=== PATIENT | male | born 1950 | race Caucasian/White ===

== ENCOUNTER → 2017-07-23 | Outpatient (CLI) | payer MEDICARE, OTHER ==
--- NOTE | 2017-07-23 15:00 | CT ---
EXAMINATION TYPE: CT brain wo con DATE OF EXAM: 07/23/2017 COMPARISON: NONE HISTORY: Speech disturbances. CT DLP: [address] of the brain was performed. The ventricles, basal cisterns and sulci overlying the cerebral convexities demonstrate mild enlargem ent. There is no evidence for intracranial hemorrhage or sulcal effacement. There is decreased attenuation about the periventricular white matter and deep white matter of both c erebral hemispheres, compatible with chronic small vessel ischemia. Differential diagnosis does inclu de demyelination. No mass effects are seen.No midline shift. Osseous calvarium is intact. If symptoms persist consider MRI. IMPRESSION: 1. Age related atrophic and chronic small vessel ischemic change without acute intracranial process s een at this time.
--- NOTE | 2017-07-23 16:23 | US ---
EXAMINATION TYPE: US carotid duplex BILAT DATE OF EXAM: 07/23/2017 COMPARISON: NONE CLINICAL HISTORY: R47.02 Dysphasia, R47.9 speech disturbances. Vision disturbance, slurred speech EXAM MEASUREMENTS: RIGHT: Peak Systolic Velocity (PSV) cm/sec ----- Right CCA: 98.0 ----- Right ICA: 216.4 ----- Right ECA: 111.3 ICA/CCA ratio: 2.2 RIGHT: End Diastole cm/sec ----- Right CCA: 19.7 ----- Right ICA: 73.8 ----- Right ECA: 22.4 LEFT: Peak Systolic Velocity (PSV) cm/sec ----- Left CCA: 144.7 ----- Left ICA: 167.7 ----- Left ECA: 136.3 ICA/CCA ratio: 1.2 LEFT: End Diastole cm/sec ----- Left CCA: 33.7 ----- Left ICA: 62.7 ----- Left ECA: 23.1 VERTEBRALS (direction of flow): Right Vertebral: Antegrade Left Vertebral: Antegrade Rhythm: Normal Bilateral intimal thickening, large amount of plaque bilateral CCA, bulb and proximal ICA, elevated v elocities: right prox mid and distal ICA, left distal CCA, left prox mid and distal ICA and left mid ECA, right ICA/CCA ratio 2.2 : 50 to 69% stenosis. IMPRESSION: 1. Bilateral atherosclerotic changes. Findings are suggestive of a 50-69% stenosis within the proxima l right ICA. Criteria for Assigning % of Stenosis / Diameter reduction (Estimation based on the indirect measurements of the internal carotid artery velocities (ICA PSV). 1. Normal (no stenosis)=ICA PSV < 125 cm/s: ratio < 2.0: ICA EDV<40 cm/s. 2. Less than 50% stenosis=ICA PSV < 125 cm/s: ratio < 2.0: ICA EDV<40 cm/s. 3. 50 to 69% stenosis=ICA PSV of 125 to 230 cm/s: ration 2.0 ? 4.0: ICA EDV 40-100 cm/s. 4. Greater than 70% stenosis to near occlusion= ICA PSV > 230 cm/s: ratio > 4.0: ICA EDV > 100 cm/s. 5. Near occlusion= ICA PSV velocities may be low or undetectable: variable ratio and ICA EDV. 6. Total occlusion=unable to detect flow.
--- NOTE | 2017-07-24 15:41 | ECHOF ---
Referral Reason:R47.02 Dysphasia, R47.9 speech disturbances MEASUREMENTS -------- HEIGHT: 170.2 cm WEIGHT: 72.6 kg BP: 164/78 RVIDd: 3.0 cm (< 3.3) IVSd: 0.9 cm (0.6 - 1.1) LVIDd: 4.6 cm (3.9 - 5.3) LVPWd: 1.0 cm (0.6 - 1.1) IVSs: 1.3 cm LVIDs: 3.0 cm LVPWs: 1.4 cm LA Diam: 3.1 cm (2.7 - 3.8) LAESV Index (A-L): 23.79 ml/m Ao Diam: 3.2 cm (2.0 - 3.7) AV Cusp: 1.8 cm (1.5 - 2.6) MV EXCURSION: 14.967 mm (> 18.000) MV EF SLOPE: 89 mm/s (70 - 150) EPSS: 1.4 cm MV E Lele: 0.98 m/s MV DecT: 256 ms MV A Lele: 1.19 m/s MV E/A Ratio: 0.82 AV maxP.14 mmHg AV meanP.22 mmHg FINDINGS -------- Sinus rhythm. This was a technically adequate study. The left ventricular size is normal. Left ventricular wall thickness is normal. Overall left vent ricular systolic function is normal with, an EF between 60 - 65 %. The right ventricle is normal in size. Normal LA size by volume 22+/-6 ml/m2. The right atrium is normal in size. There is mild aortic valve sclerosis. Peak/mean gradient across the Aortic Valve is 16.14mmHg / 7.2 2mmHg. Mild mitral annular calcification present. Mild tricuspid regurgitation present. Right ventricular systolic pressure is normal at < 35 mmHg. Trace/mild (physiologic) pulmonic regurgitation. The aortic root size is normal. Normal inferior vena cava with normal inspiratory collapse consistent with estimated right atrial pre ssure of 5 mmHg. There is no pericardial effusion. CONCLUSIONS -------- 1. Sinus rhythm. 2. This was a technically adequate study. 3. The left ventricular size is normal. 4. Left ventricular wall thickness is normal. 5. Overall left ventricular systolic function is normal with, an EF between 60 - 65 %. 6. The right ventricle is normal in size. 7. Normal LA size by volume 22+/-6 ml/m2. 8. The right atrium is normal in size. 9. There is mild aortic valve sclerosis. 10. Peak/mean gradient across the Aortic Valve is 16.14mmHg / 7.22mmHg. 11. Mild mitral annular calcification present. 12. Mild tricuspid regurgitation present. 13. Right ventricular systolic pressure is normal at < 35 mmHg. 14. Trace/mild (physiologic) pulmonic regurgitation. 15. The aortic root size is normal. 16. Normal inferior vena cava with normal inspiratory collapse consistent with estimated right atrial pressure of 5 mmHg. 17. There is no pericardial effusion. PROGRAM DIRECTOR/AIR PERSONALITY: Yara Rico RDCS
== END | disposition home or self-care (01) ==
LOC: RADCTMAIN 14:26
PROVIDERS: ATTEND Family Medicine
DX: G31.1 Senile degeneration of brain, not elsewhere classified (principal); I67.82 Cerebral ischemia; I65.23 Occlusion and stenosis of bilateral carotid arteries
CPT/HCPCS: 70450; 93306; 93880

== ENCOUNTER → 2018-03-27 | Outpatient (CLI) | payer MEDICARE, OTHER ==
--- NOTE | 2018-03-27 14:05 | CTL ---
EXAMINATION TYPE: CT Low Dose Lung DATE OF EXAM ORDERED: 03/27/2018 HISTORY: Long-term tobacco use. Lung cancer screening CT DLP: [address] CTDI: 2.30 mGy Automated exposure control for dose reduction was used. SCREENING VISIT: Initial study COMPARISON: None TECHNIQUE: Low dose computed tomography scan was performed through the chest at 1 mm thick sections a nd reconstructed images in the coronal plane at [address] DIAGNOSTIC QUALITY: Satisfactory FINDINGS: LUNG NODULES: None. Incidental 8 mm calcified nodule or granuloma medially left lower lobe axial image 177. LUNGS: COPD: Severity: Moderate Fibrosis: Severity: Moderate biapical parenchymal fibrosis with apical peripheral bleb formation Lymph nodes: Some small calcified left hilar and subcarinal lymph nodes are seen. No definitive great er than 1 cm noncalcified lymph nodes are present. Prominent but subcentimeter noncalcified AP window and pericarinal lymph nodes are present. Other findings: None BILATERAL PLEURAL SPACE: Effusion: None Calcification: None Thickening: Mild biapical Pneumothorax: None HEART: Heart Size: Normal Coronary calcification: Severe three-vessel and/or stent formation. Correlate clinically. Pericardial effusion: None OTHER FINDINGS: Upper abdomen: Small hiatal hernia is present. Bony thorax: None Supraclavicular region: None Other: Mild to moderate calcification at level of aortic valve and aortic root. Mild to moderate calc ified plaque throughout the remainder aorta. IMPRESSION: Evidence of old granulomatous disease. No suspicious nodules. FOLLOW UP CT CHEST RECOMMENDATION: Annual low-dose lung screening CT. CT LUNG RAD: Lung-Rad 2S Benign Appearance or Behavior Recommendation: Severe three-vessel coronary artery calcification and/or stents. Correlate clinically . If no stents present correlate for additional cardiac risk factors is advised.
== END ==
LOC: RADCTMAIN 12:58
PROVIDERS: ATTEND Family Medicine
DX: Z12.2 Encounter for screening for malignant neoplasm of respiratory organs (principal); Z87.891 Personal history of nicotine dependence

== ENCOUNTER 2019-02-13 16:00 | Observation (INO) | payer MEDICARE, OTHER ==
[2019-02-13] MEDS ORDERED: ASPIRIN 81 MG PO STA (16:22)
--- NOTE | 2019-02-13 16:30 | ED ---
Chest Pain HPI - General Chief Complaint: Chest Pain Stated Complaint: Chest pain Time Seen by Provider: 02/13/19 16:07 Source: patient Mode of arrival: wheelchair Limitations: no limitations - History of Present Illness Initial Comments: Patient is 68-year-old male with history of carotid artery occlusions presenting to emergency Department with chief complaint of chest pain and shortness of breath. Patient states his been having on and off chest pain for the past 3 months that occur for about one hour episodes. Patient states his pain is located in the left side of the chest with occasional radiation to the left arm. Patient states the pain is not reproducible with palpation or on exertion. Patient also reports diaphoresis during episodes of chest pain. Patient reports the pain is more dull in nature. Patient denies nausea or vomiting or diarrhea. Patient also reports a headache which passed resolved. Patient also reports shortness of breath although he states this is his baseline due to his smoking status. Patient denies any dyspnea on exertion. Patient reports hypertension, smoking, hyperlipidemia and family history of cardiovascular disease. Patient reports he was evaluated by Dr. Reid for carotid artery occlusion. Patient denies one-sided weakness or paresthesias. Patient gait instability or aphasia. Patient is also reporting some abdominal pain and states that is because he had a lot of food and took a laxative earlier today. - Related Data Home Medications Medication Instructions Recorded Confirmed Aspirin EC [Ecotrin Low Dose] 81 mg PO DAILY 02/13/19 02/13/19 Buprenorphine HCl/Naloxone HCl 1 tab SL DAILY 02/13/19 02/13/19 [Zubsolv 2.9-0.71 mg Tablet Sl] Carvedilol [Coreg] 3.125 mg PO BID 02/13/19 02/13/19 Cetirizine HCl 10 mg PO DAILY 02/13/19 02/13/19 Clopidogrel [Plavix] 75 mg PO DAILY 02/13/19 02/13/19 Lisinopril 20 mg PO DAILY 02/13/19 02/13/19 cloNIDine HCL [Catapres] 0.6 mg PO HS 02/13/19 02/13/19 Allergies Allergy/AdvReac Type Severity Reaction Status Date / Time codeine AdvReac Nausea Verified 02/13/19 17:19 Review of Systems ROS Statement: Those systems with pertinent positive or pertinent negative responses have been documented in the HPI. ROS Other: All systems not noted in ROS Statement are negative. EKG Findings - EKG Comments: EKG Findings:: Normal sinus rhythm, no ST changes. Ventricular rate 76, MA interval 154, QRS duration 72, QT/QTC 34/432. Past Medical History Past Medical History: Coronary Artery Disease (CAD), GERD/Reflux, Hyperlipidemia, Hypertension History of Any Multi-Drug Resistant Organisms: None Reported Additional Past Surgical History / Comment(s): shoulder Smoking Status: Current every day smoker Past Alcohol Use History: Daily Past Drug Use History: None Reported General Exam Limitations: no limitations General appearance: alert, in no apparent distress Head exam: Present: atraumatic, normocephalic, normal inspection Eye exam: Present: normal appearance Pupils: Present: normal accommodation ENT exam: Present: normal exam, normal oropharynx, mucous membranes moist, TM's normal bilaterally, normal external ear exam Neck exam: Present: normal inspection, full ROM Respiratory exam: Present: wheezes (Bilateral wheezing) Cardiovascular Exam: Present: regular rate, normal rhythm, normal heart sounds GI/Abdominal exam: Present: soft, tenderness (Epigastric). Absent: distended Extremities exam: Present: normal inspection, full ROM Back exam: Present: normal inspection, full ROM Neurological exam: Present: alert, oriented X3, CN II-XII intact, normal gait, other (Neuro exam unremarkable.). Absent: altered, abnormal gait, motor sensory deficit Psychiatric exam: Present: normal affect, normal mood Skin exam: Present: warm, dry, intact, normal color Course Vital Signs 02/13/19 02/13/19 16:02 16:35 Temperature 97.6 F Pulse Rate 81 Pulse Rate [ 81 Clinical Informatics Strategist ] Respiratory 18 20 Rate Blood Pressure 187/91 O2 Sat by Pulse 98 Oximetry Chest Pain MDM - Differential Diagnosis ACS, Pleurisy-Other - MDM Patient is 68-year-old male with history of carotid artery occlusions presenting to emergency department with a chief complaint of chest pain. Patient is presenting with typical chest pain with episodes of diaphoresis. Some shortness of breath although that is his baseline due to his smoking habits. Exam is unremarkable aside from bilateral wheezing which she states again that is due to his smoking. EKG shows normal sinus rhythm with no ST changes. Chest x-ray showing scarring of the lung but no acute changes. Patient given aspirin arrival. Patient has a heart score of 5. CBC and urine PRR unremarkable. Coags unremarkable. Initial troponin is negative. Patient will be admitted for observation and serial troponins. Case discussed with Dr. Pisano. Except physician is Dr. Issa. Cardiology consult. - Wells Criteria Clinical Symptoms of DVT: (0) No No Alternative Diagnosis: (0) No Immobilization of Surgery in Previous 4 Weeks: (0) No Previous DVT/PE: (0) No Hemoptysis: (0) No Malignancy: (0) No Disposition Clinical Impression: Chest pain Disposition: ADMITTED IP TO THIS HOSP Condition: Stable Instructions (If sedation given, give patient instructions): Chest Pain (ED) Additional Instructions: Patient will be admitted Is patient prescribed a controlled substance at d/c from ED?: No Referrals: Kit Issa MD [Primary Care Provider] - 1-2 days Time of Disposition: 18:42
[2019-02-13 17:01] LABS: Basophils % (A) 0 %; Eosinophils # (A) 0.4 k/uL (0-0.7); Eosinophils % (A) 5 %; HCT 36.9 % (39.0-53.0); Lymphocytes # (A) 1.8 k/uL (1.0-4.8); Lymphocytes % (A) 21 %; MCH 32.5 pg (25.0-35.0); MCHC 35.2 g/dL (31.0-37.0); MCV 92.3 fL (80.0-100.0); Mean Platelet Volume 5.8; Monocytes # (A) 0.4 k/uL (0-1.0); Monocytes % (A) 5 %; Neutrophils # (A) 5.7 k/uL (1.3-7.7); Neutrophils % (A) 66 %; Platelet Count 503 k/uL (150-450); RDW 12.1 % (11.5-15.5); WBC 8.6 k/uL (3.8-10.6)
[2019-02-13 17:05] LABS: ALT 23 U/L (21-72); AST 41 U/L (17-59); African American GFR (CKD) >90 (>60 ml/min/1.73 sqM); Albumin 4.7 g/dL (3.5-5.0); Alkaline Phosphatase 109 U/L (38-126); Anion Gap 10 mmol/L; Blood Urea Nitrogen 13 mg/dL (9-20); Calcium 9.7 mg/dL (8.4-10.2); Carbon Dioxide 23 mmol/L (22-30); Chloride 101 mmol/L (98-107); Glucose 113 mg/dL (74-99); INR 0.9 (<1.2); Magnesium 2.3 mg/dL (1.6-2.3); Non-African American GFR(CKD) 89 (>60 ml/min/1.73 sqM); Partial Thromboplastin Time 25.5 sec (22.0-30.0); Potassium 5.8 mmol/L (3.5-5.1); Prothrombin Time 10.1 sec (9.0-12.0); Sodium 134 mmol/L (137-145); Total Bilirubin 0.7 mg/dL (0.2-1.3); Total Protein 8.7 g/dL (6.3-8.2)
--- NOTE | 2019-02-13 17:08 | XR ---
EXAMINATION TYPE: XR chest 2V DATE OF EXAM: 02/13/2019 COMPARISON: NONE HISTORY: Chest pain TECHNIQUE: Frontal and lateral views of the chest are obtained. FINDINGS: Heart is normal. There is some mild linear density in the lower lung penny. There is no p leural effusion. There are no hilar masses. There is 25% compression fracture of T10 vertebra. Fractu res probably old. IMPRESSION: Minimal scarring or subsegmental atelectasis in the lower lung penny. Mild pleural scar ring at the right lung apex. T10 compression fracture has progressed compared to old CT scan of 2018.
[2019-02-13] MEDS ORDERED: NITROGLYCERIN SL TABS 0.4 MG TAB SUBLINGUAL PRN (18:43)
[2019-02-13 19:15] VITALS: RESP 18
[2019-02-13] MEDS ORDERED: SODIUM POLYSTYRENE SULFONATE 15 GM/60 ML BOTTLE PO STA (20:30)
[2019-02-13] MEDS: CARVEDILOL 3.125 MG TAB PO SCH (20:55)
[2019-02-13] MEDS: NICOTINE 21MG/24HR PATCH TRANSDERM SCH (20:57)
[2019-02-13] MEDS ORDERED: cloNIDine HCL 0.2 MG TAB PO SCH (21:00)
[2019-02-14 06:17] LABS: Albumin 4.1 g/dL (3.5-5.0); Calcium 9.6 mg/dL (8.4-10.2); Potassium 5.1 mmol/L (3.5-5.1); Total Bilirubin 0.5 mg/dL (0.2-1.3); Total Protein 7.9 g/dL (6.3-8.2)
[2019-02-14] MEDS ORDERED: CLOPIDOGREL 75 MG TAB PO SCH (09:00)
[2019-02-14] MEDS ORDERED: ASPIRIN 81 MG PO SCH (09:00)
[2019-02-14] MEDS ORDERED: ASPIRIN 325 MG TAB PO SCH (09:00)
[2019-02-14] MEDS ORDERED: LORATADINE 10 MG TAB PO SCH (09:00)
[2019-02-14] MEDS ORDERED: LISINOPRIL 20 MG TAB PO SCH (09:00)
[2019-02-14] MEDS: NICOTINE 21MG/24HR PATCH TRANSDERM SCH (10:07)
[2019-02-14] MEDS: CARVEDILOL 3.125 MG TAB PO SCH (10:07)
--- NOTE | 2019-02-14 11:24 | P.CRDCN ---
History of Present Illness Consult date: 02/14/19 Chief complaint: Chest pain History of present illness: This is a pleasant 68-year-old gentleman with a past medical history significant for hypertension as well as carotid disease presented to the hospital complaining of chest discomfort. The patient has been experiencing discomfort for the last 3 months. He described it as a sharp kind of discomfort, in the mid of the chest, without any radiation and without any associated symptoms. Clearly the patient stated that the discomfort is not exertional related. He stated that is intermittent and sometimes he has it even if he is sitting doing nothing. He has been walking around earlier today here in the hallway and he has been asymptomatic. He is as a matter of fact has been chest pain-free since he was admitted to the hospital. Recently a stress test was recommended by Dr. Issa but for some reason the patient in did not having the test. The patient does follow-up with Dr. Min in the office on regular basis. The EKG showed sinus rhythm without any ischemic ST or T-wave abnormalities. The cardiac enzymes were checked and came in to be unremarkable. The chest x-ray did not show any acute abnormalities. The patient is not aware of any prior history of coronary artery disease or congestive heart failure or cardiac arrhythmia. Past Medical History Past Medical History: Coronary Artery Disease (CAD), Hyperlipidemia, Hyperte nsion Additional Past Medical History / Comment(s): hep c History of Any Multi-Drug Resistant Organisms: None Reported Past Surgical History: Orthopedic Surgery, Tonsillectomy Additional Past Surgical History / Comment(s): right shoulder Past Anesthesia/Blood Transfusion Reactions: No Reported Reaction Past Psychological History: No Psychological Hx Reported Smoking Status: Current every day smoker Past Alcohol Use History: Daily Additional Past Alcohol Use History / Comment(s): drinks 8-15 cans of beer per day Past Drug Use History: None Reported - Past Family History Mother Family Medical History: Myocardial Infarction ([place]) Father Additional Family Medical History / Comment(s): polio, enlarged heart Brother(s) Family Medical History: CVA/TIA Daughter(s) History Unknown: Yes Son(s) Family Medical History: Hyperlipidemia Medications and Allergies Home Medications Medication Instructions Recorded Confirmed Type Aspirin EC [Ecotrin Low Dose] 81 mg PO DAILY 02/13/19 02/13/19 History Buprenorphine HCl/Naloxone HCl 1 tab SL DAILY 02/13/19 02/13/19 History [Zubsolv 2.9-0.71 mg Tablet Sl] Carvedilol [Coreg] 3.125 mg PO BID 02/13/19 02/13/19 History Cetirizine HCl 10 mg PO DAILY 02/13/19 02/13/19 History Clopidogrel [Plavix] 75 mg PO DAILY 02/13/19 02/13/19 History Lisinopril 20 mg PO DAILY 02/13/19 02/13/19 History cloNIDine HCL [Catapres] 0.6 mg PO HS 02/13/19 02/13/19 History Allergies Allergy/AdvReac Type Severity Reaction Status Date / Time codeine AdvReac Nausea Verified 02/13/19 19:42 Physical Exam Vitals: Vital Signs Temp Pulse Pulse Pulse Resp BP BP 02/14/19 07:57 98.1 F 73 18 108/68 02/14/19 04:00 97.6 F 75 18 107/68 02/13/19 23:25 98.2 F 81 18 132/76 02/13/19 19:25 98.7 F 69 18 162/92 02/13/19 19:17 98.0 F 02/13/19 19:13 97.8 F 67 18 120/63 02/13/19 17:00 68 18 147/89 02/13/19 16:35 81 20 02/13/19 16:02 97.6 F 81 18 187/91 Pulse Ox 02/14/19 07:57 97 02/14/19 04:00 95 02/13/19 23:25 99 02/13/19 19:25 95 02/13/19 19:17 02/13/19 19:13 98 02/13/19 17:00 98 02/13/19 16:35 02/13/19 16:02 98 Intake and Output 02/13/19 02/14/19 02/14/19 22:59 06:59 14:59 Other: Voiding Method Toilet Toilet Toilet # Voids 2 1 Weight 81.647 kg - Constitutional General appearance: no acute distress - Respiratory Respiratory: bilateral: CTA - Cardiovascular Rhythm: regular Heart sounds: normal: S1, S2 Abnormal Heart Sounds: systolic murmur Results 02/13/19 16:42 02/14/19 05:41 Cardiac Enzymes 02/13/19 02/13/19 02/13/19 Range/Units 16:42 16:42 22:24 AST 41 (17-59) U/L Troponin I <0.012 <0.012 (0.000-0.034) ng/mL 02/14/19 02/14/19 Range/Units 05:41 05:41 AST 31 (17-59) U/L Troponin I <0.012 (0.000-0.034) ng/mL Coagulation 02/13/19 Range/Units 16:42 PT 10.1 (9.0-12.0) sec APTT 25.5 (22.0-30.0) sec Lipids 02/14/19 Range/Units 05:41 Triglycerides 196 H (<150) mg/dL Cholesterol 249 H (<200) mg/dL HDL Cholesterol 35 L (40-60) mg/dL CBC 02/13/19 Range/Units 16:42 WBC 8.6 (3.8-10.6) k/uL RBC 4.00 L (4.30-5.90) m/uL Hgb 13.0 (13.0-17.5) gm/dL Hct 36.9 L (39.0-53.0) % Plt Count 503 H (150-450) k/uL Comprehensive Metabolic Panel 02/13/19 02/14/19 Range/Units 16:42 05:41 Sodium 134 L 138 (137-145) mmol/L Potassium 5.8 H 5.1 (3.5-5.1) mmol/L Chloride 101 103 (98-107) mmol/L Carbon Dioxide 23 27 (22-30) mmol/L BUN 13 16 (9-20) mg/dL Creatinine 0.90 1.02 (0.66-1.25) mg/dL Glucose 113 H 112 H (74-99) mg/dL Calcium 9.7 9.6 (8.4-10.2) mg/dL AST 41 31 (17-59) U/L ALT 23 28 (21-72) U/L Alkaline Phosphatase 109 99 (38-126) U/L Total Protein 8.7 H 7.9 (6.3-8.2) g/dL Albumin 4.7 4.1 (3.5-5.0) g/dL Current Medications Generic Name Dose Route Start Last Admin Trade Name Freq PRN Reason Stop Dose Admin Aspirin 81 mg 02/14/19 09:00 02/14/19 10:07 Aspirin PO 81 mg DAILY CYNTHIA Administration Carvedilol 3.125 mg 02/13/19 21:00 02/14/19 10:07 Coreg PO 3.125 mg BID-W/MEALS CYNTHIA Administration Clonidine 0.6 mg 02/13/19 21:00 02/13/19 20:55 Catapres PO 0.6 mg HS CYNTHIA Administration Clopidogrel Bisulfate 75 mg 02/14/19 09:00 02/14/19 10:07 Plavix PO 75 mg DAILY CYNTHIA Administration Lisinopril 20 mg 02/14/19 09:00 02/14/19 10:07 Zestril PO 20 mg DAILY CYNTHIA Administration Loratadine 10 mg 02/14/19 09:00 02/14/19 10:07 Claritin PO 10 mg DAILY CYNTHIA Administration Nicotine 1 patch 02/13/19 21:00 02/14/19 10:07 Habitrol 21mg/24hr Patch TRANSDERM 1 patch DAILY CYNTHIA Administration Nitroglycerin 0.4 mg 02/13/19 18:43 Nitrostat SUBLINGUAL Q5M PRN Chest Pain Intake and Output 02/13/19 02/14/19 02/14/19 22:59 06:59 14:59 Other: Voiding Method Toilet Toilet Toilet # Voids 2 1 Weight 81.647 kg 02/13/19 16:42 02/14/19 05:41 Assessment and Plan Assessment: Assessment #1 atypical chest discomfort #2 carotid disease #3 hypertension as well as dyslipidemia Plan #1 acute coronary event was ruled out #2 severe CAD to be ruled out. #3 the patient need to have a stress test. He would like to be discharged home and have it done as an outpatient. Having said that I am going to auscultation to get up and around and if he is asymptomatic he possibly can be discharged home and follow-up with Dr. Min and Dr. Issa as an outpatient
[2019-02-14 11:41] VITALS: BP 129/75; PULSE 78; TEMP 97.5
--- NOTE | 2019-02-14 12:17 | P.HPIM ---
History of Present Illness H&P Date: 02/14/19 Chief Complaint: chest pain Thisis a 68 y/o wm well known to me from the practice. He has a history of opioid dependence and is on Suboxone. He has hypertension and hyperlipidemia, but it did not wish to take medications for it. He reports chest pain and shortness of breath intermittently for the past 3 months. He had downplayed these in the office. It became more significant occasional radiation of the left arm yesterday. They brought him to the emergency room for further evaluation. He also has a history of carotid artery stenosis. At this time he denies any chest pains, pressures, shortness breath, nausea or vomiting. He is having some constipation. Troponin 3 been negative. Other laboratories were significantly normal with the exception of cholesterol 249 and LDL of 175. L HDLs 35. Review of Systems All systems: negative Past Medical History Past Medical History: Hyperlipidemia, Hypertension, Liver Disease (Hepatitis C), Vascular Disorder (Carotid artery stenosis) History of Any Multi-Drug Resistant Organisms: None Reported Past Surgical History: Orthopedic Surgery, Tonsillectomy Additional Past Surgical History / Comment(s): right shoulder Past Anesthesia/Blood Transfusion Reactions: No Reported Reaction Past Psychological History: No Psychological Hx Reported Smoking Status: Current every day smoker Past Alcohol Use History: Daily Additional Past Alcohol Use History / Comment(s): drinks 8-15 cans of beer per day Past Drug Use History: None Reported Additional History: History of opioid dependence currently on Suboxone for long- term treatment and relapse prevention.. - Past Family History Mother Family Medical History: Myocardial Infarction ([place]) Father Additional Family Medical History / Comment(s): polio, enlarged heart Brother(s) Family Medical History: CVA/TIA Daughter(s) History Unknown: Yes Son(s) Family Medical History: Hyperlipidemia Medications and Allergies Home Medications Medication Instructions Recorded Confirmed Type Aspirin EC [Ecotrin Low Dose] 81 mg PO DAILY 02/13/19 02/13/19 History Buprenorphine HCl/Naloxone HCl 1 tab SL DAILY 02/13/19 02/13/19 History [Zubsolv 2.9-0.71 mg Tablet Sl] Carvedilol [Coreg] 3.125 mg PO BID 02/13/19 02/13/19 History Cetirizine HCl 10 mg PO DAILY 02/13/19 02/13/19 History Clopidogrel [Plavix] 75 mg PO DAILY 02/13/19 02/13/19 History Lisinopril 20 mg PO DAILY 02/13/19 02/13/19 History cloNIDine HCL [Catapres] 0.6 mg PO HS 02/13/19 02/13/19 History Allergies Allergy/AdvReac Type Severity Reaction Status Date / Time codeine AdvReac Nausea Verified 02/13/19 19:42 Physical Exam Vitals: Vital Signs Temp Pulse Pulse Pulse Resp BP BP 02/14/19 11:40 97.5 F L 78 129/75 02/14/19 07:57 98.1 F 73 18 108/68 02/14/19 04:00 97.6 F 75 18 107/68 02/13/19 23:25 98.2 F 81 18 132/76 02/13/19 19:25 98.7 F 69 18 162/92 02/13/19 19:17 98.0 F 02/13/19 19:13 97.8 F 67 18 120/63 02/13/19 17:00 68 18 147/89 02/13/19 16:35 81 20 02/13/19 16:02 97.6 F 81 18 187/91 Pulse Ox 02/14/19 11:40 97 02/14/19 07:57 97 02/14/19 04:00 95 02/13/19 23:25 99 02/13/19 19:25 95 02/13/19 19:17 02/13/19 19:13 98 02/13/19 17:00 98 02/13/19 16:35 02/13/19 16:02 98 Intake and Output 02/13/19 02/14/19 02/14/19 22:59 06:59 14:59 Other: Voiding Method Toilet Toilet Toilet # Voids 2 1 Weight 81.647 kg GENERAL: Well-appearing, well-nourished and in no acute distress at the time of exam.. HEAD: Atraumatic, normocephalic. EYES: Pupils equal round and reactive to light, extraocular movements intact, sclera anicteric, conjunctiva are normal. ENT:nares patent, oropharynx clear without exudates. Moist mucous membranes. NECK: Normal range of motion, supple without lymphadenopathy or JVD, no thyromegaly LUNGS: Breath sounds coarse to auscultation bilaterally and equal. No wheezes rales or rhonchi. HEART: Regular rate and rhythm without murmurs, rubs or gallops.S1S2 Normal ABDOMEN: Soft, nontender, normoactive bowel sounds. No guarding, no rebound. No masses appreciated. EXTREMITIES: Normal range of motion, no pitting or edema. No clubbing or cyanosis. NEUROLOGICAL: Cranial nerves II through XII grossly intact. Normal speech, normal gait. PSYCH: Normal mood, normal affect. SKIN: Warm, Dry, normal turgor, no rashes or lesions noted. Results CBC & Chem 7: 02/13/19 16:42 02/14/19 05:41 Labs: Abnormal Lab Results - Last 24 Hours (Table) 02/13/19 02/13/19 02/14/19 Range/Units 16:42 16:42 05:41 RBC 4.00 L (4.30-5.90) m/uL Hct 36.9 L (39.0-53.0) % Plt Count 503 H (150-450) k/uL Sodium 134 L (137-145) mmol/L Potassium 5.8 H (3.5-5.1) mmol/L Glucose 113 H 112 H (74-99) mg/dL Total Protein 8.7 H (6.3-8.2) g/dL Triglycerides 196 H (<150) mg/dL Cholesterol 249 H (<200) mg/dL LDL Cholesterol, Calc 175 H (0-99) mg/dL HDL Cholesterol 35 L (40-60) mg/dL Chest x-ray: report reviewed Thrombosis Risk Factor Assmnt - DVT/VTE Prophylaxis DVT/VTE Prophylaxis: Pharmacologic Prophylaxis ordered - Choose All That Apply Any of the Below Risk Factors Present?: Yes Each Factor Represents 1 point: Obesity (BMI >25) Other Risk Factors: Yes Each Risk Factor Represents 2 Points: Age 61-74 years Other congenital or acquired thrombophilia - If yes, enter type in comment: No Thrombosis Risk Factor Assessment Total Risk Factor Score: 3 Thrombosis Risk Factor Assessment Level: Moderate Risk Assessment and Plan (1) Essential (primary) hypertension Current Visit: Yes Status: Acute Code(s): I10 - ESSENTIAL (PRIMARY) HYPERTENSION SNOMED Code(s): 38895969 (2) Mixed hyperlipidemia Current Visit: Yes Status: Acute Code(s): E78.2 - MIXED HYPERLIPIDEMIA SNOMED Code(s): 926502555 (3) Carotid artery disease Current Visit: Yes Status: Acute Code(s): I73.9 - PERIPHERAL VASCULAR DISEASE, UNSPECIFIED SNOMED Code(s): 301236119 (4) History of opioid abuse Current Visit: Yes Status: Acute Code(s): F11.11 - OPIOID ABUSE, IN REMISSION SNOMED Code(s): 863019282 (5) Alcohol abuse Current Visit: Yes Status: Acute Code(s): F10.10 - ALCOHOL ABUSE, UNCOMPLICATED SNOMED Code(s): 16723524 (6) Tobacco abuse Current Visit: Yes Status: Acute Code(s): Z72.0 - TOBACCO USE SNOMED C ode(s): 378880322 (7) Chest pain Current Visit: Yes Status: Acute Code(s): R07.9 - CHEST PAIN, UNSPECIFIED SNOMED Code(s): 51999207 Plan: I'll restart his home medications. Plan on the heparin subcutaneous for anticoagulation. Cardiology consultation. Home Suboxone medication for his opioid abuse history. We'll discuss alcohol use and smoking. Add atorvastatin he'll be reevaluated next 24 hours or followed up outpatient by me and cardiology's recommendations.
--- NOTE | 2019-02-14 12:21 | P.DS ---
Providers Date of admission: 02/13/19 18:36 Expected date of discharge: 02/14/19 Attending physician: Kit Issa Consults: 02/13/19 18:43 Consult Physician Urgent Consulting Provider: Linsey Antoine Consult Reason/Comments: Chest pain, shortness of breath Do you want consulting provider notified?: Yes Primary care physician: Kit Issa - Discharge Diagnosis(es) (1) Essential (primary) hypertension Current Visit: Yes Status: Acute (2) Mixed hyperlipidemia Current Visit: Yes Status: Acute (3) Carotid artery disease Current Visit: Yes Status: Acute (4) History of opioid abuse Current Visit: Yes Status: Acute (5) Alcohol abuse Current Visit: Yes Status: Acute (6) Tobacco abuse Current Visit: Yes Status: Acute (7) Chest pain Current Visit: Yes Status: Acute Hospital Course: This is a 68 y/o wm well known to me from the practice. He has a history of opioid dependence and is on Suboxone. He has hypertension and hyperlipidemia, but it did not wish to take medications for it. He reports chest pain and shortness of breath intermittently for the past 3 months. He had downplayed these in the office. It became more significant occasional radiation of the left arm yesterday. They brought him to the emergency room for further evaluation. He also has a history of carotid artery stenosis. At this time he denies any chest pains, pressures, shortness breath, nausea or vomiting. He is having some constipation. Troponin 3 been negative. Other laboratories were significantly normal with the exception of cholesterol 249 and LDL of 175. L HDLs 35. Patient was cleared by cardiology. I will send a prescription for atorvastatin at this time. He'll follow-up for reevaluation in the office and for alcohol and tobacco abuse counseling along with his ongoing opioid dependence treatment. He'll follow-up with cardiology for further workup regarding his chest pain. Patient Condition at Discharge: Stable Plan - Discharge Summary New Discharge Prescriptions: New Nicotine 21Mg/24Hr Patch [Habitrol] 1 patch TRANSDERM DAILY patch Atorvastatin [Lipitor] 40 mg PO DAILY #90 tablet Continue Lisinopril 20 mg PO DAILY Clopidogrel [Plavix] 75 mg PO DAILY Cetirizine HCl 10 mg PO DAILY Carvedilol [Coreg] 3.125 mg PO BID Buprenorphine HCl/Naloxone HCl [Zubsolv 2.9-0.71 mg Tablet Sl] 1 tab SL DAILY Aspirin EC [Ecotrin Low Dose] 81 mg PO DAILY Changed cloNIDine HCL [Catapres] 0.2 mg PO HS #0 Discharge Medication List Aspirin EC [Ecotrin Low Dose] 81 mg PO DAILY 02/13/19 [History] Buprenorphine HCl/Naloxone HCl [Zubsolv 2.9-0.71 mg Tablet Sl] 1 tab SL DAILY 02/13/19 [History] Carvedilol [Coreg] 3.125 mg PO BID 02/13/19 [History] Cetirizine HCl 10 mg PO DAILY 02/13/19 [History] Clopidogrel [Plavix] 75 mg PO DAILY 02/13/19 [History] Lisinopril 20 mg PO DAILY 02/13/19 [History] Atorvastatin [Lipitor] 40 mg PO DAILY #90 tablet 02/14/19 [Rx] Nicotine 21Mg/24Hr Patch [Habitrol] 1 patch TRANSDERM DAILY patch 02/14/19 [Rx] cloNIDine HCL [Catapres] 0.2 mg PO HS #0 02/14/19 [Rx] Follow up Appointment(s)/Referral(s): Aryan Min MD [STAFF PHYSICIAN] - 02/20/19 2:45 pm (patient is to follow up with Dr. ROSALEE Min.) Kit Issa MD [Primary Care Provider] - 1-2 days Patient Instructions/Handouts: Chest Pain (ED) Activity/Diet/Wound Care/Special Instructions: I will once again discuss tobaccoism and alcohol use with him on an outpatient basis. Discharge Disposition: HOME SELF-CARE
== END 2019-02-14 12:49 | disposition home or self-care (01) ==
LOC: EC 16:00 → 1SOBS 18:36
PROVIDERS: ADMIT Family Medicine; ATTEND Family Medicine
DX: R07.89 Other chest pain (principal); R06.02 Shortness of breath; R61 Generalized hyperhidrosis; R51 Headache; R10.9 Unspecified abdominal pain; F17.200 Nicotine dependence, unspecified, uncomplicated; I10 Essential (primary) hypertension; I65.29 Occlusion and stenosis of unspecified carotid artery; I25.10 Atherosclerotic heart disease of native coronary artery without angina pectoris; K21.9 Gastro-esophageal reflux disease without esophagitis; F11.20 Opioid dependence, uncomplicated; K59.00 Constipation, unspecified; E78.2 Mixed hyperlipidemia; F10.10 Alcohol abuse, uncomplicated; E66.9 Obesity, unspecified; Z68.27 Body mass index [BMI] 27.0-27.9, adult; T46.5X6A Underdosing of other antihypertensive drugs, initial encounter; T46.6X6A Underdosing of antihyperlipidemic and antiarteriosclerotic drugs, initial encounter; Z79.82 Long term (current) use of aspirin; Z79.899 Other long term (current) drug therapy; Z79.02 Long term (current) use of antithrombotics/antiplatelets; Z86.19 Personal history of other infectious and parasitic diseases; Z88.5 Allergy status to narcotic agent; Z82.49 Family history of ischemic heart disease and other diseases of the circulatory system; Z82.3 Family history of stroke; Z83.1 Family history of other infectious and parasitic diseases
CPT/HCPCS: 93005 ×2; 99285; 36415; 80061; 80053 ×2; 83735; 84484 ×2; 85025; 85610; 85730; 71046; G0378 ×2; S4990 ×2

== ENCOUNTER → 2019-03-23 | Outpatient (CLI) | payer MEDICARE, OTHER ==
[~2019-03-23] MED LIST: REGADENOSON 0.4 MG/5 ML SYRINGE IV ONE
--- NOTE | 2019-03-23 13:17 | NM ---
EXAMINATION TYPE: NM stress lexiscan cardiolite DATE OF EXAM: 03/23/2019 COMPARISON: NONE HISTORY: Hypertension TECHNIQUE: After the intravenous administration of 9.71 mCi Tc 99m Sestamibi - Cardiolite resting SP ECT images acquired 45 minutes post injection. The patient received 0.4mg Lexiscan, 26.6 mCi Tc 99m Sestamibi - Stress images obtained [address] injection FINDINGS: Review of stress and rest SPECT images demonstrates reduced uptake involving the inferior apical port ions of the myocardium on both stress and rest images. Small area of stress-induced reversibility not excluded.. Gated analysis shows normal wall motion with an estimated left ventricular ejection frac tion of 54 %. IMPRESSION: 1. There is a fixed area of uptake involving the inferior apical portion of the myocardium. However, small area of stress-induced adjacent area of reversibility is not excluded should be correlated clin ically.
--- NOTE | 2019-03-23 14:45 | EST ---
EXERCISE STRESS AGE: 69 SEX: M HT: 68" WT: 185 PROTOCOL: Lexiscan Cardiolite Stress Test HEART RATE REST: 60 BLOOD PRESSURE REST: 136/72 MAXIMUM HEART RATE ACHIEVED: 82 MAXIMUM BLOOD PRESSURE: 130/74 85% MPHR: 130 100% MPHR: 153 INDICATIONS: Hypertension. CLINICAL INFORMATION: A Lexiscan nuclear study was performed. Peak heart rate of 82 was achieved. Maximum blood pressure of 130/74 mmHg was noted. Resting EKG shows normal sinus rhythm with normal SD interval and QRS duration and normal ST-T waves. No ST-segment depression suggestive of ischemia was noted. The results of the nuclear study will follow. MMODL / IJN: [id number] /
== END | disposition home or self-care (01) ==
LOC: RADNMMAIN 08:25
PROVIDERS: ATTEND Family Medicine
DX: I10 Essential (primary) hypertension (principal); R07.89 Other chest pain
CPT/HCPCS: 93017; 78452; A9500; J2785

== ENCOUNTER → 2019-07-28 | Outpatient (CLI) | payer MEDICARE, OTHER | END | disposition home or self-care (01) | LOC: LABWHC1 10:59 | PROVIDERS: ATTEND Internal Medicine Interventional Cardiology | DX: U07.1 COVID-19 (principal) | CPT/HCPCS: 87635 ==

== ENCOUNTER 2019-07-30 08:49 | Day surgery (SDC) | payer MEDICARE, OTHER ==
[2019-07-28 16:11] VITALS: BMI 28.1
[~2019-07-30 08:49] MED LIST changes: +ALPRAZolam 0.25 MG TAB PO PRN; +ALPRAZolam 0.5 MG TAB PO PRN; +ASPIRIN 325 MG TAB PO STA; +ATORVASTATIN 80 MG TAB PO STA; +NITROGLYCERIN SL TABS 0.4 MG TAB SUBLINGUAL PRN; -REGADENOSON 0.4 MG/5 ML SYRINGE IV ONE; +SODIUM CHLORIDE 0.9% 1,000 ML in EMPTY BAG 1 BAG IV ONE
[2019-07-30 09:33] LABS: Basophils % (A) 0 %; Eosinophils # (A) 0.7 k/uL (0-0.7); Eosinophils % (A) 8 %; HCT 38.9 % (39.0-53.0); HGB 12.8 gm/dL (13.0-17.5); Lymphocytes % (A) 24 %; MCH 32.1 pg (25.0-35.0); MCHC 32.8 g/dL (31.0-37.0); MCV 97.8 fL (80.0-100.0); Mean Platelet Volume 7.4; Monocytes # (A) 0.5 k/uL (0-1.0); Monocytes % (A) 5 %; Neutrophils # (A) 4.9 k/uL (1.3-7.7); Neutrophils % (A) 58 %; Platelet Count 379 k/uL (150-450); RBC 3.98 m/uL (4.30-5.90); RDW 12.6 % (11.5-15.5); WBC 8.3 k/uL (3.8-10.6)
[2019-07-30 09:43] LABS: African American GFR (CKD) >90 (>60 ml/min/1.73 sqM); Anion Gap 10 mmol/L; Blood Urea Nitrogen 11 mg/dL (9-20); Calcium 9.8 mg/dL (8.4-10.2); Carbon Dioxide 25 mmol/L (22-30); Chloride 101 mmol/L (98-107); Glucose 118 mg/dL (74-99); Non-African American GFR(CKD) 90 (>60 ml/min/1.73 sqM); Potassium 5.1 mmol/L (3.5-5.1); Sodium 136 mmol/L (137-145)
[2019-07-30] MEDS ORDERED: SODIUM CHLORIDE 0.9% 1,000 ML IV ONE ×2 (10:08→11:05)
[2019-07-30] MEDS ORDERED: HEPARIN SODIUM 1,000 UN/ML (10ML VL) ONE (10:19)
[2019-07-30] MEDS ORDERED: VERAPAMIL 2.5 MG/ML 2 ML AMP ONE (10:19)
[2019-07-30] MEDS ORDERED: LIDOCAINE 1% INJ 10MG/ML (20 ML MDV) ONE (10:19)
[2019-07-30] MEDS ORDERED: MIDAZOLAM 2 MG/2 ML VIAL IV ONE (10:29)
[2019-07-30] MEDS ORDERED: LIDOCAINE 1% INJ 10MG/ML (20 ML MDV) SQ ONE (10:32)
[2019-07-30] MEDS ORDERED: VERAPAMIL SYRINGE (5 MG/10 ML) INTRAARTER ONE (10:34)
[2019-07-30] MEDS ORDERED: HEPARIN SODIUM 1,000 UN/ML (10ML VL) IV ONE (10:35)
[2019-07-30] MEDS: NITROGLYCERIN 1000MCG/10ML SYRINGE INTRACORON ONE ×2 (10:39→11:11)
[2019-07-30] MEDS ORDERED: BIVALIRUDIN BOLUS 250 MG/50 ML IV ONE (10:50)
[2019-07-30] MEDS ORDERED: BIVALIRUDIN 250 MG in SODIUM CHLORIDE 0.9% 50 ML IV ONE (10:52)
[2019-07-30] MEDS ORDERED: CLOPIDOGREL 75 MG TAB ONE (10:54)
[2019-07-30] MEDS ORDERED: IOPAMIDOL-370 100ML BTL INJ ONE ×2 (11:00→11:11)
[2019-07-30] MEDS ORDERED: CLOPIDOGREL 75 MG TAB PO ONE (11:04)
[2019-07-30] MEDS ORDERED: RX INFO: IV CONTRAST WAS GIVEN 1 EACH MISC MISCELLANE PRN (11:19)
[2019-07-30] MEDS ORDERED: MAG HYDROX/AL HYDROX/SIMETH 30 ML CUP PO PRN (11:19)
[2019-07-30] MEDS ORDERED: ZOLPIDEM 5 MG TAB PO PRN (11:19)
[2019-07-30] MEDS ORDERED: NITROGLYCERIN SL TABS 0.4 MG TAB SUBLINGUAL PRN (11:19)
[2019-07-30] MEDS ORDERED: ATROPINE SULFATE 0.1 MG/ML 10ML SYRINGE IV PRN (11:19)
--- NOTE | 2019-07-30 14:28 | CC ---
CARDIAC CATHETERIZATION REPORT DATE OF PROCEDURE: 07/30/2019 PROCEDURE PERFORMED: Left heart catheterization and coronary angiography and PTCA and stenting of proximal/ostial RCA with a drug-eluting stent. PERFORMED BY: Dr. Alejandro Min SEDATION: Moderate conscious sedation time was 47 minutes. Patient was administered Versed. Oxygen saturation, hemodynamics and EKG were monitored closely. CLINICAL INFORMATION: Mr. Dion Love is a 69-year-old gentleman with a history of hypertension, hypercholesterolemia, smoking and alcoholism. Because of a positive stress test with inferoapical ischemia, he was advised coronary angiography. I discussed with the patient rationale, risks, benefits, options and he understood all details and wished to proceed. He was brought in for the procedure electively. PROCEDURE NOTE: Under local anesthesia and strict aseptic precautions, a 6-Portuguese introducer was placed in the right radial artery. Using a JR4 and JL3.5 catheters, I performed coronary angiography and the same right catheter was used to check LV pressures. LV gram was not performed. Following this, I performed stenting of the ostium and proximal RCA with 2 drug-eluting stent with excellent results. The sheath was then taken out. A TR band applied as per protocol and saturation the fingers of the right hand was more than 93%. The patient the tolerated procedure well without complications. CARDIAC CATHETERIZATION FINDINGS: The left ventricular end-diastolic pressure was about 15 mmHg without any gradient across aortic valve. CORONARY ANGIOGRAPHY FINDINGS: RIGHT CORONARY ARTERY: Dominant vessel, moderate to heavy calcification in the proximal portion. The ostium has about a 50% lesion. Beyond the ostium is 80% long tortuous lesion, calcified, and after this the caliber improves and distally the vessel bifurcates into a larger PLV smaller PDA which has no significant disease. PLV appears to be diffusely diseased. This is a dominant RCA with an ostial more than 50% and proximal 80-90 percent eccentric lesion. Moderately calcified. LEFT MAIN CORONARY ARTERY: This is a short patent disease-free vessel that bifurcates into LAD and circumflex. LEFT ANTERIOR DESCENDING CORONARY ARTERY: Good caliber vessel, extends along the anterior wall. It gives off septal and diagonal branches, has minor irregularities. No significant disease and distally it curves over the apex to supply the inferoapical portion of the left ventricle. There is about a 30% to 35% narrowing in the mid LAD, but no other significant lesions are noted. LEFT POSTERIOR CIRCUMFLEX CORONARY ARTERY: Technically a nondominant vessel of good caliber and distribution, gives off small obtuse marginal branch proximally and distally gives off 2 obtuse marginal branches and a posterolateral branch, all of which have minor irregularities. No significant disease. LEFT VENTRICULOGRAM: Left ventriculogram was not performed. FINAL IMPRESSION: This patient has acceptable filling pressures. No gradient across aortic valve. Right- dominant system with an ostial and proximal RCA stenosis of 90%, moderately calcified. The circumflex is free of significant disease. Left main is free of significant disease. LAD has a 30% mid lesion. Mild calcification. No gradient across aortic valve. RECOMMENDATIONS: I recommended PCI of RCA and proceeded to perform this in the same setting. PCI PROCEDURE DETAILS: I used a standard right Emigdio guide catheter to cannulate the right coronary artery and a run-through wire to cross the lesion. Predilatation was performed with a 2.5 caliber 15 mm NC Trek balloon. Subsequently, I deployed 18 mm long 3.0 caliber Xience stent in the ostium and proximal portion. Excellent result was noted. Beyond the stented area, there was still some amount of holes and a haziness and the lesion seemed to be longer than initially thought. I therefore deployed a 12 mm 3.0 caliber Xience stent and telescoped this into the proximal stent. Excellent angiographic result without complication was achieved. Patient did not have chest pain or EKG changes. He received 300 mg of Plavix additionally. He was already on aspirin and Plavix. Excellent angiographic result was achieved. The sheath was taken out and TR band applied as per protocol and he was sent to the room in stable condition. Results were discussed with the patient and his daughter was notified by telephone that the results were good and I expect the patient to be discharged tomorrow if he remains stable. He will be on aspirin, Plavix, statin, beta blockers and lisinopril. I expect the patient to be discharged in a.m. MMODL / IJN: [id number] /
[2019-07-30] MEDS: CARVEDILOL 6.25 MG TAB PO SCH (17:37)
[2019-07-30] MEDS: SODIUM CHLORIDE 0.9% 1,000 ML IV SCH (17:38)
[2019-07-30] MEDS ORDERED: LISINOPRIL 20 MG TAB PO SCH (21:00)
[2019-07-30] MEDS ORDERED: LISINOPRIL 10 MG TAB PO SCH (21:00)
[2019-07-30] MEDS ORDERED: ATORVASTATIN 80 MG TAB PO SCH (21:00)
[2019-07-31 06:58] LABS: Basophils % (A) 0 %; Eosinophils # (A) 0.4 k/uL (0-0.7); Eosinophils % (A) 6 %; Lymphocytes # (A) 1.2 k/uL (1.0-4.8); Lymphocytes % (A) 20 %; MCH 33.4 pg (25.0-35.0); MCHC 34.3 g/dL (31.0-37.0); MCV 97.3 fL (80.0-100.0); Mean Platelet Volume 7.3; Monocytes # (A) 0.4 k/uL (0-1.0); Monocytes % (A) 6 %; Neutrophils # (A) 3.8 k/uL (1.3-7.7); Neutrophils % (A) 65 %; Platelet Count 322 k/uL (150-450); RBC 3.59 m/uL (4.30-5.90); RDW 12.6 % (11.5-15.5); WBC 5.9 k/uL (3.8-10.6)
[2019-07-31] MEDS: CARVEDILOL 6.25 MG TAB PO SCH (07:02)
[2019-07-31] MEDS: SODIUM CHLORIDE 0.9% 1,000 ML IV SCH (07:02)
[2019-07-31 07:13] LABS: African American GFR (CKD) >90 (>60 ml/min/1.73 sqM); Anion Gap 4 mmol/L; Blood Urea Nitrogen 7 mg/dL (9-20); Calcium 8.6 mg/dL (8.4-10.2); Carbon Dioxide 24 mmol/L (22-30); Chloride 109 mmol/L (98-107); Glucose 113 mg/dL (74-99); Non-African American GFR(CKD) >90 (>60 ml/min/1.73 sqM); Potassium 4.1 mmol/L (3.5-5.1); Sodium 137 mmol/L (137-145)
--- NOTE | 2019-07-31 08:23 | DS ---
DISCHARGE SUMMARY DATE OF ADMISSION: 07/30/2019. DATE OF DISCHARGE: 07/31/2019. DIAGNOSES: 1. Unstable angina. 2. Hypertension. 3. Hyperlipidemia. 4. Smoking. 5. Alcoholism. Mr. Dion Love was admitted to the hospital electively for an abnormal stress test for cardiac catheterization and PCI. Cardiac cath performed from right radial approach revealed significant ostial and proximal RCA lesion. This was addressed with 2 drug- eluting stents yesterday. Excellent angiographic result was achieved. Postprocedure course was uneventful. He had some bleeding from the right radial site, but that was very transient. This morning, he is asymptomatic ambulating. No symptoms. Blood pressure 150/80, pulse rate is about 78. No JVD. S1-S2 heard normally. Lungs are clear. Abdomen and lower extremity exam is unchanged. EKG and labs are unremarkable. Right radial site is clean and dry with an excellent pulse. Plan is to discharge him. He will be going home on Coreg at a higher dose of 6.25 mg b.i.d., lisinopril will be increased to 20 mg b.i.d., atorvastatin will be increased from 40-80 mg daily. He will continue aspirin and Plavix that he was taking before. He will be seen by me in one week. Discharge instructions regarding activity, diet and medications were given. The patient will be discharged later on today. MMVICKYL / GEORGEN: [id number] / MTDD
[2019-07-31 08:32] VITALS: BP 125/64; PULSE 89; RESP 16; TEMP 98
[2019-07-31] MEDS ORDERED: LORATADINE 10 MG TAB PO SCH (09:00)
[2019-07-31] MEDS ORDERED: ATORVASTATIN 40 MG TAB PO SCH (09:00)
[2019-07-31] MEDS ORDERED: LISINOPRIL 20 MG TAB PO SCH (09:00)
[2019-07-31] MEDS ORDERED: CLOPIDOGREL 75 MG TAB PO SCH ×2 (09:00)
[2019-07-31] MEDS ORDERED: NON FORMULARY DRUG (Aspirin Ec 81 MG) PO SCH (09:00)
[2019-07-31] MEDS ORDERED: ASPIRIN 81 MG PO SCH (09:00)
== END 2019-07-31 10:25 | disposition home or self-care (01) ==
LOC: CATHCVL 08:49 → 3SCARD 11:17 → CATHCVL 07-31 10:25
PROVIDERS: ATTEND Internal Medicine Interventional Cardiology
DX: I25.110 Atherosclerotic heart disease of native coronary artery with unstable angina pectoris (principal); I65.23 Occlusion and stenosis of bilateral carotid arteries; I10 Essential (primary) hypertension; E78.00 Pure hypercholesterolemia, unspecified; E78.5 Hyperlipidemia, unspecified; E11.9 Type 2 diabetes mellitus without complications; F10.20 Alcohol dependence, uncomplicated; F17.210 Nicotine dependence, cigarettes, uncomplicated; Z79.02 Long term (current) use of antithrombotics/antiplatelets; Z79.82 Long term (current) use of aspirin; Z79.899 Other long term (current) drug therapy; Z88.5 Allergy status to narcotic agent
CPT/HCPCS: 93458; 80048 ×2; 85025 ×2; C9600; C1887; C1725; C1769 ×2; C1874; C1894; J2250; J2001; J1644; J0583; Q9967

== ENCOUNTER 2019-09-04 15:33 | Inpatient (IN) | payer MEDICARE, OTHER ==
[2019-09-04] MEDS ORDERED: ALBUTEROL NEBULIZED 2.5 MG/3 ML INHALATION STA (16:10)
[2019-09-04] MEDS ORDERED: DEXAMETHASONE SOD PHOSPHATE 10 MG/ML 1 ML VIAL IV STA (16:10)
[2019-09-04] MEDS ORDERED: IPRATROPIUM-ALBUTEROL 3 ML NEB INHALATION STA (16:10)
--- NOTE | 2019-09-04 16:14 | ED ---
General Adult HPI - General Chief complaint: Chest Pain Stated complaint: chest pain, SOB Time Seen by Provider: 09/04/19 15:47 Source: patient, RN notes reviewed, old records reviewed Mode of arrival: wheelchair Limitations: no limitations - History of Present Illness Initial comments: 69-year-old male presents for evaluation of chest tightness. Patient is one month status post coronary angiogram with stenting of the RCA. He is on aspirin and Plavix and has been compliant with this medication. He reports of bilateral chest tightness. He has a cough which she attributes to a smoker's cough. He denies fever. He has mild dyspnea. Denies lower extremity pain or swelling. Denies abdominal pain. No vomiting or diaphoresis. Current smoker although he states he is cutting back. - Related Data Home Medications Medication Instructions Recorded Confirmed Aspirin EC [Ecotrin Low Dose] 81 mg PO DAILY 02/13/19 07/30/19 Buprenorphine HCl/Naloxone HCl 1 tab SL DAILY 02/13/19 07/30/19 [Zubsolv 2.9-0.71 mg Tablet Sl] Cetirizine HCl 10 mg PO DAILY 02/13/19 07/30/19 Clopidogrel [Plavix] 75 mg PO DAILY 02/13/19 07/30/19 cloNIDine HCL [Catapres] 0.3 mg PO HS 07/28/19 07/30/19 Previous Rx's Medication Instructions Recorded Atorvastatin [Lipitor] 80 mg PO HS #90 tab 07/31/19 Carvedilol [Coreg] 6.25 mg PO AC-BID #180 tab 07/31/19 Clopidogrel [Plavix] 75 mg PO DAILY tab 07/31/19 Lisinopril [Zestril] 20 mg PO BID #180 tab 07/31/19 Allergies Allergy/AdvReac Type Severity Reaction Status Date / Time codeine AdvReac Nausea Verified 09/04/19 15:46 Review of Systems ROS Statement: Those systems with pertinent positive or pertinent negative responses have been documented in the HPI. ROS Other: All systems not noted in ROS Statement are negative. Past Medical History Past Medical History: Chest Pain / Angina, COPD, Hyperlipidemia, Hypertension, Liver Disease, Myocardial Infarction ([place]), Vascular Disorder Additional Past Medical History / Comment(s): hep c, ?TIA couple years ago History of Any Multi-Drug Resistant Organisms: None Reported Past Surgical History: Heart Catheterization With Stent, Orthopedic Surgery, Tonsillectomy Additional Past Surgical History / Comment(s): surg x4 right shoulder Past Anesthesia/Blood Transfusion Reactions: No Reported Reaction Past Psychological History: No Psychological Hx Reported Smoking Status: Smoker, current status unknown Past Alcohol Use History: Abuse, Daily Past Drug Use History: None Reported - Past Family History Mother Family Medical History: Myocardial Infarction ([place]) Father Additional Family Medical History / Comment(s): polio, enlarged heart Brother(s) Family Medical History: CVA/TIA Daughter(s) History Unknown: Yes Son(s) Family Medical History: Hyperlipidemia General Exam Limitations: no limitations General appearance: alert, in no apparent distress Head exam: Present: atraumatic, normocephalic Eye exam: Present: normal appearance, PERRL ENT exam: Present: normal exam Neck exam: Present: normal inspection. Absent: tenderness, meningismus Respiratory exam: Present: respiratory distress, wheezes, rhonchi, decreased breath sounds Cardiovascular Exam: Present: regular rate, normal rhythm GI/Abdominal exam: Present: soft. Absent: distended, tenderness Extremities exam: Present: normal inspection, normal capillary refill. Absent: calf tenderness Neurological exam: Present: alert, oriented X3, CN II-XII intact. Absent: motor sensory deficit Psychiatric exam: Present: normal affect, normal mood Skin exam: Present: warm, dry, intact. Absent: cyanosis, diaphoretic Course Vital Signs 09/04/19 09/04/19 09/04/19 15:44 15:53 16:00 Temperature 98.6 F Pulse Rate 84 91 98 Pulse Rate [ Apical] Respiratory 22 9 L 16 Rate Blood Pressure 167/94 170/95 O2 Sat by Pulse 94 L 97 99 Oximetry 09/04/19 09/04/19 09/04/19 16:09 16:28 16:40 Temperature Pulse Rate 111 H 95 Pulse Rate [ 87 Apical] Respiratory 20 14 Rate Blood Pressure 133/91 O2 Sat by Pulse 100 Oximetry 09/04/19 09/04/19 09/04/19 16:45 16:50 17:00 Temperature Pulse Rate 87 92 96 Pulse Rate [ Apical] Respiratory 11 L 9 L Rate Blood Pressure 133/91 133/91 O2 Sat by Pulse 99 99 Oximetry - Reevaluation(s) Reevaluation #1: 09/04/19 17:06 Patient does report constipation, denies rectal bleeding. EKG Findings - EKG Comments: EKG Findings:: EKG: Normal sinus rhythm, rate of 89, AK interval 142, QRS duration 68, QTC 425, no ST segment elevation. Medical Decision Making - Medical Decision Making 69-year-old male presenting for evaluation of lower chest pain. Recent stent. EKG is sinus rhythm with no ST segment elevation. Patient has been compliant with his medication which includes aspirin and Plavix. Workup reveals mild cytosis, 11.0, hemoglobin 13 which is stable for this patient. He has fernandez saminitis and hyperbilirubinemia and he does admit to daily drinking. Ultrasound is performed which shows hepatic steatosis, no cholelithiasis or acute cholecystitis. Patient has a troponin elevation is 0.05 at this level will be trended. He is started on heparin awaiting trended enzymes. Cardiology placed on consult. Case discussed with Dr. Pinzon who will admit. - Lab Data Result diagrams: 09/04/19 16:06 09/04/19 16:06 Lab Results 09/04/19 09/04/19 09/04/19 Range/Units 16:06 16:06 16:06 WBC 11.0 H (3.8-10.6) k/uL RBC 4.05 L (4.30-5.90) m/uL Hgb 13.0 (13.0-17.5) gm/dL Hct 38.7 L (39.0-53.0) % MCV 95.6 (80.0-100.0) fL MCH 32.0 (25.0-35.0) pg MCHC 33.5 (31.0-37.0) g/dL RDW 12.6 (11.5-15.5) % Plt Count 385 (150-450) k/uL Neutrophils % 81 % Lymphocytes % 10 % Monocytes % 5 % Eosinophils % 1 % Basophils % 0 % Neutrophils # 8.9 H (1.3-7.7) k/uL Lymphocytes # 1.2 (1.0-4.8) k/uL Monocytes # 0.6 (0-1.0) k/uL Eosinophils # 0.1 (0-0.7) k/uL Basophils # 0.0 (0-0.2) k/uL PT 10.5 (9.0-12.0) sec INR 1.0 (<1.2) APTT 25.0 (22.0-30.0) sec Sodium 132 L (137-145) mmol/L Potassium 5.2 H (3.5-5.1) mmol/L Chloride 102 (98-107) mmol/L Carbon Dioxide 20 L (22-30) mmol/L Anion Gap 10 mmol/L BUN 8 L (9-20) mg/dL Creatinine 0.66 (0.66-1.25) mg/dL Est GFR (CKD-EPI)AfAm >90 (>60 ml/min/1.73 sqM) Est GFR (CKD-EPI)NonAf >90 (>60 ml/min/1.73 sqM) Glucose 150 H (74-99) mg/dL Calcium 9.6 (8.4-10.2) mg/dL Magnesium 2.2 (1.6-2.3) mg/dL Total Bilirubin 1.6 H (0.2-1.3) mg/dL AST 305 H (17-59) U/L ALT 55 H (4-49) U/L Alkaline Phosphatase 202 H (38-126) U/L Troponin I (0.000-0.034) ng/mL NT-Pro-B Natriuret Pep pg/mL Total Protein 8.8 H (6.3-8.2) g/dL Albumin 4.8 (3.5-5.0) g/dL 09/04/19 09/04/19 Range/Units 16:06 16:06 WBC (3.8-10.6) k/uL RBC (4.30-5.90) m/uL Hgb (13.0-17.5) gm/dL Hct (39.0-53.0) % MCV (80.0-100.0) fL MCH (25.0-35.0) pg MCHC (31.0-37.0) g/dL RDW (11.5-15.5) % Plt Count (150-450) k/uL Neutrophils % % Lymphocytes % % Monocytes % % Eosinophils % % Basophils % % Neutrophils # (1.3-7.7) k/uL Lymphocytes # (1.0-4.8) k/uL Monocytes # (0-1.0) k/uL Eosinophils # (0-0.7) k/uL Basophils # (0-0.2) k/uL PT (9.0-12.0) sec INR (<1.2) APTT (22.0-30.0) sec Sodium (137-145) mmol/L Potassium (3.5-5.1) mmol/L Chloride (98-107) mmol/L Carbon Dioxide (22-30) mmol/L Anion Gap mmol/L BUN (9-20) mg/dL Creatinine (0.66-1.25) mg/dL Est GFR (CKD-EPI)AfAm (>60 ml/min/1.73 sqM) Est GFR (CKD-EPI)NonAf (>60 ml/min/1.73 sqM) Glucose (74-99) mg/dL Calcium (8.4-10.2) mg/dL Magnesium (1.6-2.3) mg/dL Total Bilirubin (0.2-1.3) mg/dL AST (17-59) U/L ALT (4-49) U/L Alkaline Phosphatase (38-126) U/L Troponin I 0.056 H* (0.000-0.034) ng/mL NT-Pro-B Natriuret Pep 1210 pg/mL Total Protein (6.3-8.2) g/dL Albumin (3.5-5.0) g/dL Critical Care Time Critical Care Time: Yes Total Critical Care Time: 35 Disposition Clinical Impression: Alcohol abuse, Carotid artery disease, Acute non-ST elevation myocardial infarction (NSTEMI) Disposition: ADMITTED IP TO THIS [facility] Condition: Stable Is patient prescribed a controlled substance at d/c from ED?: No Referrals: Kit Issa MD [Primary Care Provider] - 1-2 days Decision to Admit Reason: Admit from EC Decision Date: 09/04/19 Decision Time: 18:21
[2019-09-04 16:19] LABS: Basophils % (A) 0 %; Eosinophils # (A) 0.1 k/uL (0-0.7); Eosinophils % (A) 1 %; HCT 38.7 % (39.0-53.0); Lymphocytes # (A) 1.2 k/uL (1.0-4.8); Lymphocytes % (A) 10 %; MCHC 33.5 g/dL (31.0-37.0); MCV 95.6 fL (80.0-100.0); Monocytes # (A) 0.6 k/uL (0-1.0); Monocytes % (A) 5 %; Neutrophils # (A) 8.9 k/uL (1.3-7.7); Neutrophils % (A) 81 %; Platelet Count 385 k/uL (150-450); RBC 4.05 m/uL (4.30-5.90); RDW 12.6 % (11.5-15.5)
[2019-09-04 16:29] LABS: ALT 55 U/L (4-49); AST 305 U/L (17-59); African American GFR (CKD) >90 (>60 ml/min/1.73 sqM); Albumin 4.8 g/dL (3.5-5.0); Alkaline Phosphatase 202 U/L (38-126); Anion Gap 10 mmol/L; Blood Urea Nitrogen 8 mg/dL (9-20); Calcium 9.6 mg/dL (8.4-10.2); Carbon Dioxide 20 mmol/L (22-30); Chloride 102 mmol/L (98-107); Glucose 150 mg/dL (74-99); Magnesium 2.2 mg/dL (1.6-2.3); Non-African American GFR(CKD) >90 (>60 ml/min/1.73 sqM); Sodium 132 mmol/L (137-145); Total Bilirubin 1.6 mg/dL (0.2-1.3); Total Protein 8.8 g/dL (6.3-8.2)
[2019-09-04 16:31] LABS: Potassium 5.2 mmol/L (3.5-5.1)
--- NOTE | 2019-09-04 16:32 | XR ---
EXAMINATION TYPE: XR chest 2V DATE OF EXAM: 09/04/2019 COMPARISON: 02/13/2019 HISTORY: Shortness of breath TECHNIQUE: Frontal and lateral views of the chest are obtained. FINDINGS: Scattered senescent parenchymal changes noted. Hyperinflation compatible with COPD. No evidence for infiltrate. No evidence for atelectasis. Heart size is stable. Mediastinal structures are stable and grossly unremarkable. No evidence for hilar prominence. Degenerative changes dorsal spine. IMPRESSION: 1. No evidence for acute pulmonary disease.
[2019-09-04 16:37] LABS: Prothrombin Time 10.5 sec (9.0-12.0)
[2019-09-04] MEDS ORDERED: LORazepam 2 MG/ML INJ IV PRN ×2 (17:02)
[2019-09-04] MEDS ORDERED: THIAMINE 100 MG/ML 2 ML VIAL IM STA (17:02)
[2019-09-04] MEDS ORDERED: HEPARIN SODIUM,PORCINE 5,000 UNIT/ML 1 ML VIAL IV PRN (17:06)
[2019-09-04] MEDS ORDERED: HEPARIN SODIUM,PORCINE 5,000 UNIT/ML 1 ML VIAL IV ONE (17:06)
[2019-09-04] MEDS: HEPARIN SOD,PORK IN 0.45% NACL 25,000 UNIT in 0.45% NACL 1 250ML.BAG IV SCH (17:42)
--- NOTE | 2019-09-04 18:11 | US ---
EXAMINATION TYPE: US gallbladder DATE OF EXAM: 09/04/2019 COMPARISON: None CLINICAL HISTORY: 69-year-old male Epigastric pain, transaminitis. Abdomen pain x couple days TECHNIQUE: Multiple sonographic images of the right upper quadrant are obtained. FINDINGS: EXAM MEASUREMENTS: Liver Length: 18.0 cm Gallbladder Wall: 0.2 cm CBD: 0.5 cm Right Kidney: 10.8 x 5.2 x 5.6 cm Pancreas: Portions of the visualized pancreatic body and neck show no gross abnormal. Pancreatic hea d and tail are suboptimally visualized due to shadowing from bowel gas. Liver: measures in upper limits of normal, heterogeneous Gallbladder: wnl Evidence for sonographic Mcclure's sign: no CBD: visualized portions wnl, limited by overlying bowel gas Right Kidney: wnl IMPRESSION: Mild hepatomegaly (18.0 cm) with heterogeneous appearance to the liver parenchyma. Correlate for hepa tic steatosis or other nonspecific hepatocellular disease. No cholelithiasis or biliary ductal dilatation.
[2019-09-04] MEDS ORDERED: ACETAMINOPHEN TAB 325 MG TAB PO PRN (18:16)
[2019-09-04] MEDS ORDERED: NALOXONE 0.4 MG/ML 1 ML VIAL IV PRN (18:16)
[2019-09-04] MEDS: THIAMINE 100 MG TAB PO SCH (20:15)
[2019-09-04] MEDS ORDERED: cloNIDine HCL 0.2 MG TAB PO SCH (21:00)
[2019-09-04] MEDS: lisinopriL 20 MG TAB PO SCH (21:09)
[2019-09-04] MEDS: LORazepam 2 MG/ML INJ IV PRN (21:09)
[2019-09-04] MEDS: ATORVASTATIN 80 MG TAB PO SCH (21:09)
[2019-09-05 04:07] LABS: Basophils % (A) 0 %; Eosinophils % (A) 0 %; HCT 35.6 % (39.0-53.0); HGB 11.9 gm/dL (13.0-17.5); Lymphocytes # (A) 0.7 k/uL (1.0-4.8); Lymphocytes % (A) 14 %; MCH 32.5 pg (25.0-35.0); MCHC 33.3 g/dL (31.0-37.0); MCV 97.4 fL (80.0-100.0); Mean Platelet Volume 7.5; Monocytes # (A) 0.2 k/uL (0-1.0); Monocytes % (A) 4 %; Neutrophils # (A) 3.8 k/uL (1.3-7.7); Neutrophils % (A) 81 %; Platelet Count 343 k/uL (150-450); RBC 3.65 m/uL (4.30-5.90); RDW 12.6 % (11.5-15.5); WBC 4.6 k/uL (3.8-10.6)
[2019-09-05 04:29] LABS: ALT 136 U/L (4-49); AST 422 U/L (17-59); African American GFR (CKD) >90 (>60 ml/min/1.73 sqM); Albumin 3.9 g/dL (3.5-5.0); Alkaline Phosphatase 217 U/L (38-126); Anion Gap 7 mmol/L; Blood Urea Nitrogen 11 mg/dL (9-20); Calcium 9.2 mg/dL (8.4-10.2); Carbon Dioxide 22 mmol/L (22-30); Chloride 102 mmol/L (98-107); Glucose 184 mg/dL (74-99); Magnesium 2.3 mg/dL (1.6-2.3); Non-African American GFR(CKD) >90 (>60 ml/min/1.73 sqM); Potassium 4.8 mmol/L (3.5-5.1); Sodium 131 mmol/L (137-145); Total Bilirubin 0.9 mg/dL (0.2-1.3); Total Protein 7.5 g/dL (6.3-8.2)
[2019-09-05] MEDS: THIAMINE 100 MG TAB PO SCH ×2 (06:23→16:28)
[2019-09-05] MEDS: carvediloL 6.25 MG TAB PO SCH ×2 (06:23→16:28)
[2019-09-05] MEDS ORDERED: BUPRENORPHINE HCL SUBLINGUAL SCH (09:00)
[2019-09-05] MEDS ORDERED: NALOXONE HCL SUBLINGUAL SCH (09:00)
[2019-09-05] MEDS ORDERED: polyethylene glycoL 3350 17 GM POWD.PACK PO PRN (09:34)
[2019-09-05] MEDS ORDERED: PANTOPRAZOLE 40 MG TABLET PO PRN (09:34)
[2019-09-05] MEDS: ASPIRIN 81 MG PO SCH (09:51)
[2019-09-05] MEDS: BUPRENORPHINE HCL SUBLINGUAL SCH (09:51)
[2019-09-05] MEDS: NALOXONE HCL SUBLINGUAL SCH (09:51)
[2019-09-05] MEDS: LORATADINE 10 MG TAB PO SCH (09:51)
[2019-09-05] MEDS: lisinopriL 20 MG TAB PO SCH ×2 (09:51→20:25)
[2019-09-05] MEDS: CLOPIDOGREL 75 MG TAB PO SCH (09:51)
--- NOTE | 2019-09-05 11:57 | P.HPIM ---
History of Present Illness H&P Date: 09/05/19 Chief Complaint: Chest pain, shortness of breath 69-year-old male patient presented emergency room on 09/04/2019 at approximately 1600. Complains of chest pain in the epigastric area and shortness of breath. He has also had a cough but relates it to his smoking. He does state he is cutting back and has only had 3 packs over the past month. He denies fever, chills, lower extremity pain or swelling. Denies nausea, vomiting, diarrhea, dark stools or bloody stools. Does have complaints of constipation in which he is on MiraLAX which has been somewhat successful. Approximately one month ago he had coronary angiogram with stenting of the RCA. Currently is on aspirin and Plavix makes note that he has been compliant with the medication regimen. He does admit to drinking a 12 pack plus or minus a few beers daily for quite some time. He does mention that he can take his dog for a walk and he does not notice chest pain or pain in the lower extremities with this activity. On admission initial troponin was 0.056, 0.059, and final 0.031. Most recent lab work as a 4:00 this morning CBC shows WBC count of 4.6, hemoglobin 11.9, hematocrit 35.6, platelet count 343 coagulation studies initially PT of 10.5, INR 1.0, APTT 25. He was placed on a heparin drip on admission per anticoagulation. This morning's chemistry panel revealed sodium 131, potassium of 4.8, chloride 102, P1 of 11 and a creatinine of 0.84. Regards the transaminitis is AST initially was 305 and ELT are 55 with alk phos 202 subsequent draw this morning at 4 AM was AST of 422, ALK 136, alk phos 217. BNP of 1210. Vital signs of been stable and temperature 97.6 oral heart rate of 93 normal sinus rhythm respiratory rate of 18 oxygen saturation is 95% on 2 L nasal cannula and has a blood pressure 108/71. Chest x-ray no evidence of acute pulmonary disease for impression, but hyperinflation compatible with COPD as noted. An ultrasound of the gallbladder was completed the emergency room impression for that was mild hepatomegaly with heterogeneous appearance to the liver parenchyma. Correlate for hepatic steatosis or other nonspecific hepatocellular disease. No cholelithiasis or biliary ductal dilatation. Review of Systems Constitutional: Reports as per HPI Ears, nose, mouth and throat: Reports as per HPI Cardiovascular: Reports chest pain, Reports shortness of breath Respiratory: Reports cough Gastrointestinal: Reports belching, Reports constipation, Reports heartburn Genitourinary: Reports as per HPI Musculoskeletal: Reports as per HPI Integumentary: Reports as per HPI Neurological: Reports as per HPI Psychiatric: Reports as per HPI Endocrine: Reports as per HPI Hematologic/Lymphatic: Reports as per HPI Allergic/Immunologic: Reports as per HPI Past Medical History Past Medical History: Chest Pain / Angina, COPD, Hyperlipidemia, Hypertension, Liver Disease, Myocardial Infarction ([place]), Vascular Disorder Additional Past Medical History / Comment(s): hep c, ?TIA couple years ago Last Myocardial Infarction Date:: unknown History of Any Multi-Drug Resistant Organisms: None Reported Past Surgical History: Heart Catheterization With Stent, Orthopedic Surgery, Tonsillectomy Additional Past Surgical History / Comment(s): surg x4 right shoulder Past Anesthesia/Blood Transfusion Reactions: No Reported Reaction Date of Last Stent Placement:: 07/30/19 Past Psychological History: Unable to Obtain Smoking Status: Current every day smoker Past Alcohol Use History: Abuse, Daily Additional Past Alcohol Use History / Comment(s): drinks 8-15 cans of beer per day, down to 3-5 cigs/day Past Drug Use History: Opiates - Past Family History Mother Family Medical History: Myocardial Infarction ([place]) Father Additional Family Medical History / Comment(s): polio, enlarged heart Brother(s) Family Medical History: CVA/TIA Daughter(s) History Unknown: Yes Son(s) Family Medical History: Hyperlipidemia Medications and Allergies Home Medications Medication Instructions Recorded Confirmed Type Aspirin EC [Ecotrin Low Dose] 81 mg PO DAILY 02/13/19 09/04/19 History Buprenorphine HCl/Naloxone HCl 1 tab SL DAILY 02/13/19 09/04/19 History [Zubsolv 2.9-0.71 mg Tablet Sl] Cetirizine HCl 10 mg PO DAILY 02/13/19 09/04/19 History cloNIDine HCL [Catapres] 0.6 mg PO HS 07/28/19 09/04/19 History Atorvastatin [Lipitor] 80 mg PO HS #90 tab 07/31/19 09/04/19 Rx Carvedilol [Coreg] 6.25 mg PO AC-BID #180 tab 07/31/19 09/04/19 Rx Clopidogrel [Plavix] 75 mg PO DAILY tab 07/31/19 09/04/19 Rx Lisinopril [Zestril] 20 mg PO BID #180 tab 07/31/19 09/04/19 Rx Pantoprazole [Protonix] 40 mg PO DAILY PRN 09/04/19 09/04/19 History Polyethylene Glycol 3350 [Miralax] 17 gm PO DAILY PRN 09/04/19 09/04/19 History Allergies Allergy/AdvReac Type Severity Reaction Status Date / Time codeine AdvReac Nausea Verified 09/04/19 21:02 Physical Exam Vitals: Vital Signs Temp Pulse Pulse Resp BP BP Pulse Ox 09/05/19 08:00 97.6 F 93 18 108/71 95 09/05/19 03:00 98.6 F 80 16 107/67 98 09/04/19 23:00 98.1 F 90 18 103/56 94 L 09/04/19 20:00 18 09/04/19 19:55 98.8 F 87 18 181/90 95 09/04/19 17:00 96 9 L 133/91 99 09/04/19 16:50 92 11 L 133/91 99 09/04/19 16:45 87 09/04/19 16:40 95 14 133/91 100 09/04/19 16:28 111 H 20 09/04/19 16:09 87 09/04/19 16:00 98 16 170/95 99 09/04/19 15:53 91 9 L 97 09/04/19 15:44 98.6 F 84 22 167/94 94 L Intake and Output 09/04/19 09/05/19 09/05/19 22:59 06:59 14:59 Other: # Voids 1 Weight 80.739 kg 76.2 kg GENERAL: Well-appearing, well-nourished and in no acute distress. HEAD: Atraumatic, normocephalic. EYES: Pupils equal round and reactive to light, extraocular movements intact, sclera anicteric, conjunctiva are normal. ENT:nares patent, oropharynx clear without exudates. Moist mucous membranes. NECK: Normal range of motion, supple without lymphadenopathy or JVD, no thyromegaly LUNGS: Breath sounds clear to auscultation bilaterally and equal. No wheezes rales or rhonchi. HEART: Regular rate and rhythm without murmurs, rubs or gallops.S1S2 Normal ABDOMEN: Soft, nontender, normoactive bowel sounds. No guarding, no rebound. No masses appreciated. EXTREMITIES: Normal range of motion, no pitting or edema. No clubbing or cyanosis. NEUROLOGICAL: Cranial nerves II through XII grossly intact. Normal speech, normal gait. PSYCH: Normal mood, normal affect. SKIN: Warm, Dry, normal turgor, no rashes or lesions noted, tattoo noted on left upper chest. Results CBC & Chem 7: 09/05/19 03:41 09/05/19 03:41 Labs: Abnormal Lab Results - Last 24 Hours (Table) 09/04/19 09/04/19 09/04/19 Range/Units 16:06 16:06 16:06 WBC 11.0 H (3.8-10.6) k/uL RBC 4.05 L (4.30-5.90) m/uL Hgb (13.0-17.5) gm/dL Hct 38.7 L (39.0-53.0) % Neutrophils # 8.9 H (1.3-7.7) k/uL Lymphocytes # (1.0-4.8) k/uL APTT (22.0-30.0) sec Sodium 132 L (137-145) mmol/L Potassium 5.2 H (3.5-5.1) mmol/L Carbon Dioxide 20 L (22-30) mmol/L BUN 8 L (9-20) mg/dL Glucose 150 H (74-99) mg/dL Total Bilirubin 1.6 H (0.2-1.3) mg/dL AST 305 H (17-59) U/L ALT 55 H (4-49) U/L Alkaline Phosphatase 202 H (38-126) U/L Troponin I 0.056 H* (0.000-0.034) ng/mL Total Protein 8.8 H (6.3-8.2) g/dL 09/04/19 09/04/19 09/05/19 Range/Units 23:13 23:13 03:41 WBC (3.8-10.6) k/uL RBC 3.65 L (4.30-5.90) m/uL Hgb 11.9 L (13.0-17.5) gm/dL Hct 35.6 L (39.0-53.0) % Neutrophils # (1.3-7.7) k/uL Lymphocytes # 0.7 L (1.0-4.8) k/uL APTT 53.3 H (22.0-30.0) sec Sodium (137-145) mmol/L Potassium (3.5-5.1) mmol/L Carbon Dioxide (22-30) mmol/L BUN (9-20) mg/dL Glucose (74-99) mg/dL Total Bilirubin (0.2-1.3) mg/dL AST (17-59) U/L ALT (4-49) U/L Alkaline Phosphatase (38-126) U/L Troponin I 0.059 H* (0.000-0.034) ng/mL Total Protein (6.3-8.2) g/dL 09/05/19 09/05/19 Range/Units 03:41 03:41 WBC (3.8-10.6) k/uL RBC (4.30-5.90) m/uL Hgb (13.0-17.5) gm/dL Hct (39.0-53.0) % Neutrophils # (1.3-7.7) k/uL Lymphocytes # (1.0-4.8) k/uL APTT 51.4 H (22.0-30.0) sec Sodium 131 L (137-145) mmol/L Potassium (3.5-5.1) mmol/L Carbon Dioxide (22-30) mmol/L BUN (9-20) mg/dL Glucose 184 H (74-99) mg/dL Total Bilirubin (0.2-1.3) mg/dL AST 422 H (17-59) U/L ALT 136 H (4-49) U/L Alkaline Phosphatase 217 H (38-126) U/L Troponin I (0.000-0.034) ng/mL Total Protein (6.3-8.2) g/dL Thrombosis Risk Factor Assmnt - DVT/VTE Prophylaxis DVT/VTE Prophylaxis: Pharmacologic Prophylaxis ordered - Choose All That Apply Each Factor Represents 1 point: Abnormal pulmonary function (COPD), Medical pt on bed rest, Obesity (BMI >25), Serious lung disease incl. pneumonia (< 1month), Swollen legs (current) Each Risk Factor Represents 2 Points: Age 61-74 years Other congenital or acquired thrombophilia - If yes, enter type in comment: No Thrombosis Risk Factor Assessment Total Risk Factor Score: 7 Thrombosis Risk Factor Assessment Level: High Risk Assessment and Plan (1) Constipation Current Visit: Yes Status: Acute Code(s): K59.00 - CONSTIPATION, UNSPECIFIED SNOMED Code(s): 50663933 (2) Acute non-ST elevation myocardial infarction (NSTEMI) Current Visit: Yes Status: Acute Code(s): I21.4 - NON-ST ELEVATION (NSTEMI) MYOCARDIAL INFARCTION SNOMED Code(s): 547498127 (3) Alcohol abuse Current Visit: Yes Status: Acute Code(s): F10.10 - ALCOHOL ABUSE, UNCOMPLICATED SNOMED Code(s): 41214301 (4) Chest pain Current Visit: No Status: Acute Code(s): R07.9 - CHEST PAIN, UNSPECIFIED SNOMED Code(s): 29602912 (5) Essential (primary) hypertension Current Visit: No Status: Acute Code(s): I10 - ESSENTIAL (PRIMARY) HYPERTENSION SNOMED Code(s): 49086622 (6) History of opioid abuse Current Visit: No Status: Acute Code(s): F11.11 - OPIOID ABUSE, IN REMISSION SNOMED Code(s): 522867505 (7) Mixed hyperlipidemia Current Visit: No Status: Acute Code(s): E78.2 - MIXED HYPERLIPIDEMIA SNOMED Code(s): 035327546 (8) Tobacco abuse Current Visit: No Status: Acute Code(s): Z72.0 - TOBACCO USE SNOMED Cod e(s): 455239710 (9) Transaminitis Current Visit: Yes Status: Acute Code(s): R74.0 - NONSPEC ELEV OF LEVELS OF TRANSAMNS & LACTIC ACID DEHYDRGNSE SNOMED Code(s): 400775578 Plan: 1. Continue current medication regimen. 2. Continue to monitor labs. 3. Monitor vital signs. 4. We'll order labs for tomorrow. 5. Continue follow with cardiology recommendations. 6. Continuous Ismay protocol for acute alcohol withdrawal. 7. We'll continue with polyethylene glycol for constipation. 8. Per cardiology, will do stress test on Saturday. 9. We'll continue to follow closely and will reassess tomorrow. Time with Patient: Greater than 30
--- NOTE | 2019-09-05 13:58 | P.CRDCN ---
History of Present Illness Consult date: 09/05/19 Consult reason: chest pain (CAD, recent stent, troponin elevation) Chief complaint: chest pain History of present illness: History of present illness: This is a 69-year-old male follows with Dr. Yogesh Min in the office. He has past medical history of hypertension, carotid artery disease. Patient recently underwent heart catheterization and stenting of the proximal and ostial RCA with 2 drug-eluting stents on July 29. Patient presents to hospital complaining of chest pain to the lower ribs on the left side. He states he has had this since before and Dr. Jono Min has been aware of it. He states he is taking all of his medications as instructed. He describes it as a constant pressure type pain. He does not notice it when he is walking his dog. He also feels like he had significant sweats yesterday that lasted all day and not related to the temperature outside. He complains of nausea and couldn't eat very much. Patient came into [facility] emergency center for evaluation. His initial blood pressure 170/95. EKG is sinus rhythm without ST changes. Troponins 0.056, 0.059, 0.031. Hemoglobin 11.9 Liver function tests were elevated and these were normal in January. Ultrasound of the liver reveals steatosis of the liver. Patient admits to drinking 8-15 beers per day and takes his medications with beer. The patient was started on a heparin drip and admitted to the floor. He continues to have chest discomfort in the left lo wer ribs. Review Of Systems: Constitutional: No fever, no chills. No weakness, fatigue or lethargy. Reports sweats. EENT: No headache. No blurred vision or double vision, no loss of vision. No epistaxis. Lungs: No shortness of breath, cough, no sputum production. No wheezing. Cardiovascular: Reports chest pain, no lower extremity edema. No palpitations. No paroxysmal nocturnal dyspnea. No orthopnea. No lightheadedness or dizziness. No syncopal episodes. Abdominal: No abdominal pain. Reports nausea, denies vomiting. No diarrhea. No constipation. No bloody or tarry stools. No loss of appetite. Genitourinary: No dysuria, increased frequency, urgency. No urinary retention. Musculoskeletal: No myalgias. No muscle weakness, no gait dysfunction, no frequ ent falls. No back pain. No neck pain. Integumentary: No wounds, no lesions. No rash or pruritus. No unusual bruising. Neurologic: No aphasia. No facial droop. No change in mentation. No head injury. No headache. No paralysis. No paresthesia. Psychiatric: No depression. No anxiety. No mood swings. Endocrine: No abnormal blood sugars. No weight change. No excessive sweating or thirst. No weight change. Physical examination: Gen: This is a 69-year-old male. His resting bed appears to be comfortable and in no acute distress. VS: Afebrile, heart rate 93, blood pressure 108/71, pulse ox 92% on room air HEENT: Head is atraumatic, normocephalic. Pupils equal, round. Sclerae is anicteric. NECK: Supple. No JVD. No lymphadenopathy. No thyromegaly. LUNGS: Clear to auscultation. No wheezes or rhonchi. No intercostal retractions. HEART: Regular rate and rhythm. No murmur. ABDOMEN: Soft. Bowel sounds are present. No masses. No tenderness. EXTREMITIES: No pedal edema. No calf tenderness. NEUROLOGICAL: Patient is awake, alert and oriented x3. Cranial nerves 2 through 12 are grossly intact. Assessment: Elevated troponins with chest pain Coronary artery disease status post recent PTCA ostial and proximal RCA with 2 drug alluding stents Hypertension Hyperlipidemia Elevated liver function tests Tobacco use and dependence Alcohol abuse Plan: Continue heparin drip Continue aspirin, Plavix, atorvastatin Continue lisinopril 20 mg twice daily, Catapres, Coreg 6.25 mg twice daily Patient will be scheduled for Lexiscan stress test on Saturday Further recommendations to follow based upon clinical course Thank you kindly for this consultation Nurse practitioner note has been reviewed, I agree with documented findings and plan of care. Patient was seen and examined. Past Medical History Past Medical History: Chest Pain / Angina, COPD, Hyperlipidemia, Hypertension, Liver Disease, Myocardial Infarction ([place]), Vascular Disorder Additional Past Medical History / Comment(s): hep c, ?TIA couple years ago Last Myocardial Infarction Date:: unknown History of Any Multi-Drug Resistant Organisms: None Reported Past Surgical History: Heart Catheterization With Stent, Orthopedic Surgery, Tonsillectomy Additional Past Surgical History / Comment(s): surg x4 right shoulder Past Anesthesia/Blood Transfusion Reactions: No Reported Reaction Date of Last Stent Placement:: 07/30/19 Past Psychological History: Unable to Obtain Smoking Status: Smoker, current status unknown Past Alcohol Use History: Abuse, Daily Additional Past Alcohol Use History / Comment(s): drinks 8-15 cans of beer per day, down to 3-5 cigs/day Past Drug Use History: Opiates - Past Family History Mother Family Medical History: Myocardial Infarction ([place]) Father Additional Family Medical History / Comment(s): polio, enlarged heart Brother(s) Family Medical History: CVA/TIA Daughter(s) History Unknown: Yes Son(s) Family Medical History: Hyperlipidemia Medications and Allergies Home Medications Medication Instructions Recorded Confirmed Type Aspirin EC [Ecotrin Low Dose] 81 mg PO DAILY 02/13/19 09/04/19 History Buprenorphine HCl/Naloxone HCl 1 tab SL DAILY 02/13/19 09/04/19 History [Zubsolv 2.9-0.71 mg Tablet Sl] Cetirizine HCl 10 mg PO DAILY 02/13/19 09/04/19 History cloNIDine HCL [Catapres] 0.6 mg PO HS 07/28/19 09/04/19 History Atorvastatin [Lipitor] 80 mg PO HS #90 tab 07/31/19 09/04/19 Rx Carvedilol [Coreg] 6.25 mg PO AC-BID #180 tab 07/31/19 09/04/19 Rx Clopidogrel [Plavix] 75 mg PO DAILY tab 07/31/19 09/04/19 Rx Lisinopril [Zestril] 20 mg PO BID #180 tab 07/31/19 09/04/19 Rx Pantoprazole [Protonix] 40 mg PO DAILY PRN 09/04/19 09/04/19 History Polyethylene Glycol 3350 [Miralax] 17 gm PO DAILY PRN 09/04/19 09/04/19 History Allergies Allergy/AdvReac Type Severity Reaction Status Date / Time codeine AdvReac Nausea Verified 09/04/19 21:02 Physical Exam Vitals: Vital Signs Temp Pulse Pulse Resp BP BP Pulse Ox 09/05/19 08:00 97.6 F 93 18 108/71 95 09/05/19 03:00 98.6 F 80 16 107/67 98 09/04/19 23:00 98.1 F 90 18 103/56 94 L 09/04/19 20:00 18 09/04/19 19:55 98.8 F 87 18 181/90 95 09/04/19 17:00 96 9 L 133/91 99 09/04/19 16:50 92 11 L 133/91 99 09/04/19 16:45 87 09/04/19 16:40 95 14 133/91 100 09/04/19 16:28 111 H 20 09/04/19 16:09 87 09/04/19 16:00 98 16 170/95 99 09/04/19 15:53 91 9 L 97 09/04/19 15:44 98.6 F 84 22 167/94 94 L Intake and Output 09/04/19 09/05/19 09/05/19 22:59 06:59 14:59 Other: # Voids 1 Weight 80.739 kg 76.2 kg Results 09/05/19 03:41 09/05/19 03:41 Cardiac Enzymes 09/04/19 09/04/19 09/04/19 Range/Units 16:06 16:06 23:13 AST 305 H (17-59) U/L Troponin I 0.056 H* 0.059 H* (0.000-0.034) ng/mL 09/05/19 09/05/19 Range/Units 03:41 03:41 AST 422 H (17-59) U/L Troponin I 0.031 (0.000-0.034) ng/mL Coagulation 09/04/19 09/04/19 09/05/19 Range/Units 16:06 23:13 03:41 PT 10.5 (9.0-12.0) sec APTT 25.0 53.3 H 51.4 H (22.0-30.0) sec CBC 09/04/19 09/05/19 Range/Units 16:06 03:41 WBC 11.0 H 4.6 (3.8-10.6) k/uL RBC 4.05 L 3.65 L (4.30-5.90) m/uL Hgb 13.0 11.9 L (13.0-17.5) gm/dL Hct 38.7 L 35.6 L (39.0-53.0) % Plt Count 385 343 (150-450) k/uL Comprehensive Metabolic Panel 09/04/19 09/05/19 Range/Units 16:06 03:41 Sodium 132 L 131 L (137-145) mmol/L Potassium 5.2 H 4.8 (3.5-5.1) mmol/L Chloride 102 102 (98-107) mmol/L Carbon Dioxide 20 L 22 (22-30) mmol/L BUN 8 L 11 (9-20) mg/dL Creatinine 0.66 0.84 (0.66-1.25) mg/dL Glucose 150 H 184 H (74-99) mg/dL Calcium 9.6 9.2 (8.4-10.2) mg/dL AST 305 H 422 H (17-59) U/L ALT 55 H 136 H (4-49) U/L Alkaline Phosphatase 202 H 217 H (38-126) U/L Total Protein 8.8 H 7.5 (6.3-8.2) g/dL Albumin 4.8 3.9 (3.5-5.0) g/dL Current Medications Generic Name Dose Route Start Last Admin Trade Name Freq PRN Reason Stop Dose Admin Acetaminophen 650 mg 09/04/19 18:16 09/04/19 21:09 Tylenol Tab PO 650 mg Q6HR PRN Administration Mild Pain or Fever > 100.5 Aspirin 81 mg 09/05/19 09:00 09/05/19 09:51 Aspirin PO 81 mg DAILY CYNTHIA Administration Atorvastatin Calcium 80 mg 09/04/19 21:00 09/04/19 21:09 Lipitor PO 80 mg HS CYNTHIA Administration Carvedilol 6.25 mg 09/05/19 07:30 09/05/19 06:23 Coreg PO 6.25 mg AC-BID CYNTHIA Administration Clonidine 0.3 mg 09/04/19 21:00 09/04/19 21:09 Catapres PO 0.3 mg HS CYNTHIA Administration Clopidogrel Bisulfate 75 mg 09/05/19 09:00 09/05/19 09:51 Plavix PO 75 mg DAILY CYNTHIA Administration Heparin Sodium (Porcine) 0 unit 09/04/19 17:06 Heparin IV PER PROTOCOL PRN Low PTT Protocol Heparin Sodium/Sodium Chloride 250 mls @ 9.689 mls/hr 09/04/19 17:15 09/04/19 17:42 25,000 unit/ Sodium Chloride IV 12 units/kg/hr .Q24H CYNTHIA 9.689 mls/hr Administration Protocol 12 UNITS/KG/HR Lisinopril 20 mg 09/04/19 21:00 09/05/19 09:51 Zestril PO 20 mg BID CYNTHIA Administration Loratadine 10 mg 09/05/19 09:00 09/05/19 09:51 Claritin PO 10 mg DAILY CYNTHIA Administration Lorazepam 1 mg 09/04/19 17:02 09/04/19 21:09 Ativan IV 1 mg Q2HR PRN Administration CIWA 8 or 9 Lorazepam 1 mg 09/04/19 17:02 Ativan IV Q1HR PRN CIWA 10 to 15 Lorazepam 2 mg 09/04/19 17:02 Ativan IV 09/06/19 17:02 Q10M PRN CIWA 16 or higher Naloxone HCl 0.2 mg 09/04/19 18:16 Narcan IV Q2M PRN Opioid Reversal Patient's Own- 1 tab 09/05/19 09:45 09/05/19 09:51 Buprenorphine Hcl/ SUBLINGUAL 1 tab Naloxone Hcl [ DAILY CYNTHIA Administration Zubsolv 2.9-0.71 Mg Tablet Sl] Pantoprazole Sodium 40 mg 09/05/19 09:34 Protonix PO DAILY PRN GI Upset Polyethylene Glycol 17 gm 09/05/19 09:34 Miralax PO DAILY PRN Constipation Thiamine HCl 100 mg 09/04/19 17:30 09/05/19 06:23 Vitamin B-1 PO 100 mg BID-W/MEALS CYNTHIA Administration Intake and Output 09/04/19 09/05/19 09/05/19 22:59 06:59 14:59 Other: # Voids 1 Weight 80.739 kg 76.2 kg 09/05/19 03:41 09/05/19 03:41
[2019-09-05] MEDS ORDERED: REGADENOSON 0.4 MG/5 ML SYRINGE IV ONE (14:13)
[2019-09-05] MEDS: NICOTINE 21MG/24HR PATCH TRANSDERM SCH (16:28)
[2019-09-05] MEDS: HEPARIN SOD,PORK IN 0.45% NACL 25,000 UNIT in 0.45% NACL 1 250ML.BAG IV SCH (16:35)
[2019-09-05] MEDS: ATORVASTATIN 80 MG TAB PO SCH (20:25)
[2019-09-05] MEDS: cloNIDine HCL 0.2 MG TAB PO SCH (20:25)
[2019-09-05] MEDS: LORazepam 2 MG/ML INJ IV PRN (20:25)
[2019-09-06] MEDS: THIAMINE 100 MG TAB PO SCH ×2 (06:14→17:29)
[2019-09-06] MEDS: carvediloL 6.25 MG TAB PO SCH ×2 (06:14→17:29)
[2019-09-06 07:39] LABS: ALT 75 U/L (4-49); AST 87 U/L (17-59); African American GFR (CKD) >90 (>60 ml/min/1.73 sqM); Albumin 3.6 g/dL (3.5-5.0); Alkaline Phosphatase 142 U/L (38-126); Anion Gap 7 mmol/L; Blood Urea Nitrogen 16 mg/dL (9-20); Calcium 8.9 mg/dL (8.4-10.2); Carbon Dioxide 24 mmol/L (22-30); Chloride 104 mmol/L (98-107); Glucose 125 mg/dL (74-99); Non-African American GFR(CKD) >90 (>60 ml/min/1.73 sqM); Potassium 4.6 mmol/L (3.5-5.1); Sodium 135 mmol/L (137-145); Total Bilirubin 0.4 mg/dL (0.2-1.3)
[2019-09-06 07:43] LABS: Basophils % (A) 0 %; Eosinophils % (A) 0 %; HCT 32.9 % (39.0-53.0); HGB 11.2 gm/dL (13.0-17.5); Lymphocytes # (A) 1.4 k/uL (1.0-4.8); Lymphocytes % (A) 14 %; MCH 33.8 pg (25.0-35.0); MCV 99.3 fL (80.0-100.0); Mean Platelet Volume 7.7; Monocytes # (A) 0.6 k/uL (0-1.0); Monocytes % (A) 6 %; Neutrophils # (A) 8.1 k/uL (1.3-7.7); Neutrophils % (A) 79 %; Platelet Count 315 k/uL (150-450); RBC 3.31 m/uL (4.30-5.90); WBC 10.4 k/uL (3.8-10.6)
--- NOTE | 2019-09-06 09:33 | P.PN ---
Subjective Progress Note Date: 09/06/19 Principal diagnosis: Chest pain, shortness of breath 69-year-old male patient presented emergency room on 09/04/2019 at approximately 1600. Complains of chest pain in the epigastric area and shortness of breath. He has also had a cough but relates it to his smoking. He does state he is cutting back and has only had 3 packs over the past month. He denies fever, chills, lower extremity pain or swelling. Denies nausea, vomiting, diarrhea, dark stools or bloody stools. Does have complaints of constipation in which he is on MiraLAX which has been somewhat successful. Approximately one month ago he had coronary angiogram with stenting of the RCA. Currently is on aspirin and Plavix makes note that he has been compliant with the medication regimen. He does admit to drinking a 12 pack plus or minus a few beers daily for quite some time. He does mention that he can take his dog for a walk and he does not notice chest pain or pain in the lower extremities with this activity. On admission initial troponin was 0.056, 0.059, and final 0.031. Most recent lab work as a 4:00 this morning CBC shows WBC count of 4.6, hemoglobin 11.9, hematocrit 35.6, platelet count 343 coagulation studies initially PT of 10.5, INR 1.0, APTT 25. He was placed on a heparin drip on admission per anticoagulation. This morning's chemistry panel revealed sodium 131, potassium of 4.8, chloride 102, P1 of 11 and a creatinine of 0.84. Regards the transaminitis is AST initially was 305 and ELT are 55 with alk phos 202 subsequent draw this morning at 4 AM was AST of 422, ALK 136, alk phos 217. BNP of 1210. Vital signs of been stable and temperature 97.6 oral heart rate of 93 normal sinus rhythm respiratory rate of 18 oxygen saturation is 95% on 2 L nasal cannula and has a blood pressure 108/71. Chest x-ray no evidence of acute pulmonary disease for impression, but hyperinflation compatible with COPD as noted. An ultrasound of the gallbladder was completed the emergency room impression for that was mild hepatomegaly with heterogeneous appearance to the liver parenchyma. Correlate for hepatic steatosis or other nonspecific hepatocellular disease. No cholelithiasis or biliary ductal dilatation. 69-year-old male patient alert and oriented 3, currently sitting up in bed and appears in no acute distress. He does complain of the continued chest pressure that he has had for several months, denies shortness of breath, nausea or vomiting, diaphoresis. Currently his vital signs are stable he's afebrile 98.1, heart rate of 103, dysuria 20, blood pressure 109/69, oxygen saturation 90% on 2 L nasal cannula. Current lab work for today CBC shows a white count of 10.4, hemoglobin of 11.2, hematocrit 32.9, platelet count of 3:15. Continues on a heparin drip this morning's APTT was 45.6. Today's chemistry reveals sodium 135, potassium 4.6, chloride 104, BUS 16, creatinine of 0.74, AST is down to 87, ELT count 275, and PHOSPHATASE is down to 142. Objective - Vital Signs Vital signs: Vital Signs Temp 98.1 F 09/06/19 03:00 Pulse 103 H 09/06/19 03:00 Resp 20 09/06/19 03:00 BP 109/69 09/06/19 03:00 Pulse Ox 99 09/06/19 03:00 Intake & Output 09/05/19 09/06/19 09/06/19 18:59 06:59 18:59 Intake Total 521.717 240 Balance 521.717 240 Weight 79.5 kg Intake: Intake, IV Titration 221.717 Amount Heparin Sod,Pork in 0.45% 221.717 NaCl 25,000 unit In 0.45 % NaCl 1 250ml.bag @ 12 UNITS/KG/HR 9.689 mls/hr IV .Q24H [facility] Rx#: [id number] Oral 300 240 Other: # Voids 2 2 2 - Exam GENERAL: Well-appearing, well-nourished and in no acute distress. HEAD: Atraumatic, normocephalic. EYES: Pupils equal round and reactive to light, extraocular movements intact, sclera anicteric, conjunctiva are normal. ENT:nares patent, oropharynx clear without exudates. Moist mucous membranes. NECK: Normal range of motion, supple without lymphadenopathy or JVD, no thyro megaly LUNGS: Breath sounds clear to auscultation bilaterally and equal. No wheezes rales or rhonchi. HEART: Regular rate and rhythm without murmurs, rubs or gallops.S1S2 Normal ABDOMEN: Soft, nontender, normoactive bowel sounds. No guarding, no rebound. No masses appreciated. EXTREMITIES: Normal range of motion, no pitting or edema. No clubbing or cyanosis. NEUROLOGICAL: Cranial nerves II through XII grossly intact. Normal speech, normal gait. PSYCH: Normal mood, normal affect. SKIN: Warm, Dry, normal turgor, no rashes or lesions noted, tattoo to left upper chest. - Labs CBC & Chem 7: 09/06/19 06:48 09/06/19 06:48 Labs: Abnormal Lab Results - Last 24 Hours (Table) 09/06/19 09/06/19 09/06/19 Range/Units 06:48 06:48 06:48 RBC 3.31 L (4.30-5.90) m/uL Hgb 11.2 L (13.0-17.5) gm/dL Hct 32.9 L (39.0-53.0) % Neutrophils # 8.1 H (1.3-7.7) k/uL APTT 45.6 H (22.0-30.0) sec Sodium 135 L (137-145) mmol/L Glucose 125 H (74-99) mg/dL AST 87 H (17-59) U/L ALT 75 H (4-49) U/L Alkaline Phosphatase 142 H (38-126) U/L Assessment and Plan (1) Constipation Current Visit: Yes Status: Acute Code(s): K59.00 - CONSTIPATION, UNSPECIFIED SNOMED Code(s): 46665085 (2) Acute non-ST elevation myocardial infarction (NSTEMI) Current Visit: Yes Status: Acute Code(s): I21.4 - NON-ST ELEVATION (NSTEMI) MYOCARDIAL INFARCTION SNOMED Code(s): 895851042 (3) Alcohol abuse Current Visit: Yes Status: Acute Code(s): F10.10 - ALCOHOL ABUSE, UNCOMPLICATED SNOMED Code(s): 84914463 (4) Chest pain Current Visit: No Status: Acute Code(s): R07.9 - CHEST PAIN, UNSPECIFIED SNOMED Code(s): 57320041 (5) Essential (primary) hypertension Current Visit: No Status: Acute Code(s): I10 - ESSENTIAL (PRIMARY) HYPERTENSION SNOMED Code(s): 07052563 (6) History of opioid abuse Current Visit: No Status: Acute Code(s): F11.11 - OPIOID ABUSE, IN REMISSION SNOMED Code(s): 436397361 (7) Mixed hyperlipidemia Current Visit: No Status: Acute Code(s): E78.2 - MIXED HYPERLIPIDEMIA SNOMED Code(s): 203820918 (8) Tobacco abuse Current Visit: No Status: Acute Code(s): Z72.0 - TOBACCO USE SNOMED Code(s): 173584304 (9) Transaminitis Current Visit: Yes Status: Acute Code(s): R74.0 - NONSPEC ELEV OF LEVELS OF TRANSAMNS & LACTIC ACID DEHYDRGNSE SNOMED Code(s): 850277355 Plan: 1. Continue current medication regimen. 2. Continue to monitor labs. 3. Monitor vital signs. 4. We'll order labs for tomorrow. 5. Continue follow with cardiology recommendations. 6. Continuous CIWA protocol for acute alcohol withdrawal. 7. We'll continue with polyethylene glycol for constipation. 8. Per cardiology, will do stress test on Saturday. 9. We'll continue to follow closely and will reassess tomorrow. Time with Patient: Greater than 30
[2019-09-06] MEDS: lisinopriL 20 MG TAB PO SCH ×2 (10:04→20:37)
[2019-09-06] MEDS: NICOTINE 21MG/24HR PATCH TRANSDERM SCH (10:04)
[2019-09-06] MEDS: BUPRENORPHINE HCL SUBLINGUAL SCH (10:04)
[2019-09-06] MEDS: NALOXONE HCL SUBLINGUAL SCH (10:04)
[2019-09-06] MEDS: LORATADINE 10 MG TAB PO SCH (10:05)
[2019-09-06] MEDS: ASPIRIN 81 MG PO SCH (10:05)
[2019-09-06] MEDS: CLOPIDOGREL 75 MG TAB PO SCH (10:05)
--- NOTE | 2019-09-06 11:40 | P.PN ---
Subjective Progress Note Date: 09/06/19 History of present illness: This is a 69-year-old male follows with Dr. Yogesh Min in the office. He has past medical history of hypertension, carotid artery disease. Patient recently underwent heart catheterization and stenting of the proximal and ostial RCA with 2 drug-eluting stents on July 29. Patient presents to hospital complaining of chest pain to the lower ribs on the left side. He states he has had this since before and Dr. Jono Min has been aware of it. He states he is taking all of his medications as instructed. He describes it as a constant pressure type pain. He does not notice it when he is walking his dog. He also feels like he had significant sweats yesterday that lasted all day and not related to the temperature outside. He complains of nausea and couldn't eat very much. Patient came into [facility] emergency center for evaluation. His initial blood pressure 170/95. EKG is sinus rhythm without ST changes. Troponins 0.056, 0.059, 0.031. Hemoglobin 11.9 Liver function tests were elevated and these were normal in January. Ultrasound of the liver reveals steatosis of the liver. Patient admits to drinking 8-15 beers per day and takes his medications with beer. The patient was started on a heparin drip and admitted to the floor. He continues to have chest discomfort in the left lower ribs. 09/05: Patient continues to complain of chest pressure that has been going on on the left lower rib area. No shortness of breath, nausea or vomiting. Repeat blood work reveals hemoglobin 11.2, potassium 4.6, BUN 16 and creatinine 0.74. Liver function tests are improving. He is scheduled for Lexiscan stress test on Saturday. Physical examination: Gen: This is a 69-year-old male. His resting bed appears to be comfortable and in no acute distress. VS: Afebrile, heart rate 80, blood pressure 105/65, pulse ox 99% on 2 L nasal cannula. HEENT: Head is atraumatic, normocephalic. Pupils equal, round. Sclerae is anicteric. NECK: Supple. No JVD. No lymphadenopathy. No thyromegaly. LUNGS: Clear to auscultation. No wheezes or rhonchi. No intercostal retraction s. HEART: Regular rate and rhythm. No murmur. ABDOMEN: Soft. Bowel sounds are present. No masses. No tenderness. EXTREMITIES: No pedal edema. No calf tenderness. NEUROLOGICAL: Patient is awake, alert and oriented x3. Cranial nerves 2 through 12 are grossly intact. Assessment: Elevated troponins with chest pain, possible non-ST elevated myocardial infarction Coronary artery disease status post recent PTCA ostial and proximal RCA with 2 drug alluding stents Hypertension Hyperlipidemia Elevated liver function tests Tobacco use and dependence Alcohol abuse Plan: Continue heparin drip Continue aspirin, Plavix, atorvastatin Continue lisinopril 20 mg twice daily, Catapres, Coreg 6.25 mg twice daily Patient will be scheduled for Lexiscan stress test on Saturday Further recommendations to follow based upon clinical course Thank you kindly for this consultation Nurse practitioner note has been reviewed, I agree with documented findings and plan of care. Patient was seen and examined. Objective - Vital Signs Vital signs: Vital Signs Temp 98.1 F 09/06/19 03:00 Pulse 103 H 09/06/19 03:00 Resp 20 09/06/19 03:00 BP 109/69 09/06/19 03:00 Pulse Ox 99 09/06/19 03:00 Intake & Output 09/05/19 09/06/19 09/06/19 18:59 06:59 18:59 Intake Total 521.717 240 Balance 521.717 240 Weight 79.5 kg Intake: Intake, IV Titration 221.717 Amount Heparin Sod,Pork in 0.45% 221.717 NaCl 25,000 unit In 0.45 % NaCl 1 250ml.bag @ 12 UNITS/KG/HR 9.689 mls/hr IV .Q24H [facility] Rx#: [id number] Oral 300 240 Other: # Voids 2 2 2 - Labs CBC & Chem 7: 09/06/19 06:48 09/06/19 06:48 Labs: Abnormal Lab Results - Last 24 Hours (Table) 09/06/19 09/06/19 09/06/19 Range/Units 06:48 06:48 06:48 RBC 3.31 L (4.30-5.90) m/uL Hgb 11.2 L (13.0-17.5) gm/dL Hct 32.9 L (39.0-53.0) % Neutrophils # 8.1 H (1.3-7.7) k/uL APTT 45.6 H (22.0-30.0) sec Sodium 135 L (137-145) mmol/L Glucose 125 H (74-99) mg/dL AST 87 H (17-59) U/L ALT 75 H (4-49) U/L Alkaline Phosphatase 142 H (38-126) U/L
[2019-09-06] MEDS: HEPARIN SOD,PORK IN 0.45% NACL 25,000 UNIT in 0.45% NACL 1 250ML.BAG IV SCH (17:30)
[2019-09-06] MEDS: LORazepam 2 MG/ML INJ IV PRN ×2 (17:36→20:37)
[2019-09-06] MEDS: ATORVASTATIN 80 MG TAB PO SCH (20:36)
[2019-09-06] MEDS: cloNIDine HCL 0.2 MG TAB PO SCH (20:37)
[2019-09-07] MEDS ORDERED: CAFFEINE CITRATE 60 MG/3 ML VIAL IV PRN (06:00)
[2019-09-07] MEDS ORDERED: AMINOPHYLLINE 500 MG/20 ML VIAL IV PRN (06:00)
[2019-09-07] MEDS: carvediloL 6.25 MG TAB PO SCH ×2 (06:40→17:28)
[2019-09-07] MEDS: THIAMINE 100 MG TAB PO SCH ×2 (06:40→17:28)
[2019-09-07 07:03] LABS: Basophils % (A) 0 %; Eosinophils # (A) 0.2 k/uL (0-0.7); Eosinophils % (A) 2 %; HGB 10.9 gm/dL (13.0-17.5); Lymphocytes # (A) 1.9 k/uL (1.0-4.8); Lymphocytes % (A) 27 %; MCH 31.9 pg (25.0-35.0); MCHC 31.9 g/dL (31.0-37.0); MCV 99.9 fL (80.0-100.0); Mean Platelet Volume 7.4; Monocytes # (A) 0.5 k/uL (0-1.0); Monocytes % (A) 6 %; Neutrophils # (A) 4.2 k/uL (1.3-7.7); Neutrophils % (A) 60 %; Platelet Count 303 k/uL (150-450); RBC 3.41 m/uL (4.30-5.90); WBC 6.9 k/uL (3.8-10.6)
[2019-09-07 07:13] LABS: ALT 55 U/L (4-49); AST 60 U/L (17-59); African American GFR (CKD) >90 (>60 ml/min/1.73 sqM); Albumin 3.1 g/dL (3.5-5.0); Alkaline Phosphatase 108 U/L (38-126); Anion Gap 4 mmol/L; Blood Urea Nitrogen 19 mg/dL (9-20); Calcium 8.4 mg/dL (8.4-10.2); Carbon Dioxide 24 mmol/L (22-30); Chloride 106 mmol/L (98-107); Glucose 102 mg/dL (74-99); Non-African American GFR(CKD) >90 (>60 ml/min/1.73 sqM); Potassium 4.4 mmol/L (3.5-5.1); Sodium 134 mmol/L (137-145); Total Bilirubin 0.3 mg/dL (0.2-1.3); Total Protein 6.3 g/dL (6.3-8.2)
[2019-09-07] MEDS ORDERED: REGADENOSON 0.4 MG/5 ML SYRINGE IV ONE (10:51)
--- NOTE | 2019-09-07 12:11 | NM ---
EXAMINATION TYPE: NM stress lexiscan cardiolite DATE OF EXAM: 09/07/2019 COMPARISON: 03/23/2019 HISTORY: Chest pain TECHNIQUE: After the intravenous administration of 10.6 mCi Tc 99m Sestamibi - Cardiolite resting SP ECT images acquired 70 minutes post injection. The patient received 0.4mg Lexiscan, 25.7 mCi Tc 99m Sestamibi - Stress images obtained [address] injection FINDINGS: Review of stress and rest SPECT images demonstrates a stable fixed defect involving the inferior and inferoapical myocardium. Could not exclude a small area of stress-induced reversibility involving the apex.. Gated analysis shows an estimated left ventricular ejection fraction of 66 %. IMPRESSION: 1. Persistent fixed defect involving the inferior and anterior inferior apical myocardium. Ejection f raction is 66%. Could not exclude a tiny area of stress-induced reversible ischemia involving the car diac apex. Correlate clinically.
[2019-09-07] MEDS: NICOTINE 21MG/24HR PATCH TRANSDERM SCH (12:12)
[2019-09-07] MEDS: CLOPIDOGREL 75 MG TAB PO SCH (12:12)
[2019-09-07] MEDS: lisinopriL 20 MG TAB PO SCH ×2 (12:13→21:08)
[2019-09-07] MEDS: ASPIRIN 81 MG PO SCH (12:13)
[2019-09-07] MEDS: LORATADINE 10 MG TAB PO SCH (12:13)
[2019-09-07] MEDS: BUPRENORPHINE HCL SUBLINGUAL SCH (12:37)
[2019-09-07] MEDS: NALOXONE HCL SUBLINGUAL SCH (12:37)
--- NOTE | 2019-09-07 12:43 | EST ---
EXERCISE STRESS DATE OF SERVICE: 09/07/2019. AGE: 69 SEX: M HT: 68" WT: 160 lbs PROTOCOL: Lexiscan Cardiolite HEART RATE REST: 75 BLOOD PRESSURE REST: 105/60 MAXIMUM HEART RATE ACHIEVED: 99 MAXIMUM BLOOD PRESSURE: 110/66 85% MPHR: 100% MPHR: METS: INDICATIONS: Chest pain. STRESS DATA: Heart rate 75. Pressure is 105/60 mmHg. Baseline EKG showed sinus mechanism. 0.4 mg of Lexiscan given over 15 seconds per protocol. Max heart rate was 99 beats per minute and maximum pressure was 110/66 mmHg. Clinically the patient did not have symptoms and the EKG did not show any significant ST or T-wave abnormalities concerning for ischemia. CONCLUSION: 1. Nondiagnostic electrocardiogram stress testing in response to Lexiscan. 2. Please follow up on the Cardiolite portion on separate report. MMODL / IJN: [id number] /
--- NOTE | 2019-09-07 13:52 | P.PN ---
Subjective Progress Note Date: 09/07/19 This is a 69-year-old male follows with Dr. Yogesh Min in the office. He has past medical history of hypertension, carotid artery disease. Patient recently underwent heart catheterization and stenting of the proximal and ostial RCA with 2 drug-eluting stents on July 29. Patient presented to hospital complaining of chest pain to the lower ribs on the left side. Patient was seen in consultation by Dr. Coats over the weekend and recommended to undergo a Lexiscan stress test which was performed today, results are yet pending. Hemodynamically the patient is stable. Objective - Vital Signs Vital signs: Vital Signs Temp 97.9 F 09/07/19 08:00 Pulse 83 09/07/19 12:00 Resp 16 09/07/19 12:00 BP 96/48 09/07/19 12:00 Pulse Ox 100 09/07/19 12:00 Intake & Output 09/06/19 09/07/19 09/07/19 18:59 06:59 18:59 Intake Total 721.418 Balance 721.418 Weight 72.8 kg 72.8 kg Intake: Intake, IV Titration 241.418 Amount Heparin Sod,Pork in 0.45% 241.418 NaCl 25,000 unit In 0.45 % NaCl 1 250ml.bag @ 12 UNITS/KG/HR 9.689 mls/hr IV .Q24H CYNTHIA Rx#: [id number] Oral 480 Other: # Voids 2 1 1 - Exam Physical examination: Gen: This is a 69-year-old male. His resting bed appears to be comfortable and in no acute distress. VS: Afebrile, heart rate 83, blood pressure 96/48, pulse ox 99% on room air HEENT: Head is atraumatic, normocephalic. Pupils equal, round. Sclerae is anicteric. NECK: Supple. No JVD. No lymphadenopathy. No thyromegaly. LUNGS: Clear to auscultation. No wheezes or rhonchi. No intercostal retractions. HEART: Regular rate and rhythm. No murmur. ABDOMEN: Soft. Bowel sounds are present. No masses. No tenderness. EXTREMITIES: No pedal edema. No calf tenderness. NEUROLOGICAL: Patient is awake, alert and oriented x3. Cranial nerves 2 through 12 are grossly intact. - Labs CBC & Chem 7: 09/07/19 06:39 09/07/19 06:39 Labs: Abnormal Lab Results - Last 24 Hours (Table) 09/07/19 09/07/19 09/07/19 Range/Units 06:39 06:39 06:39 RBC 3.41 L (4.30-5.90) m/uL Hgb 10.9 L (13.0-17.5) gm/dL Hct 34.0 L (39.0-53.0) % APTT 36.1 H (22.0-30.0) sec Sodium 134 L (137-145) mmol/L Glucose 102 H (74-99) mg/dL AST 60 H (17-59) U/L ALT 55 H (4-49) U/L Albumin 3.1 L (3.5-5.0) g/dL Assessment and Plan Plan: Assessment and plan: #1 atypical chest pain with mild abnormality in troponin, underwent Lexiscan stress test today. #2 Coronary artery disease status post recent PTCA ostial and proximal RCA with 2 drug alluding stents #3 Hypertension #4 Hyperlipidemia #5 Elevated liver function tests #6 Tobacco use and dependence #7Alcohol abuse Plan We will review the results of the Lexiscan stress test, if negative the patient should be able to be discharged home today. If the stress test is positive patient will need to undergo cardiac catheterization. DNP note has been reviewed, I agree with a documented findings and plan of care. Patient was seen and examined.
--- NOTE | 2019-09-07 14:56 | P.PN ---
Progress Note - Text Progress Note Date: 09/07/19 Patient underwent a Lexiscan stress test today which revealed a persistent fixed defect involving the inferior and anterior inferior apical myocardium. Ejection fraction 66%. Could not exclude a tiny area of stress-induced reversible ischemia involving the cardiac apex. I gave Dr. Madhavi Min a call regarding the findings of the Theodora scan as he follows the patient in the office. His recommendation was to discharge the patient home today and schedule him to see him in the office on Saturday at 2 PM. DNP note has been reviewed, I agree with a documented findings and plan of care. Patient was seen and examined.
--- NOTE | 2019-09-07 17:02 | P.PN ---
Subjective Progress Note Date: 09/07/19 69-year-old male patient presented emergency room on 09/04/2019 at approximately 1600. Complains of chest pain in the epigastric area and shortness of breath. He has also had a cough but relates it to his smoking. He does state he is cutting back and has only had 3 packs over the past month. He denies fever, chills, lower extremity pain or swelling. Denies nausea, vomiting, diarrhea, dark stools or bloody stools. Does have complaints of constipation in which he is on MiraLAX which has been somewhat successful. Approximately one month ago he had coronary angiogram with stenting of the RCA. Currently is on aspirin and Plavix makes note that he has been compliant with the medication regimen. He does admit to drinking a 12 pack plus or minus a few beers daily for quite some time. He does mention that he can take his dog for a walk and he does not notice chest pain or pain in the lower extremities with this activity. On admission initial troponin was 0.056, 0.059, and final 0.031. Most recent lab work as a 4:00 this morning CBC shows WBC count of 4.6, hemoglobin 11.9, hematocrit 35.6, platelet count 343 coagulation studies initially PT of 10.5, INR 1.0, APTT 25. He was placed on a heparin drip on admission per anticoagulation. This morning's chemistry panel revealed sodium 131, potassium of 4.8, chloride 102, P1 of 11 and a creatinine of 0.84. Regards the transaminitis is AST initially was 305 and ELT are 55 with alk phos 202 subsequent draw this morning at 4 AM was AST of 422, ALK 136, alk phos 217. BNP of 1210. Vital signs of been stable and temperature 97.6 oral heart rate of 93 normal sinus rhythm respiratory rate of 18 oxygen saturation is 95% on 2 L nasal cannula and has a blood pressure 108/71. Chest x-ray no evidence of acute pulmonary disease for impression, but hyperinflation compatible with COPD as noted. An ultrasound of the gallbladder was completed the emergency room impression for that was mild hepatomegaly with heterogeneous appearance to the liver parenchyma. Correlate for hepatic steatosis or other nonspecific hepatocellular disease. No cholelithiasis or biliary ductal dilatation. 69-year-old male patient alert and oriented 3, currently sitting up in bed and appears in no acute distress. He does complain of the continued chest pressure that he has had for several months, denies shortness of breath, nausea or vomiting, diaphoresis. Currently his vital signs are stable he's afebrile 98.1, heart rate of 103, dysuria 20, blood pressure 109/69, oxygen saturation 90% on 2 L nasal cannula. Current lab work for today CBC shows a white count of 10.4, hemoglobin of 11.2, hematocrit 32.9, platelet count of 3:15. Continues on a h eparin drip this morning's APTT was 45.6. Today's chemistry reveals sodium 135, potassium 4.6, chloride 104, BUS 16, creatinine of 0.74, AST is down to 87, ELT count 275, and PHOSPHATASE is down to 142. 09/07/2019 Borderline hypotensive, systolic blood pressures in the 90s. Hemoglobin trending down currently 10.9. T bili 0.3, LFTs minimally elevated, trending down. Reports chest pressure, NPO, scheduled for lexiscan stress test with cardiology today. Objective - Vital Signs Vital signs: Vital Signs Temp 97.9 F 09/07/19 08:00 Pulse 83 09/07/19 12:00 Resp 16 09/07/19 15:55 BP 96/48 09/07/19 12:00 Pulse Ox 100 09/07/19 12:00 Intake & Output 09/06/19 09/07/19 09/07/19 18:59 06:59 18:59 Intake Total 721.418 200 Balance 721.418 200 Weight 72.8 kg 72.8 kg Intake: Intake, IV Titration 241.418 Amount Heparin Sod,Pork in 0.45% 241.418 NaCl 25,000 unit In 0.45 % NaCl 1 250ml.bag @ 12 UNITS/KG/HR 9.689 mls/hr IV .Q24H [facility] Rx#: [id number] Oral 480 200 Other: # Voids 2 1 2 - Exam GENERAL: Well-appearing, well-nourished and in no acute distress. HEAD: Atraumatic, normocephalic. EYES: Pupils equal round and reactive to light, extraocular movements intact, sclera anicteric, conjunctiva are normal. ENT:nares patent, oropharynx clear without exudates. Moist mucous membranes. NECK: Normal range of motion, supple without lymphadenopathy or JVD, no thyromegaly LUNGS: Breath sounds clear to auscultation bilaterally and equal. No wheezes rales or rhonchi. HEART: Regular rate and rhythm without murmurs, rubs or gallops.S1S2 Normal ABDOMEN: Soft, nontender, normoactive bowel sounds. No guarding, no rebound. No masses appreciated. EXTREMITIES: Normal range of motion, no pitting or edema. No clubbing or cyanosis. NEUROLOGICAL: Cranial nerves II through XII grossly intact. Normal speech, normal gait. PSYCH: Normal mood, normal affect. SKIN: Warm, Dry, normal turgor, no rashes or lesions noted, tattoo to left upper chest. - Labs CBC & Chem 7: 09/07/19 06:39 09/07/19 06:39 Labs: Abnormal Lab Results - Last 24 Hours (Table) 09/07/19 09/07/19 09/07/19 Range/Units 06:39 06:39 06:39 RBC 3.41 L (4.30-5.90) m/uL Hgb 10.9 L (13.0-17.5) gm/dL Hct 34.0 L (39.0-53.0) % APTT 36.1 H (22.0-30.0) sec Sodium 134 L (137-145) mmol/L Glucose 102 H (74-99) mg/dL AST 60 H (17-59) U/L ALT 55 H (4-49) U/L Albumin 3.1 L (3.5-5.0) g/dL Assessment and Plan Assessment: Acute chest pain with elevated troponins, possible NSTEMI CAD with recent stenting Constipation Hypertension Hyperlipidemia Elevated LFTs Ongoing nicotine dependence Alcohol abuse History of opioid abuse Plan: Continue on current medication regime ,monitoring and symptomatic treatment. Lexiscan stress test pending. Follow closely with cardiology. WA protocol, Close monitoring of CBC. Discharge planning in progress pending stress test results. The impression and plan of care has been dictated as directed. : I performed a history and examination of this patient, discussed the same with the dictator. I agree with the dictator's note ,documented as a scribe. Any additional findings or plans will be noted.
[2019-09-07] MEDS: ATORVASTATIN 80 MG TAB PO SCH (21:08)
[2019-09-07] MEDS: cloNIDine HCL 0.2 MG TAB PO SCH (21:08)
[2019-09-07] MEDS: HEPARIN SOD,PORK IN 0.45% NACL 25,000 UNIT in 0.45% NACL 1 250ML.BAG IV SCH (21:47)
[2019-09-08 04:22] VITALS: RESP 16
[2019-09-08] MEDS: carvediloL 6.25 MG TAB PO SCH (06:07)
[2019-09-08] MEDS: THIAMINE 100 MG TAB PO SCH (06:07)
[2019-09-08 07:47] LABS: African American GFR (CKD) >90 (>60 ml/min/1.73 sqM); Anion Gap 4 mmol/L; Blood Urea Nitrogen 17 mg/dL (9-20); Calcium 8.6 mg/dL (8.4-10.2); Carbon Dioxide 27 mmol/L (22-30); Chloride 103 mmol/L (98-107); Glucose 105 mg/dL (74-99); Non-African American GFR(CKD) >90 (>60 ml/min/1.73 sqM); Potassium 4.6 mmol/L (3.5-5.1); Sodium 134 mmol/L (137-145)
[2019-09-08 08:08] LABS: Basophils % (A) 0 %; Eosinophils # (A) 0.3 k/uL (0-0.7); Eosinophils % (A) 4 %; HGB 11.1 gm/dL (13.0-17.5); Lymphocytes # (A) 1.4 k/uL (1.0-4.8); Lymphocytes % (A) 19 %; MCH 33.5 pg (25.0-35.0); MCHC 33.7 g/dL (31.0-37.0); MCV 99.6 fL (80.0-100.0); Mean Platelet Volume 7.5; Monocytes # (A) 0.6 k/uL (0-1.0); Monocytes % (A) 8 %; Neutrophils # (A) 4.8 k/uL (1.3-7.7); Neutrophils % (A) 66 %; Platelet Count 305 k/uL (150-450); RBC 3.31 m/uL (4.30-5.90); WBC 7.2 k/uL (3.8-10.6)
[2019-09-08] MEDS: NALOXONE HCL SUBLINGUAL SCH (09:23)
[2019-09-08] MEDS: CLOPIDOGREL 75 MG TAB PO SCH (09:23)
[2019-09-08] MEDS: lisinopriL 20 MG TAB PO SCH (09:23)
[2019-09-08] MEDS: LORATADINE 10 MG TAB PO SCH (09:23)
[2019-09-08] MEDS: NICOTINE 21MG/24HR PATCH TRANSDERM SCH (09:23)
[2019-09-08] MEDS: BUPRENORPHINE HCL SUBLINGUAL SCH (09:23)
[2019-09-08] MEDS: ASPIRIN 81 MG PO SCH (09:23)
[2019-09-08 09:54] VITALS: BP 101/69; PULSE 91; TEMP 97.7
--- NOTE | 2019-09-08 11:40 | P.PN ---
Subjective Progress Note Date: 09/08/19 This is a 69-year-old male follows with Dr. Yogesh Min in the office. He has past medical history of hypertension, carotid artery disease. Patient recently underwent heart catheterization and stenting of the proximal and ostial RCA with 2 drug-eluting stents on July 29. Patient presented to hospital complaining of chest pain to the lower ribs on the left side. Patient was seen in consultation by Dr. Coats over the weekend and recommended to undergo a Lexiscan stress test which was performed today, results are yet pending. Hemodynamically the patient is stable. 09/08/2019 Patient seen and examined this morning, he was notified that stress test raise the suspicion that it may be slightly positive. However Dr. Madhavi Min's recommendation was to discharge the patient home and follow-up with him in the office on Saturday. Blood pressure 102/68 with a heart rate of 90, 97% on room air. White blood cell count 7.2, hemoglobin 11.1, platelet count 305. Sodium 134, potassium 4.6, BUN 17, creatinine 0.6. Objective - Vital Signs Vital signs: Vital Signs Temp 97.7 F 09/08/19 08:00 Pulse 91 09/08/19 08:00 Resp 16 09/08/19 08:00 BP 101/69 09/08/19 08:00 Pulse Ox 97 09/08/19 08:00 Intake & Output 09/07/19 09/08/19 09/08/19 18:59 06:59 18:59 Intake Total 680 240 Balance 680 240 Weight 72.8 kg 79.4 kg Intake: Oral 680 240 Other: # Voids 2 1 1 # Bowel Movements 1 - Exam Physical examination: Gen: This is a 69-year-old male. His resting bed appears to be comfortable and in no acute distress. VS: Afebrile, heart rate 83, blood pressure 96/48, pulse ox 99% on room air HEENT: Head is atraumatic, normocephalic. Pupils equal, round. Sclerae is anicteric. NECK: Supple. No JVD. No lymphadenopathy. No thyromegaly. LUNGS: Clear to auscultation. No wheezes or rhonchi. No intercostal retractions. HEART: Regular rate and rhythm. No murmur. ABDOMEN: Soft. Bowel sounds are present. No masses. No tenderness. EXTREMITIES: No pedal edema. No calf tenderness. NEUROLOGICAL: Patient is awake, alert and oriented x3. Cranial nerves 2 through 12 are grossly intact. - Labs CBC & Chem 7: 09/08/19 07:15 09/08/19 07:15 Labs: Abnormal Lab Results - Last 24 Hours (Table) 09/08/19 09/08/19 Range/Units 07:15 07:15 RBC 3.31 L (4.30-5.90) m/uL Hgb 11.1 L (13.0-17.5) gm/dL Hct 33.0 L (39.0-53.0) % Sodium 134 L (137-145) mmol/L Glucose 105 H (74-99) mg/dL Assessment and Plan Plan: Assessment and plan: #1 atypical chest pain with mild abnormality in troponin, underwent Lexiscan stress test which revealed a persistent fixed defect involving the inferior and anterior inferior apical myocardium. Ejection fraction 66%. Could not exclude a tiny area of stress-induced reversible ischemia involving the cardiac apex. Dr. Madhavi Min notified, orders given for the patient to be discharged home and follow-up with him in the office on Saturday #2 Coronary artery disease status post recent PTCA ostial and proximal RCA with 2 drug alluding stents #3 Hypertension #4 Hyperlipidemia #5 Elevated liver function tests #6 Tobacco use and dependence #7Alcohol abuse Plan From cardiology's perspective, the patient may be able to be discharged home, follow-up appointment has been made with Dr. Madhavi Min in the office. DNP note has been reviewed, I agree with a documented findings and plan of care. Patient was seen and examined.
--- NOTE | 2019-09-08 14:23 | P.DS ---
Providers Date of admission: 09/04/19 18:16 Expected date of discharge: 09/08/19 Attending physician: Ric Pinzon Consults: 09/04/19 18:17 Consult Physician Routine Consulting Provider: Linsey Antoine Consult Reason/Comments: CAD, recent stent, troponin elevation Do you want consulting provider notified?: Yes Primary care physician: Kit Issa [facility] Course: Final Diagnoses: Acute chest pain with elevated troponins, possible NSTEMI. Status post positive stress test, further follow-up outpatient this Saturday with Dr. ROSALEE Min. CAD with recent stenting Constipation Hypertension Hyperlipidemia Elevated LFTs Ongoing nicotine dependence Alcohol abuse History of opioid abuse Hospital course:69-year-old male patient presented emergency room on 09/04/2019 at approximately 1600. Complains of chest pain in the epigastric area and shortness of breath. He has also had a cough but relates it to his smoking. He does state he is cutting back and has only had 3 packs over the past month. He denies fever, chills, lower extremity pain or swelling. Denies nausea, vomiting, diarrhea, dark stools or bloody stools. Does have complaints of constipation in which he is on MiraLAX which has been somewhat successful. Approximately one month ago he had coronary angiogram with stenting of the RCA. Currently is on aspirin and Plavix makes note that he has been compliant with the medication regimen. He does admit to drinking a 12 pack plus or minus a few beers daily for quite some time. He does mention that he can take his dog for a walk and he does not notice chest pain or pain in the lower extremities with this activity. On admission initial troponin was 0.056, 0.059, and final 0.031. Most recent lab work as a 4:00 this morning CBC shows WBC count of 4.6, hemoglobin 11.9, hematocrit 35.6, platelet count 343 coagulation studies initially PT of 10.5, INR 1.0, APTT 25. He was placed on a heparin drip on admission per anticoagulation. This morning's chemistry panel revealed sodium 131, potassium of 4.8, chloride 102, P1 of 11 and a creatinine of 0.84. Regards the transaminitis is AST initially was 305 and ELT are 55 with alk phos 202 subsequent draw this morning at 4 AM was AST of 422, ALK 136, alk phos 217. BNP of 1210. Vital signs of been stable and temperature 97.6 oral heart rate of 93 normal sinus rhythm respiratory rate of 18 oxygen saturation is 95% on 2 L nasal cannula and has a blood pressure 108/71. Chest x-ray no evidence of acute pulmonary disease for impression, but hyperinflation compatible with COPD as noted. An ultrasound of the gallbladder was completed the emergency room impression for that was mild hepatomegaly with heterogeneous appearance to the liver parenchyma. Correlate for hepatic steatosis or other nonspecific hepatocellular disease. No cholelithiasis or biliary ductal dilatation. 69-year-old male patient alert and oriented 3, currently sitting up in bed and appears in no acute distress. He does complain of the continued chest pressure that he has had for several months, denies shortness of breath, nausea or vomiting, diaphoresis. Currently his vital signs are stable he's afebrile 98.1, heart rate of 103, dysuria 20, blood pressure 109/69, oxygen saturation 90% on 2 L nasal cannula. Current lab work for today CBC shows a white count of 10.4, hemoglobin of 11.2, hematocrit 32.9, platelet count of 3:15. Continues on a heparin drip this morning's APTT was 45.6. Today's chemistry reveals sodium 135, potassium 4.6, chloride 104, BUS 16, creatinine of 0.74, AST is down to 87, ELT count 275, and PHOSPHATASE is down to 142. 09/07/2019 Borderline hypotensive, systolic blood pressures in the 90s. Hemoglobin trending down currently 10.9. T bili 0.3, LFTs minimally elevated, trending down. Reports chest pressure, NPO, scheduled for lexiscan stress test with cardiology today. Underwent Lexiscan test reporting suspicious for positive results of stress- induced reversible ischemia. Cardiology has cleared patient for discharge recommending patient follow-up in their office this Saturday. Denies chest pain, palpitations or increased shortness of breath. Vital signs stable. Constipation resolved, positive bowel movement yesterday.CIWA score 0. Significant clinical improvement. Patient is being discharged home today in stable condition with guarded prognosis. The impression and plan of care has been dictated as directed. : I performed a history and examination of this patient, discussed the same with the dictator. I agree with the dictator's note ,documented as a scribe. Any additional findings or plans will be noted. Patient Condition at Discharge: Stable Plan - Discharge Summary Discharge Rx Participant: No New Discharge Prescriptions: New Folic Acid 1 mg PO DAILY #30 tablet Nicotine 21Mg/24Hr Patch [Habitrol] 1 patch TRANSDERM DAILY #30 patch Thiamine [Vitamin B-1] 100 mg PO DAILY #30 tab Continue Cetirizine HCl 10 mg PO DAILY Buprenorphine HCl/Naloxone HCl [Zubsolv 2.9-0.71 mg Tablet Sl] 1 tab SL DAILY Aspirin EC [Ecotrin Low Dose] 81 mg PO DAILY cloNIDine HCL [Catapres] 0.6 mg PO HS Carvedilol [Coreg] 6.25 mg PO AC-BID #180 tab Atorvastatin [Lipitor] 80 mg PO HS #90 tab Clopidogrel [Plavix] 75 mg PO DAILY tab Lisinopril [Zestril] 20 mg PO BID #180 tab Polyethylene Glycol 3350 [Miralax] 17 gm PO DAILY PRN PRN Reason: Constipation Pantoprazole [Protonix] 40 mg PO DAILY PRN PRN Reason: Gi Upset Discharge Medication List Aspirin EC [Ecotrin Low Dose] 81 mg PO DAILY 02/13/19 [History] Buprenorphine HCl/Naloxone HCl [Zubsolv 2.9-0.71 mg Tablet Sl] 1 tab SL DAILY 02/13/19 [History] Cetirizine HCl 10 mg PO DAILY 02/13/19 [History] cloNIDine HCL [Catapres] 0.6 mg PO HS 07/28/19 [History] Atorvastatin [Lipitor] 80 mg PO HS #90 tab 07/31/19 [Rx] Carvedilol [Coreg] 6.25 mg PO AC-BID #180 tab 07/31/19 [Rx] Clopidogrel [Plavix] 75 mg PO DAILY tab 07/31/19 [Rx] Lisinopril [Zestril] 20 mg PO BID #180 tab 07/31/19 [Rx] Pantoprazole [Protonix] 40 mg PO DAILY PRN 09/04/19 [History] Polyethylene Glycol 3350 [Miralax] 17 gm PO DAILY PRN 09/04/19 [History] Folic Acid 1 mg PO DAILY #30 tablet 09/08/19 [Rx] Nicotine 21Mg/24Hr Patch [Habitrol] 1 patch TRANSDERM DAILY #30 patch 09/08/19 [Rx] Thiamine [Vitamin B-1] 100 mg PO DAILY #30 tab 09/08/19 [Rx] Follow up Appointment(s)/Referral(s): Aryan Min MD [STAFF PHYSICIAN] - 09/11/19 2:00 pm Kit Issa MD [Primary Care Provider] - 09/15/19 4:30 pm Patient Instructions/Handouts: COPD (Chronic Obstructive Pulmonary Disease) (DC) Activity/Diet/Wound Care/Special Instructions: cleared by cardiology Discharge Disposition: HOME SELF-CARE
== END 2019-09-08 12:51 | disposition home or self-care (01) | DRG 282 ==
LOC: EC 15:33 → 3SCARD 18:16
PROVIDERS: ADMIT Family Medicine; ATTEND Family Medicine
DX: I21.4 Non-ST elevation (NSTEMI) myocardial infarction (principal); I25.10 Atherosclerotic heart disease of native coronary artery without angina pectoris; Z11.59 Encounter for screening for other viral diseases; K76.0 Fatty (change of) liver, not elsewhere classified; F17.210 Nicotine dependence, cigarettes, uncomplicated; J44.9 Chronic obstructive pulmonary disease, unspecified; F11.11 Opioid abuse, in remission; I10 Essential (primary) hypertension; E78.2 Mixed hyperlipidemia; B19.20 Unspecified viral hepatitis C without hepatic coma; K59.00 Constipation, unspecified; F10.10 Alcohol abuse, uncomplicated; I65.29 Occlusion and stenosis of unspecified carotid artery; E66.9 Obesity, unspecified; I95.9 Hypotension, unspecified; I25.2 Old myocardial infarction; Z68.26 Body mass index [BMI] 26.0-26.9, adult; Z79.82 Long term (current) use of aspirin; Z79.02 Long term (current) use of antithrombotics/antiplatelets; Z79.899 Other long term (current) drug therapy; Z95.5 Presence of coronary angioplasty implant and graft; Z86.73 Personal history of transient ischemic attack (TIA), and cerebral infarction without residual deficits; Z98.890 Other specified postprocedural states; Z88.5 Allergy status to narcotic agent; Z82.49 Family history of ischemic heart disease and other diseases of the circulatory system; Z83.438 Family history of other disorder of lipoprotein metabolism and other lipidemia; Z83.1 Family history of other infectious and parasitic diseases; Z82.3 Family history of stroke
CPT/HCPCS: 36415; 71046; 76705; 78452; 80048; 80053; 83735; 83880; 84484; 85025; 85610; 85730; 93005; 93017; 94640; 96365; 96366; 96372; 96375; 96376; 99291

== ENCOUNTER → 2020-02-03 | Outpatient (CLI) | payer MEDICARE, OTHER | END | disposition home or self-care (01) | LOC: LABWHC1 14:36 | PROVIDERS: ATTEND Family Medicine | DX: Z20.828 Contact with and (suspected) exposure to other viral communicable diseases (principal) | CPT/HCPCS: U0003; C9803 ==

== ENCOUNTER → 2020-03-04 | Outpatient (CLI) | payer MEDICARE, OTHER ==
--- NOTE | 2020-03-04 14:56 | XR ---
EXAMINATION TYPE: XR chest 2V DATE OF EXAM: 03/04/2020 COMPARISON: 09/04/2019 TECHNIQUE: PA and lateral views submitted. HISTORY: Cough FINDINGS: The lungs are clear and there is no pneumothorax, pleural effusion, or focal pneumonia. Biapical pl eural thickening stable. Hyperinflation compatible COPD. Atherosclerotic change aorta. Degenerative c hange spine. Chronic appearing endplate compression deformity. IMPRESSION: 1. No acute process.
== END | disposition home or self-care (01) ==
LOC: RADXRMAIN 14:35
PROVIDERS: ATTEND Family Medicine
DX: J44.1 Chronic obstructive pulmonary disease with (acute) exacerbation (principal)
CPT/HCPCS: 71046

== ENCOUNTER → 2020-03-04 | Outpatient (CLI) | payer MEDICARE, OTHER ==
[2020-03-04 15:01] LABS: Basophils % (A) 1 %; Eosinophils # (A) 0.4 k/uL (0-0.7); Eosinophils % (A) 8 %; HCT 35.3 % (39.0-53.0); HGB 12.1 gm/dL (13.0-17.5); Lymphocytes # (A) 1.6 k/uL (1.0-4.8); Lymphocytes % (A) 29 %; MCH 33.2 pg (25.0-35.0); MCHC 34.2 g/dL (31.0-37.0); Mean Platelet Volume 7.2; Monocytes # (A) 0.4 k/uL (0-1.0); Monocytes % (A) 7 %; Neutrophils # (A) 2.9 k/uL (1.3-7.7); Neutrophils % (A) 53 %; Platelet Count 408 k/uL (150-450); RBC 3.64 m/uL (4.30-5.90); WBC 5.5 k/uL (3.8-10.6)
[2020-03-04 19:14] LABS: INR 1.03 (0.90-1.11); Prothrombin Time 11.1 sec (9.9-11.9)
[2020-03-04 19:26] LABS: Albumin 4.4 g/dL (3.80-4.90); Albumin/Globulin Ratio 1.57 (1.60-3.17); Bilirubin, Conjugated 0.2 mg/dL (0.20-0.40); Bilirubin,Unconjugated 0.2 mg/dL; Globulin 2.8 g/dL (1.6-3.3); Total Bilirubin 0.4 mg/dL (0.2-1.2); Total Protein 7.2 g/dL (6.2-8.2)
[2020-03-04 19:28] LABS: Alpha Fetoprotein, Tumor Mkr 3.1 ng/mL (0.0-7.9)
[2020-03-04 20:49] LABS: Hepatitis A Antibody IgM Non-Reactive (Non-Reactive); Hepatitis B Core IgM Non-Reactive (Non-Reactive); Hepatitis B Surface Antigen Non-Reactive (Non-Reactive); Hepatitis C IgG Antibody Reactive (Non-Reactive)
== END | disposition home or self-care (01) ==
LOC: LABWHC1 14:10
PROVIDERS: ATTEND Physician Assistant
DX: B18.2 Chronic viral hepatitis C (principal)
CPT/HCPCS: 36415; 80074; 80076; 82105; 85025; 85610; 87522

== ENCOUNTER 2020-03-23 09:51 | Day surgery (SDC) | payer MEDICARE, OTHER ==
[2020-03-17 11:44] VITALS: BMI 25.8
[~2020-03-23 09:51] MED LIST changes: -ALPRAZolam 0.25 MG TAB PO PRN; -ALPRAZolam 0.5 MG TAB PO PRN; -ASPIRIN 325 MG TAB PO STA; -ATORVASTATIN 80 MG TAB PO STA; +LACTATED RINGERS 1,000 ML IV SCH; +LIDOCAINE 1% (10MG/ML) FOR IV START INTRADERMA PRN; -NITROGLYCERIN SL TABS 0.4 MG TAB SUBLINGUAL PRN; -SODIUM CHLORIDE 0.9% 1,000 ML in EMPTY BAG 1 BAG IV ONE
[2020-03-23 10:46] VITALS: TEMP 4
[2020-03-23] MEDS ORDERED: LIDOCAINE 1% INJ 10MG/ML (20 ML MDV) ONE (11:47)
[2020-03-23] MEDS ORDERED: PROPOFOL 10 MG/ML 20 ML VIAL IV ONE (11:47)
--- NOTE | 2020-03-23 12:07 | P.PCN ---
Date of Procedure: 03/23/20 Procedure(s) Performed: Brief history: Patient is a pleasant 70-year-old white male scheduled for an elective upper endoscopy as well as colonoscopy as a part of evaluation of GERD and change in bowel habits. Procedure performed: Esophagogastroduodenoscopy with biopsy Colonoscopy and snare polypectomy Preoperative diagnosis: GERD Change in bowel habits Anesthesia: MAC Procedure: After informed consent was obtained from the patient was brought into the endoscopy unit and IV sedation was administered by anesthesia under continuous monitoring. Initially upper endoscopy was done. The Olympus GF 160 video endoscope was inserted inserted into the mouth and esophagus intubated without any difficulty and was gradually advanced into the stomach and duodenum and carefully examined. The bulb and second part of the duodenum appeared normal. The scope was then withdrawn into the stomach adequately insufflated with air and upon careful examination the antrum and body, cardia and fundus appeared normal. The scope was then withdrawn into the esophagus. The GE junction was located at 40 cm to the incisors. There were linear erosions and ulcerations in the distal esophagus consistent with LA grade C reflux esophagitis. Rest of the esophagus appeared normal. Patient tolerated the procedure well. At this time the patient continued to remain sedation. Initial digital rectal examination was normal. Olympus CF 160 video colonoscope was then inserted into the rectum and gradually advanced to the cecum without any difficulty. Careful examination was performed as the scope was gradually being withdrawn. The prep was excellent. The cecum, ascending colon, transverse colon, descending colon, appeared normal. In the sigmoid colon there was a 1.5 cm pedunculated polyp removed by snare polypectomy. . Rest of the sigmoid colon and rectum appeared normal. Retroflexion was performed in the rectum and no lesions were noted. Patient tolerated the procedure well. Impression: 1. Upper endoscopy revealed antral erosive gastritis and LA grade C reflux esophagitis 2. Colonoscopy revealed a 1.5 cm pedunculated sigmoid; polyp status post polypectomy. Recommendations: Findings of this examination were discussed with the patient as well as his family. He was advised to follow with the biopsy results. If the biopsy reveals adenoma he can have a repeat colonoscopy in 3 years. He will be started on Protonix 40 Mg Daily with Severe Reflux Esophagitis.
[2020-03-23 12:13] VITALS: RESP 16
[2020-03-23 12:32] VITALS: BP 102/60; PULSE 77
== END 2020-03-23 13:08 | disposition home or self-care (01) ==
LOC: ORWHC2ENDO 09:51
PROVIDERS: ATTEND Internal Medicine Gastroenterology
DX: D12.5 Benign neoplasm of sigmoid colon (principal); K29.50 Unspecified chronic gastritis without bleeding; K21.00 Gastro-esophageal reflux disease with esophagitis, without bleeding; I10 Essential (primary) hypertension; E78.5 Hyperlipidemia, unspecified; J44.9 Chronic obstructive pulmonary disease, unspecified; F17.200 Nicotine dependence, unspecified, uncomplicated; Z86.73 Personal history of transient ischemic attack (TIA), and cerebral infarction without residual deficits; Z79.02 Long term (current) use of antithrombotics/antiplatelets; Z79.82 Long term (current) use of aspirin; Z79.899 Other long term (current) drug therapy; Z88.5 Allergy status to narcotic agent
CPT/HCPCS: 88305; 45385; 43239; J2001; J2704

== ENCOUNTER → 2020-05-20 | Outpatient (CLI) | payer MEDICARE, OTHER ==
[2020-05-20 12:19] LABS: HCT 33.8 % (39.0-53.0); HGB 11.7 gm/dL (13.0-17.5); MCH 33.7 pg (25.0-35.0); MCHC 34.6 g/dL (31.0-37.0); MCV 97.4 fL (80.0-100.0); Mean Platelet Volume 7.3; Platelet Count 321 k/uL (150-450); RBC 3.47 m/uL (4.30-5.90); RDW 12.3 % (11.5-15.5); WBC 7.5 k/uL (3.8-10.6)
== END | disposition home or self-care (01) ==
LOC: LABPAT 11:11
PROVIDERS: ATTEND Surgery
DX: Z01.812 Encounter for preprocedural laboratory examination (principal)
CPT/HCPCS: 36415; 85027

== ENCOUNTER → 2020-07-04 | Outpatient (CLI) | payer MEDICARE, OTHER ==
[2020-07-04 23:21] LABS: Basophils # (A) 0.03 X 10*3/uL (0.00-0.10); Basophils % (A) 0.5 %; Eosinophils % (A) 6.3 %; HCT 35.5 % (39.6-50.0); HGB 11.5 g/dL (13.0-17.0); Lymphocytes # (A) 1.98 X 10*3/uL (0.90-5.00); Lymphocytes % (A) 31.4 %; MCH 32.7 pg (27.0-32.0); MCHC 32.4 g/dL (32.0-37.0); MCV 100.9 fL (80.0-97.0); Mean Platelet Volume 10.1 fL (9.5-12.2); Monocytes % (A) 9.5 %; Neutrophils # (A) 3.27 X 10*3/uL (1.80-7.70); Neutrophils % (A) 51.8 %; Platelet Count 417 X 10*3/uL (140-440); RBC 3.52 X 10*6/uL (4.40-5.60); RDW 12.7 % (11.5-14.5); WBC 6.31 X 10*3/uL (4.50-10.00)
[2020-07-05 18:26] LABS: Albumin 4.6 g/dL (3.80-4.90); Albumin/Globulin Ratio 1.59 (1.60-3.17); Bilirubin, Conjugated 0.2 mg/dL (0.20-0.40); Bilirubin,Unconjugated 0.1 mg/dL; Globulin 2.9 g/dL (1.6-3.3); Total Bilirubin 0.3 mg/dL (0.3-1.2); Total Protein 7.5 g/dL (6.2-8.2)
== END | disposition home or self-care (01) ==
LOC: LABWHC1 16:05
PROVIDERS: ATTEND Physician Assistant
DX: B18.2 Chronic viral hepatitis C (principal)
CPT/HCPCS: 36415; 80076; 85025; 87522

== ENCOUNTER → 2020-09-06 | Outpatient (CLI) | payer MEDICARE, OTHER ==
[2020-09-06 19:16] LABS: Basophils # (A) 0.02 X 10*3/uL (0.00-0.10); Basophils % (A) 0.3 %; Eosinophils # (A) 0.28 X 10*3/uL (0.04-0.35); Eosinophils % (A) 4.5 %; HCT 34.4 % (39.6-50.0); HGB 11.5 g/dL (13.0-17.0); Lymphocytes # (A) 1.44 X 10*3/uL (0.90-5.00); Lymphocytes % (A) 23.3 %; MCH 32.4 pg (27.0-32.0); MCHC 33.4 g/dL (32.0-37.0); MCV 96.9 fL (80.0-97.0); Mean Platelet Volume 10.3 fL (9.5-12.2); Monocytes # (A) 0.54 X 10*3/uL (0.20-1.00); Monocytes % (A) 8.8 %; Neutrophils # (A) 3.86 X 10*3/uL (1.80-7.70); Neutrophils % (A) 62.6 %; Platelet Count 361 X 10*3/uL (140-440); RBC 3.55 X 10*6/uL (4.40-5.60); RDW 11.9 % (11.5-14.5); WBC 6.17 X 10*3/uL (4.50-10.00)
[2020-09-07 00:41] LABS: ALT 14 U/L (10-49); AST 29 U/L (14-35); Alkaline Phosphatase 84 U/L (41-126); Bilirubin, Conjugated <0.20 mg/dL (0.20-0.40); Total Bilirubin 0.3 mg/dL (0.2-1.2); Total Protein 7.5 g/dL (6.2-8.2)
[2020-09-08 14:31] LABS: Hepatits C Virus RNA Not detected (Not detected); Hepatits C Virus RNA, Quant <12 IU/mL (<12); LOG HCV IU/mL <1.08 (<1.08)
== END | disposition home or self-care (01) ==
LOC: LABWHC1 14:11
PROVIDERS: ATTEND Physician Assistant
DX: B18.2 Chronic viral hepatitis C (principal)
CPT/HCPCS: 36415; 80076; 85025; 87522

== ENCOUNTER → 2020-09-26 | Outpatient (CLI) | payer MEDICARE, OTHER ==
[2020-09-26 14:42] LABS: HCT 33.9 % (39.0-53.0); HGB 11.5 gm/dL (13.0-17.5); MCH 32.3 pg (25.0-35.0); MCHC 33.9 g/dL (31.0-37.0); MCV 95.4 fL (80.0-100.0); Mean Platelet Volume 6.8; Platelet Count 340 k/uL (150-450); RBC 3.55 m/uL (4.30-5.90); WBC 7.7 k/uL (3.8-10.6)
[2020-09-26 14:47] LABS: Albumin 4.5 g/dL (3.5-5.0); Calcium 9.5 mg/dL (8.4-10.2); Total Bilirubin 0.3 mg/dL (0.2-1.3); Total Protein 7.6 g/dL (6.3-8.2)
[2020-09-26 15:39] LABS: Potassium 6.1 mmol/L (3.5-5.1)
== END | disposition home or self-care (01) ==
LOC: LABPAT 13:48
PROVIDERS: ATTEND Podiatrist Foot & Ankle Surgery
DX: Z01.812 Encounter for preprocedural laboratory examination (principal)
CPT/HCPCS: 36415; 80053; 85027

== ENCOUNTER 2020-09-27 20:42 | Emergency (ER) | payer MEDICARE, OTHER ==
[2020-09-27 20:48] VITALS: RESP 18; TEMP 98.4
--- NOTE | 2020-09-27 21:17 | ED ---
Recheck HPI - General Chief Complaint: Recheck/Abnormal Lab/Rx Stated Complaint: POTASSIUM HIGH Time Seen by Provider: 09/27/20 21:02 Source: patient Mode of arrival: ambulatory Limitations: no limitations - History of Present Illness Initial Comments: This patient is a 70-year-old man who presents with concern about hyperkalemia. The patient had been undergoing pre-surgical workup to have a podiatric procedure. Yesterday he had blood drawn and received a call it is potassium was 6.1. He went to see his primary physician today and they rechecked his potassium and told him it was higher. He received a call and was instructed to come emergency department. Patient denies symptoms of hyperkalemia. Denies fatigue, weakness, chest pain, dyspnea, palpitations. He has not noted a change in urine output. MD Complaint: abnormal lab -: days(s) Returns Today for: Called Because of Abnormal Lab/Test Symptoms Since Prior Visit: no new symptoms Context: called for abnormal lab result Associated Symptoms: none - Related Data Home Medications Medication Instructions Recorded Confirmed Aspirin EC [Ecotrin Low Dose] 81 mg PO DIRECTED 02/13/19 09/27/20 Buprenorphine HCl/Naloxone HCl 1 tab SL DAILY 02/13/19 09/27/20 [Zubsolv 2.9-0.71 mg Tablet Sl] Cetirizine HCl 10 mg PO DAILY 02/13/19 09/27/20 cloNIDine HCL [Catapres] 0.6 mg PO HS 07/28/19 09/27/20 Acetaminophen Tab [Tylenol Tab] 500 mg PO HS 03/17/20 09/27/20 Isosorbide Mononitrate [Isosorbide 30 mg PO HS 05/19/20 09/27/20 Mononitrate ER] Nitroglycerin Sl Tabs [Nitrostat] 0.4 mg SUBLINGUAL Q5M PRN 05/19/20 09/27/20 Ipratropium/Albuter 20-100Mcg 1 puff INHALATION RT-Q6H PRN 06/06/20 09/27/20 [Combivent Respimat 20-100Mcg Inhaler] Clopidogrel [Plavix] 75 mg PO DIRECTED 09/27/20 09/27/20 Pantoprazole Sodium [Protonix] 40 mg PO DAILY 09/27/20 09/27/20 Previous Rx's Medication Instructions Recorded Atorvastatin [Lipitor] 80 mg PO HS #90 tab 07/31/19 carvediloL [Coreg] 6.25 mg PO AC-BID #180 tab 07/31/19 lisinopriL [Zestril] 20 mg PO BID #180 tab 07/31/19 Allergies Allergy/AdvReac Type Severity Reaction Status Date / Time codeine AdvReac Nausea Verified 09/27/20 21:42 Review of Systems ROS Statement: Those systems with pertinent positive or pertinent negative responses have been documented in the HPI. ROS Other: All systems not noted in ROS Statement are negative. Constitutional: Denies: fever, chills, weakness Eyes: Denies: vision change Respiratory: Denies: cough, dyspnea Cardiovascular: Denies: chest pain, palpitations, edema, syncope Gastrointestinal: Denies: abdominal pain, vomiting, diarrhea, constipation Genitourinary: Denies: dysuria, frequency, hematuria Musculoskeletal: Denies: back pain Skin: Denies: rash Neurological: Denies: weakness, numbness Past Medical History Past Medical History: Chest Pain / Angina, COPD, CVA/TIA, Hyperlipidemia, Hypertension, Liver Disease, Vascular Disorder Additional Past Medical History / Comment(s): hep c, ?TIA couple years ago Last Myocardial Infarction Date:: unknown History of Any Multi-Drug Resistant Organisms: None Reported Past Surgical History: Heart Catheterization With Stent, Orthopedic Surgery, Tonsillectomy Additional Past Surgical History / Comment(s): COLONOSCOPY/EGD, surg x4 right shoulder Past Anesthesia/Blood Transfusion Reactions: No Reported Reaction Date of Last Stent Placement:: 07/30/19 Past Psychological History: No Psychological Hx Reported Smoking Status: Current every day smoker Past Alcohol Use History: Abuse, Daily Past Drug Use History: None Reported, Opiates - Past Family History Mother Family Medical History: Myocardial Infarction ([place]) Father Additional Family Medical History / Comment(s): polio, enlarged heart Brother(s) Family Medical History: CVA/TIA Daughter(s) History Unknown: Yes Son(s) Family Medical History: Hyperlipidemia General Exam Limitations: no limitations General appearance: alert, in no apparent distress Head exam: Present: atraumatic, normocephalic Eye exam: Present: normal appearance. Absent: scleral icterus, conjunctival injection Respiratory exam: Present: normal lung sounds bilaterally. Absent: respiratory distress, wheezes, rales, rhonchi, stridor Cardiovascular Exam: Present: regular rate, normal rhythm, normal heart sounds. Absent: systolic murmur, diastolic murmur, rubs, gallop GI/Abdominal exam: Present: soft. Absent: distended, tenderness, guarding, rebound, rigid, mass Extremities exam: Present: normal inspection, normal capillary refill. Absent: pedal edema, calf tenderness Back exam: Present: normal inspection. Absent: CVA tenderness (R), CVA tenderness (L) Neurological exam: Present: alert Skin exam: Present: warm, dry, intact, normal color. Absent: rash Course Vital Signs 09/27/20 20:44 Temperature 98.4 F Pulse Rate 60 Respiratory 18 Rate Blood Pressure 186/100 O2 Sat by Pulse 97 Oximetry Medical Decision Making - Lab Data Result diagrams: 09/27/20 21:12 09/27/20 21:12 Lab Results 09/27/20 09/27/20 09/27/20 Range/Units 21:12 21:12 21:17 WBC 8.5 (3.8-10.6) k/uL RBC 3.70 L (4.30-5.90) m/uL Hgb 12.2 L (13.0-17.5) gm/dL Hct 34.4 L (39.0-53.0) % MCV 93.1 (80.0-100.0) fL MCH 32.9 (25.0-35.0) pg MCHC 35.3 (31.0-37.0) g/dL RDW 12.3 (11.5-15.5) % Plt Count 335 (150-450) k/uL MPV 6.9 Neutrophils % 63 % Lymphocytes % 23 % Monocytes % 7 % Eosinophils % 5 % Basophils % 0 % Neutrophils # 5.4 (1.3-7.7) k/uL Lymphocytes # 1.9 (1.0-4.8) k/uL Monocytes # 0.6 (0-1.0) k/uL Eosinophils # 0.4 (0-0.7) k/uL Basophils # 0.0 (0-0.2) k/uL Sodium 133 L (137-145) mmol/L Potassium 5.0 (3.5-5.1) mmol/L Chloride 99 (98-107) mmol/L Carbon Dioxide 23 (22-30) mmol/L Anion Gap 11 mmol/L BUN 17 (9-20) mg/dL Creatinine 1.22 (0.66-1.25) mg/dL Est GFR (CKD-EPI)AfAm 70 (>60 ml/min/1.73 sqM) Est GFR (CKD-EPI)NonAf 61 (>60 ml/min/1.73 sqM) Glucose 100 H (74-99) mg/dL Calcium 9.4 (8.4-10.2) mg/dL Urine Color Light Yellow Urine Appearance Clear (Clear) Urine pH 5.5 (5.0-8.0) Ur Specific [place] 1.005 (1.001-1.035) Urine Protein Negative (Negative) Urine Glucose (UA) Negative (Negative) Urine Ketones Negative (Negative) Urine Blood Trace H (Negative) Urine Nitrite Negative (Negative) Urine Bilirubin Negative (Negative) Urine Urobilinogen <2.0 (<2.0) mg/dL Ur Leukocyte Esterase Negative (Negative) Urine RBC 1 (0-5) /hpf Urine WBC <1 (0-5) /hpf - EKG Data -: EKG Interpreted by Id EKG shows normal: sinus rhythm, axis (Normal), intervals (Normal), QRS complexes (Possible old septal infarct), ST-T waves (Normal) Rate: normal (Rate 79 bpm) Disposition Clinical Impression: Feared condition not demonstrated Disposition: HOME SELF-CARE Condition: Good Instructions (If sedation given, give patient instructions): Hyperkalemia (ED) Is patient prescribed a controlled substance at d/c from ED?: No Referrals: Kit Issa MD [Primary Care Provider] - 1-2 days
[2020-09-27 21:43] LABS: Basophils % (A) 0 %; Eosinophils # (A) 0.4 k/uL (0-0.7); Eosinophils % (A) 5 %; HCT 34.4 % (39.0-53.0); HGB 12.2 gm/dL (13.0-17.5); Lymphocytes # (A) 1.9 k/uL (1.0-4.8); Lymphocytes % (A) 23 %; MCH 32.9 pg (25.0-35.0); MCHC 35.3 g/dL (31.0-37.0); MCV 93.1 fL (80.0-100.0); Mean Platelet Volume 6.9; Monocytes # (A) 0.6 k/uL (0-1.0); Monocytes % (A) 7 %; Neutrophils # (A) 5.4 k/uL (1.3-7.7); Neutrophils % (A) 63 %; Platelet Count 335 k/uL (150-450); RDW 12.3 % (11.5-15.5); WBC 8.5 k/uL (3.8-10.6)
[2020-09-27 21:47] LABS: Appearance,Urine Clear (Clear); Bilirubin,Urine Negative (Negative); Blood,Urine Trace (Negative); Color,Urine Light Yellow; Glucose,Urine (UA) Negative (Negative); Ketones,Urine Negative (Negative); Leukocyte Esterase,Urine Negative (Negative); Nitrite,Urine Negative (Negative); PH, Urine 5.5 (5.0-8.0); Protein,Urine Negative (Negative); RBC,Urine 1 /hpf (0-5); Specific Gravity,Urine 1.005 (1.001-1.035); Urobilinogen,Urine <2.0 mg/dL (<2.0); WBC,Urine <1 /hpf (0-5)
[2020-09-27 21:50] LABS: Calcium 9.4 mg/dL (8.4-10.2)
[2020-09-27 22:48] VITALS: BP 145/84; PULSE 70
== END 2020-09-27 22:48 | disposition home or self-care (01) ==
LOC: EC 20:42 → SUPCPDRO 20:42 → EC 22:48
DX: Z71.1 Person with feared health complaint in whom no diagnosis is made (principal); E78.5 Hyperlipidemia, unspecified; I10 Essential (primary) hypertension; I25.2 Old myocardial infarction; J44.9 Chronic obstructive pulmonary disease, unspecified; F17.200 Nicotine dependence, unspecified, uncomplicated; Z86.73 Personal history of transient ischemic attack (TIA), and cerebral infarction without residual deficits; Z79.02 Long term (current) use of antithrombotics/antiplatelets; Z79.82 Long term (current) use of aspirin; Z79.51 Long term (current) use of inhaled steroids; Z88.5 Allergy status to narcotic agent
CPT/HCPCS: 36415; 80048; 81001; 85025; 93005; 99285

== ENCOUNTER → 2020-10-06 | Outpatient (CLI) | payer MEDICARE, OTHER ==
[2020-10-07 11:03] LABS: Anion Gap 12.4 mmol/L (4.00-12.00); Carbon Dioxide 20.6 mmol/L (21.6-31.8); Potassium 6.5 mmol/L (3.5-5.5)
== END | disposition home or self-care (01) ==
LOC: LABWHC1 15:07
PROVIDERS: ATTEND Podiatrist Foot & Ankle Surgery
DX: E87.5 Hyperkalemia (principal)
CPT/HCPCS: 36415; 80051

== ENCOUNTER 2020-10-07 16:01 | Emergency (ER) | payer MEDICARE, OTHER ==
--- NOTE | 2020-10-07 17:12 | ED ---
General Adult HPI - General Chief complaint: Recheck/Abnormal Lab/Rx Stated complaint: abn labs Source: patient, RN notes reviewed, old records reviewed Mode of arrival: ambulatory - History of Present Illness Initial comments: 70-year-old white male, alert and oriented 4, presents to the emergency room with complaints of elevated potassium levels since September 26. Patient states that he was seen by his primary care doctor and had labs drawn with potassium is 6.1. Patient was sent to the emergency room for evaluation and his labs were drawn with potassium of 5.0 on 27 of September. Patient states that he called his primary care doctor they liya his labs again and was told that his potassium was 6.5 on October 06 come back to the emergency room as soon as possible. Patient denies any chest pain or shortness of breath. He denies any fatigue. Patient states that he's been trying to have surgery in his right great toe, hammertoe, but he keeps getting postponed due to his potassium level. Patient states that he stopped eating bananas does not have a reason for why his potassium level was high. He was told that his kidneys are okay. The last time is in the emergency room he was discharged home. He is frustrated that he has to keep returning to the emergency room for the elevated potassium levels. -: days(s) (11) Severity scale (1-10): 5 (right great toe) Consistency: constant - Related Data Home Medications Medication Instructions Recorded Confirmed Aspirin EC [Ecotrin Low Dose] 81 mg PO DIRECTED 02/13/19 09/27/20 Buprenorphine HCl/Naloxone HCl 1 tab SL DAILY 02/13/19 09/27/20 [Zubsolv 2.9-0.71 mg Tablet Sl] Cetirizine HCl 10 mg PO DAILY 02/13/19 09/27/20 cloNIDine HCL [Catapres] 0.6 mg PO HS 07/28/19 09/27/20 Acetaminophen Tab [Tylenol Tab] 500 mg PO HS 03/17/20 09/27/20 Isosorbide Mononitrate [Isosorbide 30 mg PO HS 05/19/20 09/27/20 Mononitrate ER] Nitroglycerin Sl Tabs [Nitrostat] 0.4 mg SUBLINGUAL Q5M PRN 05/19/20 09/27/20 Ipratropium/Albuter 20-100Mcg 1 puff INHALATION RT-Q6H PRN 06/06/20 09/27/20 [Combivent Respimat 20-100Mcg Inhaler] Clopidogrel [Plavix] 75 mg PO DIRECTED 09/27/20 09/27/20 Pantoprazole Sodium [Protonix] 40 mg PO DAILY 09/27/20 09/27/20 Previous Rx's Medication Instructions Recorded Atorvastatin [Lipitor] 80 mg PO HS #90 tab 07/31/19 carvediloL [Coreg] 6.25 mg PO AC-BID #180 tab 07/31/19 lisinopriL [Zestril] 20 mg PO BID #180 tab 07/31/19 Allergies Allergy/AdvReac Type Severity Reaction Status Date / Time codeine AdvReac Nausea Verified 10/07/20 16:19 Review of Systems ROS Statement: Those systems with pertinent positive or pertinent negative responses have been documented in the HPI. ROS Other: All systems not noted in ROS Statement are negative. Past Medical History Past Medical History: Chest Pain / Angina, COPD, CVA/TIA, Hyperlipidemia, Hypertension, Liver Disease, Vascular Disorder Additional Past Medical History / Comment(s): hep c, ?TIA couple years ago Last Myocardial Infarction Date:: unknown History of Any Multi-Drug Resistant Organisms: None Reported Past Surgical History: Heart Catheterization With Stent, Orthopedic Surgery, Tonsillectomy Additional Past Surgical History / Comment(s): COLONOSCOPY/EGD, surg x4 right shoulder Past Anesthesia/Blood Transfusion Reactions: No Reported Reaction Date of Last Stent Placement:: 07/30/19 Past Psychological History: No Psychological Hx Reported Smoking Status: Current every day smoker Past Alcohol Use History: Abuse, Daily Past Drug Use History: None Reported, Opiates - Past Family History Mother Family Medical History: Myocardial Infarction ([place]) Father Additional Family Medical History / Comment(s): polio, enlarged heart Brother(s) Family Medical History: CVA/TIA Daughter(s) History Unknown: Yes Son(s) Family Medical History: Hyperlipidemia General Exam General appearance: alert, in no apparent distress Head exam: Present: atraumatic, normocephalic, normal inspection Eye exam: Present: normal appearance, PERRL, EOMI. Absent: scleral icterus, conjunctival injection, periorbital swelling ENT exam: Present: normal exam, normal oropharynx, mucous membranes moist Neck exam: Present: normal inspection, full ROM. Absent: tenderness, meningismus, lymphadenopathy, thyromegaly Respiratory exam: Present: rhonchi. Absent: respiratory distress, wheezes, chest wall tenderness, accessory muscle use, decreased breath sounds, prolonged expiratory Cardiovascular Exam: Present: regular rate, normal rhythm, normal heart sounds. Absent: systolic murmur, diastolic murmur, rubs, gallop, clicks GI/Abdominal exam: Present: distended. Absent: tenderness, guarding, rebound, rigid, mass Extremities exam: Present: normal inspection, full ROM, normal capillary refill. Absent: tenderness, pedal edema, joint swelling, calf tenderness Back exam: Present: normal inspection, full ROM. Absent: tenderness, CVA tenderness (R), CVA tenderness (L), muscle spasm, paraspinal tenderness, vertebral tenderness, rash noted Neurological exam: Present: alert, oriented X3, CN II-XII intact Psychiatric exam: Present: normal affect, normal mood Skin exam: Present: warm, dry, intact, normal color. Absent: rash, cyanosis, diaphoretic, erythema, petechiae, pallor, mottled Course Vital Signs 10/07/20 10/07/20 16:11 18:40 Temperature 100.5 F H 98.9 F Pulse Rate 92 90 Respiratory 18 16 Rate Blood Pressure 158/82 150/84 O2 Sat by Pulse 97 97 Oximetry EKG Findings - EKG Results: EKG: sinus rhythm (Ventricular rate 81, DC interval 0.166, QRS of 0.72, QTC of 0.418), no acute changes, not changed from: (09/27/2020) Medical Decision Making - Medical Decision Making Patient was complaining of some abdominal bloating after using MiraLAX and laxatives. KUB x-ray shows a nonacute abdomen with no sign of obstruction or pneumoperitoneum. Potassium is 5.3, sodium is 129 which appears to be persistent. BUN is 13 creatinine is 1.0, blood glucose is 113, troponin is 0.[address] elevation, normal sinus rhythm with no ectopy, ventricular rate of 81. Case discussed with Dr. Shi who spoke with patient's PCP Dr. Reed who was agreeable to discharging patient home to follow with him in the office next week. - Lab Data Result diagrams: 10/07/20 17:34 10/07/20 17:34 Lab Results 10/07/20 10/07/20 10/07/20 Range/Units 17:34 17:34 17:34 WBC 12.1 H (3.8-10.6) k/uL RBC 3.70 L (4.30-5.90) m/uL Hgb 12.0 L (13.0-17.5) gm/dL Hct 35.1 L (39.0-53.0) % MCV 95.1 (80.0-100.0) fL MCH 32.5 (25.0-35.0) pg MCHC 34.2 (31.0-37.0) g/dL RDW 12.4 (11.5-15.5) % Plt Count 376 (150-450) k/uL MPV 7.4 Neutrophils % 82 % Lymphocytes % 8 % Monocytes % 5 % Eosinophils % 3 % Basophils % 0 % Neutrophils # 9.9 H (1.3-7.7) k/uL Lymphocytes # 0.9 L (1.0-4.8) k/uL Monocytes # 0.7 (0-1.0) k/uL Eosinophils # 0.4 (0-0.7) k/uL Basophils # 0.0 (0-0.2) k/uL Sodium 129 L (137-145) mmol/L Potassium 5.3 H (3.5-5.1) mmol/L Chloride 97 L (98-107) mmol/L Carbon Dioxide 25 (22-30) mmol/L Anion Gap 7 mmol/L BUN 13 (9-20) mg/dL Creatinine 1.00 (0.66-1.25) mg/dL Est GFR (CKD-EPI)AfAm 89 (>60 ml/min/1.73 sqM) Est GFR (CKD-EPI)NonAf 77 (>60 ml/min/1.73 sqM) Glucose 113 H (74-99) mg/dL Plasma Lactic Acid Deion (0.7-2.0) mmol/L Calcium 9.6 (8.4-10.2) mg/dL Total Bilirubin 0.3 (0.2-1.3) mg/dL AST 38 (17-59) U/L ALT 29 (4-49) U/L Alkaline Phosphatase 109 (38-126) U/L Troponin I (0.000-0.034) ng/mL Total Protein 7.9 (6.3-8.2) g/dL Albumin 4.7 (3.5-5.0) g/dL Amylase 54 (30-110) U/L Lipase 142 (23-300) U/L Urine Color Light Yellow Urine Appearance Clear (Clear) Urine pH 5.0 (5.0-8.0) Ur Specific [place] 1.008 (1.001-1.035) Urine Protein Negative (Negative) Urine Glucose (UA) Negative (Negative) Urine Ketones Negative (Negative) Urine Blood Trace H (Negative) Urine Nitrite Negative (Negative) Urine Bilirubin Negative (Negative) Urine Urobilinogen <2.0 (<2.0) mg/dL Ur Leukocyte Esterase Negative (Negative) Urine RBC 1 (0-5) /hpf Urine WBC 1 (0-5) /hpf Ur Squamous Epith Cells <1 (0-4) /hpf Hyaline Casts 3 H (0-2) /lpf Urine Mucus Rare H (None) /hpf 10/07/20 10/07/20 Range/Units 17:34 17:34 WBC (3.8-10.6) k/uL RBC (4.30-5.90) m/uL Hgb (13.0-17.5) gm/dL Hct (39.0-53.0) % MCV (80.0-100.0) fL MCH (25.0-35.0) pg MCHC (31.0-37.0) g/dL RDW (11.5-15.5) % Plt Count (150-450) k/uL MPV Neutrophils % % Lymphocytes % % Monocytes % % Eosinophils % % Basophils % % Neutrophils # (1.3-7.7) k/uL Lymphocytes # (1.0-4.8) k/uL Monocytes # (0-1.0) k/uL Eosinophils # (0-0.7) k/uL Basophils # (0-0.2) k/uL Sodium (137-145) mmol/L Potassium (3.5-5.1) mmol/L Chloride (98-107) mmol/L Carbon Dioxide (22-30) mmol/L Anion Gap mmol/L BUN (9-20) mg/dL Creatinine (0.66-1.25) mg/dL Est GFR (CKD-EPI)AfAm (>60 ml/min/1.73 sqM) Est GFR (CKD-EPI)NonAf (>60 ml/min/1.73 sqM) Glucose (74-99) mg/dL Plasma Lactic Acid Deion 0.7 (0.7-2.0) mmol/L Calcium (8.4-10.2) mg/dL Total Bilirubin (0.2-1.3) mg/dL AST (17-59) U/L ALT (4-49) U/L Alkaline Phosphatase (38-126) U/L Troponin I <0.012 (0.000-0.034) ng/mL Total Protein (6.3-8.2) g/dL Albumin (3.5-5.0) g/dL Amylase (30-110) U/L Lipase (23-300) U/L Urine Color Urine Appearance (Clear) Urine pH (5.0-8.0) Ur Specific [place] (1.001-1.035) Urine Protein (Negative) Urine Glucose (UA) (Negative) Urine Ketones (Negative) Urine Blood (Negative) Urine Nitrite (Negative) Urine Bilirubin (Negative) Urine Urobilinogen (<2.0) mg/dL Ur Leukocyte Esterase (Negative) Urine RBC (0-5) /hpf Urine WBC (0-5) /hpf Ur Squamous Epith Cells (0-4) /hpf Hyaline Casts (0-2) /lpf Urine Mucus (None) /hpf Disposition Clinical Impression: Hyperkalemia, Hyponatremia Disposition: HOME SELF-CARE Condition: Good Instructions (If sedation given, give patient instructions): Hyperkalemia (ED), Hyponatremia (ED) Additional Instructions: Follow-up with Dr. Pinzon next week. Return to the emergency room with any shortness of breath, chest pain or weakness. Is patient prescribed a controlled substance at d/c from ED?: No Referrals: Kit Issa MD [Primary Care Provider] - 1-2 days Ric Pinzon Jr, DO [Doctor of Osteopathic Medicine] - 1-2 days Time of Disposition: 19:17
[2020-10-07 17:51] LABS: Basophils % (A) 0 %; Eosinophils # (A) 0.4 k/uL (0-0.7); Eosinophils % (A) 3 %; HCT 35.1 % (39.0-53.0); Lymphocytes # (A) 0.9 k/uL (1.0-4.8); Lymphocytes % (A) 8 %; MCH 32.5 pg (25.0-35.0); MCHC 34.2 g/dL (31.0-37.0); MCV 95.1 fL (80.0-100.0); Mean Platelet Volume 7.4; Monocytes # (A) 0.7 k/uL (0-1.0); Monocytes % (A) 5 %; Neutrophils # (A) 9.9 k/uL (1.3-7.7); Neutrophils % (A) 82 %; Platelet Count 376 k/uL (150-450); RDW 12.4 % (11.5-15.5); WBC 12.1 k/uL (3.8-10.6)
[2020-10-07 18:01] LABS: Albumin 4.7 g/dL (3.5-5.0); Calcium 9.6 mg/dL (8.4-10.2); Potassium 5.3 mmol/L (3.5-5.1); Total Bilirubin 0.3 mg/dL (0.2-1.3); Total Protein 7.9 g/dL (6.3-8.2)
[2020-10-07 18:05] LABS: Appearance,Urine Clear (Clear); Bilirubin,Urine Negative (Negative); Blood,Urine Trace (Negative); Color,Urine Light Yellow; Glucose,Urine (UA) Negative (Negative); Hyaline Casts,Urine 3 /lpf (0-2); Ketones,Urine Negative (Negative); Leukocyte Esterase,Urine Negative (Negative); Mucus,Urine Rare /hpf; Nitrite,Urine Negative (Negative); Protein,Urine Negative (Negative); RBC,Urine 1 /hpf (0-5); Specific Gravity,Urine 1.008 (1.001-1.035); Squamous Epithelial Cell,Urine <1 /hpf (0-4); Urobilinogen,Urine <2.0 mg/dL (<2.0); WBC,Urine 1 /hpf (0-5)
--- NOTE | 2020-10-07 18:34 | XR ---
EXAMINATION TYPE: XR KUB DATE OF EXAM: 10/07/2020 COMPARISON: NONE HISTORY: Constipation TECHNIQUE: 2 views upright FINDINGS: There is no sign of intestinal obstruction or pneumoperitoneum. Fecal pattern is normal. Danielle ng bases are clear. There is possible 5 mm calcification over the upper pole left kidney. IMPRESSION: Nonacute abdomen. Possible left renal calculus. Atherosclerotic vascular disease.
[2020-10-07 18:41] VITALS: RESP 16
[2020-10-07 19:28] VITALS: BP 129/81; PULSE 94; TEMP 99.7
== END 2020-10-07 19:31 | disposition home or self-care (01) ==
LOC: EC 16:01
DX: E87.5 Hyperkalemia (principal); E87.1 Hypo-osmolality and hyponatremia; E78.5 Hyperlipidemia, unspecified; I10 Essential (primary) hypertension; J44.9 Chronic obstructive pulmonary disease, unspecified; I25.2 Old myocardial infarction; F17.200 Nicotine dependence, unspecified, uncomplicated; Z86.73 Personal history of transient ischemic attack (TIA), and cerebral infarction without residual deficits; Z79.02 Long term (current) use of antithrombotics/antiplatelets; Z79.82 Long term (current) use of aspirin; Z79.51 Long term (current) use of inhaled steroids; Z88.5 Allergy status to narcotic agent
CPT/HCPCS: 36415; 74018; 80053; 81001; 82150; 83605; 83690; 84484; 85025; 93005; 99285

== ENCOUNTER 2020-10-12 11:54 | Day surgery (SDC) | payer MEDICARE, OTHER ==
[2020-10-10 11:09] VITALS: BMI 26.6
[~2020-10-12 11:54] MED LIST changes: +DEXAMETHASONE SOD PHOSPHATE 4 MG/ML 1 ML VIAL IV ONE; +METOCLOPRAMIDE 5 MG/ML 2 ML VIAL IVP PRN; +ONDANSETRON 4 MG/2 ML VIAL IVP ONE
[2020-10-12] MEDS ORDERED: PROPOFOL 10 MG/ML 20 ML VIAL IV ONE (13:10)
[2020-10-12] MEDS ORDERED: fentaNYL (PF) 50 MCG/ML 2 ML AMP ONE (13:10)
[2020-10-12] MEDS ORDERED: GLYCOPYRROLATE 0.2 MG/ML 2 ML VIAL ONE (13:10)
[2020-10-12] MEDS ORDERED: PHENYLEPHRINE-0.9% NACL SYG 1,000 MCG/10 ML SYRINGE ONE (13:10)
[2020-10-12] MEDS ORDERED: LIDOCAINE 1% INJ 10MG/ML (20 ML MDV) ONE (13:10)
[2020-10-12] MEDS ORDERED: KETAMINE 10 MG/ML 20 ML VIAL ONE (13:10)
[2020-10-12] MEDS ORDERED: MIDAZOLAM 2 MG/2 ML VIAL ONE (13:10)
[2020-10-12] MEDS ORDERED: BUPIVACAINE (PF) 0.25% 30 ML VIAL SQ ONE (13:13)
[2020-10-12] MEDS ORDERED: LACTATED RINGERS 1,000 ML IV ONE (13:50)
[2020-10-12 14:15] VITALS: TEMP 96.8
--- NOTE | 2020-10-12 14:15 | P.OP ---
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 Postoperative Diagnosis: Same Procedure(s) Performed: Arthrodesis procedure proximal interphalangeal joint second and third digits right foot Anesthesia: CHRISA Surgeon: Brodie Lucia Estimated Blood Loss (ml): 1 Description of Procedure: On the date of surgery the patient was taken to the operating room in good condition placed on the operating table supine position where general anesthetic agents were administered anesthesia was further supplemented with 9 mL of 0.25% plain Marcaine given in digital blocks to the second and third digits of the patient's right foot the patient's right foot and ankle were then prepped and draped in usual aseptic manner and over heavy web roll padding an ankle tourniquet was placed above the malleoli of the patient's right ankle. The patient's right foot and ankle were then elevated and exsanguinated of blood and the ankle tourniquet to the right ankle was inflated 250 mmHg At this time attention was directed to the dorsal aspect of the proximal interphalangeal joint of the second toe of the right foot where an approximately 2-1/2-3 cm linear incision was made the incision was deepened via sharp dissection down through the level of subcutaneous tissue layers all neurovascular structures encountered were identified isolated and were retracted and any bleeding vessels were clamped electrocauterized dissection was carried deep down to level extensor digitorum longus tendon to the second toe was incised sharply at the level of the proximal interphalangeal joint and underscored and retracted from the underlying bone collateral ligaments on either side of the joint were then incised sharply and the head of the proximal phalanx was developed through the incision site utilizing an oscillating bone saw the head of the proximal phalanx was resected it a 90 angle to the shaft and removed in total from the surgical site. The base of the middle phalanx was then removed utilizing the oscillating bone saw and throughout the surgical procedure copious amounts sterile saline solution was used to irrigate the surgical site. A 0.045 K wire was driven distally through the middle and distal phalanx and then retrograded back into the proximal phalanx holding the digit in a rectus position upon completion of this the extensor digitorum longus tendon was coaptated and maintained utilizing 3-0 Vicryl simple interrupted suture and the skin was closed utilizing 4-0 nylon simple interrupted suture completion of the surgery digit was seen to maintain a rectus position Attention was then directed to the third digit of the right foot where the exact same procedure described above for the second toe was prepared carried out on the third toe Surgical site was then covered with Adaptic Kerlix fluffs four-inch conformer and 4 inch Coban ankle tourniquet to the right ankle was deflated and adequate hemostatic return was seen in all digits of the right foot specifically the second and third digit patient tolerated the surgery and anesthesia well was taken recovery room in good postoperative condition.
[2020-10-12] MEDS: HYDROmorphone 0.5 MG/0.5 ML SYRINGE IVP PRN ×3 (14:31→14:46)
[2020-10-12] MEDS ORDERED: LABETALOL SYRINGE 5 MG/ML IVP ONE (14:53)
[2020-10-12 15:04] VITALS: RESP 16
[2020-10-12 15:26] VITALS: BP 151/75; PULSE 86
== END 2020-10-12 15:41 | disposition home or self-care (01) ==
LOC: OR 11:54
PROVIDERS: ATTEND Podiatrist Foot & Ankle Surgery
DX: M20.41 Other hammer toe(s) (acquired), right foot (principal); Z86.19 Personal history of other infectious and parasitic diseases; I10 Essential (primary) hypertension; F17.210 Nicotine dependence, cigarettes, uncomplicated; I25.10 Atherosclerotic heart disease of native coronary artery without angina pectoris; Z98.890 Other specified postprocedural states; Z79.02 Long term (current) use of antithrombotics/antiplatelets; Z79.899 Other long term (current) drug therapy; Z88.5 Allergy status to narcotic agent; F11.11 Opioid abuse, in remission; E87.5 Hyperkalemia; I25.2 Old myocardial infarction; J44.9 Chronic obstructive pulmonary disease, unspecified; E78.5 Hyperlipidemia, unspecified; Z86.73 Personal history of transient ischemic attack (TIA), and cerebral infarction without residual deficits; Z97.2 Presence of dental prosthetic device (complete) (partial)
CPT/HCPCS: 84132; 28285 ×2; J2250; J1100; J0690; J2405; J2001; J3010; J2370; J2704; J1170; 88304; 88311

== ENCOUNTER → 2020-12-19 | Outpatient (CLI) | payer MEDICARE, OTHER ==
[2020-12-19 23:14] LABS: Basophils # (A) 0.04 X 10*3/uL (0.00-0.10); Basophils % (A) 0.5 %; Eosinophils # (A) 0.66 X 10*3/uL (0.04-0.35); Eosinophils % (A) 8.8 %; HCT 29.9 % (39.6-50.0); HGB 10.5 g/dL (13.0-17.0); Lymphocytes # (A) 1.72 X 10*3/uL (0.90-5.00); Lymphocytes % (A) 22.9 %; MCH 33.9 pg (27.0-32.0); MCHC 35.1 g/dL (32.0-37.0); MCV 96.5 fL (80.0-97.0); Monocytes # (A) 0.59 X 10*3/uL (0.20-1.00); Monocytes % (A) 7.8 %; Neutrophils # (A) 4.46 X 10*3/uL (1.80-7.70); Neutrophils % (A) 59.3 %; Platelet Count 430 X 10*3/uL (140-440); RDW 12.6 % (11.5-14.5); WBC 7.52 X 10*3/uL (4.50-10.00)
[2020-12-20 16:46] LABS: ALT 17 U/L (10-49); AST 27 U/L (14-35); Albumin 4.8 g/dL (3.8-4.9); Albumin/Globulin Ratio 1.65 (1.60-3.17); Alkaline Phosphatase 101 U/L (41-126); Bilirubin, Conjugated <0.20 mg/dL (0.20-0.40); Globulin 2.9 g/dL (1.6-3.3); Total Protein 7.7 g/dL (6.2-8.2)
== END | disposition home or self-care (01) ==
LOC: LABWHC1 14:25
PROVIDERS: ATTEND Internal Medicine Gastroenterology
DX: B18.2 Chronic viral hepatitis C (principal)
CPT/HCPCS: 36415; 80076; 85025; 87522

== ENCOUNTER → 2021-06-29 | Outpatient (CLI) | payer MEDICARE, OTHER ==
[2021-06-29 17:38] LABS: Basophils # (A) 0.03 X 10*3/uL (0.00-0.10); Basophils % (A) 0.3 %; Eosinophils # (A) 0.52 X 10*3/uL (0.04-0.35); Eosinophils % (A) 5.7 %; HCT 31.2 % (39.6-50.0); HGB 10.3 g/dL (13.0-17.0); Immature Grans, Automated 0.8 %; Lymphocytes # (A) 1.82 X 10*3/uL (0.90-5.00); Lymphocytes % (A) 19.9 %; MCH 32.3 pg (27.0-32.0); MCV 97.8 fL (80.0-97.0); Mean Platelet Volume 9.6 fL (9.5-12.2); Monocytes # (A) 0.66 X 10*3/uL (0.20-1.00); Monocytes % (A) 7.2 %; NRBC Per 100 WBC 0 /100 WBCS (0.0-0.0); Neutrophils # (A) 6.04 X 10*3/uL (1.80-7.70); Neutrophils % (A) 66.1 %; Platelet Count 448 X 10*3/uL (140-440); RBC 3.19 X 10*6/uL (4.40-5.60); WBC 9.14 X 10*3/uL (4.50-10.00)
[2021-06-29 17:46] LABS: ALT 10 U/L (10-49); AST 28 U/L (14-35); Albumin 4.4 g/dL (3.8-4.9); Albumin/Globulin Ratio 1.32 (1.60-3.17); Alkaline Phosphatase 86 U/L (41-126); Bilirubin, Conjugated <0.20 mg/dL (0.20-0.40); Globulin 3.3 g/dL (1.6-3.3); Total Protein 7.7 g/dL (6.2-8.2)
== END | disposition home or self-care (01) ==
LOC: LABWHC1 14:26
PROVIDERS: ATTEND Internal Medicine Gastroenterology
DX: B18.2 Chronic viral hepatitis C (principal)
CPT/HCPCS: 36415; 80076; 85025; 87522

== ENCOUNTER → 2021-11-21 | Outpatient (CLI) | payer MEDICARE, OTHER ==
--- NOTE | 2021-11-21 11:37 | US ---
EXAMINATION TYPE: US liver DATE OF EXAM: 11/21/2021 COMPARISON: US gallbladder September 04, 2019 CLINICAL HISTORY: B18.2 CHRONIC VITAL HEP B. TECHNIQUE: Multiple sonographic images of the right upper quadrant are obtained. FINDINGS: EXAM MEASUREMENTS: Liver Length: 13.3 cm Gallbladder Wall: 0.2 cm CBD: 0.2 cm Right Kidney: 10.2 x 4.1 x 4.1 cm STORE RECEIVING SPECIALIST NOTES: Pancreas: Portions visualized wnl, partially obscured by bowel gas Liver: wnl Gallbladder: wnl Evidence for sonographic Mcclure's sign: no CBD: wnl Right Kidney: wnl Visualized pancreas unremarkable. IVC seen in the hepatic dome. Visualized liver fairly homogeneous w ithout focal mass or ductal dilatation. No surrounding ascites. Gallbladder seen without shadowing mo bile gallstones. No right-sided hydronephrosis. No biliary dilatation. IMPRESSION: No suspicious focal intrahepatic mass or intrahepatic ductal dilatation. No significant c hange from prior ultrasound.
== END | disposition home or self-care (01) ==
LOC: RADUSWWP 10:54
PROVIDERS: ATTEND Internal Medicine Gastroenterology
DX: B18.2 Chronic viral hepatitis C (principal)
CPT/HCPCS: 76705

== ENCOUNTER 2021-12-01 16:17 | Inpatient (IN) | payer MEDICARE, OTHER ==
--- NOTE | 2021-12-01 16:54 | ED ---
General Adult HPI - General Chief complaint: Shortness of Breath Stated complaint: MIGUEL Time Seen by Provider: 12/01/21 16:35 Source: patient Mode of arrival: wheelchair Limitations: no limitations - History of Present Illness Initial comments: Dictation was produced using [employer] dictation software. please excuse any grammatical, word or spelling errors. Chief Complaint: 71-year-old male presents emergency department for shortness of breath History of Present Illness: Is 71-year-old male past medical history of COPD, hypertension. He presents emergency department for shortness of breath. Patient is a poor historian at this time due to dyspnea. Patient states that he is struggling with constipation over the last several days. Unable to obtain secondary to respiratory status PHYSICAL EXAM: General Impression: Alert and oriented x3, dyspneic, pallor HEENT: Normocephalic atraumatic, extra-ocular movements intact, pupils equal and reactive to light bilaterally, dry mucous membranes Cardiovascular: Tachycardic Chest: Bilateral breath sounds without any obvious wheezing Abdomen: abdomen soft, non-tender, non-distended, no organomegaly Musculoskeletal: Pulses present and equal in all extremities, no peripheral edema Motor: no focal deficits noted Neurological: CN II-XII grossly intact, no focal motor or sensory deficits noted Skin: Intact with no visualized rashes ED course: 71-year-old male presents emergency department for dyspnea. She received in the trauma bay #2. Patient was hypoxic initially in triage with oxygen level 75% on room air. His respiratory was 42. Patient placed on 15 L nonrebreather and placed in trauma bay number to review seen and evaluated. Patient appeared to be dyspneic. Chest x-ray was obtained showing infiltrate in the right lung base. Patient's oxygen levels improved with 15 L nonrebreather. Patient Is a transition on high flow nasal cannula treated hypoxia. Laboratory evaluation obtained. No leukocytosis. Hemoglobin 10.0. Which is around his baseline. Coag panel is negative. Arterial blood gas shows pO2 of 64 on 60% FiO2. No acidosis. Metabolic panel shows sodium 129, chloride of 92, bicarb 17 with a gap of 20. BUN of 84 and creatinine 3.15. Prematurity peptide of 1970. Patient observed in emergency department for approximately 2 hours. Reevaluate at bedside at 6:15 PM found to be in stable medical condition. He is satting well and appears to be less dyspneic on high flow nasal cannula. Patient will be admitted with consultation pulmonology. EKG interpretation: Ventricular rate 99, sinus rhythm,. 149, care 74, QTC 371. No NC prolongation, no QTC prolongation, no ST or T-wave changes noted. EKG compared to 10/07/2020 showing no changes. Overall, this EKG is unremarkable - Related Data Home Medications Medication Instructions Recorded Confirmed Aspirin EC [Ecotrin Low Dose] 81 mg PO DAILY 02/13/19 10/10/20 Buprenorphine HCl/Naloxone HCl 1 tab SL DAILY 02/13/19 10/10/20 [Zubsolv 2.9-0.71 mg Tablet Sl] Cetirizine HCl 10 mg PO DAILY 02/13/19 10/12/20 cloNIDine HCL [Catapres] 0.6 mg PO HS 07/28/19 10/12/20 Acetaminophen Tab [Tylenol Tab] 500 mg PO HS 03/17/20 10/10/20 Isosorbide Mononitrate [Isosorbide 30 mg PO HS 05/19/20 10/12/20 Mononitrate ER] Nitroglycerin Sl Tabs [Nitrostat] 0.4 mg SUBLINGUAL Q5M PRN 05/19/20 10/10/20 Ipratropium/Albuter 20-100Mcg 1 puff INHALATION RT-Q6H PRN 06/06/20 10/10/20 [Combivent Respimat 20-100Mcg Inhaler] Clopidogrel [Plavix] 75 mg PO DIRECTED 09/27/20 10/10/20 Pantoprazole Sodium [Protonix] 40 mg PO DAILY 09/27/20 10/10/20 Atorvastatin [Lipitor] 80 mg PO HS 10/10/20 10/12/20 Calcium Carbonate [Tums] 200 mg PO DIRECTED PRN 10/10/20 10/12/20 Previous Rx's Medication Instructions Recorded carvediloL [Coreg] 6.25 mg PO AC-BID #180 tab 07/31/19 lisinopriL [Zestril] 20 mg PO BID #180 tab 07/31/19 Allergies Allergy/AdvReac Type Severity Reaction Status Date / Time codeine AdvReac Nausea Verified 10/12/20 12:19 Review of Systems ROS Statement: Those systems with pertinent positive or pertinent negative responses have been documented in the HPI. ROS Other: All systems not noted in ROS Statement are negative. Past Medical History Past Medical History: Chest Pain / Angina, COPD, CVA/TIA, Hyperlipidemia, Hyper tension, Liver Disease, Vascular Disorder Additional Past Medical History / Comment(s): hep c, ?TIA couple years ago Last Myocardial Infarction Date:: unknown History of Any Multi-Drug Resistant Organisms: None Reported Past Surgical History: Heart Catheterization With Stent, Orthopedic Surgery, Ton sillectomy Additional Past Surgical History / Comment(s): COLONOSCOPY/EGD, surg x4 right shoulder Past Anesthesia/Blood Transfusion Reactions: No Reported Reaction Date of Last Stent Placement:: 07/30/19 Past Psychological History: No Psychological Hx Reported Smoking Status: Current every day smoker - Past Family History Mother Family Medical History: Myocardial Infarction ([place]) Father Additional Family Medical History / Comment(s): polio, enlarged heart Brother(s) Family Medical History: CVA/TIA Daughter(s) History Unknown: Yes Son(s) Family Medical History: Hyperlipidemia General Exam Limitations: no limitations Course Vital Signs 12/01/21 12/01/21 12/01/21 16:27 16:38 16:44 Temperature 98 F Pulse Rate 92 100 Respiratory 42 H 24 24 Rate Blood Pressure 107/54 O2 Sat by Pulse 75 L 96 Oximetry 12/01/21 12/01/21 12/01/21 17:12 17:44 17:50 Temperature Pulse Rate 93 95 Respiratory 41 H 39 H Rate Blood Pressure 109/62 99/64 O2 Sat by Pulse 95 88 L 92 L Oximetry Medical Decision Making - Lab Data Result diagrams: 12/01/21 16:35 12/01/21 16:35 Lab Results 12/01/21 12/01/21 12/01/21 Range/Units 16:35 16:35 16:35 WBC 9.9 (3.8-10.6) k/uL RBC 3.20 L (4.30-5.90) m/uL Hgb 10.0 L (13.0-17.5) gm/dL Hct 30.1 L (39.0-53.0) % MCV 94.1 (80.0-100.0) fL MCH 31.2 (25.0-35.0) pg MCHC 33.2 (31.0-37.0) g/dL RDW 13.7 (11.5-15.5) % Plt Count 608 H (150-450) k/uL MPV 8.1 Neutrophils % (Manual) 82 % Band Neuts % (Manual) 2 % Lymphocytes % (Manual) 3 % Monocytes % (Manual) 13 % Neutrophils # (Manual) 8.30 H (1.3-7.7) k/uL Lymphocytes # (Manual) 0.30 L (1.0-4.8) k/uL Monocytes # (Manual) 1.29 H (0-1.0) k/uL Nucleated RBCs 0 (0-0) /100 WBC Manual Slide Review Performed Polychromasia Present PT (9.0-12.0) sec INR (<1.2) APTT (22.0-30.0) sec Sample Site ABG pH (7.35-7.45) ABG pCO2 (35-45) mmHg ABG pO2 (83-108) mmHg ABG HCO3 (21-25) mmol/L ABG Total CO2 (19-24) mmol/L ABG O2 Saturation (94-97) % ABG Base Excess mmol/L ABG Hematocrit (34.0-46.0) % Ilya Test Hemoglobin (13.0-17.5) gm/dL FiO2 % Sodium 129 L (137-145) mmol/L Potassium 5.5 H (3.5-5.1) mmol/L Chloride 92 L (98-107) mmol/L Carbon Dioxide 17 L (22-30) mmol/L Anion Gap 20 mmol/L BUN 84 H (9-20) mg/dL Creatinine 3.15 H (0.66-1.25) mg/dL Est GFR (CKD-EPI)AfAm 22 (>60 ml/min/1.73 sqM) Est GFR (CKD-EPI)NonAf 19 (>60 ml/min/1.73 sqM) Glucose 125 H (74-99) mg/dL Plasma Lactic Acid Deion 1.8 (0.7-2.0) mmol/L Calcium 8.9 (8.4-10.2) mg/dL Magnesium 1.6 (1.6-2.3) mg/dL Total Bilirubin 0.8 (0.2-1.3) mg/dL AST 55 (17-59) U/L ALT 24 (4-49) U/L Alkaline Phosphatase 129 H (38-126) U/L Troponin I (0.000-0.034) ng/mL NT-Pro-B Natriuret Pep pg/mL Total Protein 6.9 (6.3-8.2) g/dL Albumin 3.4 L (3.5-5.0) g/dL 12/01/21 12/01/21 12/01/21 Range/Units 16:35 16:35 16:35 WBC (3.8-10.6) k/uL RBC (4.30-5.90) m/uL Hgb (13.0-17.5) gm/dL Hct (39.0-53.0) % MCV (80.0-100.0) fL MCH (25.0-35.0) pg MCHC (31.0-37.0) g/dL RDW (11.5-15.5) % Plt Count (150-450) k/uL MPV Neutrophils % (Manual) % Band Neuts % (Manual) % Lymphocytes % (Manual) % Monocytes % (Manual) % Neutrophils # (Manual) (1.3-7.7) k/uL Lymphocytes # (Manual) (1.0-4.8) k/uL Monocytes # (Manual) (0-1.0) k/uL Nucleated RBCs (0-0) /100 WBC Manual Slide Review Polychromasia PT 10.5 (9.0-12.0) sec INR 1.0 (<1.2) APTT 30.2 H (22.0-30.0) sec Sample Site ABG pH (7.35-7.45) ABG pCO2 (35-45) mmHg ABG pO2 (83-108) mmHg ABG HCO3 (21-25) mmol/L ABG Total CO2 (19-24) mmol/L ABG O2 Saturation (94-97) % ABG Base Excess mmol/L ABG Hematocrit (34.0-46.0) % Ilya Test Hemoglobin (13.0-17.5) gm/dL FiO2 % Sodium (137-145) mmol/L Potassium (3.5-5.1) mmol/L Chloride (98-107) mmol/L Carbon Dioxide (22-30) mmol/L Anion Gap mmol/L BUN (9-20) mg/dL Creatinine (0.66-1.25) mg/dL Est GFR (CKD-EPI)AfAm (>60 ml/min/1.73 sqM) Est GFR (CKD-EPI)NonAf (>60 ml/min/1.73 sqM) Glucose (74-99) mg/dL Plasma Lactic Acid Deion (0.7-2.0) mmol/L Calcium (8.4-10.2) mg/dL Magnesium (1.6-2.3) mg/dL Total Bilirubin (0.2-1.3) mg/dL AST (17-59) U/L ALT (4-49) U/L Alkaline Phosphatase (38-126) U/L Troponin I 0.013 (0.000-0.034) ng/mL NT-Pro-B Natriuret Pep 1970 pg/mL Total Protein (6.3-8.2) g/dL Albumin (3.5-5.0) g/dL 12/01/21 Range/Units 17:10 WBC (3.8-10.6) k/uL RBC (4.30-5.90) m/uL Hgb (13.0-17.5) gm/dL Hct (39.0-53.0) % MCV (80.0-100.0) fL MCH (25.0-35.0) pg MCHC (31.0-37.0) g/dL RDW (11.5-15.5) % Plt Count (150-450) k/uL MPV Neutrophils % (Manual) % Band Neuts % (Manual) % Lymphocytes % (Manual) % Monocytes % (Manual) % Neutrophils # (Manual) (1.3-7.7) k/uL Lymphocytes # (Manual) (1.0-4.8) k/uL Monocytes # (Manual) (0-1.0) k/uL Nucleated RBCs (0-0) /100 WBC Manual Slide Review Polychromasia PT (9.0-12.0) sec INR (<1.2) APTT (22.0-30.0) sec Sample Site left radial ABG pH 7.38 (7.35-7.45) ABG pCO2 34 L (35-45) mmHg ABG pO2 64 L (83-108) mmHg ABG HCO3 20 L (21-25) mmol/L ABG Total CO2 21 (19-24) mmol/L ABG O2 Saturation 89.8 L (94-97) % ABG Base Excess -5.1 mmol/L ABG Hematocrit 29 L (34.0-46.0) % Ilya Test Yes Hemoglobin 9.4 L (13.0-17.5) gm/dL FiO2 60 % Sodium (137-145) mmol/L Potassium (3.5-5.1) mmol/L Chloride (98-107) mmol/L Carbon Dioxide (22-30) mmol/L Anion Gap mmol/L BUN (9-20) mg/dL Creatinine (0.66-1.25) mg/dL Est GFR (CKD-EPI)AfAm (>60 ml/min/1.73 sqM) Est GFR (CKD-EPI)NonAf (>60 ml/min/1.73 sqM) Glucose (74-99) mg/dL Plasma Lactic Acid Deion (0.7-2.0) mmol/L Calcium (8.4-10.2) mg/dL Magnesium (1.6-2.3) mg/dL Total Bilirubin (0.2-1.3) mg/dL AST (17-59) U/L ALT (4-49) U/L Alkaline Phosphatase (38-126) U/L Troponin I (0.000-0.034) ng/mL NT-Pro-B Natriuret Pep pg/mL Total Protein (6.3-8.2) g/dL Albumin (3.5-5.0) g/dL Critical Care Time Critical Care Time: Yes Total Critical Care Time: 33 Disposition Clinical Impression: Pneumonia, Hypoxia Disposition: ADMITTED IP TO THIS [facility] Condition: Serious Referrals: Kit Issa MD [Primary Care Provider] - 1-2 days Decision Time: 18:18
[2021-12-01 17:07] LABS: ABG Base Excess -5.1 mmol/L; ABG HCO3 20 mmol/L (21-25); ABG Hematocrit 29 % (34.0-46.0); ABG Oxygen Saturation 89.8 % (94-97); ABG PCO2 34 mmHg (35-45); ABG PH 7.38 (7.35-7.45); ABG PO2 64 mmHg (83-108); ABG TCO2 21 mmol/L (19-24); Allen Test Performed? Yes
--- NOTE | 2021-12-01 17:10 | XR ---
EXAMINATION TYPE: XR chest 1V portable DATE OF EXAM: 12/01/2021 COMPARISON: 03/04/2020 HISTORY: Short of breath TECHNIQUE: FINDINGS: There is some airspace patchy consolidation in the right lower lobe. There is coarsening of interstitial markings in the left lung. Heart size is normal. No heart failure. No pleural effusion. IMPRESSION: There is bilateral interstitial pneumonia with superimposed airspace consolidation right lower lobe which is a change compared to old exam. Normal heart. No heart failure seen.
[2021-12-01] MEDS ORDERED: PIPERACILLIN-TAZOBACTAM 3.375 GM in SODIUM CHLORIDE 0.9% 100 ML IVPB STA (17:15)
[2021-12-01] MEDS ORDERED: SODIUM CHLORIDE 0.9% 1,000 ML IV STA (17:16)
[2021-12-01 17:36] LABS: Albumin 3.4 g/dL (3.5-5.0); Calcium 8.9 mg/dL (8.4-10.2); Magnesium 1.6 mg/dL (1.6-2.3); Potassium 5.5 mmol/L (3.5-5.1); Total Bilirubin 0.8 mg/dL (0.2-1.3); Total Protein 6.9 g/dL (6.3-8.2)
[2021-12-01 17:40] LABS: HCT 30.1 % (39.0-53.0); MCH 31.2 pg (25.0-35.0); MCHC 33.2 g/dL (31.0-37.0); MCV 94.1 fL (80.0-100.0); Mean Platelet Volume 8.1; Platelet Count 608 k/uL (150-450); RDW 13.7 % (11.5-15.5); WBC 9.9 k/uL (3.8-10.6)
[2021-12-01 17:53] LABS: Partial Thromboplastin Time 30.2 sec (22.0-30.0); Prothrombin Time 10.5 sec (9.0-12.0)
[2021-12-01 17:55] LABS: Band Neutrophils % 2 %; Monocytes # (M) 1.29 k/uL (0-1.0); Neutrophils % (M) 82 %; Nucleated Red Blood Cells 0 /100 WBC (0-0); Polychromasia Present; Total Cells Counted 100
[2021-12-01] MEDS ORDERED: IPRATROPIUM-ALBUTEROL 3 ML NEB INHALATION STA (18:15)
[2021-12-01] MEDS ORDERED: DEXAMETHASONE SOD PHOSPHATE 10 MG/ML 1 ML VIAL IV STA (18:15)
[2021-12-01] MEDS ORDERED: AZITHROMYCIN 500 MG in SODIUM CHLORIDE 0.9% 250 ML IVPB STA (18:17)
[2021-12-01] MEDS ORDERED: NALOXONE 0.4 MG/ML 1 ML VIAL IV PRN (18:19)
[2021-12-01] MEDS: SODIUM CHLORIDE 0.9% 1,000 ML IV SCH ×2 (18:53→22:37)
[2021-12-01] MEDS ORDERED: LORazepam 1 MG/0.5 ML VIAL IV PRN ×3 (22:23)
[2021-12-02] MEDS: THIAMINE 100 MG TAB PO SCH ×2 (06:09→18:44)
[2021-12-02] MEDS: SODIUM CHLORIDE 0.9% 1,000 ML IV SCH ×2 (06:15→13:23)
[2021-12-02] MEDS ORDERED: lisinopriL 20 MG TAB PO SCH (09:30)
[2021-12-02] MEDS ORDERED: IPRATROPIUM-ALBUTEROL 3 ML NEB INHALATION PRN (09:42)
[2021-12-02] MEDS: LORATADINE 10 MG TAB PO SCH (09:50)
[2021-12-02] MEDS: ISOSORBIDE MONONITRATE ER 30 MG TAB.ER.24H PO SCH (09:50)
[2021-12-02] MEDS: PANTOPRAZOLE 40 MG TABLET PO SCH (09:50)
[2021-12-02] MEDS: CLOPIDOGREL 75 MG TAB PO SCH (09:50)
[2021-12-02] MEDS: ACETAMINOPHEN TAB 325 MG TAB PO PRN (09:54)
[2021-12-02] MEDS: methylPREDNISolone SOD SUCCI 125 MG/2 ML VIAL IV SCH ×2 (10:00→18:44)
[2021-12-02] MEDS ORDERED: DEXTROSE 50% SYRINGE 50 ML IVP PRN ×2 (11:45)
[2021-12-02 11:50] VITALS: BMI 25.0
[2021-12-02] MEDS ORDERED: IPRATROPIUM-ALBUTEROL 3 ML NEB INHALATION SCH (12:00)
[2021-12-02] MEDS ORDERED: ALBUTEROL NEBULIZED 2.5 MG/3 ML INHALATION SCH (12:00)
[2021-12-02] MEDS ORDERED: AZITHROMYCIN 500 MG in SODIUM CHLORIDE 0.9% 250 ML IVPB SCH (12:00)
--- NOTE | 2021-12-02 12:12 | P.HPIM ---
History of Present Illness H&P Date: 12/02/21 Chief Complaint: Shortness of breath Vincenzo is a 71-year-old patient well known to my practice. He indicates she's been having increased shortness of breath over the past several weeks a month. He indicates he had COVID-19 pneumonia several months ago. It since recovered i ndicates. He is a known former heroin addict and was on deep morphine/amoxicillin up until several months ago when he decided to discontinue himself. He is also known alcoholic and frequently drinks 5-6 beers per day. EKG is not him back to using and it was a money issue for him. He is having a g reat deal difficulty speaking and shortness of breath. He also indicates he significantly constipated. ER finding showed an dyspneic and hypercapnic needing 15 L oxygen on a nonrebreather. He is since transitioned to high flow nasal cannula. Currently he is improving but still having trouble speaking. He is afebrile, heart rate remains borderline tachycardic, respiratory rate is improved now and blood pressure control. Currently is at 91% on 15 L of O2. This morning laboratory studies are pending. Cultures are reported as positive for gram-positive cocci in clusters.. He has received Zosyn and azithromycin the emergency room. Addendum: Rapid, test is positive Review of Systems All systems: negative Past Medical History Past Medical History: Chest Pain / Angina, COPD, CVA/TIA, Hyperlipidemia, Hypertension, Liver Disease, Vascular Disorder Additional Past Medical History / Comment(s): hep c- treated, TIA couple years ago Last Myocardial Infarction Date:: unknown History of Any Multi-Drug Resistant Organisms: None Reported Past Surgical History: Heart Catheterization With Stent, Orthopedic Surgery, Tonsillectomy Additional Past Surgical History / Comment(s): COLONOSCOPY/EGD, surg x4 right shoulder Past Anesthesia/Blood Transfusion Reactions: No Reported Reaction Date of Last Stent Placement:: 07/30/19 Past Psychological History: No Psychological Hx Reported Smoking Status: Former smoker Past Alcohol Use History: Abuse, Daily Additional Past Alcohol Use History / Comment(s): drinks 8-15 cans of beer per day,. SMOKES < 1/2 PPD DAILY SINCE AGE 20. quit smoking 1 month ago, 10/2021 Past Drug Use History: IV Drug Use, Opiates, Prescription Drug Abuse Additional Drug Use History / Comment(s): NO LONGER USING OPIATES PER PT - Past Family History Mother Family Medical History: Myocardial Infarction ([place]) Father Additional Family Medical History / Comment(s): polio, enlarged heart Brother(s) Family Medical History: CVA/TIA Daughter(s) History Unknown: Yes Son(s) Family Medical History: Hyperlipidemia Medications and Allergies Home Medications Medication Instructions Recorded Confirmed Type Buprenorphine HCl/Naloxone HCl 1 tab SL DAILY 02/13/19 12/01/21 History [Zubsolv 2.9-0.71 mg Tablet Sl] cloNIDine HCL [Catapres] 0.2 mg PO TID 07/28/19 12/01/21 History lisinopriL [Zestril] 20 mg PO BID #180 tab 07/31/19 12/01/21 Rx Isosorbide Mononitrate [Isosorbide 30 mg PO DAILY 05/19/20 12/01/21 History Mononitrate ER] Clopidogrel [Plavix] 75 mg PO DAILY 09/27/20 12/01/21 History Pantoprazole Sodium [Protonix] 40 mg PO DAILY 09/27/20 12/01/21 History Atorvastatin [Lipitor] 80 mg PO HS 10/10/20 12/01/21 History Albuterol Inhaler [Ventolin Hfa 1 puff INHALATION RT-Q4H PRN 12/01/21 12/01/21 History Inhaler] Loratadine [Claritin] 10 mg PO DAILY 12/01/21 12/01/21 History carvediloL [Coreg] 6.25 mg PO BID-W/MEALS 12/01/21 12/01/21 History Allergies Allergy/AdvReac Type Severity Reaction Status Date / Time codeine AdvReac Nausea Verified 10/12/20 12:19 Physical Exam Vitals: Vital Signs Temp Pulse Pulse Pulse Resp BP BP 12/02/21 11:41 98.2 F 97 18 139/88 12/02/21 11:17 108 H 12/02/21 11:04 104 H 12/02/21 08:00 98.0 F 102 H 97 20 136/78 12/02/21 07:52 12/02/21 03:37 97.9 F 97 16 124/63 12/01/21 23:44 98.5 F 93 16 96/60 12/01/21 21:42 98.2 F 92 16 118/72 12/01/21 20:20 95 24 106/54 12/01/21 19:31 92 12/01/21 19:25 95 12/01/21 18:58 90 30 H 121/76 12/01/21 17:50 12/01/21 17:44 95 39 H 99/64 12/01/21 17:12 93 41 H 109/62 12/01/21 16:44 100 24 12/01/21 16:38 24 12/01/21 16:27 98 F 92 42 H 107/54 Pulse Ox FiO2 12/02/21 11:41 91 L 12/02/21 11:17 12/02/21 11:04 12/02/21 08:00 91 L 12/02/21 07:52 83 L 21 12/02/21 03:37 94 L 12/01/21 23:44 96 12/01/21 21:42 93 L 12/01/21 20:20 93 L 12/01/21 19:31 12/01/21 19:25 12/01/21 18:58 95 12/01/21 17:50 92 L 12/01/21 17:44 88 L 12/01/21 17:12 95 12/01/21 16:44 96 12/01/21 16:38 12/01/21 16:27 75 L Intake and Output 12/01/21 12/02/21 12/02/21 22:59 06:59 14:59 Intake Total 1640 1280 Output Total 650 1050 Balance 990 230 Intake: Intake, IV Titration 1040 1040 Amount Sodium Chloride 0.9% 1, 1040 1040 000 ml @ 130 mls/hr IV . Q7H42M [facility] Rx#:[id number] Oral 600 240 Output: Urine 650 1050 Other: Voiding Method Urinal Urinal Urinal Weight 74.843 kg 74.843 kg GENERAL: Thin male, on high flow nasal cannula, having radial difficulty speaking more than a few words HEAD: Atraumatic, normocephalic. EYES: Pupils equal round and reactive to light, extraocular movements intact, sclera anicteric, conjunctiva are normal. ENT:nares patent, oropharynx clear without exudates. Moist mucous membranes. NECK: Normal range of motion, supple without lymphadenopathy or JVD, no thyromegaly LUNGS: Breath sounds coarse decreased air exchange and rhonchi noted in multiple lung penny. HEART: Regular rate and rhythm without murmurs, rubs or gallops.S1S2 Normal ABDOMEN: Soft, nontender, normoactive bowel sounds. No guarding, no rebound. No masses appreciated. EXTREMITIES: Normal range of motion, no pitting or edema. No clubbing or cyanosis. NEUROLOGICAL: Cranial nerves II through XII grossly intact. Normal speech, normal gait. PSYCH: Normal mood, normal affect. SKIN: Warm, Dry, normal turgor, no rashes or lesions noted. Results CBC & Chem 7: 12/01/21 16:35 12/01/21 16:35 Labs: Abnormal Lab Results - Last 24 Hours (Table) 12/01/21 12/01/21 12/01/21 Range/Units 16:35 16:35 16:35 RBC 3.20 L (4.30-5.90) m/uL Hgb 10.0 L (13.0-17.5) gm/dL Hct 30.1 L (39.0-53.0) % Plt Count 608 H (150-450) k/uL Neutrophils # (Manual) 8.30 H (1.3-7.7) k/uL Lymphocytes # (Manual) 0.30 L (1.0-4.8) k/uL Monocytes # (Manual) 1.29 H (0-1.0) k/uL APTT 30.2 H (22.0-30.0) sec ABG pCO2 (35-45) mmHg ABG pO2 (83-108) mmHg ABG HCO3 (21-25) mmol/L ABG O2 Saturation (94-97) % ABG Hematocrit (34.0-46.0) % Hemoglobin (13.0-17.5) gm/dL Sodium 129 L (137-145) mmol/L Potassium 5.5 H (3.5-5.1) mmol/L Chloride 92 L (98-107) mmol/L Carbon Dioxide 17 L (22-30) mmol/L BUN 84 H (9-20) mg/dL Creatinine 3.15 H (0.66-1.25) mg/dL Glucose 125 H (74-99) mg/dL Alkaline Phosphatase 129 H (38-126) U/L Albumin 3.4 L (3.5-5.0) g/dL 12/01/21 Range/Units 17:10 RBC (4.30-5.90) m/uL Hgb (13.0-17.5) gm/dL Hct (39.0-53.0) % Plt Count (150-450) k/uL Neutrophils # (Manual) (1.3-7.7) k/uL Lymphocytes # (Manual) (1.0-4.8) k/uL Monocytes # (Manual) (0-1.0) k/uL APTT (22.0-30.0) sec ABG pCO2 34 L (35-45) mmHg ABG pO2 64 L (83-108) mmHg ABG HCO3 20 L (21-25) mmol/L ABG O2 Saturation 89.8 L (94-97) % ABG Hematocrit 29 L (34.0-46.0) % Hemoglobin 9.4 L (13.0-17.5) gm/dL Sodium (137-145) mmol/L Potassium (3.5-5.1) mmol/L Chloride (98-107) mmol/L Carbon Dioxide (22-30) mmol/L BUN (9-20) mg/dL Creatinine (0.66-1.25) mg/dL Glucose (74-99) mg/dL Alkaline Phosphatase (38-126) U/L Albumin (3.5-5.0) g/dL Microbiology - Last 24 Hours (Table) 12/01/21 16:54 Blood Culture - Final Blood Chest x-ray: report reviewed Thrombosis Risk Factor Assmnt - DVT/VTE Prophylaxis DVT/VTE Prophylaxis: Pharmacologic Prophylaxis ordered (COVID-19 Positive) - Choose All That Apply Each Factor Represents 1 point: Abnormal pulmonary function (COPD) Thrombosis Risk Factor Assessment Total Risk Factor Score: 1 Thrombosis Risk Factor Assessment Level: Low Risk Assessment and Plan (1) Pneumonia due to COVID-19 virus Current Visit: Yes Status: Acute Code(s): U07.1 - COVID-19; J12.82 - PNEUMONIA DUE TO CORONAVIRUS DISEASE 2019 SNOMED Code(s): 326946659575904669 (2) Hypoxia Current Visit: Yes Status: Acute Code(s): R09.02 - HYPOXEMIA SNOMED Code(s): 579378786 (3) Alcohol abuse Current Visit: No Status: Acute Code(s): F10.10 - ALCOHOL ABUSE, UNCOMPLICATED SNOMED Code(s): 90533411 (4) Constipation Current Visit: No Status: Acute Code(s): K59.00 - CONSTIPATION, UNSPECIFIED SNOMED Code(s): 22596143 (5) Essential (primary) hypertension Current Visit: No Status: Acute Code(s): I10 - ESSENTIAL (PRIMARY) HYPERTENSION SNOMED Code(s): 52532144 (6) History of opioid abuse Current Visit: No Status: Acute Code(s): F11.11 - OPIOID ABUSE, IN REMISSION SNOMED Code(s): 385492764 (7) Mixed hyperlipidemia Current Visit: No Status: Acute Code(s): E78.2 - MIXED HYPERLIPIDEMIA SNOMED Code(s): 080004232 (8) Tobacco abuse Current Visit: No Status: Acute Code(s): Z72.0 - TOBACCO USE SNOMED Code(s): 903824205 Plan: He is been placed on seizure protocol already. I reordered the azithromycin and Zosyn. Consult pulmonology. Consult infectious disease for recommendations regarding COVID-19. COVID-19 protocol. Repeat labs in a.m., reevaluate next 24 hours
[2021-12-02] MEDS ORDERED: ENOXAPARIN 30 MG/0.3 ML SYRINGE SQ SCH (12:15)
[2021-12-02] MEDS: cloNIDine HCL 0.2 MG TAB PO SCH ×3 (12:38→21:13)
--- NOTE | 2021-12-02 12:57 | P.CNPUL ---
History of Present Illness Consult date: 12/02/21 Requesting physician: Kit Issa Reason for consult: dyspnea, cough, COPD, hypoxemia, pneumonia, abnormal CXR/CT Chief complaint: Shortness of breath. History of present illness: Pulmonary consult dated 12/02/2021. 71-year-old male who presents to the emergency department, on December 01, complaining of shortness of breath. The patient states that he's been having shortness of breath for quite some time. In addition, he complained of tightness, chest congestion, cough, and phlegm production. Chest x-ray revealed a right lower lobe pneumonia. Currently, the patient's on 15 L high flow oxygen. He is getting saline at 130 mL an hour. His primary care provider is Dr. Issa. He apparently has a previous history of heavy tobacco use. He states he does not smoke currently. Other medical history includes angina pectoris, CVA, hyperlipidemia, hypertension, and previous heart catheterization with stent, for CAD. In addition, the patient complains of hoarseness, which she states has gotten worse. Labs include a white count of 9.9, hemoglobin 10, hematocrit 30.1, and a platelet count of 608,000. Blood gases, on 60% oxygen show pO2 64, pCO2 34, and a pH of 7.38. Sodium 129, potassium 5.5, chlorides 92, CO2 17, anion gap 20, UA 84, creatinine 3.15. Testing for coronavirus was positive. Chest x-ray shows some patchy infiltrates in the right lower lobe, and diffuse interstitial changes throughout. Review of Systems REVIEW OF SYSTEMS: CONSTITUTIONAL: Weakness. NEUROLOGIC: [ Negative.] HEENT: Worsening hoarseness. CARDIAC: [Negative.] PULMONARY: Shortness of breath, cough, chest tightness, wheezing, phlegm production. GI: [Negative.] : [Negative.] RHEUMATOLOGIC: [ Negative.] IMMUNOLOGIC: [ Negative.] ENDOCRINE: [Negative. ] DERMATOLOGIC: [Negative.] Past Medical History Past Medical History: Chest Pain / Angina, COPD, CVA/TIA, Hyperlipidemia, Hypertension, Liver Disease, Vascular Disorder Additional Past Medical History / Comment(s): hep c- treated, TIA couple years ago Last Myocardial Infarction Date:: unknown History of Any Multi-Drug Resistant Organisms: None Reported Past Surgical History: Heart Catheterization With Stent, Orthopedic Surgery, Tonsillectomy Additional Past Surgical History / Comment(s): COLONOSCOPY/EGD, surg x4 right shoulder Past Anesthesia/Blood Transfusion Reactions: No Reported Reaction Date of Last Stent Placement:: 07/30/19 Past Psychological History: No Psychological Hx Reported Smoking Status: Former smoker Past Alcohol Use History: Abuse, Daily Additional Past Alcohol Use History / Comment(s): drinks 8-15 cans of beer per day,. SMOKES < 1/2 PPD DAILY SINCE AGE 20. quit smoking 1 month ago, 10/2021 Past Drug Use History: IV Drug Use, Opiates, Prescription Drug Abuse Additional Drug Use History / Comment(s): NO LONGER USING OPIATES PER PT - Past Family History Mother Family Medical History: Myocardial Infarction ([place]) Father Additional Family Medical History / Comment(s): polio, enlarged heart Brother(s) Family Medical History: CVA/TIA Daughter(s) History Unknown: Yes Son(s) Family Medical History: Hyperlipidemia Medications and Allergies Home Medications Medication Instructions Recorded Confirmed Type Buprenorphine HCl/Naloxone HCl 1 tab SL DAILY 02/13/19 12/01/21 History [Zubsolv 2.9-0.71 mg Tablet Sl] cloNIDine HCL [Catapres] 0.2 mg PO TID 07/28/19 12/01/21 History lisinopriL [Zestril] 20 mg PO BID #180 tab 07/31/19 12/01/21 Rx Isosorbide Mononitrate [Isosorbide 30 mg PO DAILY 05/19/20 12/01/21 History Mononitrate ER] Clopidogrel [Plavix] 75 mg PO DAILY 09/27/20 12/01/21 History Pantoprazole Sodium [Protonix] 40 mg PO DAILY 09/27/20 12/01/21 History Atorvastatin [Lipitor] 80 mg PO HS 10/10/20 12/01/21 History Albuterol Inhaler [Ventolin Hfa 1 puff INHALATION RT-Q4H PRN 12/01/21 12/01/21 History Inhaler] Loratadine [Claritin] 10 mg PO DAILY 12/01/21 12/01/21 History carvediloL [Coreg] 6.25 mg PO BID-W/MEALS 12/01/21 12/01/21 History Allergies Allergy/AdvReac Type Severity Reaction Status Date / Time codeine AdvReac Nausea Verified 10/12/20 12:19 Physical Exam Osteopathic Statement: *. No significant issues noted on an osteopathic struc tural exam other than those noted in the History and Physical/Consult. Vitals: Vital Signs Temp Pulse Pulse Pulse Resp BP BP 12/02/21 11:41 98.2 F 97 18 139/88 12/02/21 11:17 108 H 12/02/21 11:04 104 H 12/02/21 08:00 98.0 F 102 H 97 20 136/78 12/02/21 07:52 12/02/21 03:37 97.9 F 97 16 124/63 12/01/21 23:44 98.5 F 93 16 96/60 12/01/21 21:42 98.2 F 92 16 118/72 12/01/21 20:20 95 24 106/54 12/01/21 19:31 92 12/01/21 19:25 95 12/01/21 18:58 90 30 H 121/76 12/01/21 17:50 12/01/21 17:44 95 39 H 99/64 12/01/21 17:12 93 41 H 109/62 12/01/21 16:44 100 24 12/01/21 16:38 24 12/01/21 16:27 98 F 92 42 H 107/54 Pulse Ox FiO2 12/02/21 11:41 91 L 12/02/21 11:17 12/02/21 11:04 12/02/21 08:00 91 L 12/02/21 07:52 83 L 21 12/02/21 03:37 94 L 12/01/21 23:44 96 12/01/21 21:42 93 L 12/01/21 20:20 93 L 12/01/21 19:31 12/01/21 19:25 12/01/21 18:58 95 12/01/21 17:50 92 L 12/01/21 17:44 88 L 12/01/21 17:12 95 12/01/21 16:44 96 12/01/21 16:38 12/01/21 16:27 75 L Intake and Output 12/01/21 12/02/21 12/02/21 22:59 06:59 14:59 Intake Total 1640 1280 Output Total 650 1050 Balance 990 230 Intake: Intake, IV Titration 1040 1040 Amount Sodium Chloride 0.9% 1, 1040 1040 000 ml @ 130 mls/hr IV . Q7H42M [facility] Rx#:[id number] Oral 600 240 Output: Urine 650 1050 Other: Voiding Method Urinal Urinal Urinal Weight 74.843 kg 74.843 kg Mild to moderate respiratory distress, oriented, currently on 15 L high flow O2. No audible wheezing, or use of accessory muscles. HEENT examination is grossly unremarkable. Neck supple. Full range of motion. No adenopathy thyromegaly or neck vein distention. Cardiovascular examination reveals regular rhythm rate. S1-S2 normal. No S3 or S4. No discernible murmur noted. Heart sounds are distant. Heart rate 108 bpm. Lungs reveal coarse bilateral rhonchi. Crackles are noted. No wheezes. Breath sounds equal bilaterally. Saturations are 91% on 15 L. Abdomen soft bowel sounds are heard. No masses or tenderness. Extremities are intact. No cyanosis clubbing or edema. Skin is without rash or lesion. Neurologic examination is brief but nonfocal. Results - Laboratory Findings CBC and BMP: 12/01/21 16:35 12/01/21 16:35 ABG ABG pH 7.38 (7.35-7.45) 12/01/21 17:10 ABG pCO2 34 mmHg (35-45) L 12/01/21 17:10 ABG pO2 64 mmHg (83-108) L 12/01/21 17:10 ABG O2 Saturation 89.8 % (94-97) L 12/01/21 17:10 PT/INR, D-dimer PT 10.5 sec (9.0-12.0) 12/01/21 16:35 INR 1.0 (<1.2) 12/01/21 16:35 Abnormal lab findings: Abnormal Labs 12/01/21 12/01/21 12/01/21 16:35 16:35 16:35 RBC 3.20 L Hgb 10.0 L Hct 30.1 L Plt Count 608 H Neutrophils # (Manual) 8.30 H Lymphocytes # (Manual) 0.30 L Monocytes # (Manual) 1.29 H APTT 30.2 H ABG pCO2 ABG pO2 ABG HCO3 ABG O2 Saturation ABG Hematocrit Hemoglobin Sodium 129 L Potassium 5.5 H Chloride 92 L Carbon Dioxide 17 L BUN 84 H Creatinine 3.15 H Glucose 125 H Alkaline Phosphatase 129 H Albumin 3.4 L Coronavirus (PCR) 12/01/21 12/02/21 17:10 11:30 RBC Hgb Hct Plt Count Neutrophils # (Manual) Lymphocytes # (Manual) Monocytes # (Manual) APTT ABG pCO2 34 L ABG pO2 64 L ABG HCO3 20 L ABG O2 Saturation 89.8 L ABG Hematocrit 29 L Hemoglobin 9.4 L Sodium Potassium Chloride Carbon Dioxide BUN Creatinine Glucose Alkaline Phosphatase Albumin Coronavirus (PCR) Detected A - Diagnostic Findings Chest x-ray: image reviewed Assessment and Plan Assessment: Acute hypoxemic respiratory failure, multifactorial, secondary to COPD exacerbation, patchy pneumonia right lower lobe, and possible coronavirus associated pneumonia. In addition, the patient could have a pulmonary embolism. History of COPD, secondary to heavy tobacco use. Acute kidney injury. History of angina pectoris, and previous heart catheterization with stent, for CAD. History of CVA. History of hyperlipidemia. History of hypertension. History of hepatitis C. Previous history of heavy tobacco use. Plan: Plan dated 12/02/2021. The patient should have inflammatory markers ordered. He is not a candidate for CT angiogram given his kidney function. The patient should receive inhalers, and antibiotics for his patchy pneumonia left lower lobe. Nephrology should be consulted for his renal failure. Labs, x-rays, medications are reviewed. Additional recommendations and suggestions are forthcoming. Prognosis is certainly guarded. In addition, eventually, the patient will need ear, nose and throat evaluation for his worsening hoarseness. Time with Patient: Greater than 30
[2021-12-02] MEDS: DOCUSATE 100 MG CAP PO SCH ×2 (13:22→21:13)
[2021-12-02] MEDS: ASCORBIC ACID 500 MG TAB PO SCH ×2 (13:22→21:13)
[2021-12-02] MEDS: CHOLECALCIFEROL 125 MCG (5000 IU) TABLET PO SCH (13:22)
[2021-12-02] MEDS: INSULIN ASPART (NovoLOG) 100 UNIT/ML VIAL SQ SCH ×3 (13:22→21:12)
[2021-12-02] MEDS ORDERED: LINEZOLID 600 MG in DEXTROSE/WATER 1 300ML.BAG IVPB SCH (15:00)
--- NOTE | 2021-12-02 15:11 | US ---
EXAMINATION TYPE: US kidneys/renal and bladder DATE OF EXAM: 12/02/2021 COMPARISON: US CLINICAL HISTORY: elder. ELDER EXAM MEASUREMENTS: Right Kidney: 10.5 x 5.0 x 5.1 cm Left Kidney: 11.9 6.7 x 5.5 cm Right Kidney: No hydronephrosis or masses seen Left Kidney: No evidence of hydro, very limited views due to pt immobility Bladder: Wall trabeculations Bilateral Jets seen: No IMPRESSION: No evidence of renal mass or obstruction. Irregular urinary bladder could relate to some cystitis. No bladder calculus.
[2021-12-02] MEDS: ALBUTEROL HFA INHALER INHALATION SCH ×2 (15:23→19:36)
[2021-12-02 15:38] LABS: Albumin 2.8 g/dL (3.5-5.0); Total Protein 5.9 g/dL (6.3-8.2)
[2021-12-02 15:39] LABS: Calcium 8.5 mg/dL (8.4-10.2); Magnesium 1.8 mg/dL (1.6-2.3); Total Bilirubin 0.4 mg/dL (0.2-1.3)
[2021-12-02 16:06] LABS: Partial Thromboplastin Time 30.6 sec (22.0-30.0); Prothrombin Time 10.6 sec (9.0-12.0)
[2021-12-02 16:20] LABS: Basophils # (A) 0.1 k/uL (0-0.2); Basophils % (A) 0 %; Eosinophils % (A) 0 %; HCT 28.1 % (39.0-53.0); HGB 8.9 gm/dL (13.0-17.5); Lymphocytes # (A) 0.3 k/uL (1.0-4.8); Lymphocytes % (A) 3 %; MCH 30.5 pg (25.0-35.0); MCHC 31.6 g/dL (31.0-37.0); MCV 96.3 fL (80.0-100.0); Mean Platelet Volume 8.5; Monocytes # (A) 0.6 k/uL (0-1.0); Monocytes % (A) 5 %; Neutrophils # (A) 9.7 k/uL (1.3-7.7); Neutrophils % (A) 89 %; Platelet Count 570 k/uL (150-450); RBC 2.92 m/uL (4.30-5.90); RDW 13.4 % (11.5-15.5); WBC 10.9 k/uL (3.8-10.6)
[2021-12-02 16:43] LABS: C Reactive Protein 32.7 mg/dL (<1.0)
[2021-12-02 16:49] LABS: Rouleaux Present
[2021-12-02] MEDS: hydrALAZINE HCL 25 MG TAB PO SCH ×2 (18:43→21:13)
[2021-12-02] MEDS: carvediloL 6.25 MG TAB PO SCH (18:44)
[2021-12-02 18:49] LABS: Glucose,Whole Blood 139 mg/dL (70-110)
[2021-12-02] MEDS: SYMBICORT 160-4.5 MCG INHALER INHALATION SCH (19:36)
[2021-12-02] MEDS ORDERED: BUDESONIDE 1 MG/2 ML NEBU INHALATION SCH (20:00)
[2021-12-02] MEDS ORDERED: FORMOTEROL FUMARATE 20 MCG/2 ML NEBU INHALATION SCH (20:00)
[2021-12-02 20:13] LABS: Amorphous Sediment,Urine Rare /hpf; Appearance,Urine Clear (Clear); Bacteria,Urine Rare /hpf; Bilirubin,Urine Negative (Negative); Blood,Urine Negative (Negative); Color,Urine Light Yellow; Glucose,Urine (UA) Trace (Negative); Hyaline Casts,Urine 5 /lpf (0-2); Ketones,Urine Negative (Negative); Leukocyte Esterase,Urine Negative (Negative); Mucus,Urine Rare /hpf; Nitrite,Urine Negative (Negative); Protein,Urine 1+ (Negative); RBC,Urine 1 /hpf (0-5); Specific Gravity,Urine 1.014 (1.001-1.035); Urobilinogen,Urine <2.0 mg/dL (<2.0); WBC,Urine 1 /hpf (0-5)
[2021-12-02 20:41] LABS: Glucose,Whole Blood 187 mg/dL (70-110)
[2021-12-02] MEDS: ATORVASTATIN 80 MG TAB PO SCH (21:13)
[2021-12-02] MEDS: PIPERACILLIN-TAZOBACTAM 3.375 GM in SODIUM CHLORIDE 0.9% 100 ML IVPB SCH (21:20)
[2021-12-03] MEDS: PIPERACILLIN-TAZOBACTAM 3.375 GM in SODIUM CHLORIDE 0.9% 100 ML IVPB SCH (00:01)
[2021-12-03] MEDS: methylPREDNISolone SOD SUCCI 125 MG/2 ML VIAL IV SCH ×4 (00:02→17:21)
--- NOTE | 2021-12-03 01:26 | P.CONS ---
History of Present Illness - Reason for Consult Consult date: 12/02/21 COVID 19 Requesting physician: Kit Issa - Chief Complaint Shortness of breath and cough X FEW DAYS - History of Present Illness Patient is a 71-year-old male with multiple comorbidities presenting to the ER yesterday afternoon for evaluation of increasing shortness of breath symptom has been going on for few days before presentation to the hospital patient also complaining of chest tightness he did have a congested cough moderate intensity with occasional sputum production no hemoptysis patient denies any nausea no vomiting no abdominal pain no diarrhea no choking on the food on presentation to the hospital the patient was afebrile and no fever has been recorded subsequently patient did have a normal white count with a left shift D-dimer was elevated did have elevated BUN and creatinine level enzymes AST was mildly elevated did have elevated CRP urine was negative patient did have positive COVID test with a blood cultures obtained showing a gram-positive cocci that has prompted this infectious disease consultation patient did have a chest x-ray bilaterally/pneumonia with superimposed airspace consolidation right lower lobe patient is currently on Zosyn Review of Systems Positive point has been mentioned in the HPI rest of the systems are negative Past Medical History Past Medical History: Chest Pain / Angina, COPD, CVA/TIA, Hyperlipidemia, Hypertension, Liver Disease, Vascular Disorder Additional Past Medical History / Comment(s): hep c- treated, TIA couple years ago Last Myocardial Infarction Date:: unknown History of Any Multi-Drug Resistant Organisms: None Reported Past Surgical History: Heart Catheterization With Stent, Orthopedic Surgery, Tonsillectomy Additional Past Surgical History / Comment(s): COLONOSCOPY/EGD, surg x4 right shoulder Past Anesthesia/Blood Transfusion Reactions: No Reported Reaction Date of Last Stent Placement:: 07/30/19 Past Psychological History: No Psychological Hx Reported Smoking Status: Former smoker Past Alcohol Use History: Abuse, Daily Additional Past Alcohol Use History / Comment(s): drinks 8-15 cans of beer per day,. SMOKES < 1/2 PPD DAILY SINCE AGE 20. quit smoking 1 month ago, 10/2021 Past Drug Use History: IV Drug Use, Opiates, Prescription Drug Abuse Additional Drug Use History / Comment(s): NO LONGER USING OPIATES PER PT - Past Family History Mother Family Medical History: Myocardial Infarction ([place]) Father Additional Family Medical History / Comment(s): polio, enlarged heart Brother(s) Family Medical History: CVA/TIA Daughter(s) History Unknown: Yes Son(s) Family Medical History: Hyperlipidemia Medications and Allergies Home Medications Medication Instructions Recorded Confirmed Type Buprenorphine HCl/Naloxone HCl 1 tab SL DAILY 02/13/19 12/01/21 History [Zubsolv 2.9-0.71 mg Tablet Sl] cloNIDine HCL [Catapres] 0.2 mg PO TID 07/28/19 12/01/21 History lisinopriL [Zestril] 20 mg PO BID #180 tab 07/31/19 12/01/21 Rx Isosorbide Mononitrate [Isosorbide 30 mg PO DAILY 05/19/20 12/01/21 History Mononitrate ER] Clopidogrel [Plavix] 75 mg PO DAILY 09/27/20 12/01/21 History Pantoprazole Sodium [Protonix] 40 mg PO DAILY 09/27/20 12/01/21 History Atorvastatin [Lipitor] 80 mg PO HS 10/10/20 12/01/21 History Albuterol Inhaler [Ventolin Hfa 1 puff INHALATION RT-Q4H PRN 12/01/21 12/01/21 History Inhaler] Loratadine [Claritin] 10 mg PO DAILY 12/01/21 12/01/21 History carvediloL [Coreg] 6.25 mg PO BID-W/MEALS 12/01/21 12/01/21 History Allergies Allergy/AdvReac Type Severity Reaction Status Date / Time codeine AdvReac Nausea Verified 10/12/20 12:19 Physical Exam Vitals: Vital Signs Temp Pulse Pulse Pulse Resp BP BP 12/02/21 11:41 98.2 F 97 18 139/88 12/02/21 11:17 108 H 12/02/21 11:04 104 H 12/02/21 08:00 98.0 F 102 H 97 20 136/78 12/02/21 07:52 12/02/21 03:37 97.9 F 97 16 124/63 12/01/21 23:44 98.5 F 93 16 96/60 12/01/21 21:42 98.2 F 92 16 118/72 12/01/21 20:20 95 24 106/54 12/01/21 19:31 92 12/01/21 19:25 95 12/01/21 18:58 90 30 H 121/76 12/01/21 17:50 12/01/21 17:44 95 39 H 99/64 12/01/21 17:12 93 41 H 109/62 12/01/21 16:44 100 24 12/01/21 16:38 24 12/01/21 16:27 98 F 92 42 H 107/54 Pulse Ox FiO2 12/02/21 11:41 91 L 12/02/21 11:17 12/02/21 11:04 12/02/21 08:00 91 L 12/02/21 07:52 83 L 21 12/02/21 03:37 94 L 12/01/21 23:44 96 12/01/21 21:42 93 L 12/01/21 20:20 93 L 12/01/21 19:31 12/01/21 19:25 12/01/21 18:58 95 12/01/21 17:50 92 L 12/01/21 17:44 88 L 12/01/21 17:12 95 12/01/21 16:44 96 12/01/21 16:38 12/01/21 16:27 75 L Intake and Output 12/01/21 12/02/21 12/02/21 22:59 06:59 14:59 Intake Total 1640 1280 Output Total 650 1050 Balance 990 230 Intake: Intake, IV Titration 1040 1040 Amount Sodium Chloride 0.9% 1, 1040 1040 000 ml @ 130 mls/hr IV . Q7H42M [facility] Rx#:[id number] Oral 600 240 Output: Urine 650 1050 Other: Voiding Method Urinal Urinal Urinal Weight 74.843 kg 74.843 kg GENERAL DESCRIPTION: Elderly male lying in bed, no distress. No tachypnea or accessory muscle of respiration use. HEENT: Shows Pallor , no scleral icterus. Oral mucous membrane is dry. No pharyngeal erythema or thrush NECK: Trachea central, no thyromegaly. LUNGS: Unlabored breathing. Coarse breath sounds bilaterally HEART: S1, S2, regular rate and rhythm. No loud murmur ABDOMEN: Soft, no tenderness , guarding or rigidity, no organomegaly EXTREMITIES: No edema of feet. SKIN: No rash, no masses palpable. NEUROLOGICAL: The patient is awake, alert, oriented x3, mood and affect normal. Results CBC & Chem 7: 12/05/21 09:17 12/06/21 08:04 Labs: Abnormal Lab Results - Last 24 Hours (Table) 12/01/21 12/01/21 12/01/21 Range/Units 16:35 16:35 16:35 RBC 3.20 L (4.30-5.90) m/uL Hgb 10.0 L (13.0-17.5) gm/dL Hct 30.1 L (39.0-53.0) % Plt Count 608 H (150-450) k/uL Neutrophils # (Manual) 8.30 H (1.3-7.7) k/uL Lymphocytes # (Manual) 0.30 L (1.0-4.8) k/uL Monocytes # (Manual) 1.29 H (0-1.0) k/uL APTT 30.2 H (22.0-30.0) sec ABG pCO2 (35-45) mmHg ABG pO2 (83-108) mmHg ABG HCO3 (21-25) mmol/L ABG O2 Saturation (94-97) % ABG Hematocrit (34.0-46.0) % Hemoglobin (13.0-17.5) gm/dL Sodium 129 L (137-145) mmol/L Potassium 5.5 H (3.5-5.1) mmol/L Chloride 92 L (98-107) mmol/L Carbon Dioxide 17 L (22-30) mmol/L BUN 84 H (9-20) mg/dL Creatinine 3.15 H (0.66-1.25) mg/dL Glucose 125 H (74-99) mg/dL Alkaline Phosphatase 129 H (38-126) U/L Albumin 3.4 L (3.5-5.0) g/dL Coronavirus (PCR) (Not Detectd) 12/01/21 12/02/21 Range/Units 17:10 11:30 RBC (4.30-5.90) m/uL Hgb (13.0-17.5) gm/dL Hct (39.0-53.0) % Plt Count (150-450) k/uL Neutrophils # (Manual) (1.3-7.7) k/uL Lymphocytes # (Manual) (1.0-4.8) k/uL Monocytes # (Manual) (0-1.0) k/uL APTT (22.0-30.0) sec ABG pCO2 34 L (35-45) mmHg ABG pO2 64 L (83-108) mmHg ABG HCO3 20 L (21-25) mmol/L ABG O2 Saturation 89.8 L (94-97) % ABG Hematocrit 29 L (34.0-46.0) % Hemoglobin 9.4 L (13.0-17.5) gm/dL Sodium (137-145) mmol/L Potassium (3.5-5.1) mmol/L Chloride (98-107) mmol/L Carbon Dioxide (22-30) mmol/L BUN (9-20) mg/dL Creatinine (0.66-1.25) mg/dL Glucose (74-99) mg/dL Alkaline Phosphatase (38-126) U/L Albumin (3.5-5.0) g/dL Coronavirus (PCR) Detected A (Not Detectd) Microbiology - Last 24 Hours (Table) 12/01/21 16:54 Blood Culture - Final Blood Assessment and Plan (1) Bacteremia Current Visit: Yes Status: Acute Code(s): R78.81 - BACTEREMIA SNOMED Code(s): 7345772 (2) Pneumonia Current Visit: Yes Status: Acute Code(s): J18.9 - PNEUMONIA, UNSPECIFIED ORGANISM SNOMED Code(s): 726417368 Plan: 1patient with gram-positive bacteremia source likely right lower lobe pneumonia in this patient with a borderline kidney function and high risk of nephrotoxicity from vancomycin and daptomycin usually not indicated for pneumonia. Patient also have positive COVID test however the patient symptom has been going on for a while and he is currently out of the therapeutic window for remdesivir as more likely evidence of secondary bacterial pneumonia with bacteremia 2blood cultures will be repeated to document clearance of bacteremia. 3we will add Zyvox 6 mg IV every 12 while waiting for the cultures to be finalized We will follow on clinical condition and cultures to further adjust medication if needed Thank you for this consultation will follow this patient along with you Time with Patient: Greater than 30
[2021-12-03] MEDS: ACETAMINOPHEN TAB 325 MG TAB PO PRN (03:33)
[2021-12-03 06:17] LABS: Glucose,Whole Blood 151 mg/dL (70-110)
[2021-12-03] MEDS: PANTOPRAZOLE 40 MG TABLET PO SCH (06:17)
[2021-12-03] MEDS: INSULIN ASPART (NovoLOG) 100 UNIT/ML VIAL SQ SCH ×4 (06:17→21:08)
[2021-12-03] MEDS: carvediloL 6.25 MG TAB PO SCH ×2 (06:17→17:21)
[2021-12-03] MEDS: THIAMINE 100 MG TAB PO SCH ×2 (06:17→17:21)
[2021-12-03] MEDS: SODIUM CHLORIDE 0.9% 1,000 ML IV SCH ×3 (06:18→21:08)
[2021-12-03 06:56] LABS: Basophils % (A) 0 %; Eosinophils % (A) 0 %; HGB 8.5 gm/dL (13.0-17.5); Lymphocytes # (A) 0.4 k/uL (1.0-4.8); Lymphocytes % (A) 4 %; MCH 30.3 pg (25.0-35.0); MCHC 31.4 g/dL (31.0-37.0); MCV 96.6 fL (80.0-100.0); Mean Platelet Volume 7.8; Monocytes # (A) 0.4 k/uL (0-1.0); Monocytes % (A) 4 %; Neutrophils # (A) 8.3 k/uL (1.3-7.7); Neutrophils % (A) 90 %; Platelet Count 551 k/uL (150-450); RDW 13.6 % (11.5-15.5); WBC 9.2 k/uL (3.8-10.6)
[2021-12-03 07:13] LABS: Albumin 2.5 g/dL (3.5-5.0); Calcium 8.1 mg/dL (8.4-10.2); Magnesium 1.7 mg/dL (1.6-2.3); Potassium 4.5 mmol/L (3.5-5.1); Total Bilirubin 0.5 mg/dL (0.2-1.3); Total Protein 5.4 g/dL (6.3-8.2)
[2021-12-03 07:14] LABS: Partial Thromboplastin Time 30.4 sec (22.0-30.0); Prothrombin Time 10.4 sec (9.0-12.0)
[2021-12-03] MEDS: SYMBICORT 160-4.5 MCG INHALER INHALATION SCH ×2 (07:38→19:23)
[2021-12-03] MEDS: ALBUTEROL HFA INHALER INHALATION SCH ×4 (07:38→19:23)
[2021-12-03 08:26] LABS: C Reactive Protein 18.6 mg/dL (<1.0)
[2021-12-03] MEDS: CLOPIDOGREL 75 MG TAB PO SCH (08:53)
[2021-12-03] MEDS: ISOSORBIDE MONONITRATE ER 30 MG TAB.ER.24H PO SCH (08:53)
[2021-12-03] MEDS: hydrALAZINE HCL 25 MG TAB PO SCH ×3 (08:54→21:08)
[2021-12-03] MEDS: ZINC SULFATE 220 MG CAP PO SCH (08:54)
[2021-12-03] MEDS: cloNIDine HCL 0.2 MG TAB PO SCH ×3 (08:54→21:08)
[2021-12-03] MEDS: LORATADINE 10 MG TAB PO SCH (08:54)
[2021-12-03] MEDS: ASCORBIC ACID 500 MG TAB PO SCH ×2 (08:55→21:08)
[2021-12-03] MEDS: DOCUSATE 100 MG CAP PO SCH ×2 (08:55→21:08)
[2021-12-03] MEDS: CHOLECALCIFEROL 125 MCG (5000 IU) TABLET PO SCH (08:55)
[2021-12-03] MEDS: ENOXAPARIN 40 MG/0.4 ML SYRINGE SQ SCH (08:56)
--- NOTE | 2021-12-03 10:07 | P.NPCON ---
History of Present Illness - Reason for Consult acute renal failure - History of Present Illness reason for consultation: Acute kidney injury history of present illness: Patient is a 71-year-old male seen in renal consultation for acute kidney injury. Creatinine on admission was 3.15 and is 1.35 today. Patient's creatinine in September 2020 was near 1. Patient presented to the hospital due to shortness of breath which is progressively worsening. does admit to a productive cough. Denies fever.Patient does have history of COPD and also tested positive for coronavirus. He is currently on a nasal cannula. He is receiving IV fluids. Patient denies history of diabetes. He does have history of coronary artery disease. He does admit to taking Aleve for the last couple of weeks on a daily basis. He also admits to drinking 8-10 cans of beer on a daily basis. Denies chest pain. nonoliguric. No hematuria or dysuria. No vomiting or diarrhea. blood pressure has been low in the systolic 90s his ad mission but this morning it was 136/64. afebrile. Vital signs are stable. General: awake. No acute distress. HEENT: Head exam is unremarkable. on nasal cannula. LUNGS: Breath sounds decreased. HEART: Rate and Rhythm are regular. ABDOMEN: soft, no distention. EXTREMITITES: No edema. Past Medical History Past Medical History: Chest Pain / Angina, COPD, CVA/TIA, Hyperlipidemia, Hypertension, Liver Disease, Vascular Disorder Additional Past Medical History / Comment(s): hep c- treated, TIA couple years ago Last Myocardial Infarction Date:: unknown History of Any Multi-Drug Resistant Organisms: None Reported Past Surgical History: Heart Catheterization With Stent, Orthopedic Surgery, Tonsillectomy Additional Past Surgical History / Comment(s): COLONOSCOPY/EGD, surg x4 right shoulder Past Anesthesia/Blood Transfusion Reactions: No Reported Reaction Date of Last Stent Placement:: 07/30/19 Past Psychological History: No Psychological Hx Reported Smoking Status: Former smoker Past Alcohol Use History: Abuse, Daily Additional Past Alcohol Use History / Comment(s): drinks 8-15 cans of beer per day,. SMOKES < 1/2 PPD DAILY SINCE AGE 20. quit smoking 1 month ago, 10/2021 Past Drug Use History: IV Drug Use, Opiates, Prescription Drug Abuse Additional Drug Use History / Comment(s): NO LONGER USING OPIATES PER PT - Past Family History Mother Family Medical History: Myocardial Infarction ([place]) Father Additional Family Medical History / Comment(s): polio, enlarged heart Brother(s) Family Medical History: CVA/TIA Daughter(s) History Unknown: Yes Son(s) Family Medical History: Hyperlipidemia Medications and Allergies Home Medications Medication Instructions Recorded Confirmed Type Buprenorphine HCl/Naloxone HCl 1 tab SL DAILY 02/13/19 12/01/21 History [Zubsolv 2.9-0.71 mg Tablet Sl] cloNIDine HCL [Catapres] 0.2 mg PO TID 07/28/19 12/01/21 History lisinopriL [Zestril] 20 mg PO BID #180 tab 07/31/19 12/01/21 Rx Isosorbide Mononitrate [Isosorbide 30 mg PO DAILY 05/19/20 12/01/21 History Mononitrate ER] Clopidogrel [Plavix] 75 mg PO DAILY 09/27/20 12/01/21 History Pantoprazole Sodium [Protonix] 40 mg PO DAILY 09/27/20 12/01/21 History Atorvastatin [Lipitor] 80 mg PO HS 10/10/20 12/01/21 History Albuterol Inhaler [Ventolin Hfa 1 puff INHALATION RT-Q4H PRN 12/01/21 12/01/21 History Inhaler] Loratadine [Claritin] 10 mg PO DAILY 12/01/21 12/01/21 History carvediloL [Coreg] 6.25 mg PO BID-W/MEALS 12/01/21 12/01/21 History Allergies Allergy/AdvReac Type Severity Reaction Status Date / Time codeine AdvReac Nausea Verified 10/12/20 12:19 Physical Exam Vitals: Vital Signs Temp Pulse Pulse Pulse Resp BP Pulse Ox 12/03/21 09:29 90 18 12/03/21 08:39 98.0 F 90 18 136/64 96 12/03/21 03:29 98.0 F 95 18 117/61 92 L 12/02/21 23:57 98.0 F 94 22 92/57 94 L 12/02/21 20:00 98.7 F 101 H 20 118/70 91 L 12/02/21 19:37 94 L 12/02/21 18:00 100 20 167/84 93 L 12/02/21 14:00 102 H 97 18 12/02/21 12:12 96 12/02/21 11:41 98.2 F 97 18 139/88 91 L 12/02/21 11:17 108 H 12/02/21 11:04 104 H Intake and Output 12/02/21 12/03/21 12/03/21 22:59 06:59 14:59 Intake Total 2960 180 Output Total 625 Balance 2335 180 Intake: Intake, IV Titration 2160 Amount Azithromycin 500 mg In 250 Sodium Chloride 0.9% 250 ml @ 250 mls/hr IVPB DAILY@1200 [facility] Rx#: [id number] Linezolid 600 mg In 300 Dextrose/Water 1 300ml. bag @ 150 mls/hr IVPB Q12H [facility] Rx#:[id number] Sodium Chloride 0.9% 1, 1560 000 ml @ 130 mls/hr IV . Q7H42M [facility] Rx#:[id number] ceFAZolin 2 gm In Sodium 50 Chloride 0.9% 50 ml @ 100 mls/hr IVPB Q8HR [facility] Rx# :[id number] Oral 800 180 Output: Urine 625 Other: Voiding Method Urinal Urinal Urinal Results - Lab Results Most recent lab results ABG pH 7.38 (7.35-7.45) 12/01/21 17:10 ABG pCO2 34 mmHg (35-45) L 12/01/21 17:10 ABG pO2 64 mmHg (83-108) L 12/01/21 17:10 ABG HCO3 20 mmol/L (21-25) L 12/01/21 17:10 ABG O2 Saturation 89.8 % (94-97) L 12/01/21 17:10 Calcium 8.1 mg/dL (8.4-10.2) L 12/03/21 05:58 Magnesium 1.7 mg/dL (1.6-2.3) 12/03/21 05:58 12/03/21 05:58 12/03/21 05:58 Assessment and Plan Plan: assessment: 1. Acute kidney injury mostly prerenal secondary to hypotension, ACEi, NSAIDs, improved with IV hydration. Creatinine was 3.15 on admission and is 1.35 today. Creatinine in September 2020 was near 1. No hydronephrosis noted on kidney ultrasound. 2. Metabolic acidosis secondary to acute kidney injury and IV fluids. 3. Benign hypertension. Stable. 4. Acute hypoxic respiratory failure secondary to COPD exacerbation and covid pneumonia. 5. Anemia. rule out iron deficiency. plan: Maintain IV fluids. Decrease rate to 75 mL an hour. Encourage oral intake. Continue to hold lisinopril. Add oral bicarb. Check iron studies. Avoid nephrotoxins. Continue to monitor renal function and urine output. Thank you for the consultation. I will continue to follow the patient with you during his hospital stay.
--- NOTE | 2021-12-03 11:18 | P.PN ---
Subjective Progress Note Date: 12/03/21 Principal diagnosis: Pneumonia. Pulmonary consult dated 12/02/2021. 71-year-old male who presents to the emergency department, on December 01, complaining of shortness of breath. The patient states that he's been having shortness of breath for quite some time. In addition, he complained of tightness, chest congestion, cough, and phlegm production. Chest x-ray revealed a right lower lobe pneumonia. Currently, the patient's on 15 L high flow oxygen. He is getting saline at 130 mL an hour. His primary care provider is Dr. Issa. He apparently has a previous history of heavy tobacco use. He states he does not smoke currently. Other medical history includes angina pectoris, CVA, hyperlipidemia, hypertension, and previous heart catheterization with stent, for CAD. In addition, the patient complains of hoarseness, which she states has gotten worse. Labs include a white count of 9.9, hemoglobin 10, hematocrit 30.1, and a platelet count of 608,000. Blood gases, on 60% oxygen show pO2 64, pCO2 34, and a pH of 7.38. Sodium 129, potassium 5.5, chlorides 92 , CO2 17, anion gap 20, UA 84, creatinine 3.15. Testing for coronavirus was positive. Chest x-ray shows some patchy infiltrates in the right lower lobe, and diffuse interstitial changes throughout. Progress note dated 12/03/2021. 71-year-old male seen yesterday in consultation. He was initially seen in the emergency department, on December 01, complaining of shortness of breath. The patient's chest x-ray did reveal a right lower lobe pneumonia. Currently, the patient is on 15 L high flow oxygen. He is getting saline at 130 mL an hour. Blood cultures were apparently positive for Staphylococcus aureus. The patient does feel better today he tells me. White count 9.2, hemoglobin 8.5, hematocrit 27, and platelet count 551,000. The patient's d-dimer was 4.63. PTT was 30.4. Sodium 138, potassium 4.5, chlorides 108, CO2 18, anion gap 12, BUN 52, and creatinine 1.35. The patient's N-terminal proBNP was 5780. Pro-calcitonin level was 0.37. Blood cultures are positive Staphylococcus aureus. Objective - Vital Signs Vital signs: Vital Signs Temp 98.0 F 12/03/21 08:39 Pulse 90 12/03/21 09:29 Resp 18 12/03/21 09:29 BP 136/64 12/03/21 08:39 Pulse Ox 96 12/03/21 08:39 FiO2 21 12/02/21 07:52 Intake & Output 12/02/21 12/03/21 12/03/21 18:59 06:59 18:59 Intake Total 1280 2960 180 Output Total 1050 625 Balance 230 2335 180 Weight 74.843 kg Intake: Intake, IV Titration 1040 2160 Amount Azithromycin 500 mg In 250 Sodium Chloride 0.9% 250 ml @ 250 mls/hr IVPB DAILY@1200 [facility] Rx#: [id number] Linezolid 600 mg In 300 Dextrose/Water 1 300ml. bag @ 150 mls/hr IVPB Q12H [facility] Rx#:[id number] Sodium Chloride 0.9% 1, 1040 1560 000 ml @ 130 mls/hr IV . Q7H42M [facility] Rx#:[id number] ceFAZolin 2 gm In Sodium 50 Chloride 0.9% 50 ml @ 100 mls/hr IVPB Q8HR [facility] Rx# :[id number] Oral 240 800 180 Output: Urine 1050 625 Other: Voiding Method Urinal Urinal Urinal - Exam Mild to moderate respiratory distress, oriented, currently on 15 L high flow O2. No audible wheezing, or use of accessory muscles. HEENT examination is grossly unremarkable. Neck supple. Full range of motion. No adenopathy thyromegaly or neck vein distention. Cardiovascular examination reveals regular rhythm rate. S1-S2 normal. No S3 or S4. No discernible murmur noted. Heart sounds are distant. Heart rate 90 bpm. Lungs reveal coarse bilateral rhonchi. Crackles are noted. No wheezes. Breath sounds equal bilaterally. Saturations are 96% on 15 L high flow oxygen. Abdomen soft bowel sounds are heard. No masses or tenderness. Extremities are intact. No cyanosis clubbing or edema. Skin is without rash or lesion. Neurologic examination is brief but nonfocal. - Labs CBC & Chem 7: 12/03/21 05:58 12/03/21 05:58 Labs: Abnormal Lab Results - Last 24 Hours (Table) 12/02/21 12/02/21 12/02/21 Range/Units 11:30 12:36 12:36 WBC 10.9 H (3.8-10.6) k/uL RBC 2.92 L (4.30-5.90) m/uL Hgb 8.9 L (13.0-17.5) gm/dL Hct 28.1 L (39.0-53.0) % Plt Count 570 H (150-450) k/uL Neutrophils # 9.7 H (1.3-7.7) k/uL Lymphocytes # 0.3 L (1.0-4.8) k/uL APTT 30.6 H (22.0-30.0) sec Fibrinogen 830 H (200-500) mg/dL D-Dimer 3.89 H (<0.60) mg/L FEU Sodium (137-145) mmol/L Chloride (98-107) mmol/L Carbon Dioxide (22-30) mmol/L BUN (9-20) mg/dL Creatinine (0.66-1.25) mg/dL Glucose (74-99) mg/dL POC Glucose (mg/dL) (70-110) mg/dL Calcium (8.4-10.2) mg/dL Ferritin (22.0-322.0) ng/mL AST (17-59) U/L Lactate Dehydrogenase (313-618) U/L C-Reactive Protein (<1.0) mg/dL Total Protein (6.3-8.2) g/dL Albumin (3.5-5.0) g/dL Procalcitonin (0.02-0.09) ng/mL Urine Protein (Negative) Urine Glucose (UA) (Negative) Amorphous Sediment (None) /hpf Urine Bacteria (None) /hpf Hyaline Casts (0-2) /lpf Urine Mucus (None) /hpf Coronavirus (PCR) Detected A (Not Detectd) 12/02/21 12/02/21 12/02/21 Range/Units 12:36 17:00 18:47 WBC (3.8-10.6) k/uL RBC (4.30-5.90) m/uL Hgb (13.0-17.5) gm/dL Hct (39.0-53.0) % Plt Count (150-450) k/uL Neutrophils # (1.3-7.7) k/uL Lymphocytes # (1.0-4.8) k/uL APTT (22.0-30.0) sec Fibrinogen (200-500) mg/dL D-Dimer (<0.60) mg/L FEU Sodium 135 L (137-145) mmol/L Chloride (98-107) mmol/L Carbon Dioxide 19 L (22-30) mmol/L BUN 63 H (9-20) mg/dL Creatinine 1.77 H (0.66-1.25) mg/dL Glucose 105 H (74-99) mg/dL POC Glucose (mg/dL) 139 H (70-110) mg/dL Calcium (8.4-10.2) mg/dL Ferritin 1781.0 H (22.0-322.0) ng/mL AST 66 H (17-59) U/L Lactate Dehydrogenase 793 H (313-618) U/L C-Reactive Protein 32.7 H (<1.0) mg/dL Total Protein 5.9 L (6.3-8.2) g/dL Albumin 2.8 L (3.5-5.0) g/dL Procalcitonin (0.02-0.09) ng/mL Urine Protein 1+ H (Negative) Urine Glucose (UA) Trace H (Negative) Amorphous Sediment Rare H (None) /hpf Urine Bacteria Rare H (None) /hpf Hyaline Casts 5 H (0-2) /lpf Urine Mucus Rare H (None) /hpf Coronavirus (PCR) (Not Detectd) 12/02/21 12/03/21 12/03/21 Range/Units 20:39 05:58 05:58 WBC (3.8-10.6) k/uL RBC 2.80 L (4.30-5.90) m/uL Hgb 8.5 L (13.0-17.5) gm/dL Hct 27.0 L (39.0-53.0) % Plt Count 551 H (150-450) k/uL Neutrophils # 8.3 H (1.3-7.7) k/uL Lymphocytes # 0.4 L (1.0-4.8) k/uL APTT (22.0-30.0) sec Fibrinogen (200-500) mg/dL D-Dimer (<0.60) mg/L FEU Sodium (137-145) mmol/L Chloride (98-107) mmol/L Carbon Dioxide (22-30) mmol/L BUN (9-20) mg/dL Creatinine (0.66-1.25) mg/dL Glucose (74-99) mg/dL POC Glucose (mg/dL) 187 H (70-110) mg/dL Calcium (8.4-10.2) mg/dL Ferritin (22.0-322.0) ng/mL AST (17-59) U/L Lactate Dehydrogenase (313-618) U/L C-Reactive Protein (<1.0) mg/dL Total Protein (6.3-8.2) g/dL Albumin (3.5-5.0) g/dL Procalcitonin 0.37 H (0.02-0.09) ng/mL Urine Protein (Negative) Urine Glucose (UA) (Negative) Amorphous Sediment (None) /hpf Urine Bacteria (None) /hpf Hyaline Casts (0-2) /lpf Urine Mucus (None) /hpf Coronavirus (PCR) (Not Detectd) 12/03/21 12/03/21 12/03/21 Range/Units 05:58 05:58 06:16 WBC (3.8-10.6) k/uL RBC (4.30-5.90) m/uL Hgb (13.0-17.5) gm/dL Hct (39.0-53.0) % Plt Count (150-450) k/uL Neutrophils # (1.3-7.7) k/uL Lymphocytes # (1.0-4.8) k/uL APTT 30.4 H (22.0-30.0) sec Fibrinogen 748 H (200-500) mg/dL D-Dimer 4.63 H (<0.60) mg/L FEU Sodium (137-145) mmol/L Chloride 108 H (98-107) mmol/L Carbon Dioxide 18 L (22-30) mmol/L BUN 52 H (9-20) mg/dL Creatinine 1.35 H (0.66-1.25) mg/dL Glucose 142 H (74-99) mg/dL POC Glucose (mg/dL) 151 H (70-110) mg/dL Calcium 8.1 L (8.4-10.2) mg/dL Ferritin (22.0-322.0) ng/mL AST 67 H (17-59) U/L Lactate Dehydrogenase (313-618) U/L C-Reactive Protein 18.6 H (<1.0) mg/dL Total Protein 5.4 L (6.3-8.2) g/dL Albumin 2.5 L (3.5-5.0) g/dL Procalcitonin (0.02-0.09) ng/mL Urine Protein (Negative) Urine Glucose (UA) (Negative) Amorphous Sediment (None) /hpf Urine Bacteria (None) /hpf Hyaline Casts (0-2) /lpf Urine Mucus (None) /hpf Coronavirus (PCR) (Not Detectd) Microbiology - Last 24 Hours (Table) 12/01/21 17:10 Blood Culture Gram Stain - Preliminary Blood Blood Culture - Preliminary Presumptive Staph aureus 12/01/21 16:54 Blood Culture Gram Stain - Preliminary Blood Blood Culture - Preliminary Staphylococcus aureus 12/01/21 17:10 Blood Culture - Final Blood 12/01/21 16:54 Blood Culture - Final Blood Assessment and Plan Assessment: Acute hypoxemic respiratory failure, multifactorial, secondary to COPD exacerbation, patchy pneumonia right lower lobe, and possible coronavirus associated pneumonia. Staphylococcus aureus bacteremia. History of COPD, secondary to heavy tobacco use. Acute kidney injury. History of angina pectoris, and previous heart catheterization with stent, for CAD. History of CVA. History of hyperlipidemia. History of hypertension. History of hepatitis C. Previous history of heavy tobacco use. Plan: Plan dated 12/02/2021. The patient should have inflammatory markers ordered. He is not a candidate for CT angiogram given his kidney function. The patient should receive inhalers, and antibiotics for his patchy pneumonia left lower lobe. Nephrology should be consulted for his renal failure. Labs, x-rays, medications are reviewed. Additional recommendations and suggestions are forthcoming. Prognosis is certainly guarded. In addition, eventually, the patient will need ear, nose and throat evaluation for his worsening hoarseness. Plan dated 12/03/2021. The patient was seen by infectious diseases, and started on Ancef. In addition, the patient is on Symbicort, albuterol, and Solu-Medrol. Clinically, he is feeling much better today. Additional recommendations and suggestions are forthcoming. We will continue to follow make recommendations along the way. Labs, x-rays, and medications are all reviewed. The patient has been seen by both infectious diseases, and nephrology. Time with Patient: Less than 30
[2021-12-03 11:31] LABS: Glucose,Whole Blood 156 mg/dL (70-110)
[2021-12-03] MEDS: SODIUM BICARBONATE TAB 650 MG TAB PO SCH ×2 (11:56→21:08)
[2021-12-03] MEDS ORDERED: ACETAMINOPHEN IV (For NPO) 1,000 MG in EMPTY BAG 1 BAG IVPB ONE (12:37)
--- NOTE | 2021-12-03 12:59 | P.PN ---
Gogo Loya is a 71-year-old patient well known to my practice. He indicates she's been having increased shortness of breath over the past several weeks a month. He indicates he had COVID-19 pneumonia several months ago. It since recovered indicates. He is a known former heroin addict and was on deep morphine/amoxicillin up until several months ago when he decided to discontinue himself. He is also known alcoholic and frequently drinks 5-6 beers per day. EKG is not him back to using and it was a money issue for him. He is having a great deal difficulty speaking and shortness of breath. He also indicates he significantly constipated. ER finding showed an dyspneic and hypercapnic needing 15 L oxygen on a nonrebreather. He is since transitioned to high flow nasal cannula. Currently he is improving but still having trouble speaking. He is afebrile, heart rate remains borderline tachycardic, respiratory rate is improved now and blood pressure control. Currently is at 91% on 15 L of O2. This morning laboratory studies are pending. Cultures are reported as positive for gram-positive cocci in clusters.. He has received Zosyn and azithromycin the emergency room. Addendum: Rapid, test is positive 12/03/2021: Patient is slightly improved today. He remains on high flow nasal cannula at 15 mL/m. His pulse oximetry is 97%. It has been stable. Blood pressure heart rate rest her rate under control. He remains afebrile. Labs today show hemoglobin 8.5. Left shift was noted with the absolute neutrophil count of 8.3. PT/INR normal. PTT is elevated 3.4 fibrinogen of 748 and d-dimer 4.63. Chemistries now show BUN of 52 and creatinine 1.3. Magnesium is 1.7. CRP is 18.6. BNP was 5780. Pro-calcitonin was elevated at 0.37 Blood culture show presumptive staph aureus, penicillin susceptible. He is now currently on further positive blood cultures, pneumonia. He is anticoagulated with Lovenox. He is on Symbicort and albuterol, for breathing, he remains on Solu-Medrol, sodium bicarbonate, sailing, coated cocktail vitamin C and zinc, she will protocol, hydralazine for blood pressure and Colace was constipation. Objective - Vital Signs Vital signs: Vital Signs Temp 98.0 F 12/03/21 08:39 Pulse 86 12/03/21 11:52 Resp 18 12/03/21 11:52 BP 134/67 12/03/21 11:52 Pulse Ox 97 12/03/21 12:12 FiO2 21 12/02/21 07:52 Intake & Output 12/02/21 12/03/21 12/03/21 18:59 06:59 18:59 Intake Total 1280 2960 180 Output Total 1050 625 Balance 230 2335 180 Weight 74.843 kg Intake: Intake, IV Titration 1040 2160 Amount Azithromycin 500 mg In 250 Sodium Chloride 0.9% 250 ml @ 250 mls/hr IVPB DAILY@1200 [facility] Rx#: [id number] Linezolid 600 mg In 300 Dextrose/Water 1 300ml. bag @ 150 mls/hr IVPB Q12H [facility] Rx#:[id number] Sodium Chloride 0.9% 1, 1040 1560 000 ml @ 130 mls/hr IV . Q7H42M [facility] Rx#:[id number] ceFAZolin 2 gm In Sodium 50 Chloride 0.9% 50 ml @ 100 mls/hr IVPB Q8HR [facility] Rx# :[id number] Oral 240 800 180 Output: Urine 1050 625 Other: Voiding Method Urinal Urinal Urinal - Exam GENERAL: Thin male, on high flow nasal cannula, speaking easier today but still somewhat hoarse. NECK: Normal range of motion, supple without lymphadenopathy or JVD, no thyromegaly LUNGS: Breath sounds coarse decreased air exchange and rhonchi noted in multiple lung penny. HEART: Regular rate and rhythm without murmurs, rubs or gallops.S1S2 Normal ABDOMEN: Soft, nontender, normoactive bowel sounds. No guarding, no rebound. No masses appreciated. EXTREMITIES: Normal range of motion, no pitting or edema. No clubbing or cyanosis. NEUROLOGICAL: Cranial nerves II through XII grossly intact. Normal speech, normal gait. PSYCH: Normal mood, normal affect. SKIN: Warm, Dry, normal turgor, no rashes or lesions noted. - Labs CBC & Chem 7: 12/03/21 05:58 12/03/21 05:58 Labs: Abnormal Lab Results - Last 24 Hours (Table) 12/02/21 12/02/21 12/02/21 Range/Units 12:36 12:36 12:36 WBC 10.9 H (3.8-10.6) k/uL RBC 2.92 L (4.30-5.90) m/uL Hgb 8.9 L (13.0-17.5) gm/dL Hct 28.1 L (39.0-53.0) % Plt Count 570 H (150-450) k/uL Neutrophils # 9.7 H (1.3-7.7) k/uL Lymphocytes # 0.3 L (1.0-4.8) k/uL APTT 30.6 H (22.0-30.0) sec Fibrinogen 830 H (200-500) mg/dL D-Dimer 3.89 H (<0.60) mg/L FEU Sodium 135 L (137-145) mmol/L Chloride (98-107) mmol/L Carbon Dioxide 19 L (22-30) mmol/L BUN 63 H (9-20) mg/dL Creatinine 1.77 H (0.66-1.25) mg/dL Glucose 105 H (74-99) mg/dL POC Glucose (mg/dL) (70-110) mg/dL Calcium (8.4-10.2) mg/dL Ferritin 1781.0 H (22.0-322.0) ng/mL AST 66 H (17-59) U/L Lactate Dehydrogenase 793 H (313-618) U/L C-Reactive Protein 32.7 H (<1.0) mg/dL Total Protein 5.9 L (6.3-8.2) g/dL Albumin 2.8 L (3.5-5.0) g/dL Procalcitonin (0.02-0.09) ng/mL Urine Protein (Negative) Urine Glucose (UA) (Negative) Amorphous Sediment (None) /hpf Urine Bacteria (None) /hpf Hyaline Casts (0-2) /lpf Urine Mucus (None) /hpf 12/02/21 12/02/21 12/02/21 Range/Units 17:00 18:47 20:39 WBC (3.8-10.6) k/uL RBC (4.30-5.90) m/uL Hgb (13.0-17.5) gm/dL Hct (39.0-53.0) % Plt Count (150-450) k/uL Neutrophils # (1.3-7.7) k/uL Lymphocytes # (1.0-4.8) k/uL APTT (22.0-30.0) sec Fibrinogen (200-500) mg/dL D-Dimer (<0.60) mg/L FEU Sodium (137-145) mmol/L Chloride (98-107) mmol/L Carbon Dioxide (22-30) mmol/L BUN (9-20) mg/dL Creatinine (0.66-1.25) mg/dL Glucose (74-99) mg/dL POC Glucose (mg/dL) 139 H 187 H (70-110) mg/dL Calcium (8.4-10.2) mg/dL Ferritin (22.0-322.0) ng/mL AST (17-59) U/L Lactate Dehydrogenase (313-618) U/L C-Reactive Protein (<1.0) mg/dL Total Protein (6.3-8.2) g/dL Albumin (3.5-5.0) g/dL Procalcitonin (0.02-0.09) ng/mL Urine Protein 1+ H (Negative) Urine Glucose (UA) Trace H (Negative) Amorphous Sediment Rare H (None) /hpf Urine Bacteria Rare H (None) /hpf Hyaline Casts 5 H (0-2) /lpf Urine Mucus Rare H (None) /hpf 12/03/21 12/03/21 12/03/21 Range/Units 05:58 05:58 05:58 WBC (3.8-10.6) k/uL RBC 2.80 L (4.30-5.90) m/uL Hgb 8.5 L (13.0-17.5) gm/dL Hct 27.0 L (39.0-53.0) % Plt Count 551 H (150-450) k/uL Neutrophils # 8.3 H (1.3-7.7) k/uL Lymphocytes # 0.4 L (1.0-4.8) k/uL APTT 30.4 H (22.0-30.0) sec Fibrinogen 748 H (200-500) mg/dL D-Dimer 4.63 H (<0.60) mg/L FEU Sodium (137-145) mmol/L Chloride (98-107) mmol/L Carbon Dioxide (22-30) mmol/L BUN (9-20) mg/dL Creatinine (0.66-1.25) mg/dL Glucose (74-99) mg/dL POC Glucose (mg/dL) (70-110) mg/dL Calcium (8.4-10.2) mg/dL Ferritin (22.0-322.0) ng/mL AST (17-59) U/L Lactate Dehydrogenase (313-618) U/L C-Reactive Protein (<1.0) mg/dL Total Protein (6.3-8.2) g/dL Albumin (3.5-5.0) g/dL Procalcitonin 0.37 H (0.02-0.09) ng/mL Urine Protein (Negative) Urine Glucose (UA) (Negative) Amorphous Sediment (None) /hpf Urine Bacteria (None) /hpf Hyaline Casts (0-2) /lpf Urine Mucus (None) /hpf 12/03/21 12/03/21 12/03/21 Range/Units 05:58 06:16 11:29 WBC (3.8-10.6) k/uL RBC (4.30-5.90) m/uL Hgb (13.0-17.5) gm/dL Hct (39.0-53.0) % Plt Count (150-450) k/uL Neutrophils # (1.3-7.7) k/uL Lymphocytes # (1.0-4.8) k/uL APTT (22.0-30.0) sec Fibrinogen (200-500) mg/dL D-Dimer (<0.60) mg/L FEU Sodium (137-145) mmol/L Chloride 108 H (98-107) mmol/L Carbon Dioxide 18 L (22-30) mmol/L BUN 52 H (9-20) mg/dL Creatinine 1.35 H (0.66-1.25) mg/dL Glucose 142 H (74-99) mg/dL POC Glucose (mg/dL) 151 H 156 H (70-110) mg/dL Calcium 8.1 L (8.4-10.2) mg/dL Ferritin 1712.0 H (22.0-322.0) ng/mL AST 67 H (17-59) U/L Lactate Dehydrogenase (313-618) U/L C-Reactive Protein 18.6 H (<1.0) mg/dL Total Protein 5.4 L (6.3-8.2) g/dL Albumin 2.5 L (3.5-5.0) g/dL Procalcitonin (0.02-0.09) ng/mL Urine Protein (Negative) Urine Glucose (UA) (Negative) Amorphous Sediment (None) /hpf Urine Bacteria (None) /hpf Hyaline Casts (0-2) /lpf Urine Mucus (None) /hpf Microbiology - Last 24 Hours (Table) 12/01/21 17:10 Blood Culture Gram Stain - Preliminary Blood Blood Culture - Preliminary Presumptive Staph aureus 12/01/21 16:54 Blood Culture Gram Stain - Preliminary Blood Blood Culture - Preliminary Staphylococcus aureus 12/01/21 17:10 Blood Culture - Final Blood 12/01/21 16:54 Blood Culture - Final Blood Assessment and Plan (1) Sepsis Current Visit: Yes Status: Acute Code(s): A41.9 - SEPSIS, UNSPECIFIED ORGANISM SNOMED Code(s): 58574494 (2) Pneumonia due to COVID-19 virus Current Visit: Yes Status: Acute Code(s): U07.1 - COVID-19; J12.82 - PNEUMONIA DUE TO CORONAVIRUS DISEASE 2018 SNOMED Code(s): 293984730718753445 (3) Hypoxia Current Visit: Yes Status: Acute Code(s): R09.02 - HYPOXEMIA SNOMED Code(s): 067071755 (4) Alcohol abuse Current Visit: No Status: Acute Code(s): F10.10 - ALCOHOL ABUSE, UNCOMPLICATED SNOMED Code(s): 00374219 (5) Constipation Current Visit: No Status: Acute Code(s): K59.00 - CONSTIPATION, UNSPECIFIED SNOMED Code(s): 91963021 (6) Essential (primary) hypertension Current Visit: No Status: Acute Code(s): I10 - ESSENTIAL (PRIMARY) HYPERTENSION SNOMED Code(s): 86712616 (7) History of opioid abuse Current Visit: No Status: Acute Code(s): F11.11 - OPIOID ABUSE, IN REMISSION SNOMED Code(s): 545478312 (8) Mixed hyperlipidemia Current Visit: No Status: Acute Code(s): E78.2 - MIXED HYPERLIPIDEMIA SNOMED Code(s): 364353738 (9) Tobacco abuse Current Visit: No Status: Acute Code(s): Z72.0 - TOBACCO USE SNOMED Co de(s): 719668791 Plan: I'll await on further recommendations from infectious disease, nephrology, and pulmonology. Wait and repeat blood cultures, he'll continue on her infectious disease. He'll continue on the inhalers & Medrol per pulmonology and continue COVID-19 cocktail. Nursing will attempt to wean him down off the oxygen from 15-10 L/m Repeat labs in a.m., reevaluate next 24 hours
[2021-12-03] MEDS ORDERED: LORazepam 1 MG TAB PO PRN ×3 (13:22→13:24)
[2021-12-03 16:31] LABS: Glucose,Whole Blood 163 mg/dL (70-110)
[2021-12-03 19:45] LABS: Glucose,Whole Blood 215 mg/dL (70-110)
[2021-12-03] MEDS: ATORVASTATIN 80 MG TAB PO SCH (21:08)
--- NOTE | 2021-12-03 23:00 | P.PN ---
Subjective Progress Note Date: 12/03/21 Principal diagnosis: Bacteremia Patient is a 71-year male with multiple comorbidities presented to hospital with increased shortness with cough patient did have evidence of a bilateral infiltrate and some consolidative changes to the right lower lobe positive COVID test and subsequent did have a positive blood culture finalized with MSSA. On today's evaluation that is 12/03/2021 the patient denies having any fever or any chills the patient still requiring 15 L high flow oxygen to maintain his sats however denies any chest pain or worsening cough no abdominal pain or diarrhea Objective - Vital Signs Vital signs: Vital Signs Temp 98.0 F 12/03/21 08:39 Pulse 86 12/03/21 11:52 Resp 18 12/03/21 11:52 BP 134/67 12/03/21 11:52 Pulse Ox 97 12/03/21 12:12 FiO2 21 12/02/21 07:52 Intake & Output 12/02/21 12/03/21 12/03/21 18:59 06:59 18:59 Intake Total 1280 2960 180 Output Total 1050 625 Balance 230 2335 180 Weight 74.843 kg Intake: Intake, IV Titration 1040 2160 Amount Azithromycin 500 mg In 250 Sodium Chloride 0.9% 250 ml @ 250 mls/hr IVPB DAILY@1200 [facility] Rx#: [id number] Linezolid 600 mg In 300 Dextrose/Water 1 300ml. bag @ 150 mls/hr IVPB Q12H [facility] Rx#:[id number] Sodium Chloride 0.9% 1, 1040 1560 000 ml @ 75 mls/hr IV . [id number] [facility] Rx#:[id number] ceFAZolin 2 gm In Sodium 50 Chloride 0.9% 50 ml @ 100 mls/hr IVPB Q8HR [facility] Rx# :[id number] Oral 240 800 180 Output: Urine 1050 625 Other: Voiding Method Urinal Urinal Urinal # Voids 0 - Exam GENERAL DESCRIPTION: Elderly male lying in bed, no distress. No tachypnea or accessory muscle of respiration use. LUNGS: Unlabored breathing. Coarse breath sound at base bilaterally HEART: S1, S2, regular rate and rhythm. No loud murmur ABDOMEN: Soft, no tenderness , guarding or rigidity, no organomegaly EXTREMITIES: No edema of feet. - Labs CBC & Chem 7: 12/03/21 05:58 12/03/21 05:58 Labs: Abnormal Lab Results - Last 24 Hours (Table) 12/02/21 12/02/21 12/02/21 Range/Units 12:36 12:36 12:36 WBC 10.9 H (3.8-10.6) k/uL RBC 2.92 L (4.30-5.90) m/uL Hgb 8.9 L (13.0-17.5) gm/dL Hct 28.1 L (39.0-53.0) % Plt Count 570 H (150-450) k/uL Neutrophils # 9.7 H (1.3-7.7) k/uL Lymphocytes # 0.3 L (1.0-4.8) k/uL APTT 30.6 H (22.0-30.0) sec Fibrinogen 830 H (200-500) mg/dL D-Dimer 3.89 H (<0.60) mg/L FEU Chloride (98-107) mmol/L Carbon Dioxide 19 L (22-30) mmol/L BUN 63 H (9-20) mg/dL Creatinine 1.77 H (0.66-1.25) mg/dL Glucose (74-99) mg/dL POC Glucose (mg/dL) (70-110) mg/dL Calcium (8.4-10.2) mg/dL Ferritin 1781.0 H (22.0-322.0) ng/mL AST 66 H (17-59) U/L Lactate Dehydrogenase 793 H (313-618) U/L C-Reactive Protein 32.7 H (<1.0) mg/dL Total Protein (6.3-8.2) g/dL Albumin (3.5-5.0) g/dL Procalcitonin (0.02-0.09) ng/mL Urine Protein (Negative) Urine Glucose (UA) (Negative) Amorphous Sediment (None) /hpf Urine Bacteria (None) /hpf Hyaline Casts (0-2) /lpf Urine Mucus (None) /hpf 12/02/21 12/02/21 12/02/21 Range/Units 17:00 18:47 20:39 WBC (3.8-10.6) k/uL RBC (4.30-5.90) m/uL Hgb (13.0-17.5) gm/dL Hct (39.0-53.0) % Plt Count (150-450) k/uL Neutrophils # (1.3-7.7) k/uL Lymphocytes # (1.0-4.8) k/uL APTT (22.0-30.0) sec Fibrinogen (200-500) mg/dL D-Dimer (<0.60) mg/L FEU Chloride (98-107) mmol/L Carbon Dioxide (22-30) mmol/L BUN (9-20) mg/dL Creatinine (0.66-1.25) mg/dL Glucose (74-99) mg/dL POC Glucose (mg/dL) 139 H 187 H (70-110) mg/dL Calcium (8.4-10.2) mg/dL Ferritin (22.0-322.0) ng/mL AST (17-59) U/L Lactate Dehydrogenase (313-618) U/L C-Reactive Protein (<1.0) mg/dL Total Protein (6.3-8.2) g/dL Albumin (3.5-5.0) g/dL Procalcitonin (0.02-0.09) ng/mL Urine Protein 1+ H (Negative) Urine Glucose (UA) Trace H (Negative) Amorphous Sediment Rare H (None) /hpf Urine Bacteria Rare H (None) /hpf Hyaline Casts 5 H (0-2) /lpf Urine Mucus Rare H (None) /hpf 12/03/21 12/03/21 12/03/21 Range/Units 05:58 05:58 05:58 WBC (3.8-10.6) k/uL RBC 2.80 L (4.30-5.90) m/uL Hgb 8.5 L (13.0-17.5) gm/dL Hct 27.0 L (39.0-53.0) % Plt Count 551 H (150-450) k/uL Neutrophils # 8.3 H (1.3-7.7) k/uL Lymphocytes # 0.4 L (1.0-4.8) k/uL APTT 30.4 H (22.0-30.0) sec Fibrinogen 748 H (200-500) mg/dL D-Dimer 4.63 H (<0.60) mg/L FEU Chloride (98-107) mmol/L Carbon Dioxide (22-30) mmol/L BUN (9-20) mg/dL Creatinine (0.66-1.25) mg/dL Glucose (74-99) mg/dL POC Glucose (mg/dL) (70-110) mg/dL Calcium (8.4-10.2) mg/dL Ferritin (22.0-322.0) ng/mL AST (17-59) U/L Lactate Dehydrogenase (313-618) U/L C-Reactive Protein (<1.0) mg/dL Total Protein (6.3-8.2) g/dL Albumin (3.5-5.0) g/dL Procalcitonin 0.37 H (0.02-0.09) ng/mL Urine Protein (Negative) Urine Glucose (UA) (Negative) Amorphous Sediment (None) /hpf Urine Bacteria (None) /hpf Hyaline Casts (0-2) /lpf Urine Mucus (None) /hpf 12/03/21 12/03/21 12/03/21 Range/Units 05:58 06:16 11:29 WBC (3.8-10.6) k/uL RBC (4.30-5.90) m/uL Hgb (13.0-17.5) gm/dL Hct (39.0-53.0) % Plt Count (150-450) k/uL Neutrophils # (1.3-7.7) k/uL Lymphocytes # (1.0-4.8) k/uL APTT (22.0-30.0) sec Fibrinogen (200-500) mg/dL D-Dimer (<0.60) mg/L FEU Chloride 108 H (98-107) mmol/L Carbon Dioxide 18 L (22-30) mmol/L BUN 52 H (9-20) mg/dL Creatinine 1.35 H (0.66-1.25) mg/dL Glucose 142 H (74-99) mg/dL POC Glucose (mg/dL) 151 H 156 H (70-110) mg/dL Calcium 8.1 L (8.4-10.2) mg/dL Ferritin 1712.0 H (22.0-322.0) ng/mL AST 67 H (17-59) U/L Lactate Dehydrogenase (313-618) U/L C-Reactive Protein 18.6 H (<1.0) mg/dL Total Protein 5.4 L (6.3-8.2) g/dL Albumin 2.5 L (3.5-5.0) g/dL Procalcitonin (0.02-0.09) ng/mL Urine Protein (Negative) Urine Glucose (UA) (Negative) Amorphous Sediment (None) /hpf Urine Bacteria (None) /hpf Hyaline Casts (0-2) /lpf Urine Mucus (None) /hpf Microbiology - Last 24 Hours (Table) 12/01/21 17:10 Blood Culture Gram Stain - Preliminary Blood Blood Culture - Preliminary Presumptive Staph aureus 12/01/21 16:54 Blood Culture Gram Stain - Preliminary Blood Blood Culture - Preliminary Staphylococcus aureus 12/01/21 17:10 Blood Culture - Final Blood 12/01/21 16:54 Blood Culture - Final Blood Assessment and Plan (1) Bacteremia Current Visit: Yes Status: Acute Code(s): R78.81 - BACTEREMIA SNOMED Code(s): 1373718 (2) Pneumonia Current Visit: Yes Status: Acute Code(s): J18.9 - PNEUMONIA, UNSPECIFIED ORGANISM SNOMED Code(s): 812189217 Plan: 1patient with gram-positive bacteremia source likely right lower lobe pneumonia in this patient with a borderline kidney function and high risk of nephrotoxicity from vancomycin and daptomycin usually not indicated for pneumonia. Patient also have positive COVID test however the patient symptom has been going on for a while and he is currently out of the therapeutic window for remdesivir as more likely evidence of secondary bacterial pneumonia with bacteremia 2Patient with a positive blood culture finalized with MSSA source possible pneumonia antibiotic has been adjusted to cefazolin to continue blood culture has been repeated Time with Patient: Less than 30
[2021-12-04] MEDS: methylPREDNISolone SOD SUCCI 125 MG/2 ML VIAL IV SCH ×4 (00:12→17:00)
[2021-12-04] MEDS: ACETAMINOPHEN TAB 325 MG TAB PO PRN ×3 (03:45→17:00)
[2021-12-04 06:15] LABS: Glucose,Whole Blood 132 mg/dL (70-110)
[2021-12-04] MEDS: THIAMINE 100 MG TAB PO SCH ×2 (06:21→17:01)
[2021-12-04] MEDS: PANTOPRAZOLE 40 MG TABLET PO SCH (06:21)
[2021-12-04] MEDS: carvediloL 6.25 MG TAB PO SCH ×2 (06:21→17:01)
[2021-12-04] MEDS: INSULIN ASPART (NovoLOG) 100 UNIT/ML VIAL SQ SCH ×4 (06:25→21:37)
[2021-12-04] MEDS: SYMBICORT 160-4.5 MCG INHALER INHALATION SCH ×2 (08:03→20:59)
[2021-12-04] MEDS: ALBUTEROL HFA INHALER INHALATION SCH ×4 (08:03→20:59)
[2021-12-04] MEDS: cloNIDine HCL 0.2 MG TAB PO SCH ×3 (08:57→21:37)
[2021-12-04] MEDS: ASCORBIC ACID 500 MG TAB PO SCH ×2 (08:57→21:37)
[2021-12-04] MEDS: ISOSORBIDE MONONITRATE ER 30 MG TAB.ER.24H PO SCH (08:57)
[2021-12-04] MEDS: DOCUSATE 100 MG CAP PO SCH ×2 (08:58→21:26)
[2021-12-04] MEDS: ENOXAPARIN 40 MG/0.4 ML SYRINGE SQ SCH (08:58)
[2021-12-04] MEDS: LORATADINE 10 MG TAB PO SCH (08:58)
[2021-12-04] MEDS: SODIUM BICARBONATE TAB 650 MG TAB PO SCH ×2 (08:58→21:37)
[2021-12-04] MEDS: CHOLECALCIFEROL 125 MCG (5000 IU) TABLET PO SCH (08:58)
[2021-12-04] MEDS: hydrALAZINE HCL 25 MG TAB PO SCH ×3 (08:58→21:37)
[2021-12-04] MEDS: ZINC SULFATE 220 MG CAP PO SCH (08:58)
[2021-12-04] MEDS: CLOPIDOGREL 75 MG TAB PO SCH (08:58)
[2021-12-04 09:17] LABS: Basophils % (A) 0 %; Eosinophils % (A) 0 %; HCT 29.4 % (39.0-53.0); HGB 9.2 gm/dL (13.0-17.5); Hypochromasia Slight; Lymphocytes # (A) 0.3 k/uL (1.0-4.8); Lymphocytes % (A) 2 %; MCH 30.7 pg (25.0-35.0); MCHC 31.2 g/dL (31.0-37.0); MCV 98.2 fL (80.0-100.0); Mean Platelet Volume 8.5; Monocytes # (A) 0.5 k/uL (0-1.0); Monocytes % (A) 4 %; Neutrophils # (A) 13.2 k/uL (1.3-7.7); Neutrophils % (A) 94 %; Platelet Count 624 k/uL (150-450); RBC 2.99 m/uL (4.30-5.90); RDW 14.2 % (11.5-15.5); WBC 14.1 k/uL (3.8-10.6)
[2021-12-04 09:37] LABS: Partial Thromboplastin Time 26.6 sec (22.0-30.0); Prothrombin Time 10.5 sec (9.0-12.0)
[2021-12-04 09:51] LABS: Albumin 2.7 g/dL (3.5-5.0); Calcium 8.6 mg/dL (8.4-10.2); Magnesium 1.6 mg/dL (1.6-2.3); Total Bilirubin 0.4 mg/dL (0.2-1.3); Total Protein 5.9 g/dL (6.3-8.2)
[2021-12-04] MEDS: SODIUM CHLORIDE 0.9% 1,000 ML IV SCH (10:54)
[2021-12-04] MEDS ORDERED: ACETAMINOPHEN IV (For NPO) 1,000 MG in EMPTY BAG 1 BAG IVPB ONE (11:15)
[2021-12-04 11:57] LABS: Glucose,Whole Blood 212 mg/dL (70-110)
--- NOTE | 2021-12-04 11:59 | P.PN ---
Subjective Patient is seen for follow-up for acute kidney injury. Renal function has improved serum creatinine down to 1.1 from 3.1 on initial admission. Patient is maintained on steroids for Covid pneumonia Urine output at 1.67 L for 24 hours. IV fluids at 75 mL an hour Objective - Vital Signs Vital signs: Vital Signs Temp 97.6 F 12/04/21 08:57 Pulse 99 12/04/21 11:05 Resp 22 12/04/21 11:05 BP 148/81 12/04/21 11:05 Pulse Ox 95 12/04/21 11:17 FiO2 21 12/02/21 07:52 Intake & Output 12/03/21 12/04/21 12/04/21 18:59 06:59 18:59 Intake Total 180 1150 Output Total 900 Balance 180 250 Intake: Intake, IV Titration 950 Amount Sodium Chloride 0.9% 1, 900 000 ml @ 75 mls/hr IV . [id number] [facility] Rx#:[id number] ceFAZolin 2 gm In Sodium 50 Chloride 0.9% 50 ml @ 100 mls/hr IVPB Q8HR [facility] Rx# :[id number] Oral 180 200 Output: Urine 900 Other: Voiding Method Urinal Urinal Urinal # Voids 0 2 # Bowel Movements 3 - Exam Awake, comfortable, not in any acute distress Examination of the lower extremities shows no significant edema [employer] exam grossly intact Heart and lungs not examined - Labs CBC & Chem 7: 12/04/21 08:59 12/04/21 08:59 Labs: Abnormal Lab Results - Last 24 Hours (Table) 12/03/21 12/03/21 12/03/21 Range/Units 05:58 16:30 19:41 WBC (3.8-10.6) k/uL RBC (4.30-5.90) m/uL Hgb (13.0-17.5) gm/dL Hct (39.0-53.0) % Plt Count (150-450) k/uL Neutrophils # (1.3-7.7) k/uL Lymphocytes # (1.0-4.8) k/uL Fibrinogen (200-500) mg/dL D-Dimer (<0.60) mg/L FEU Carbon Dioxide (22-30) mmol/L BUN (9-20) mg/dL Glucose (74-99) mg/dL POC Glucose (mg/dL) 163 H 215 H (70-110) mg/dL Ferritin 1712.0 H (22.0-322.0) ng/mL AST (17-59) U/L C-Reactive Protein (<1.0) mg/dL Total Protein (6.3-8.2) g/dL Albumin (3.5-5.0) g/dL 12/04/21 12/04/21 12/04/21 Range/Units 06:07 08:59 08:59 WBC 14.1 H (3.8-10.6) k/uL RBC 2.99 L (4.30-5.90) m/uL Hgb 9.2 L (13.0-17.5) gm/dL Hct 29.4 L (39.0-53.0) % Plt Count 624 H (150-450) k/uL Neutrophils # 13.2 H (1.3-7.7) k/uL Lymphocytes # 0.3 L (1.0-4.8) k/uL Fibrinogen 599 H (200-500) mg/dL D-Dimer 8.55 H (<0.60) mg/L FEU Carbon Dioxide (22-30) mmol/L BUN (9-20) mg/dL Glucose (74-99) mg/dL POC Glucose (mg/dL) 132 H (70-110) mg/dL Ferritin (22.0-322.0) ng/mL AST (17-59) U/L C-Reactive Protein (<1.0) mg/dL Total Protein (6.3-8.2) g/dL Albumin (3.5-5.0) g/dL 12/04/21 Range/Units 08:59 WBC (3.8-10.6) k/uL RBC (4.30-5.90) m/uL Hgb (13.0-17.5) gm/dL Hct (39.0-53.0) % Plt Count (150-450) k/uL Neutrophils # (1.3-7.7) k/uL Lymphocytes # (1.0-4.8) k/uL Fibrinogen (200-500) mg/dL D-Dimer (<0.60) mg/L FEU Carbon Dioxide 21 L (22-30) mmol/L BUN 42 H (9-20) mg/dL Glucose 192 H (74-99) mg/dL POC Glucose (mg/dL) (70-110) mg/dL Ferritin (22.0-322.0) ng/mL AST 65 H (17-59) U/L C-Reactive Protein 8.0 H (<1.0) mg/dL Total Protein 5.9 L (6.3-8.2) g/dL Albumin 2.7 L (3.5-5.0) g/dL Microbiology - Last 24 Hours (Table) 12/03/21 05:58 Blood Culture Gram Stain - Preliminary Blood 12/03/21 05:58 Blood Culture - Final Blood 12/01/21 17:10 Blood Culture Gram Stain - Preliminary Blood Blood Culture - Preliminary Presumptive Staph aureus Assessment and Plan Assessment: 1. Acute kidney injury mostly prerenal secondary to hypotension, ACEi, NSAIDs, improved with IV hydration. Creatinine was 3.15 on admission and is 1. 18 today. Creatinine in September 2020 was near 1. No hydronephrosis noted on kidney ultrasound. 2. Metabolic acidosis secondary to acute kidney injury and IV fluids. 3. Benign hypertension. Stable. 4. Acute hypoxic respiratory failure secondary to COPD exacerbation and covid pneumonia. 5. Anemia. rule out iron deficiency. Plan: Follow-up on chest x-ray Consider decreasing IV fluids Continue to encourage increase oral intake Follow-up on iron profile Okay to resume MARIAJOSE inhibitor's if blood pressure remains elevated.
--- NOTE | 2021-12-04 12:01 | XR ---
EXAMINATION TYPE: XR chest 1V portable DATE OF EXAM: 12/04/2021 COMPARISON: Chest x-ray 12/01/2021 HISTORY: Covid pneumonia TECHNIQUE: Single frontal view of the chest is obtained. FINDINGS: There has been some progression of airspace disease in the right upper lobe. Right lower l obe airspace disease is again noted. Patient is rotated. No evident pneumothorax or pleural effusion. Cardiac and mediastinal as well as stable. IMPRESSION: Bilobar pneumonia
--- NOTE | 2021-12-04 12:03 | P.PN ---
Subjective Progress Note Date: 12/04/21 71-year-old male who presents to the emergency department, on December 01, complaining of shortness of breath. The patient states that he's been having shortness of breath for quite some time. In addition, he complained of tightness, chest congestion, cough, and phlegm production. Chest x-ray revealed a right lower lobe pneumonia. Currently, the patient's on 15 L high flow oxygen. He is getting saline at 130 mL an hour. His primary care provider is Dr. Issa. He apparently has a previous history of heavy tobacco use. He states he does not smoke currently. Other medical history includes angina pectoris, CVA, hyperlipidemia, hypertension, and previous heart catheterization with stent, for CAD. In addition, the patient complains of hoarseness, which she states has gotten worse. Labs include a white count of 9.9, hemoglobin 10, hematocrit 30.1, and a platelet count of 608,000. Blood gases, on 60% oxygen show pO2 64, pCO2 34, and a pH of 7.38. Sodium 129, potassium 5.5, chlorides 92, CO2 17, anion gap 20, UA 84, creatinine 3.15. Testing for coronavirus was positive. Chest x-ray shows some patchy infiltrates in the right lower lobe, and diffuse interstitial changes throughout. Progress note dated 12/03/2021. 71-year-old male seen yesterday in consultation. He was initially seen in the emergency department, on December 01, complaining of shortness of breath. The patient's chest x-ray did reveal a right lower lobe pneumonia. Currently, the patient is on 15 L high flow oxygen. He is getting saline at 130 mL an hour. Blood cultures were apparently positive for Staphylococcus aureus. The patient does feel better today he tells me. White count 9.2, hemoglobin 8.5, hematocrit 27, and platelet count 551,000. The patient's d-dimer was 4.63. PTT was 30.4. Sodium 138, potassium 4.5, chlorides 108, CO2 18, anion gap 12, BUN 52, and creatinine 1.35. The patient's N-terminal proBNP was 5780. Pro-calcitonin level was 0.37. Blood cultures are positive Staphylococcus aureus. On today's evaluation of, of 12/04/2021, I'm seeing the patient for a follow-up. The patient is on high flow oxygen at 15 L per minute nasal cannula. The patient was hospitalized with covid 19 infection with a positive blood culture that do not to be MSSA. Noted the patient was vaccinated 2 for COVID and he has not received any boosters. The patient's chest x-ray showed bilateral pneumonia with increased consolidation of the right lung base. Accordingly, the patient was covered with broad-spectrum antibiotics and the patient is currently on IV cefazolin. The patient is also on steroids. Continues to have cough and congestion. No pleurisy. No hemoptysis. The patient remains on 15 L of oxygen by nasal cannula. His breathing is labored. Congested cough and is unable to bring up much of sputum. The patient was positive COVID 19 and the same time the patient had a possible culture for MSSA. The patient has a white cell count of 14.1 and the patient remains on IV cefazolin 2 g every 8 hours. The patient is also on IV Solu-Medrol 60 mg every 6 hours. He is a chronic smoker and he also has a component of COPD. He remains on anticoagulation with Lovenox for DVT prophylaxis. His d-dimer was at 8.55 and this white cell count of 14.1 with a hemoglobin of 9.2. Rest of the coagulation profile was essentially within normal limits. His fibrinogen level was high as 599. BNP is a 42 with a creatinine of 1.1. His proBNP level was still elevated at 7340. LFTs are adequate at this point in time. No recent chest x-ray. He is afebrile. Inflammatory markers from the time of admission showed a pro-calcitonin level of 0.37. His LDH level was 585. Objective - Vital Signs Vital signs: Vital Signs Temp 97.6 F 12/04/21 08:57 Pulse 99 12/04/21 11:05 Resp 22 12/04/21 11:05 BP 148/81 12/04/21 11:05 Pulse Ox 95 12/04/21 11:17 FiO2 21 12/02/21 07:52 Intake & Output 12/03/21 12/04/21 12/04/21 18:59 06:59 18:59 Intake Total 180 1150 Output Total 900 Balance 180 250 Intake: Intake, IV Titration 950 Amount Sodium Chloride 0.9% 1, 900 000 ml @ 75 mls/hr IV . [id number] [facility] Rx#:[id number] ceFAZolin 2 gm In Sodium 50 Chloride 0.9% 50 ml @ 100 mls/hr IVPB Q8HR [facility] Rx# :[id number] Oral 180 200 Output: Urine 900 Other: Voiding Method Urinal Urinal Urinal # Voids 0 2 # Bowel Movements 3 - Exam Mild to moderate respiratory distress, oriented, currently on 15 L high flow O2. No audible wheezing, or use of accessory muscles. HEENT examination is grossly unremarkable. Neck supple. Full range of motion. No adenopathy thyromegaly or neck vein distention. Cardiovascular examination reveals regular rhythm rate. S1-S2 normal. No S3 or S4. No discernible murmur noted. Heart sounds are distant. Heart rate 90 bpm. Lungs reveal coarse bilateral rhonchi. Crackles are noted. No wheezes. Breath sounds equal bilaterally. Saturations are 96% on 15 L high flow oxygen. Abdomen soft bowel sounds are heard. No masses or tenderness. Extremities are intact. No cyanosis clubbing or edema. Skin is without rash or lesion. Neurologic examination is brief but nonfocal. - Labs CBC & Chem 7: 12/04/21 08:59 12/04/21 08:59 Labs: Abnormal Lab Results - Last 24 Hours (Table) 12/03/21 12/03/21 12/03/21 Range/Units 05:58 11:29 16:30 WBC (3.8-10.6) k/uL RBC (4.30-5.90) m/uL Hgb (13.0-17.5) gm/dL Hct (39.0-53.0) % Plt Count (150-450) k/uL Neutrophils # (1.3-7.7) k/uL Lymphocytes # (1.0-4.8) k/uL Fibrinogen (200-500) mg/dL D-Dimer (<0.60) mg/L FEU Carbon Dioxide (22-30) mmol/L BUN (9-20) mg/dL Glucose (74-99) mg/dL POC Glucose (mg/dL) 156 H 163 H (70-110) mg/dL Ferritin 1712.0 H (22.0-322.0) ng/mL AST (17-59) U/L C-Reactive Protein (<1.0) mg/dL Total Protein (6.3-8.2) g/dL Albumin (3.5-5.0) g/dL 12/03/21 12/04/21 12/04/21 Range/Units 19:41 06:07 08:59 WBC 14.1 H (3.8-10.6) k/uL RBC 2.99 L (4.30-5.90) m/uL Hgb 9.2 L (13.0-17.5) gm/dL Hct 29.4 L (39.0-53.0) % Plt Count 624 H (150-450) k/uL Neutrophils # 13.2 H (1.3-7.7) k/uL Lymphocytes # 0.3 L (1.0-4.8) k/uL Fibrinogen (200-500) mg/dL D-Dimer (<0.60) mg/L FEU Carbon Dioxide (22-30) mmol/L BUN (9-20) mg/dL Glucose (74-99) mg/dL POC Glucose (mg/dL) 215 H 132 H (70-110) mg/dL Ferritin (22.0-322.0) ng/mL AST (17-59) U/L C-Reactive Protein (<1.0) mg/dL Total Protein (6.3-8.2) g/dL Albumin (3.5-5.0) g/dL 12/04/21 12/04/21 Range/Units 08:59 08:59 WBC (3.8-10.6) k/uL RBC (4.30-5.90) m/uL Hgb (13.0-17.5) gm/dL Hct (39.0-53.0) % Plt Count (150-450) k/uL Neutrophils # (1.3-7.7) k/uL Lymphocytes # (1.0-4.8) k/uL Fibrinogen 599 H (200-500) mg/dL D-Dimer 8.55 H (<0.60) mg/L FEU Carbon Dioxide 21 L (22-30) mmol/L BUN 42 H (9-20) mg/dL Glucose 192 H (74-99) mg/dL POC Glucose (mg/dL) (70-110) mg/dL Ferritin (22.0-322.0) ng/mL AST 65 H (17-59) U/L C-Reactive Protein 8.0 H (<1.0) mg/dL Total Protein 5.9 L (6.3-8.2) g/dL Albumin 2.7 L (3.5-5.0) g/dL Microbiology - Last 24 Hours (Table) 12/03/21 05:58 Blood Culture Gram Stain - Preliminary Blood 12/03/21 05:58 Blood Culture - Final Blood 12/01/21 17:10 Blood Culture Gram Stain - Preliminary Blood Blood Culture - Preliminary Presumptive Staph aureus Assessment and Plan Plan: Acute hypoxemic respiratory failure, multifactorial, secondary to COPD exacerbation, patchy pneumonia right lower lobe, and possible coronavirus associated pneumonia. Staphylococcus aureus bacteremia/sepsis History of COPD, secondary to heavy tobacco use. Acute kidney injury, improving History of angina pectoris, and previous heart catheterization with stent, for CAD. History of CVA. History of hyperlipidemia. History of hypertension. History of hepatitis C. Previous history of heavy tobacco use. Plan: Keep the patient on high flow oxygen and try to wean it down to 10 L nasal cannula Repeat chest x-ray Continue IV cefazolin Continue IV steroids Repeat inflammatory markers including LDH, d-dimer is and pro-calcitonin level Continue Lovenox for DVT prophylaxis ProBNP level was elevated and were going to proceed with an echocardiogram We'll continue to follow.
[2021-12-04 12:42] LABS: % Iron Saturation 20.32 (15.00-50.00)
--- NOTE | 2021-12-04 13:55 | P.PN ---
Subjective Progress Note Date: 12/04/21 Vincenzo is a 71-year-old patient well known to my practice. He indicates she's been having increased shortness of breath over the past several weeks a month. He indicates he had COVID-19 pneumonia several months ago. It since recovered indicates. He is a known former heroin addict and was on deep morphi ne/amoxicillin up until several months ago when he decided to discontinue himself. He is also known alcoholic and frequently drinks 5-6 beers per day. EKG is not him back to using and it was a money issue for him. He is having a great deal difficulty speaking and shortness of breath. He also indicates he significantly constipated. ER finding showed an dyspneic and hypercapnic needing 15 L oxygen on a nonrebreather. He is since transitioned to high flow nasal cannula. Currently he is improving but still having trouble speaking. He is afebrile, heart rate remains borderline tachycardic, respiratory rate is improved now and blood pressure control. Currently is at 91% on 15 L of O2. This morning laboratory studies are pending. Cultures are reported as positive for gram-positive cocci in clusters.. He has received Zosyn and azithromycin the emergency room. Addendum: Rapid, test is positive 12/03/2021: Patient is slightly improved today. He remains on high flow nasal cannula at 15 mL/m. His pulse oximetry is 97%. It has been stable. Blood pressure heart rate rest her rate under control. He remains afebrile. Labs today show hemoglobin 8.5. Left shift was noted with the absolute neutrophil count of 8.3. PT/INR normal. PTT is elevated 3.4 fibrinogen of 748 and d-dimer 4.63. Chemistries now show BUN of 52 and creatinine 1.3. Magnesium is 1.7. CRP is 18.6. BNP was 5780. Pro-calcitonin was elevated at 0.37 Blood culture show presumptive staph aureus, penicillin susceptible. He is now currently on further positive blood cultures, pneumonia. He is anticoagulated with Lovenox. He is on Symbicort and albuterol, for breathing, he remains on Solu-Medrol, sodium bicarbonate, sailing, coated cocktail vitamin C and zinc, she will protocol, hydralazine for blood pressure and Colace was constipation. 12/04/2021 maintained on IV antibiotics as per infectious disease. Continues on covid regimen. Maintaining O2 sats in the high 90s on 15 L high flow nasal cannula. Afebrile, WBC 14.1. Renal function improving, creatinine down to 1.18, BUN 42, bicarbonate 13. Denies chest pain, palpitations or increased shortness of breath. Objective - Vital Signs Vital signs: Vital Signs Temp 97.6 F 12/04/21 08:57 Pulse 99 12/04/21 13:06 Resp 22 12/04/21 11:05 BP 148/81 12/04/21 11:05 Pulse Ox 95 12/04/21 11:17 FiO2 21 12/02/21 07:52 Intake & Output 12/03/21 12/04/21 12/04/21 18:59 06:59 18:59 Intake Total 180 1150 Output Total 900 Balance 180 250 Intake: Intake, IV Titration 950 Amount Sodium Chloride 0.9% 1, 900 000 ml @ 75 mls/hr IV . [id number] CYNTHIA Rx#:[id number] ceFAZolin 2 gm In Sodium 50 Chloride 0.9% 50 ml @ 100 mls/hr IVPB Q8HR CYNTHIA Rx# :[id number] Oral 180 200 Output: Urine 900 Other: Voiding Method Urinal Urinal Urinal # Voids 0 2 # Bowel Movements 3 - Exam - Exam GENERAL: Sitting up in bed, alert and oriented 2 ,NAD, speaking better, less hoarseness. NECK: supple, JVD LUNGS: Breath sounds coarse, decreased air exchange and rhonchi noted in multiple lung penny. Loose congested cough HEART: Regular rate and rhythm without murmurs, rubs or gallops.S1S2 Normal ABDOMEN: Soft, nontender, normoactive bowel sounds. No guarding, no rebound. No masses appreciated. EXTREMITIES: Normal range of motion, no pitting or edema. No clubbing or cyanosis. NEUROLOGICAL: Cranial nerves II through XII grossly intact. Normal speech, normal gait. SKIN: Warm, Dry, normal turgor, no rashes. Microbiology 12/01/21 17:10 Blood Blood Culture Gram Stain - Final 12/01/21 17:10 Blood Blood Culture - Final Staphylococcus aureus 12/03/21 05:58 Blood Blood Culture Gram Stain - Preliminary 12/03/21 05:58 Blood Blood Culture - Final 12/01/21 16:54 Blood Blood Culture Gram Stain - Preliminary 12/01/21 16:54 Blood Blood Culture - Preliminary Staphylococcus aureus 12/01/21 17:10 Blood Blood Culture - Final 12/01/21 16:54 Blood Blood Culture - Final - Labs CBC & Chem 7: 12/04/21 08:59 12/04/21 08:59 Labs: Abnormal Lab Results - Last 24 Hours (Table) 12/03/21 12/03/21 12/03/21 Range/Units 05:58 16:30 19:41 WBC (3.8-10.6) k/uL RBC (4.30-5.90) m/uL Hgb (13.0-17.5) gm/dL Hct (39.0-53.0) % Plt Count (150-450) k/uL Neutrophils # (1.3-7.7) k/uL Lymphocytes # (1.0-4.8) k/uL Fibrinogen (200-500) mg/dL D-Dimer (<0.60) mg/L FEU Carbon Dioxide (22-30) mmol/L BUN (9-20) mg/dL Glucose (74-99) mg/dL POC Glucose (mg/dL) 163 H 215 H (70-110) mg/dL Iron 29 L (65-175) ug/dL TIBC 144 L (228-460) ug/dL Transferrin 103.0 L (204.0-354.0) mg/dL AST (17-59) U/L C-Reactive Protein (<1.0) mg/dL Total Protein (6.3-8.2) g/dL Albumin (3.5-5.0) g/dL 12/04/21 12/04/21 12/04/21 Range/Units 06:07 08:59 08:59 WBC 14.1 H (3.8-10.6) k/uL RBC 2.99 L (4.30-5.90) m/uL Hgb 9.2 L (13.0-17.5) gm/dL Hct 29.4 L (39.0-53.0) % Plt Count 624 H (150-450) k/uL Neutrophils # 13.2 H (1.3-7.7) k/uL Lymphocytes # 0.3 L (1.0-4.8) k/uL Fibrinogen 599 H (200-500) mg/dL D-Dimer 8.55 H (<0.60) mg/L FEU Carbon Dioxide (22-30) mmol/L BUN (9-20) mg/dL Glucose (74-99) mg/dL POC Glucose (mg/dL) 132 H (70-110) mg/dL Iron (65-175) ug/dL TIBC (228-460) ug/dL Transferrin (204.0-354.0) mg/dL AST (17-59) U/L C-Reactive Protein (<1.0) mg/dL Total Protein (6.3-8.2) g/dL Albumin (3.5-5.0) g/dL 12/04/21 12/04/21 Range/Units 08:59 11:55 WBC (3.8-10.6) k/uL RBC (4.30-5.90) m/uL Hgb (13.0-17.5) gm/dL Hct (39.0-53.0) % Plt Count (150-450) k/uL Neutrophils # (1.3-7.7) k/uL Lymphocytes # (1.0-4.8) k/uL Fibrinogen (200-500) mg/dL D-Dimer (<0.60) mg/L FEU Carbon Dioxide 21 L (22-30) mmol/L BUN 42 H (9-20) mg/dL Glucose 192 H (74-99) mg/dL POC Glucose (mg/dL) 212 H (70-110) mg/dL Iron (65-175) ug/dL TIBC (228-460) ug/dL Transferrin (204.0-354.0) mg/dL AST 65 H (17-59) U/L C-Reactive Protein 8.0 H (<1.0) mg/dL Total Protein 5.9 L (6.3-8.2) g/dL Albumin 2.7 L (3.5-5.0) g/dL Microbiology - Last 24 Hours (Table) 12/03/21 05:58 Blood Culture Gram Stain - Preliminary Blood 12/03/21 05:58 Blood Culture - Final Blood 12/01/21 17:10 Blood Culture Gram Stain - Preliminary Blood Blood Culture - Preliminary Presumptive Staph aureus Assessment and Plan Assessment: (1) Sepsis Current Visit: Yes Status: Acute Code(s): A41.9 - SEPSIS, UNSPECIFIED ORGANISM SNOMED Code(s): 33426798 (2) Pneumonia due to COVID-19 virus Current Visit: Yes Status: Acute Code(s): U07.1 - COVID-19; J12.82 - PNEUMONIA DUE TO CORONAVIRUS DISEASE 2018 SNOMED Code(s): 343962063784963279 (3) Bacteremia, presumptive staph, repeat cultures in progress (3) Hypoxia Current Visit: Yes Status: Acute Code(s): R09.02 - HYPOXEMIA SNOMED Co de(s): 814053260 (4) Alcohol abuse Current Visit: No Status: Acute Code(s): F10.10 - ALCOHOL ABUSE, UNCOMPLICATED SNOMED Code(s): 76705474 (5) Constipation Current Visit: No Status: Acute Code(s): K59.00 - CONSTIPATION, UNSPECIFIED SNOMED Code(s): 76076893 (6) Essential (primary) hypertension Current Visit: No Status: Acute Code(s): I10 - ESSENTIAL (PRIMARY) HYPERTENSION SNOMED Code(s): 26466408 (7) History of opioid abuse Current Visit: No Status: Acute Code(s): F11.11 - OPIOID ABUSE, IN REMISSION SNOMED Code(s): 262733578 (8) Mixed hyperlipidemia Current Visit: No Status: Acute Code(s): E78.2 - MIXED HYPERLIPIDEMIA SNOMED Code(s): 850417413 (9) Tobacco abuse Current Visit: No Status: Acute Code(s): Z72.0 - TOBACCO USE SNOMED Code(s): 549327936 (10 history of hepatitis C Plan: Continue on current medication regime ,monitoring and symptomatic treatment. Wean down O2 as tolerated. Preliminary blood cultures in progress. Antibiotics as per ID. Covid Cocktail. The impression and plan of care has been dictated as directed. : I performed a history and examination of this patient, discussed the same with the dictator. I agree with the dictator's note ,documented as a scribe. Any additional findings or plans will be noted.
[2021-12-04 16:55] LABS: Glucose,Whole Blood 131 mg/dL (70-110)
--- NOTE | 2021-12-04 17:37 | CA ---
Transthoracic Echo Report Name: Dion Love Age: 71 Gender: M : 1950 Exam Date: 12/04/2021 14:16 Exam Location: [facility] Ht (in): 68 Wt (lb): 165 Ordering Physician: Rene Tam DO Attending/Referring Phys: Director Of Front Office Riri Burns RDCS Procedure CPT: Indications: chf Cardiac Hx: PT IS COVID POSITIVE TDS EVEN WITH LUMASON. Technical Quality: Technically difficult study Contrast 1: Lumason Total Dose (mL): 3 Contrast 2: Total Dose (mL): MEASUREMENTS (Male / Female) Normal Values FINDINGS Left Ventricle Left ventricular ejection fraction is estimated at 50-55%. Right Ventricle Right ventricle not well visualized. Right Atrium Right atrium not well visualized. Left Atrium Left atrium not well visualized. Mitral Valve Mitral valve not well visualized. Aortic Valve Aortic valve not well visualized. Tricuspid Valve Tricuspid valve not well visualized. Pulmonic Valve Pulmonic valve not well visualized. Pericardium Aorta CONCLUSIONS Technically suboptimal and incomplete study Grossly LV function appears normal Previewed by: Dr. Fei Gregorio MD (Electronically Signed) Final Date: 04 December 2021 17:36
[2021-12-04 20:23] LABS: Glucose,Whole Blood 201 mg/dL (70-110)
[2021-12-04] MEDS: ATORVASTATIN 80 MG TAB PO SCH (21:37)
[2021-12-05] MEDS: SODIUM CHLORIDE 0.9% 1,000 ML IV SCH ×2 (00:23→08:47)
[2021-12-05] MEDS: ACETAMINOPHEN TAB 325 MG TAB PO PRN ×3 (00:24→16:48)
[2021-12-05] MEDS: methylPREDNISolone SOD SUCCI 125 MG/2 ML VIAL IV SCH ×4 (00:25→16:57)
[2021-12-05] MEDS: PANTOPRAZOLE 40 MG TABLET PO SCH (06:45)
[2021-12-05] MEDS: THIAMINE 100 MG TAB PO SCH ×2 (06:46→16:48)
[2021-12-05] MEDS: carvediloL 6.25 MG TAB PO SCH ×2 (06:50→16:48)
[2021-12-05 06:51] LABS: Glucose,Whole Blood 127 mg/dL (70-110)
[2021-12-05] MEDS: INSULIN ASPART (NovoLOG) 100 UNIT/ML VIAL SQ SCH ×4 (06:54→21:06)
[2021-12-05] MEDS: ENOXAPARIN 40 MG/0.4 ML SYRINGE SQ SCH (08:46)
[2021-12-05] MEDS: ZINC SULFATE 220 MG CAP PO SCH (08:47)
[2021-12-05] MEDS: hydrALAZINE HCL 25 MG TAB PO SCH ×3 (08:47→21:07)
[2021-12-05] MEDS: ISOSORBIDE MONONITRATE ER 30 MG TAB.ER.24H PO SCH (08:47)
[2021-12-05] MEDS: CHOLECALCIFEROL 125 MCG (5000 IU) TABLET PO SCH (08:47)
[2021-12-05] MEDS: SODIUM BICARBONATE TAB 650 MG TAB PO SCH ×2 (08:47→21:07)
[2021-12-05] MEDS: LORATADINE 10 MG TAB PO SCH (08:47)
[2021-12-05] MEDS: cloNIDine HCL 0.2 MG TAB PO SCH ×3 (08:47→21:07)
[2021-12-05] MEDS: ASCORBIC ACID 500 MG TAB PO SCH ×2 (08:47→21:07)
[2021-12-05] MEDS: CLOPIDOGREL 75 MG TAB PO SCH (08:47)
[2021-12-05] MEDS: DOCUSATE 100 MG CAP PO SCH ×2 (09:22→21:07)
[2021-12-05] MEDS: ALBUTEROL HFA INHALER INHALATION SCH ×4 (09:31→20:36)
[2021-12-05] MEDS: SYMBICORT 160-4.5 MCG INHALER INHALATION SCH ×2 (09:31→20:33)
[2021-12-05 09:48] LABS: Basophils % (A) 0 %; Eosinophils % (A) 0 %; HCT 29.8 % (39.0-53.0); HGB 9.4 gm/dL (13.0-17.5); Hypochromasia Slight; Lymphocytes # (A) 0.3 k/uL (1.0-4.8); Lymphocytes % (A) 2 %; MCH 30.8 pg (25.0-35.0); MCHC 31.7 g/dL (31.0-37.0); MCV 97.2 fL (80.0-100.0); Monocytes # (A) 0.6 k/uL (0-1.0); Monocytes % (A) 5 %; Neutrophils % (A) 93 %; Platelet Count 630 k/uL (150-450); RBC 3.06 m/uL (4.30-5.90); RDW 14.2 % (11.5-15.5)
[2021-12-05 09:55] LABS: INR 1.1 (<1.2); Partial Thromboplastin Time 28.2 sec (22.0-30.0); Prothrombin Time 11.4 sec (9.0-12.0)
--- NOTE | 2021-12-05 10:50 | P.PN ---
Subjective Progress Note Date: 12/05/21 71-year-old male who presents to the emergency department, on December 01, complaining of shortness of breath. The patient states that he's been having shortness of breath for quite some time. In addition, he complained of tightness, chest congestion, cough, and phlegm production. Chest x-ray revealed a right lower lobe pneumonia. Currently, the patient's on 15 L high flow oxygen. He is getting saline at 130 mL an hour. His primary care provider is Dr. Issa. He apparently has a previous history of heavy tobacco use. He states he does not smoke currently. Other medical history includes angina pectoris, CVA, hyperlipidemia, hypertension, and previous heart catheterization with stent, for CAD. In addition, the patient complains of hoarseness, which she states has gotten worse. Labs include a white count of 9.9, hemoglobin 10, hematocrit 30.1, and a platelet count of 608,000. Blood gases, on 60% oxygen show pO2 64, pCO2 34, and a pH of 7.38. Sodium 129, potassium 5.5, chlorides 92, CO2 17, anion gap 20, UA 84, creatinine 3.15. Testing for coronavirus was positive. Chest x-ray shows some patchy infiltrates in the right lower lobe, and diffuse interstitial changes throughout. Progress note dated 12/03/2021. 71-year-old male seen yesterday in consultation. He was initially seen in the emergency department, on December 01, complaining of shortness of breath. The patient's chest x-ray did reveal a right lower lobe pneumonia. Currently, the patient is on 15 L high flow oxygen. He is getting saline at 130 mL an hour. Blood cultures were apparently positive for Staphylococcus aureus. The patient does feel better today he tells me. White count 9.2, hemoglobin 8.5, hematocrit 27, and platelet count 551,000. The patient's d-dimer was 4.63. PTT was 30.4. Sodium 138, potassium 4.5, chlorides 108, CO2 18, anion gap 12, BUN 52, and creatinine 1.35. The patient's N-terminal proBNP was 5780. Pro-calcitonin level was 0.37. Blood cultures are positive Staphylococcus aureus. On today's evaluation of, of 12/04/2021, I'm seeing the patient for a follow-up. The patient is on high flow oxygen at 15 L per minute nasal cannula. The patient was hospitalized with covid 19 infection with a positive blood culture that do not to be MSSA. Noted the patient was vaccinated 2 for COVID and he has not received any boosters. The patient's chest x-ray showed bilateral pneumonia with increased consolidation of the right lung base. Accordingly, the patient was covered with broad-spectrum antibiotics and the patient is currently on IV cefazolin. The patient is also on steroids. Continues to have cough and congestion. No pleurisy. No hemoptysis. The patient remains on 15 L of oxygen by nasal cannula. His breathing is labored. Congested cough and is unable to bring up much of sputum. The patient was positive COVID 19 and the same time the patient had a possible culture for MSSA. The patient has a white cell count of 14.1 and the patient remains on IV cefazolin 2 g every 8 hours. The patient is also on IV Solu-Medrol 60 mg every 6 hours. He is a chronic smoker and he also has a component of COPD. He remains on anticoagulation with Lovenox for DVT prophylaxis. His d-dimer was at 8.55 and this white cell count of 14.1 with a hemoglobin of 9.2. Rest of the coagulation profile was essentially within normal limits. His fibrinogen level was high as 599. BNP is a 42 with a creatinine of 1.1. His proBNP level was still elevated at 7340. LFTs are adequate at this point in time. No recent chest x-ray. He is afebrile. Inflammatory markers from the time of admission showed a pro-calcitonin level of 0.37. His LDH level was 585. 12/15/2021, the patient is being seen for a follow-up. The patient is currently on 10 L of O2 nasal cannula. He is still having shortness of breath cough and congestion. He is lethargic. Is able to communicate however he is quite weak. Note that the patient was on 15 L of O2 yesterday and I weaned him down to 10 L and is able to tolerate and maintain a pulse ox above 90%. Nevertheless, repeat chest x-ray showed progression in the airspace disease and this is based on the chest x-ray was done yesterday. He remains on IV cefazolin 2 g every 8 hours regarding staph aureus septicemia, MSSA and the patient is also on IV Solu- Medrol. D-dimer is slightly lower at 7.44. His LDH level is also low in the range of 585. The proBNP level is elevated at 7340. Echocardiogram was done and it was a poor window. For the most part the LV function was essentially within normal limits. The creatinine is down to 1.1 from yesterday. He is afebrile. He is hemodynamically stable. His activity is very limited. His oral intake is fair Objective - Vital Signs Vital signs: Vital Signs Temp 97.8 F 12/05/21 08:45 Pulse 104 H 12/05/21 08:45 Resp 22 12/05/21 08:45 BP 132/89 12/05/21 08:45 Pulse Ox 97 12/05/21 08:45 FiO2 21 12/02/21 07:52 Intake & Output 12/04/21 12/05/21 12/05/21 18:59 06:59 18:59 Weight 74.843 kg Other: Voiding Method Urinal Bedside Commode Bedside Commode Urinal # Voids 1 1 1 # Bowel Movements 3 2 2 - Exam Mild to moderate respiratory distress, oriented, currently on 10 L high flow O2. No audible wheezing, or use of accessory muscles. HEENT examination is grossly unremarkable. Neck supple. Full range of motion. No adenopathy thyromegaly or neck vein distention. Cardiovascular examination reveals regular rhythm rate. S1-S2 normal. No S3 or S4. No discernible murmur noted. Heart sounds are distant. Heart rate 90 bpm. Lungs reveal coarse bilateral rhonchi. Crackles are noted. No wheezes. Breath sounds equal bilaterally. Saturations are 96% on 15 L high flow oxygen. Abdomen soft bowel sounds are heard. No masses or tenderness. Extremities are intact. No cyanosis clubbing or edema. Skin is without rash or lesion. Neurologic examination is brief but nonfocal.x-ray - Labs CBC & Chem 7: 12/05/21 09:17 12/04/21 08:59 Labs: Abnormal Lab Results - Last 24 Hours (Table) 12/03/21 12/04/21 12/04/21 Range/Units 05:58 08:59 11:55 WBC (3.8-10.6) k/uL RBC (4.30-5.90) m/uL Hgb (13.0-17.5) gm/dL Hct (39.0-53.0) % Plt Count (150-450) k/uL Neutrophils # (1.3-7.7) k/uL Lymphocytes # (1.0-4.8) k/uL D-Dimer (<0.60) mg/L FEU POC Glucose (mg/dL) 212 H (70-110) mg/dL Iron 29 L (65-175) ug/dL TIBC 144 L (228-460) ug/dL Transferrin 103.0 L (204.0-354.0) mg/dL Ferritin 1533.0 H (22.0-322.0) ng/mL 12/04/21 12/04/21 12/05/21 Range/Units 16:54 20:22 06:50 WBC (3.8-10.6) k/uL RBC (4.30-5.90) m/uL Hgb (13.0-17.5) gm/dL Hct (39.0-53.0) % Plt Count (150-450) k/uL Neutrophils # (1.3-7.7) k/uL Lymphocytes # (1.0-4.8) k/uL D-Dimer (<0.60) mg/L FEU POC Glucose (mg/dL) 131 H 201 H 127 H (70-110) mg/dL Iron (65-175) ug/dL TIBC (228-460) ug/dL Transferrin (204.0-354.0) mg/dL Ferritin (22.0-322.0) ng/mL 12/05/21 12/05/21 Range/Units 09:17 09:17 WBC 13.0 H (3.8-10.6) k/uL RBC 3.06 L (4.30-5.90) m/uL Hgb 9.4 L (13.0-17.5) gm/dL Hct 29.8 L (39.0-53.0) % Plt Count 630 H (150-450) k/uL Neutrophils # 12.0 H (1.3-7.7) k/uL Lymphocytes # 0.3 L (1.0-4.8) k/uL D-Dimer 7.44 H (<0.60) mg/L FEU POC Glucose (mg/dL) (70-110) mg/dL Iron (65-175) ug/dL TIBC (228-460) ug/dL Transferrin (204.0-354.0) mg/dL Ferritin (22.0-322.0) ng/mL Microbiology - Last 24 Hours (Table) 12/01/21 16:54 Blood Culture Gram Stain - Final Blood Blood Culture - Final Staphylococcus aureus 12/01/21 17:10 Blood Culture Gram Stain - Final Blood Blood Culture - Final Staphylococcus aureus 12/03/21 05:58 Blood Culture Gram Stain - Preliminary Blood Assessment and Plan Plan: Acute hypoxemic respiratory failure, multifactorial, secondary to COPD exacerbation, patchy pneumonia right lower lobe, and possible coronavirus associated pneumonia. Acute COVID 19 pneumonia with interval worsening in the airspace disease in the right upper lobe and the right lower lobe. Left lung remains relatively clear. Bilateral pneumonia with some interval progression of the airspace disease, consider superimposed bacterial pneumonia. The patient is currently on 10 L of O2 nasal cannula. Staphylococcus aureus bacteremia/sepsis History of COPD, secondary to heavy tobacco use. Acute kidney injury, improving, renal function is normalized. Patient remains on normal saline at the rate of 75 mL an hour. History of angina pectoris, and previous heart catheterization with stent, for CAD. History of CVA. History of hyperlipidemia. History of hypertension. History of hepatitis C. Previous history of heavy tobacco use. Plan: Repeat chest x-ray today Keep O2 on 10 L Recheck another pro calcitonin level Repeat chest x-ray Continue IV cefazolin Continue IV steroids Continue Lovenox for DVT prophylaxis Echo Was done and the patient is a preserved LV function. The patient has an elevated pro BNP level. We'll continue to follow.
[2021-12-05 10:55] LABS: ALT 22 U/L (4-49); African American GFR (CKD) >90 (>60 ml/min/1.73 sqM); Albumin 2.7 g/dL (3.5-5.0); Anion Gap 10 mmol/L; Blood Urea Nitrogen 35 mg/dL (9-20); C Reactive Protein 5.5 mg/dL (<1.0); Calcium 8.3 mg/dL (8.4-10.2); Carbon Dioxide 20 mmol/L (22-30); Chloride 107 mmol/L (98-107); Glucose 162 mg/dL (74-99); LDH 821 U/L (313-618); Non-African American GFR(CKD) >90 (>60 ml/min/1.73 sqM); Sodium 137 mmol/L (137-145); Total Bilirubin 0.5 mg/dL (0.2-1.3)
[2021-12-05 11:05] LABS: AST 51 U/L (17-59); Magnesium 1.4 mg/dL (1.6-2.3); Potassium 4.8 mmol/L (3.5-5.1)
[2021-12-05 11:06] LABS: Alkaline Phosphatase 95 U/L (38-126)
[2021-12-05 12:01] LABS: Glucose,Whole Blood 169 mg/dL (70-110)
--- NOTE | 2021-12-05 12:13 | P.PN ---
Subjective Patient is seen for follow-up for acute kidney injury. Renal function has improved serum creatinine down to 0.8 from 3.1 on initial admission. Patient is maintained on steroids for Covid pneumonia Urine output at 1.67 L for 24 hours. IV fluids at 75 mL an hour Objective - Vital Signs Vital signs: Vital Signs Temp 97.8 F 12/05/21 08:45 Pulse 104 H 12/05/21 08:45 Resp 22 12/05/21 08:45 BP 132/89 12/05/21 08:45 Pulse Ox 97 12/05/21 11:15 FiO2 21 12/02/21 07:52 Intake & Output 12/04/21 12/05/21 12/05/21 18:59 06:59 18:59 Weight 74.843 kg Other: Voiding Method Urinal Bedside Commode Bedside Commode Urinal # Voids 1 1 1 # Bowel Movements 3 2 2 - Exam Awake, comfortable, not in any acute distress Examination of the heart S1 and S2 Examination lungs bilateral breath sounds are heard Examination of the lower extremities shows no significant edema HEATER INSTALLER exam grossly intact - Labs CBC & Chem 7: 12/05/21 09:17 12/05/21 09:17 Labs: Abnormal Lab Results - Last 24 Hours (Table) 12/03/21 12/04/21 12/04/21 Range/Units 05:58 08:59 16:54 WBC (3.8-10.6) k/uL RBC (4.30-5.90) m/uL Hgb (13.0-17.5) gm/dL Hct (39.0-53.0) % Plt Count (150-450) k/uL Neutrophils # (1.3-7.7) k/uL Lymphocytes # (1.0-4.8) k/uL D-Dimer (<0.60) mg/L FEU Carbon Dioxide (22-30) mmol/L BUN (9-20) mg/dL Glucose (74-99) mg/dL POC Glucose (mg/dL) 131 H (70-110) mg/dL Calcium (8.4-10.2) mg/dL Magnesium (1.6-2.3) mg/dL Iron 29 L (65-175) ug/dL TIBC 144 L (228-460) ug/dL Transferrin 103.0 L (204.0-354.0) mg/dL Ferritin 1533.0 H (22.0-322.0) ng/mL Lactate Dehydrogenase (313-618) U/L C-Reactive Protein (<1.0) mg/dL Total Protein (6.3-8.2) g/dL Albumin (3.5-5.0) g/dL 12/04/21 12/05/21 12/05/21 Range/Units 20:22 06:50 09:17 WBC 13.0 H (3.8-10.6) k/uL RBC 3.06 L (4.30-5.90) m/uL Hgb 9.4 L (13.0-17.5) gm/dL Hct 29.8 L (39.0-53.0) % Plt Count 630 H (150-450) k/uL Neutrophils # 12.0 H (1.3-7.7) k/uL Lymphocytes # 0.3 L (1.0-4.8) k/uL D-Dimer (<0.60) mg/L FEU Carbon Dioxide (22-30) mmol/L BUN (9-20) mg/dL Glucose (74-99) mg/dL POC Glucose (mg/dL) 201 H 127 H (70-110) mg/dL Calcium (8.4-10.2) mg/dL Magnesium (1.6-2.3) mg/dL Iron (65-175) ug/dL TIBC (228-460) ug/dL Transferrin (204.0-354.0) mg/dL Ferritin (22.0-322.0) ng/mL Lactate Dehydrogenase (313-618) U/L C-Reactive Protein (<1.0) mg/dL Total Protein (6.3-8.2) g/dL Albumin (3.5-5.0) g/dL 12/05/21 12/05/21 12/05/21 Range/Units 09:17 09:17 11:57 WBC (3.8-10.6) k/uL RBC (4.30-5.90) m/uL Hgb (13.0-17.5) gm/dL Hct (39.0-53.0) % Plt Count (150-450) k/uL Neutrophils # (1.3-7.7) k/uL Lymphocytes # (1.0-4.8) k/uL D-Dimer 7.44 H (<0.60) mg/L FEU Carbon Dioxide 20 L (22-30) mmol/L BUN 35 H (9-20) mg/dL Glucose 162 H (74-99) mg/dL POC Glucose (mg/dL) 169 H (70-110) mg/dL Calcium 8.3 L (8.4-10.2) mg/dL Magnesium 1.4 L (1.6-2.3) mg/dL Iron (65-175) ug/dL TIBC (228-460) ug/dL Transferrin (204.0-354.0) mg/dL Ferritin (22.0-322.0) ng/mL Lactate Dehydrogenase 821 H (313-618) U/L C-Reactive Protein 5.5 H (<1.0) mg/dL Total Protein 6.0 L (6.3-8.2) g/dL Albumin 2.7 L (3.5-5.0) g/dL Microbiology - Last 24 Hours (Table) 12/04/21 08:59 Blood Culture - Preliminary Blood No Growth after 24 hours 12/01/21 16:54 Blood Culture Gram Stain - Final Blood Blood Culture - Final Staphylococcus aureus 12/01/21 17:10 Blood Culture Gram Stain - Final Blood Blood Culture - Final Staphylococcus aureus 12/03/21 05:58 Blood Culture Gram Stain - Preliminary Blood Assessment and Plan Assessment: 1. Acute kidney injury mostly prerenal secondary to hypotension, ACEi, NSAIDs, improved with IV hydration. Creatinine was 3.15 on admission and is 0.8 today. Creatinine in September 2020 was near 1. No hydronephrosis noted on kidney ultrasound. 2. Metabolic acidosis secondary to acute kidney injury and IV fluids. 3. Benign hypertension. Stable. 4. Acute hypoxic respiratory failure secondary to COPD exacerbation and covid pneumonia. 5. Anemia. rule out iron deficiency. Plan: Decrease IV fluids Continue to encourage increase oral intake Okay to resume MARIAJOSE inhibitor's if blood pressure remains elevated.
--- NOTE | 2021-12-05 13:56 | XR ---
EXAMINATION TYPE: XR chest 1V portable DATE OF EXAM: 12/05/2021 1:00 PM COMPARISON: Chest radiographs from 12/04/2021 TECHNIQUE: XR chest 1V portable Portable AP radiograph of the chest. CLINICAL INDICATION:Male, 71 years old with history of COVID, pna; FINDINGS: Lungs/Pleura: Persistent right upper and lower lobe airspace opacities superimposed on COPD. There is no evidence of pleural effusion, or pneumothorax. Pulmonary vascularity: Unremarkable. Heart/mediastinum: Cardiomediastinal silhouette is unremarkable. Atherosclerotic calcifications are seen in the aorta. Musculoskeletal: Degenerative changes of the shoulder joints. IMPRESSION: Similar multifocal airspace opacities.
[2021-12-05] MEDS ORDERED: Magnesium Replacement Protocol 1 EACH MISC MISCELLANE PRN (15:36)
[2021-12-05] MEDS: MAGNESIUM SULFATE-D5W PMX 1 GM in DEXTROSE/WATER 1 100ML.BAG IVPB SCH ×3 (15:44→17:57)
[2021-12-05 16:59] LABS: Glucose,Whole Blood 210 mg/dL (70-110)
--- NOTE | 2021-12-05 17:50 | P.PN ---
Subjective Progress Note Date: 12/05/21 Vincenzo is a 71-year-old patient well known to my practice. He indicates she's been having increased shortness of breath over the past several weeks a month. He indicates he had COVID-19 pneumonia several months ago. It since recovered indicates. He is a known former heroin addict and was on deep morphi ne/amoxicillin up until several months ago when he decided to discontinue himself. He is also known alcoholic and frequently drinks 5-6 beers per day. EKG is not him back to using and it was a money issue for him. He is having a great deal difficulty speaking and shortness of breath. He also indicates he significantly constipated. ER finding showed an dyspneic and hypercapnic needing 15 L oxygen on a nonrebreather. He is since transitioned to high flow nasal cannula. Currently he is improving but still having trouble speaking. He is afebrile, heart rate remains borderline tachycardic, respiratory rate is improved now and blood pressure control. Currently is at 91% on 15 L of O2. This morning laboratory studies are pending. Cultures are reported as positive for gram-positive cocci in clusters.. He has received Zosyn and azithromycin the emergency room. Addendum: Rapid, test is positive 12/03/2021: Patient is slightly improved today. He remains on high flow nasal cannula at 15 mL/m. His pulse oximetry is 97%. It has been stable. Blood pressure heart rate rest her rate under control. He remains afebrile. Labs today show hemoglobin 8.5. Left shift was noted with the absolute neutrophil count of 8.3. PT/INR normal. PTT is elevated 3.4 fibrinogen of 748 and d-dimer 4.63. Chemistries now show BUN of 52 and creatinine 1.3. Magnesium is 1.7. CRP is 18.6. BNP was 5780. Pro-calcitonin was elevated at 0.37 Blood culture show presumptive staph aureus, penicillin susceptible. He is now currently on further positive blood cultures, pneumonia. He is anticoagulated with Lovenox. He is on Symbicort and albuterol, for breathing, he remains on Solu-Medrol, sodium bicarbonate, sailing, coated cocktail vitamin C and zinc, she will protocol, hydralazine for blood pressure and Colace was constipation. 12/04/2021 maintained on IV antibiotics as per infectious disease. Continues on covid regimen. Maintaining O2 sats in the high 90s on 15 L high flow nasal cannula. Afebrile, WBC 14.1. Renal function improving, creatinine down to 1.18, BUN 42, bicarbonate 13. Denies chest pain, palpitations or increased shortness of breath. 12/05/2021 chest x-ray of yesterday reporting progression of airspace disease .continues on Covid cocktail, ceftriaxone, IV steroids. Oxygen weaned down to 10 L high flow nasal cannula, maintaining O2 sats in the 90s. Minimal activity, reports weakness. Consumed 50% of meals, tolerating well, no nausea, vomiting. Positive diarrhea. Blood sugars controlled. Echo reporting suboptimal study, grossly LV function appears normal. proBNP 7340, INR 1.1, fibrinogen 4:30, d- dimer decreased ,7.44, ferritin 1533, LDH 585, CRP 8, pro-calcitonin 0.37. Renal function improving.Afebrile. Objective - Vital Signs Vital signs: Vital Signs Temp 97.8 F 12/05/21 08:45 Pulse 104 H 12/05/21 08:45 Resp 22 12/05/21 08:45 BP 132/89 12/05/21 08:45 Pulse Ox 97 12/05/21 08:45 FiO2 21 12/02/21 07:52 Intake & Output 12/04/21 12/05/21 12/05/21 18:59 06:59 18:59 Weight 74.843 kg Other: Voiding Method Urinal Bedside Commode Bedside Commode Urinal # Voids 1 1 1 # Bowel Movements 3 2 2 - Exam - Exam GENERAL: Sitting up in chair, alert and oriented 3,NAD, less hoarseness. NECK: supple, JVD LUNGS: Breath sounds coarse rhonchi with bibasilar crackles, fine expiratory wheeze, Loose congested cough HEART: Regular rate and rhythm without murmurs, rubs or gallops.S1S2 Normal ABDOMEN: Soft, nontender, normoactive bowel sounds. No guarding, no rebound. No masses appreciated. EXTREMITIES: Normal range of motion, no pitting or edema. No clubbing or cyanosis. NEUROLOGICAL: Cranial nerves II through XII grossly intact. Normal speech, normal gait. SKIN: Warm, Dry, normal turgor, no rashes. Microbiology 12/04/21 08:59 Blood Blood Culture - Preliminary No Growth after 24 hours 12/01/21 16:54 Blood Blood Culture Gram Stain - Final 12/01/21 16:54 Blood Blood Culture - Final Staphylococcus aureus 12/01/21 17:10 Blood Blood Culture Gram Stain - Final 12/01/21 17:10 Blood Blood Culture - Final Staphylococcus aureus 12/03/21 05:58 Blood Blood Culture Gram Stain - Preliminary 12/03/21 05:58 Blood Blood Culture - Final 12/01/21 17:10 Blood Blood Culture - Final 12/01/21 16:54 Blood Blood Culture - Final - Labs CBC & Chem 7: 12/05/21 09:17 12/05/21 09:17 Labs: Abnormal Lab Results - Last 24 Hours (Table) 12/03/21 12/04/21 12/04/21 Range/Units 05:58 08:59 11:55 WBC (3.8-10.6) k/uL RBC (4.30-5.90) m/uL Hgb (13.0-17.5) gm/dL Hct (39.0-53.0) % Plt Count (150-450) k/uL Neutrophils # (1.3-7.7) k/uL Lymphocytes # (1.0-4.8) k/uL D-Dimer (<0.60) mg/L FEU POC Glucose (mg/dL) 212 H (70-110) mg/dL Iron 29 L (65-175) ug/dL TIBC 144 L (228-460) ug/dL Transferrin 103.0 L (204.0-354.0) mg/dL Ferritin 1533.0 H (22.0-322.0) ng/mL 12/04/21 12/04/21 12/05/21 Range/Units 16:54 20:22 06:50 WBC (3.8-10.6) k/uL RBC (4.30-5.90) m/uL Hgb (13.0-17.5) gm/dL Hct (39.0-53.0) % Plt Count (150-450) k/uL Neutrophils # (1.3-7.7) k/uL Lymphocytes # (1.0-4.8) k/uL D-Dimer (<0.60) mg/L FEU POC Glucose (mg/dL) 131 H 201 H 127 H (70-110) mg/dL Iron (65-175) ug/dL TIBC (228-460) ug/dL Transferrin (204.0-354.0) mg/dL Ferritin (22.0-322.0) ng/mL 12/05/21 12/05/21 Range/Units 09:17 09:17 WBC 13.0 H (3.8-10.6) k/uL RBC 3.06 L (4.30-5.90) m/uL Hgb 9.4 L (13.0-17.5) gm/dL Hct 29.8 L (39.0-53.0) % Plt Count 630 H (150-450) k/uL Neutrophils # 12.0 H (1.3-7.7) k/uL Lymphocytes # 0.3 L (1.0-4.8) k/uL D-Dimer 7.44 H (<0.60) mg/L FEU POC Glucose (mg/dL) (70-110) mg/dL Iron (65-175) ug/dL TIBC (228-460) ug/dL Transferrin (204.0-354.0) mg/dL Ferritin (22.0-322.0) ng/mL Microbiology - Last 24 Hours (Table) 12/01/21 16:54 Blood Culture Gram Stain - Final Blood Blood Culture - Final Staphylococcus aureus 12/01/21 17:10 Blood Culture Gram Stain - Final Blood Blood Culture - Final Staphylococcus aureus 12/03/21 05:58 Blood Culture Gram Stain - Preliminary Blood Assessment and Plan Assessment: (1) Sepsis Current Visit: Yes Status: Acute Code(s): A41.9 - SEPSIS, UNSPECIFIED ORGANISM SNOMED Code(s): 40811014 (2) Pneumonia due to COVID-19 virus Current Visit: Yes Status: Acute Code(s): U07.1 - COVID-19; J12.82 - PNEUMONIA DUE TO CORONAVIRUS DISEASE 2019 SNOMED Code(s): 053312314149742635 (3) Bacteremia, MSSA. (3) Hypoxia Current Visit: Yes Status: Acute Code(s): R09.02 - HYPOXEMIA SNOMED Code(s): 414328243 (4) Alcohol abuse Current Visit: No Status: Acute Code(s): F10.10 - ALCOHOL ABUSE, UNCOMPLICATED SNOMED Code(s): 30942104 (5) Constipation Current Visit: No Status: Acute Code(s): K59.00 - CONSTIPATION, UNSPECIFIED SNOMED Code(s): 90657008 (6) Essential (primary) hypertension Current Visit: No Status: Acute Code(s): I10 - ESSENTIAL (PRIMARY) HYPERTENSION SNOMED Code(s): 74163819 (7) History of opioid abuse Current Visit: No Status: Acute Code(s): F11.11 - OPIOID ABUSE, IN REMISSION SNOMED Code(s): 423364903 (8) Mixed hyperlipidemia Current Visit: No Status: Acute Code(s): E78.2 - MIXED HYPERLIPIDEMIA SNOMED Code(s): 449189436 (9) Tobacco abuse Current Visit: No Status: Acute Code(s): Z72.0 - TOBACCO USE SNOMED Code(s): 070623814 (10 history of hepatitis C Plan: Continue on current medication regime ,monitoring and symptomatic treatment. Wean down O2 as tolerated. Preliminary repeat blood cultures in progress. Antibiotics as per ID. Covid Cocktail. Repeat chest x-ray pending. The impression and plan of care has been dictated as directed. : I performed a history and examination of this patient, discussed the same with the dictator. I agree with the dictator's note ,documented as a scribe. Any additional findings or plans will be noted.
[2021-12-05 20:02] LABS: Glucose,Whole Blood 204 mg/dL (70-110)
[2021-12-05] MEDS: ATORVASTATIN 80 MG TAB PO SCH (21:07)
[2021-12-06] MEDS: methylPREDNISolone SOD SUCCI 125 MG/2 ML VIAL IV SCH ×5 (00:39→23:02)
[2021-12-06 06:19] LABS: Glucose,Whole Blood 130 mg/dL (70-110)
[2021-12-06] MEDS: INSULIN ASPART (NovoLOG) 100 UNIT/ML VIAL SQ SCH ×4 (06:52→22:32)
[2021-12-06] MEDS: PANTOPRAZOLE 40 MG TABLET PO SCH (07:00)
[2021-12-06] MEDS: carvediloL 6.25 MG TAB PO SCH ×2 (07:00→18:35)
[2021-12-06] MEDS: THIAMINE 100 MG TAB PO SCH ×2 (07:00→18:35)
[2021-12-06] MEDS: cloNIDine HCL 0.2 MG TAB PO SCH ×3 (08:19→20:04)
[2021-12-06] MEDS: ASCORBIC ACID 500 MG TAB PO SCH ×2 (08:19→20:04)
[2021-12-06] MEDS: CLOPIDOGREL 75 MG TAB PO SCH (08:20)
[2021-12-06] MEDS: ISOSORBIDE MONONITRATE ER 30 MG TAB.ER.24H PO SCH (08:20)
[2021-12-06] MEDS: LORATADINE 10 MG TAB PO SCH (08:20)
[2021-12-06] MEDS: hydrALAZINE HCL 25 MG TAB PO SCH ×3 (08:21→20:04)
[2021-12-06] MEDS: ENOXAPARIN 40 MG/0.4 ML SYRINGE SQ SCH (08:21)
[2021-12-06] MEDS: SODIUM BICARBONATE TAB 650 MG TAB PO SCH ×2 (08:21→20:04)
[2021-12-06] MEDS: CHOLECALCIFEROL 125 MCG (5000 IU) TABLET PO SCH (08:21)
[2021-12-06] MEDS: ZINC SULFATE 220 MG CAP PO SCH (08:21)
[2021-12-06] MEDS: ACETAMINOPHEN TAB 325 MG TAB PO PRN (08:26)
[2021-12-06] MEDS: SODIUM CHLORIDE 0.9% 1,000 ML IV SCH (08:28)
[2021-12-06] MEDS: DOCUSATE 100 MG CAP PO SCH ×2 (08:30→19:59)
[2021-12-06] MEDS: ALBUTEROL HFA INHALER INHALATION SCH ×4 (08:38→20:00)
[2021-12-06] MEDS: SYMBICORT 160-4.5 MCG INHALER INHALATION SCH ×2 (08:38→20:01)
[2021-12-06 09:20] LABS: African American GFR (CKD) >90 (>60 ml/min/1.73 sqM); Anion Gap 11 mmol/L; Blood Urea Nitrogen 27 mg/dL (9-20); Calcium 7.9 mg/dL (8.4-10.2); Carbon Dioxide 20 mmol/L (22-30); Chloride 106 mmol/L (98-107); Glucose 137 mg/dL (74-99); Magnesium 1.8 mg/dL (1.6-2.3); Non-African American GFR(CKD) >90 (>60 ml/min/1.73 sqM); Potassium 4.2 mmol/L (3.5-5.1); Sodium 137 mmol/L (137-145)
[2021-12-06] MEDS ORDERED: DIPHENOX-ATROP 2.5-0.025 MG 1 EACH TAB PO PRN (10:13)
[2021-12-06] MEDS ORDERED: DIPHENOX-ATROP 2.5-0.025 MG 1 EACH TAB PO STA (10:13)
[2021-12-06 11:24] LABS: Glucose,Whole Blood 144 mg/dL (70-110)
--- NOTE | 2021-12-06 13:03 | P.PN ---
Subjective Progress Note Date: 12/06/21 71-year-old male who presents to the emergency department, on December 01, complaining of shortness of breath. The patient states that he's been having shortness of breath for quite some time. In addition, he complained of tightness, chest congestion, cough, and phlegm production. Chest x-ray revealed a right lower lobe pneumonia. Currently, the patient's on 15 L high flow oxygen. He is getting saline at 130 mL an hour. His primary care provider is Dr. Issa. He apparently has a previous history of heavy tobacco use. He states he does not smoke currently. Other medical history includes angina pectoris, CVA, hyperlipidemia, hypertension, and previous heart catheterization with stent, for CAD. In addition, the patient complains of hoarseness, which she states has gotten worse. Labs include a white count of 9.9, hemoglobin 10, hematocrit 30.1, and a platelet count of 608,000. Blood gases, on 60% oxygen show pO2 64, pCO2 34, and a pH of 7.38. Sodium 129, potassium 5.5, chlorides 92, CO2 17, anion gap 20, UA 84, creatinine 3.15. Testing for coronavirus was positive. Chest x-ray shows some patchy infiltrates in the right lower lobe, and diffuse interstitial changes throughout. Progress note dated 12/03/2021. 71-year-old male seen yesterday in consultation. He was initially seen in the emergency department, on December 01, complaining of shortness of breath. The patient's chest x-ray did reveal a right lower lobe pneumonia. Currently, the patient is on 15 L high flow oxygen. He is getting saline at 130 mL an hour. Blood cultures were apparently positive for Staphylococcus aureus. The patient does feel better today he tells me. White count 9.2, hemoglobin 8.5, hematocrit 27, and platelet count 551,000. The patient's d-dimer was 4.63. PTT was 30.4. Sodium 138, potassium 4.5, chlorides 108, CO2 18, anion gap 12, BUN 52, and creatinine 1.35. The patient's N-terminal proBNP was 5780. Pro-calcitonin level was 0.37. Blood cultures are positive Staphylococcus aureus. On today's evaluation of, of 12/04/2021, I'm seeing the patient for a follow-up. The patient is on high flow oxygen at 15 L per minute nasal cannula. The patient was hospitalized with covid 19 infection with a positive blood culture that do not to be MSSA. Noted the patient was vaccinated 2 for COVID and he has not received any boosters. The patient's chest x-ray showed bilateral pneumonia with increased consolidation of the right lung base. Accordingly, the patient was covered with broad-spectrum antibiotics and the patient is currently on IV cefazolin. The patient is also on steroids. Continues to have cough and congestion. No pleurisy. No hemoptysis. The patient remains on 15 L of oxygen by nasal cannula. His breathing is labored. Congested cough and is unable to bring up much of sputum. The patient was positive COVID 19 and the same time the patient had a possible culture for MSSA. The patient has a white cell count of 14.1 and the patient remains on IV cefazolin 2 g every 8 hours. The patient is also on IV Solu-Medrol 60 mg every 6 hours. He is a chronic smoker and he also has a component of COPD. He remains on anticoagulation with Lovenox for DVT prophylaxis. His d-dimer was at 8.55 and this white cell count of 14.1 with a hemoglobin of 9.2. Rest of the coagulation profile was essentially within normal limits. His fibrinogen level was high as 599. BNP is a 42 with a creatinine of 1.1. His proBNP level was still elevated at 7340. LFTs are adequate at this point in time. No recent chest x-ray. He is afebrile. Inflammatory markers from the time of admission showed a pro-calcitonin level of 0.37. His LDH level was 585. 12/15/2021, the patient is being seen for a follow-up. The patient is currently on 10 L of O2 nasal cannula. He is still having shortness of breath cough and congestion. He is lethargic. Is able to communicate however he is quite weak. Note that the patient was on 15 L of O2 yesterday and I weaned him down to 10 L and is able to tolerate and maintain a pulse ox above 90%. Nevertheless, repeat chest x-ray showed progression in the airspace disease and this is based on the chest x-ray was done yesterday. He remains on IV cefazolin 2 g every 8 hours regarding staph aureus septicemia, MSSA and the patient is also on IV Solu- Medrol. D-dimer is slightly lower at 7.44. His LDH level is also low in the range of 585. The proBNP level is elevated at 7340. Echocardiogram was done and it was a poor window. For the most part the LV function was essentially within normal limits. The creatinine is down to 1.1 from yesterday. He is afebrile. He is hemodynamically stable. His activity is very limited. His oral intake is fair 12/06/2021, the patient is on 10 L by nasal cannula and pulse oximeter high 90s.. The patient is feeling well. No specific complaints. Chest x-ray shows stable right upper and right lower lobe consolidation. Remains on IV cefazolin. Remains on IV Solu-Medrol 60 milligrams IV Every 6 hours. Remains on Lovenox 40 mg subcu for DVT prophylaxis. The patient has a sodium level of 137 with a potassium level of 4.2, BUN is at 27 with a creatinine of 0.6 and magnesium level of 1.8. No significant changes condition. Is gradually improving. Echocardiogram was essentially poor window and for the most part LV function was essentially within normal limits. He is afebrile. He is hemodynamically stable at this point in time. No aspiration. Objective - Vital Signs Vital signs: Vital Signs Temp 97.6 F 12/06/21 12:00 Pulse 101 H 12/06/21 12:00 Resp 12/06/21 12:00 BP 151/72 12/06/21 12:00 Pulse Ox 98 12/06/21 12:00 FiO2 21 12/02/21 07:52 Intake & Output 12/05/21 12/06/21 12/06/21 18:59 06:59 18:59 Intake Total 275 480 Output Total 1 Balance 274 480 Intake: Intake, IV Titration 275 Amount Sodium Chloride 0.9% 1, 275 000 ml @ 50 mls/hr IV . Q20H [facility] Rx#:[id number] Oral 480 Output: Urine 1 Other: Voiding Method Bedside Commode Urinal # Voids 3 1 # Bowel Movements 2 1 - Exam Mild to moderate respiratory distress, oriented, currently on 10 L high flow O2. No audible wheezing, or use of accessory muscles. HEENT examination is grossly unremarkable. Neck supple. Full range of motion. No adenopathy thyromegaly or neck vein distention. Cardiovascular examination reveals regular rhythm rate. S1-S2 normal. No S3 or S4. No discernible murmur noted. Heart sounds are distant. Heart rate 90 bpm. Lungs reveal coarse bilateral rhonchi. Crackles are noted. No wheezes. Breath sounds equal bilaterally. Saturations are 96% on 15 L high flow oxygen. Abdomen soft bowel sounds are heard. No masses or tenderness. Extremities are intact. No cyanosis clubbing or edema. Skin is without rash or lesion. Neurologic examination is brief but nonfocal.x-ray - Labs CBC & Chem 7: 12/05/21 09:17 12/06/21 08:04 Labs: Abnormal Lab Results - Last 24 Hours (Table) 12/05/21 12/05/21 12/05/21 Range/Units 09:17 09:17 16:55 Carbon Dioxide (22-30) mmol/L BUN (9-20) mg/dL Glucose (74-99) mg/dL POC Glucose (mg/dL) 210 H (70-110) mg/dL Calcium (8.4-10.2) mg/dL Ferritin 1391.0 H (22.0-322.0) ng/mL Procalcitonin 0.12 H (0.02-0.09) ng/mL 12/05/21 12/06/21 12/06/21 Range/Units 19:59 06:18 08:04 Carbon Dioxide 20 L (22-30) mmol/L BUN 27 H (9-20) mg/dL Glucose 137 H (74-99) mg/dL POC Glucose (mg/dL) 204 H 130 H (70-110) mg/dL Calcium 7.9 L (8.4-10.2) mg/dL Ferritin (22.0-322.0) ng/mL Procalcitonin (0.02-0.09) ng/mL 12/06/21 Range/Units 11:22 Carbon Dioxide (22-30) mmol/L BUN (9-20) mg/dL Glucose (74-99) mg/dL POC Glucose (mg/dL) 144 H (70-110) mg/dL Calcium (8.4-10.2) mg/dL Ferritin (22.0-322.0) ng/mL Procalcitonin (0.02-0.09) ng/mL Microbiology - Last 24 Hours (Table) 12/04/21 08:59 Blood Culture - Preliminary Blood No Growth after 48 hours Assessment and Plan Plan: Acute hypoxemic respiratory failure, multifactorial, secondary to COPD exacerbation, patchy pneumonia right lower lobe, and possible coronavirus associated pneumonia. Acute COVID 19 pneumonia with interval worsening in the airspace disease in the right upper lobe and the right lower lobe. Left lung remains relatively clear. Bilateral pneumonia with some interval progression of the airspace disease, consider superimposed bacterial pneumonia. The patient is currently on 10 L of O2 nasal cannula. Staphylococcus aureus bacteremia/sepsis History of COPD, secondary to heavy tobacco use. Acute kidney injury, improving, renal function is normalized. Patient remains on normal saline at the rate of 50 mL an hour. History of angina pectoris, and previous heart catheterization with stent, for CAD. History of CVA. History of hyperlipidemia. History of hypertension. History of hepatitis C. Previous history of heavy tobacco use. Plan: Weaned down the FiO2 to 8 L and continue wean down FiO2 as long as the pulse ox remains above 90% Clinically improving Recheck pro calcitonin level from yesterday showed that the level was improving it was down to 0.12 Repeat chest x-ray shows stable pulmonary consolidation of the right upper lobe and right lower lobe Continue IV cefazolin Continue IV steroids and the patient remains on high-dose steroids Continue Lovenox for DVT prophylaxis Echo Was done and the patient is a preserved LV function. The patient has an elevated pro BNP level. We'll continue to follow.
--- NOTE | 2021-12-06 13:29 | P.PN ---
Subjective Progress Note Date: 12/06/21 Vincenzo is a 71-year-old patient well known to my practice. He indicates she's been having increased shortness of breath over the past several weeks a month. He indicates he had COVID-19 pneumonia several months ago. It since recovered indicates. He is a known former heroin addict and was on deep morphi ne/amoxicillin up until several months ago when he decided to discontinue himself. He is also known alcoholic and frequently drinks 5-6 beers per day. EKG is not him back to using and it was a money issue for him. He is having a great deal difficulty speaking and shortness of breath. He also indicates he significantly constipated. ER finding showed an dyspneic and hypercapnic needing 15 L oxygen on a nonrebreather. He is since transitioned to high flow nasal cannula. Currently he is improving but still having trouble speaking. He is afebrile, heart rate remains borderline tachycardic, respiratory rate is improved now and blood pressure control. Currently is at 91% on 15 L of O2. This morning laboratory studies are pending. Cultures are reported as positive for gram-positive cocci in clusters.. He has received Zosyn and azithromycin the emergency room. Addendum: Rapid, test is positive 12/03/2021: Patient is slightly improved today. He remains on high flow nasal cannula at 15 mL/m. His pulse oximetry is 97%. It has been stable. Blood pressure heart rate rest her rate under control. He remains afebrile. Labs today show hemoglobin 8.5. Left shift was noted with the absolute neutrophil count of 8.3. PT/INR normal. PTT is elevated 3.4 fibrinogen of 748 and d-dimer 4.63. Chemistries now show BUN of 52 and creatinine 1.3. Magnesium is 1.7. CRP is 18.6. BNP was 5780. Pro-calcitonin was elevated at 0.37 Blood culture show presumptive staph aureus, penicillin susceptible. He is now currently on further positive blood cultures, pneumonia. He is anticoagulated with Lovenox. He is on Symbicort and albuterol, for breathing, he remains on Solu-Medrol, sodium bicarbonate, sailing, coated cocktail vitamin C and zinc, she will protocol, hydralazine for blood pressure and Colace was constipation. 12/04/2021 maintained on IV antibiotics as per infectious disease. Continues on covid regimen. Maintaining O2 sats in the high 90s on 15 L high flow nasal cannula. Afebrile, WBC 14.1. Renal function improving, creatinine down to 1.18, BUN 42, bicarbonate 13. Denies chest pain, palpitations or increased shortness of breath. 12/05/2021 chest x-ray of yesterday reporting progression of airspace disease .continues on Covid cocktail, ceftriaxone, IV steroids. Oxygen weaned down to 10 L high flow nasal cannula, maintaining O2 sats in the 90s. Minimal activity, reports weakness. Consumed 50% of meals, tolerating well, no nausea, vomiting. Positive diarrhea. Blood sugars controlled. Echo reporting suboptimal study, grossly LV function appears normal. proBNP 7340, INR 1.1, fibrinogen 4:30, d- dimer decreased ,7.44, ferritin 1533, LDH 585, CRP 8, pro-calcitonin 0.37. Renal function improving.Afebrile. 12/06/2021 improving ,oxygen weaned further down to 8 L high flow nasal cannula, maintaining O2 sats in the 90s. Repeat chest x-ray of yesterday reported similar multifocal airspace opacities.Complains of chronic back pain, unrelieved by Tylenol. Reports multiple episodes of diarrhea. Afebrile. Renal function continues improving, BUN decreased to 27, creatinine 0.68. Magnesium 1.8. Repeat preliminary blood cultures of 12/03 reporting gram-positive cocci in groups, another gram-positive cocci in clusters. Preliminary blood culture c ollected on 919 reported no growth after 48 hours. Afebrile. Objective - Vital Signs Vital signs: Vital Signs Temp 97.6 F 12/06/21 12:00 Pulse 101 H 12/06/21 12:00 Resp 22 12/06/21 12:00 BP 151/72 12/06/21 12:00 Pulse Ox 98 12/06/21 12:00 FiO2 21 12/02/21 07:52 Intake & Output 12/05/21 12/06/21 12/06/21 18:59 06:59 18:59 Intake Total 275 480 Output Total 1 Balance 274 480 Intake: Intake, IV Titration 275 Amount Sodium Chloride 0.9% 1, 275 000 ml @ 50 mls/hr IV . Q20H [facility] Rx#:[id number] Oral 480 Output: Urine 1 Other: Voiding Method Bedside Commode Urinal # Voids 3 1 # Bowel Movements 2 1 - Exam - Exam GENERAL: Sitting up in bed, alert and oriented 3,NAD NECK: supple, no JVD LUNGS: Breath sounds coarse rhonchi with bibasilar crackles. HEART: Regular rate and rhythm without murmurs, rubs or gallops.S1S2 Normal ABDOMEN: Soft, nontender, normoactive bowel sounds. No guarding, no rebound. No masses appreciated. EXTREMITIES: Normal range of motion, no pitting or edema. No clubbing or cyanosis. NEUROLOGICAL: Cranial nerves II through XII grossly intact. Normal speech, normal gait. SKIN: Warm, Dry, normal turgor, no rashes. - Labs CBC & Chem 7: 12/05/21 09:17 12/06/21 08:04 Labs: Abnormal Lab Results - Last 24 Hours (Table) 12/05/21 12/05/21 12/05/21 Range/Units 09: 09:17 16:55 Carbon Dioxide (22-30) mmol/L BUN (9-20) mg/dL Glucose (74-99) mg/dL POC Glucose (mg/dL) 210 H (70-110) mg/dL Calcium (8.4-10.2) mg/dL Ferritin 1391.0 H (22.0-322.0) ng/mL Procalcitonin 0.12 H (0.02-0.09) ng/mL 12/05/21 12/06/21 12/06/21 Range/Units 19:59 06:18 08:04 Carbon Dioxide 20 L (22-30) mmol/L BUN 27 H (9-20) mg/dL Glucose 137 H (74-99) mg/dL POC Glucose (mg/dL) 204 H 130 H (70-110) mg/dL Calcium 7.9 L (8.4-10.2) mg/dL Ferritin (22.0-322.0) ng/mL Procalcitonin (0.02-0.09) ng/mL 12/06/21 Range/Units 11:22 Carbon Dioxide (22-30) mmol/L BUN (9-20) mg/dL Glucose (74-99) mg/dL POC Glucose (mg/dL) 144 H (70-110) mg/dL Calcium (8.4-10.2) mg/dL Ferritin (22.0-322.0) ng/mL Procalcitonin (0.02-0.09) ng/mL Microbiology - Last 24 Hours (Table) 12/04/21 08:59 Blood Culture - Preliminary Blood No Growth after 48 hours Assessment and Plan Assessment: (1) Sepsis Current Visit: Yes Status: Acute Code(s): A41.9 - SEPSIS, UNSPECIFIED ORGANISM SNOMED Code(s): 20680872 (2) Pneumonia due to COVID-19 virus Current Visit: Yes Status: Acute Code(s): U07.1 - COVID-19; J12.82 - PNEUMONIA DUE TO CORONAVIRUS DISEASE 2019 SNOMED Code(s): 015647456903665535 (3) Bacteremia, MSSA. (3) Hypoxia Current Visit: Yes Status: Acute Code(s): R09.02 - HYPOXEMIA SNOMED Code(s): 833772898 (4) Alcohol abuse Current Visit: No Status: Acute Code(s): F10.10 - ALCOHOL ABUSE, UNCOMPLICATED SNOMED Code(s): 23412502 (5) Constipation Current Visit: No Status: Acute Code(s): K59.00 - CONSTIPATION, UNSPECIFIED SNOMED Code(s): 21008595 (6) Essential (primary) hypertension Current Visit: No Status: Acute Code(s): I10 - ESSENTIAL (PRIMARY) HYPERTENSION SNOMED Code(s): 20064469 (7) History of opioid abuse Current Visit: No Status: Acute Code(s): F11.11 - OPIOID ABUSE, IN REMISSION SNOMED Code(s): 168876823 (8) Mixed hyperlipidemia Current Visit: No Status: Acute Code(s): E78.2 - MIXED HYPERLIPIDEMIA SNOMED Code(s): 434514484 (9) Tobacco abuse Current Visit: No Status: Acute Code(s): Z72.0 - TOBACCO USE SNOMED Code(s): 326261295 (10 history of hepatitis C Plan: Continue on current medication regime ,monitoring and symptomatic treatment. Continue wean down O2 as per parameters. Preliminary repeat blood cultures in progress. Antibiotics as per ID. Covid Cocktail. Increase ambulation as tolerated. The impression and plan of care has been dictated as directed. : I performed a history and examination of this patient, discussed the same with the dictator. I agree with the dictator's note ,documented as a scribe. Any additional findings or plans will be noted.
--- NOTE | 2021-12-06 14:33 | P.PN ---
Subjective Progress Note Date: 12/04/21 Principal diagnosis: Bacteremia Patient is a 71-year male with multiple comorbidities presented to hospital with increased shortness with cough patient did have evidence of a bilateral infiltrate and some consolidative changes to the right lower lobe positive COVID test and subsequent did have a positive blood culture finalized with MSSA. On today's evaluation that is 12/04/2021 , The patient remains to be afebrile, the patient is still requiring high flow nasal cannula oxygen currently at 15 L patient denies having any chest pain he could not have a cough not bringing up any sputum no vomiting no abdominal pain or diarrhea Objective - Vital Signs Vital signs: Vital Signs Temp 97.6 F 12/04/21 08:57 Pulse 99 12/04/21 08:57 Resp 20 12/04/21 08:57 BP 167/79 12/04/21 08:57 Pulse Ox 99 12/04/21 08:57 FiO2 21 12/02/21 07:52 Intake & Output 12/03/21 12/04/21 12/04/21 18:59 06:59 18:59 Intake Total 180 1150 Output Total 900 Balance 180 250 Intake: Intake, IV Titration 950 Amount Sodium Chloride 0.9% 1, 900 000 ml @ 75 mls/hr IV . [id number] [facility] Rx#:[id number] ceFAZolin 2 gm In Sodium 50 Chloride 0.9% 50 ml @ 100 mls/hr IVPB Q8HR [facility] Rx# :[id number] Oral 180 200 Output: Urine 900 Other: Voiding Method Urinal Urinal Urinal # Voids 0 # Bowel Movements 2 - Exam GENERAL DESCRIPTION: Elderly male lying in bed, no distress. No tachypnea or accessory muscle of respiration use. LUNGS: Unlabored breathing. Coarse breath sound at base bilaterally HEART: S1, S2, regular rate and rhythm. No loud murmur ABDOMEN: Soft, no tenderness , guarding or rigidity, no organomegaly EXTREMITIES: No edema of feet. - Labs CBC & Chem 7: 12/05/21 09:17 12/06/21 08:04 Labs: Abnormal Lab Results - Last 24 Hours (Table) 12/03/21 12/03/21 12/03/21 Range/Units 05:58 11:29 16:30 WBC (3.8-10.6) k/uL RBC (4.30-5.90) m/uL Hgb (13.0-17.5) gm/dL Hct (39.0-53.0) % Plt Count (150-450) k/uL Neutrophils # (1.3-7.7) k/uL Lymphocytes # (1.0-4.8) k/uL Fibrinogen (200-500) mg/dL D-Dimer (<0.60) mg/L FEU Carbon Dioxide (22-30) mmol/L BUN (9-20) mg/dL Glucose (74-99) mg/dL POC Glucose (mg/dL) 156 H 163 H (70-110) mg/dL Ferritin 1712.0 H (22.0-322.0) ng/mL AST (17-59) U/L C-Reactive Protein (<1.0) mg/dL Total Protein (6.3-8.2) g/dL Albumin (3.5-5.0) g/dL 12/03/21 12/04/21 12/04/21 Range/Units 19:41 06:07 08:59 WBC 14.1 H (3.8-10.6) k/uL RBC 2.99 L (4.30-5.90) m/uL Hgb 9.2 L (13.0-17.5) gm/dL Hct 29.4 L (39.0-53.0) % Plt Count 624 H (150-450) k/uL Neutrophils # 13.2 H (1.3-7.7) k/uL Lymphocytes # 0.3 L (1.0-4.8) k/uL Fibrinogen (200-500) mg/dL D-Dimer (<0.60) mg/L FEU Carbon Dioxide (22-30) mmol/L BUN (9-20) mg/dL Glucose (74-99) mg/dL POC Glucose (mg/dL) 215 H 132 H (70-110) mg/dL Ferritin (22.0-322.0) ng/mL AST (17-59) U/L C-Reactive Protein (<1.0) mg/dL Total Protein (6.3-8.2) g/dL Albumin (3.5-5.0) g/dL 12/04/21 12/04/21 Range/Units 08:59 08:59 WBC (3.8-10.6) k/uL RBC (4.30-5.90) m/uL Hgb (13.0-17.5) gm/dL Hct (39.0-53.0) % Plt Count (150-450) k/uL Neutrophils # (1.3-7.7) k/uL Lymphocytes # (1.0-4.8) k/uL Fibrinogen 599 H (200-500) mg/dL D-Dimer 8.55 H (<0.60) mg/L FEU Carbon Dioxide 21 L (22-30) mmol/L BUN 42 H (9-20) mg/dL Glucose 192 H (74-99) mg/dL POC Glucose (mg/dL) (70-110) mg/dL Ferritin (22.0-322.0) ng/mL AST 65 H (17-59) U/L C-Reactive Protein 8.0 H (<1.0) mg/dL Total Protein 5.9 L (6.3-8.2) g/dL Albumin 2.7 L (3.5-5.0) g/dL Microbiology - Last 24 Hours (Table) 12/03/21 05:58 Blood Culture Gram Stain - Preliminary Blood 12/03/21 05:58 Blood Culture - Final Blood 12/01/21 17:10 Blood Culture Gram Stain - Preliminary Blood Blood Culture - Preliminary Presumptive Staph aureus Assessment and Plan (1) Bacteremia Current Visit: Yes Status: Acute Code(s): R78.81 - BACTEREMIA SNOMED Code(s): 2116388 (2) Pneumonia Current Visit: Yes Status: Acute Code(s): J18.9 - PNEUMONIA, UNSPECIFIED ORGANISM SNOMED Code(s): 729353836 Plan: 1patient with gram-positive bacteremia source likely right lower lobe pneumonia in this patient with a borderline kidney function and high risk of nephrotoxicity from vancomycin and daptomycin usually not indicated for pneumonia. Patient also have positive COVID test however the patient symptom has been going on for a while and he is currently out of the therapeutic window for remdesivir as more likely evidence of secondary bacterial pneumonia with bacteremia 2Patient with a positive blood culture finalized with MSSA source possible pneumonia , Patient to continue with the cefazolin 2 g every 8 hours blood cultures have been repeated document clearance of bacteremia Time with Patient: Less than 30
--- NOTE | 2021-12-06 14:36 | P.PN ---
Subjective Progress Note Date: 12/05/21 Principal diagnosis: Bacteremia Patient is a 71-year male with multiple comorbidities presented to hospital with increased shortness with cough patient did have evidence of a bilateral infiltrate and some consolidative changes to the right lower lobe positive COVID test and subsequent did have a positive blood culture finalized with MSSA.Patient did have echocardiogram done which was a poor window valves were not visualized On today's evaluation that is 12/05/2021 , The patient denies having any fever or any chills, patient is breathing slightly comfortably and is down to 10 L nasal cannula oxygen high flow patient denies any chest pain continue to have a cough not bring up any sputum no abdominal pain no diarrhea Objective - Vital Signs Vital signs: Vital Signs Temp 97.8 F 12/05/21 08:45 Pulse 104 H 12/05/21 08:45 Resp 22 12/05/21 08:45 BP 132/89 12/05/21 08:45 Pulse Ox 97 12/05/21 11:15 FiO2 21 12/02/21 07:52 Intake & Output 12/04/21 12/05/21 12/05/21 18:59 06:59 18:59 Weight 74.843 kg Other: Voiding Method Urinal Bedside Commode Bedside Commode Urinal # Voids 1 1 1 # Bowel Movements 3 2 2 - Exam GENERAL DESCRIPTION: Elderly male lying in bed, no distress. No tachypnea or accessory muscle of respiration use. LUNGS: Unlabored breathing. Coarse breath sound at base bilaterally HEART: S1, S2, regular rate and rhythm. No loud murmur ABDOMEN: Soft, no tenderness , guarding or rigidity, no organomegaly EXTREMITIES: No edema of feet. - Labs CBC & Chem 7: 12/05/21 09:17 12/06/21 08:04 Labs: Abnormal Lab Results - Last 24 Hours (Table) 12/03/21 12/04/21 12/04/21 Range/Units 05:58 08:59 11:55 WBC (3.8-10.6) k/uL RBC (4.30-5.90) m/uL Hgb (13.0-17.5) gm/dL Hct (39.0-53.0) % Plt Count (150-450) k/uL Neutrophils # (1.3-7.7) k/uL Lymphocytes # (1.0-4.8) k/uL D-Dimer (<0.60) mg/L FEU Carbon Dioxide (22-30) mmol/L BUN (9-20) mg/dL Glucose (74-99) mg/dL POC Glucose (mg/dL) 212 H (70-110) mg/dL Calcium (8.4-10.2) mg/dL Magnesium (1.6-2.3) mg/dL Iron 29 L (65-175) ug/dL TIBC 144 L (228-460) ug/dL Transferrin 103.0 L (204.0-354.0) mg/dL Ferritin 1533.0 H (22.0-322.0) ng/mL Lactate Dehydrogenase (313-618) U/L C-Reactive Protein (<1.0) mg/dL Total Protein (6.3-8.2) g/dL Albumin (3.5-5.0) g/dL 12/04/21 12/04/21 12/05/21 Range/Units 16:54 20:22 06:50 WBC (3.8-10.6) k/uL RBC (4.30-5.90) m/uL Hgb (13.0-17.5) gm/dL Hct (39.0-53.0) % Plt Count (150-450) k/uL Neutrophils # (1.3-7.7) k/uL Lymphocytes # (1.0-4.8) k/uL D-Dimer (<0.60) mg/L FEU Carbon Dioxide (22-30) mmol/L BUN (9-20) mg/dL Glucose (74-99) mg/dL POC Glucose (mg/dL) 131 H 201 H 127 H (70-110) mg/dL Calcium (8.4-10.2) mg/dL Magnesium (1.6-2.3) mg/dL Iron (65-175) ug/dL TIBC (228-460) ug/dL Transferrin (204.0-354.0) mg/dL Ferritin (22.0-322.0) ng/mL Lactate Dehydrogenase (313-618) U/L C-Reactive Protein (<1.0) mg/dL Total Protein (6.3-8.2) g/dL Albumin (3.5-5.0) g/dL 12/05/21 12/05/21 12/05/21 Range/Units 09:17 09:17 09:17 WBC 13.0 H (3.8-10.6) k/uL RBC 3.06 L (4.30-5.90) m/uL Hgb 9.4 L (13.0-17.5) gm/dL Hct 29.8 L (39.0-53.0) % Plt Count 630 H (150-450) k/uL Neutrophils # 12.0 H (1.3-7.7) k/uL Lymphocytes # 0.3 L (1.0-4.8) k/uL D-Dimer 7.44 H (<0.60) mg/L FEU Carbon Dioxide 20 L (22-30) mmol/L BUN 35 H (9-20) mg/dL Glucose 162 H (74-99) mg/dL POC Glucose (mg/dL) (70-110) mg/dL Calcium 8.3 L (8.4-10.2) mg/dL Magnesium 1.4 L (1.6-2.3) mg/dL Iron (65-175) ug/dL TIBC (228-460) ug/dL Transferrin (204.0-354.0) mg/dL Ferritin (22.0-322.0) ng/mL Lactate Dehydrogenase 821 H (313-618) U/L C-Reactive Protein 5.5 H (<1.0) mg/dL Total Protein 6.0 L (6.3-8.2) g/dL Albumin 2.7 L (3.5-5.0) g/dL Microbiology - Last 24 Hours (Table) 12/04/21 08:59 Blood Culture - Preliminary Blood No Growth after 24 hours 12/01/21 16:54 Blood Culture Gram Stain - Final Blood Blood Culture - Final Staphylococcus aureus 12/01/21 17:10 Blood Culture Gram Stain - Final Blood Blood Culture - Final Staphylococcus aureus 12/03/21 05:58 Blood Culture Gram Stain - Preliminary Blood Assessment and Plan (1) Bacteremia Current Visit: Yes Status: Acute Code(s): R78.81 - BACTEREMIA SNOMED Code(s): 0772392 (2) Pneumonia Current Visit: Yes Status: Acute Code(s): J18.9 - PNEUMONIA, UNSPECIFIED ORGANISM SNOMED Code(s): 070494398 Plan: 1patient with gram-positive bacteremia source likely right lower lobe pneumonia in this patient with a borderline kidney function and high risk of nephrotoxicity from vancomycin and daptomycin usually not indicated for pneumonia. Patient also have positive COVID test however the patient symptom has been going on for a while and he is currently out of the therapeutic window for remdesivir as more likely evidence of secondary bacterial pneumonia with bacteremia 2Patient with a positive blood culture finalized with MSSA source possible pneumonia ,Blood culture done on 12/04/2021 has been negative so far and will be monitored closely, Patient did have a echocardiogram unfortunately poor windows and did not provide enough information 3- Patient to continue with the cefazolin 2 g every 8 hours Time with Patient: Less than 30
--- NOTE | 2021-12-06 14:37 | P.PN ---
Subjective Progress Note Date: 12/06/21 Principal diagnosis: Bacteremia Patient is a 71-year male with multiple comorbidities presented to hospital with increased shortness with cough patient did have evidence of a bilateral infiltrate and some consolidative changes to the right lower lobe positive COVID test and subsequent did have a positive blood culture finalized with MSSA.Patient did have echocardiogram done which was a poor window valves were not visualized On today's evaluation that is 12/06/2021 , The patient remains to be afebrile, the patient is breathing comfortably and is down to 8 L nasal cannula oxygen high flow, the patient denies having any chest pain continue to have a cough not bring up any sputum no nausea vomiting no abdominal pain and no diarrhea Objective - Vital Signs Vital signs: Vital Signs Temp 97.6 F 12/06/21 12:00 Pulse 101 H 12/06/21 12:00 Resp 12/06/21 12:00 BP 151/72 12/06/21 12:00 Pulse Ox 98 12/06/21 12:00 FiO2 21 12/02/21 07:52 Intake & Output 12/05/21 12/06/21 12/06/21 18:59 06:59 18:59 Intake Total 275 480 Output Total 1 Balance 274 480 Intake: Intake, IV Titration 275 Amount Sodium Chloride 0.9% 1, 275 000 ml @ 50 mls/hr IV . Q20H [facility] Rx#:[id number] Oral 480 Output: Urine 1 Other: Voiding Method Bedside Commode Urinal # Voids 3 1 # Bowel Movements 2 1 - Exam GENERAL DESCRIPTION: Elderly male lying in bed, no distress. No tachypnea or accessory muscle of respiration use. LUNGS: Unlabored breathing. Coarse breath sound at base bilaterally HEART: S1, S2, regular rate and rhythm. No loud murmur ABDOMEN: Soft, no tenderness , guarding or rigidity, no organomegaly EXTREMITIES: No edema of feet. - Labs CBC & Chem 7: 12/05/21 09:17 12/06/21 08:04 Labs: Abnormal Lab Results - Last 24 Hours (Table) 12/05/21 12/05/21 12/05/21 Range/Units 09:17 09: 16:55 Carbon Dioxide (22-30) mmol/L BUN (9-20) mg/dL Glucose (74-99) mg/dL POC Glucose (mg/dL) 210 H (70-110) mg/dL Calcium (8.4-10.2) mg/dL Ferritin 1391.0 H (22.0-322.0) ng/mL Procalcitonin 0.12 H (0.02-0.09) ng/mL 12/05/21 12/06/21 12/06/21 Range/Units 19:59 06:18 08:04 Carbon Dioxide 20 L (22-30) mmol/L BUN 27 H (9-20) mg/dL Glucose 137 H (74-99) mg/dL POC Glucose (mg/dL) 204 H 130 H (70-110) mg/dL Calcium 7.9 L (8.4-10.2) mg/dL Ferritin (22.0-322.0) ng/mL Procalcitonin (0.02-0.09) ng/mL 12/06/21 Range/Units 11:22 Carbon Dioxide (22-30) mmol/L BUN (9-20) mg/dL Glucose (74-99) mg/dL POC Glucose (mg/dL) 144 H (70-110) mg/dL Calcium (8.4-10.2) mg/dL Ferritin (22.0-322.0) ng/mL Procalcitonin (0.02-0.09) ng/mL Microbiology - Last 24 Hours (Table) 12/04/21 08:59 Blood Culture - Preliminary Blood No Growth after 48 hours Assessment and Plan (1) Bacteremia Current Visit: Yes Status: Acute Code(s): R78.81 - BACTEREMIA SNOMED Code(s): 5364806 (2) Pneumonia Current Visit: Yes Status: Acute Code(s): J18.9 - PNEUMONIA, UNSPECIFIED ORGANISM SNOMED Code(s): 557900479 Plan: 1patient with gram-positive bacteremia source likely right lower lobe pneumonia in this patient with a borderline kidney function and high risk of nephrotoxicity from vancomycin and daptomycin usually not indicated for pneumonia. Patient also have positive COVID test however the patient symptom has been going on for a while and he is currently out of the therapeutic window for remdesivir as more likely evidence of secondary bacterial pneumonia with bacteremia 2Patient with a positive blood culture finalized with MSSA source possible pneumonia ,Blood culture done on 12/04/2021 has been negative so far and will be Repeated again todayely, Patient did have a echocardiogram unfortunately poor windows and did not provide enough information, May benefit from SUNNY to make sure no evidence of any Cardiac valve involvement 3- Patient to continue with the cefazolin 2 g every 8 hours Time with Patient: Less than 30
[2021-12-06] MEDS ORDERED: Magnesium Replacement Protocol 1 EACH MISC MISCELLANE PRN (15:05)
[2021-12-06 17:01] LABS: Glucose,Whole Blood 186 mg/dL (70-110)
[2021-12-06] MEDS: MAGNESIUM SULFATE-D5W PMX 1 GM in DEXTROSE/WATER 1 100ML.BAG IVPB SCH ×2 (18:33→20:04)
[2021-12-06] MEDS: traMADol-ACETAMINOP 37.5-325MG 1 EACH TAB PO PRN (18:41)
[2021-12-06] MEDS: ATORVASTATIN 80 MG TAB PO SCH (20:04)
[2021-12-06 20:29] LABS: Glucose,Whole Blood 155 mg/dL (70-110)
[2021-12-07 06:12] LABS: Glucose,Whole Blood 119 mg/dL (70-110)
[2021-12-07] MEDS: INSULIN ASPART (NovoLOG) 100 UNIT/ML VIAL SQ SCH ×4 (06:16→20:34)
[2021-12-07] MEDS: carvediloL 6.25 MG TAB PO SCH ×2 (06:19→17:11)
[2021-12-07] MEDS: THIAMINE 100 MG TAB PO SCH ×2 (06:19→17:11)
[2021-12-07] MEDS: PANTOPRAZOLE 40 MG TABLET PO SCH (06:19)
[2021-12-07] MEDS: methylPREDNISolone SOD SUCCI 125 MG/2 ML VIAL IV SCH (06:19)
[2021-12-07] MEDS: SYMBICORT 160-4.5 MCG INHALER INHALATION SCH ×2 (08:25→20:19)
[2021-12-07] MEDS: ALBUTEROL HFA INHALER INHALATION SCH ×4 (08:25→20:19)
[2021-12-07] MEDS: ASCORBIC ACID 500 MG TAB PO SCH ×2 (08:58→20:44)
[2021-12-07] MEDS: cloNIDine HCL 0.2 MG TAB PO SCH ×3 (08:58→22:52)
[2021-12-07] MEDS: LORATADINE 10 MG TAB PO SCH (08:58)
[2021-12-07] MEDS: hydrALAZINE HCL 25 MG TAB PO SCH ×3 (08:58→22:52)
[2021-12-07] MEDS: ZINC SULFATE 220 MG CAP PO SCH (08:58)
[2021-12-07] MEDS: ISOSORBIDE MONONITRATE ER 30 MG TAB.ER.24H PO SCH (08:58)
[2021-12-07] MEDS: SODIUM BICARBONATE TAB 650 MG TAB PO SCH ×2 (08:58→20:44)
[2021-12-07] MEDS: CHOLECALCIFEROL 125 MCG (5000 IU) TABLET PO SCH (08:58)
[2021-12-07] MEDS: CLOPIDOGREL 75 MG TAB PO SCH (08:58)
[2021-12-07] MEDS: DOCUSATE 100 MG CAP PO SCH ×2 (08:59→20:44)
[2021-12-07] MEDS: ENOXAPARIN 40 MG/0.4 ML SYRINGE SQ SCH (08:59)
[2021-12-07 11:45] LABS: Glucose,Whole Blood 104 mg/dL (70-110)
--- NOTE | 2021-12-07 12:20 | P.PN ---
Subjective Progress Note Date: 12/07/21 Vincenzo is a 71-year-old patient well known to my practice. He indicates she's been having increased shortness of breath over the past several weeks a month. He indicates he had COVID-19 pneumonia several months ago. It since recovered indicates. He is a known former heroin addict and was on deep morphi ne/amoxicillin up until several months ago when he decided to discontinue himself. He is also known alcoholic and frequently drinks 5-6 beers per day. EKG is not him back to using and it was a money issue for him. He is having a great deal difficulty speaking and shortness of breath. He also indicates he significantly constipated. ER finding showed an dyspneic and hypercapnic needing 15 L oxygen on a nonrebreather. He is since transitioned to high flow nasal cannula. Currently he is improving but still having trouble speaking. He is afebrile, heart rate remains borderline tachycardic, respiratory rate is improved now and blood pressure control. Currently is at 91% on 15 L of O2. This morning laboratory studies are pending. Cultures are reported as positive for gram-positive cocci in clusters.. He has received Zosyn and azithromycin the emergency room. Addendum: Rapid, test is positive 12/03/2021: Patient is slightly improved today. He remains on high flow nasal cannula at 15 mL/m. His pulse oximetry is 97%. It has been stable. Blood pressure heart rate rest her rate under control. He remains afebrile. Labs today show hemoglobin 8.5. Left shift was noted with the absolute neutrophil count of 8.3. PT/INR normal. PTT is elevated 3.4 fibrinogen of 748 and d-dimer 4.63. Chemistries now show BUN of 52 and creatinine 1.3. Magnesium is 1.7. CRP is 18.6. BNP was 5780. Pro-calcitonin was elevated at 0.37 Blood culture show presumptive staph aureus, penicillin susceptible. He is now currently on further positive blood cultures, pneumonia. He is anticoagulated with Lovenox. He is on Symbicort and albuterol, for breathing, he remains on Solu-Medrol, sodium bicarbonate, sailing, coated cocktail vitamin C and zinc, she will protocol, hydralazine for blood pressure and Colace was constipation. 12/04/2021 maintained on IV antibiotics as per infectious disease. Continues on covid regimen. Maintaining O2 sats in the high 90s on 15 L high flow nasal cannula. Afebrile, WBC 14.1. Renal function improving, creatinine down to 1.18, BUN 42, bicarbonate 13. Denies chest pain, palpitations or increased shortness of breath. 12/05/2021 chest x-ray of yesterday reporting progression of airspace disease .continues on Covid cocktail, ceftriaxone, IV steroids. Oxygen weaned down to 10 L high flow nasal cannula, maintaining O2 sats in the 90s. Minimal activity, reports weakness. Consumed 50% of meals, tolerating well, no nausea, vomiting. Positive diarrhea. Blood sugars controlled. Echo reporting suboptimal study, grossly LV function appears normal. proBNP 7340, INR 1.1, fibrinogen 4:30, d- dimer decreased ,7.44, ferritin 1533, LDH 585, CRP 8, pro-calcitonin 0.37. Renal function improving.Afebrile. 12/06/2021 improving ,oxygen weaned further down to 8 L high flow nasal cannula, maintaining O2 sats in the 90s. Repeat chest x-ray of yesterday reported similar multifocal airspace opacities.Complains of chronic back pain, unrelieved by Tylenol. Reports multiple episodes of diarrhea. Afebrile. Renal function continues improving, BUN decreased to 27, creatinine 0.68. Magnesium 1.8. Repeat preliminary blood cultures of 12/03 reporting gram-positive cocci in groups, another gram-positive cocci in clusters. Preliminary blood culture c ollected on 919 reported no growth after 48 hours. Afebrile. 12/07/21 continues on 8 L high flow nasal cannula, maintaining O2 sats in the 90s. Cefazolin as per infectious disease. Diarrhea improved, tested negative for C. difficile. Afebrile. Denies any chest pain, palpitations. Objective - Vital Signs Vital signs: Vital Signs Temp 98 F 12/07/21 08:00 Pulse 95 12/07/21 08:00 Resp 20 12/07/21 08:00 BP 162/80 12/07/21 08:00 Pulse Ox 98 12/07/21 08:30 FiO2 21 12/02/21 07:52 Intake & Output 12/06/21 12/07/21 12/07/21 18:59 06:59 18:59 Intake Total 840 750 480 Balance 840 750 480 Weight 74.843 kg Intake: IV 50 ceFAZolin 2 gm In Sodium 50 Chloride 0.9% 50 ml @ 100 mls/hr IVPB Q8HR [facility] Rx# :[id number] Intake, IV Titration 700 Amount Magnesium Sulfate-D5w Pmx 100 1 gm In Dextrose/Water 1 100ml.bag @ 100 mls/hr IVPB Q1H [facility] Rx#: [id number] Sodium Chloride 0.9% 1, 600 000 ml @ 50 mls/hr IV . Q20H [facility] Rx#:[id number] Oral 840 480 Other: Voiding Method Bedside Commode Bedside Commode Urinal Urinal # Voids 2 # Bowel Movements 2 - Exam - Exam GENERAL: Sitting up in bed, alert and oriented 3,NAD NECK: supple, no JVD LUNGS: Breath sounds coarse rhonchi, no wheezing HEART: Regular rate and rhythm without murmurs, rubs or gallops.S1S2 Normal ABDOMEN: Soft, nontender, normoactive bowel sounds. No guarding, no rebound. No masses appreciated. EXTREMITIES: Normal range of motion, no pitting or edema. No clubbing or cyanosis. NEUROLOGICAL: Cranial nerves II through XII grossly intact. Normal speech, normal gait. SKIN: Warm, Dry, normal turgor, no rashes. - Labs CBC & Chem 7: 12/05/21 09:17 12/06/21 08:04 Labs: Abnormal Lab Results - Last 24 Hours (Table) 12/06/21 12/06/21 12/07/21 Range/Units 16:34 20:27 06:10 POC Glucose (mg/dL) 186 H 155 H 119 H (70-110) mg/dL Microbiology - Last 24 Hours (Table) 12/04/21 08:59 Blood Culture - Preliminary Blood No Growth after 72 hours 12/03/21 05:58 Blood Culture Gram Stain - Preliminary Blood Blood Culture - Preliminary Staphylococcus species Assessment and Plan Assessment: (1) Sepsis Current Visit: Yes Status: Acute Code(s): A41.9 - SEPSIS, UNSPECIFIED ORGANISM SNOMED Code(s): 95210938 (2) Pneumonia due to COVID-19 virus Current Visit: Yes Status: Acute Code(s): U07.1 - COVID-19; J12.82 - PNEUMONIA DUE TO CORONAVIRUS DISEASE 2018 SNOMED Code(s): 044371603020877283 (3) Bacteremia, MSSA. (3) Hypoxia Current Visit: Yes Status: Acute Code(s): R09.02 - HYPOXEMIA SNOMED Code(s): 460934959 (4) Alcohol abuse Current Visit: No Status: Acute Code(s): F10.10 - ALCOHOL ABUSE, UNCOMPLICATED SNOMED Code(s): 82101483 (5) Constipation Current Visit: No Status: Acute Code(s): K59.00 - CONSTIPATION, UNSPECIFIED SNOMED Code(s): 68505208 (6) Essential (primary) hypertension Current Visit: No Status: Acute Code(s): I10 - ESSENTIAL (PRIMARY) HYPERTENSION SNOMED Code(s): 03114313 (7) History of opioid abuse Current Visit: No Status: Acute Code(s): F11.11 - OPIOID ABUSE, IN REMISSION SNOMED Code(s): 627008337 (8) Mixed hyperlipidemia Current Visit: No Status: Acute Code(s): E78.2 - MIXED HYPERLIPIDEMIA SNOMED Code(s): 482660748 (9) Tobacco abuse Current Visit: No Status: Acute Code(s): Z72.0 - TOBACCO USE SNOMED Code(s): 694215572 (10 history of hepatitis C Plan: Continue on current medication regime ,monitoring and symptomatic treatment. Continue wean down O2 as per parameters. Preliminary repeat blood cultures in progress. Antibiotics as per ID. Covid Cocktail. Increase ambulation as tolerated. Hub versus regency being discussed for discharge planning. The impression and plan of care has been dictated as directed. : I performed a history and examination of this patient, discussed the same with the dictator. I agree with the dictator's note ,documented as a scribe. Any additional findings or plans will be noted.
[2021-12-07] MEDS: traMADol-ACETAMINOP 37.5-325MG 1 EACH TAB PO PRN (12:39)
--- NOTE | 2021-12-07 13:16 | P.PN ---
Subjective Progress Note Date: 12/07/21 71-year-old male who presents to the emergency department, on December 01, complaining of shortness of breath. The patient states that he's been having shortness of breath for quite some time. In addition, he complained of tightness, chest congestion, cough, and phlegm production. Chest x-ray revealed a right lower lobe pneumonia. Currently, the patient's on 15 L high flow oxygen. He is getting saline at 130 mL an hour. His primary care provider is Dr. Issa. He apparently has a previous history of heavy tobacco use. He states he does not smoke currently. Other medical history includes angina pectoris, CVA, hyperlipidemia, hypertension, and previous heart catheterization with stent, for CAD. In addition, the patient complains of hoarseness, which she states has gotten worse. Labs include a white count of 9.9, hemoglobin 10, hematocrit 30.1, and a platelet count of 608,000. Blood gases, on 60% oxygen show pO2 64, pCO2 34, and a pH of 7.38. Sodium 129, potassium 5.5, chlorides 92, CO2 17, anion gap 20, UA 84, creatinine 3.15. Testing for coronavirus was positive. Chest x-ray shows some patchy infiltrates in the right lower lobe, and diffuse interstitial changes throughout. Progress note dated 12/03/2021. 71-year-old male seen yesterday in consultation. He was initially seen in the emergency department, on December 01, complaining of shortness of breath. The patient's chest x-ray did reveal a right lower lobe pneumonia. Currently, the patient is on 15 L high flow oxygen. He is getting saline at 130 mL an hour. Blood cultures were apparently positive for Staphylococcus aureus. The patient does feel better today he tells me. White count 9.2, hemoglobin 8.5, hematocrit 27, and platelet count 551,000. The patient's d-dimer was 4.63. PTT was 30.4. Sodium 138, potassium 4.5, chlorides 108, CO2 18, anion gap 12, BUN 52, and creatinine 1.35. The patient's N-terminal proBNP was 5780. Pro-calcitonin level was 0.37. Blood cultures are positive Staphylococcus aureus. On today's evaluation of, of 12/04/2021, I'm seeing the patient for a follow-up. The patient is on high flow oxygen at 15 L per minute nasal cannula. The patient was hospitalized with covid 19 infection with a positive blood culture that do not to be MSSA. Noted the patient was vaccinated 2 for COVID and he has not received any boosters. The patient's chest x-ray showed bilateral pneumonia with increased consolidation of the right lung base. Accordingly, the patient was covered with broad-spectrum antibiotics and the patient is currently on IV cefazolin. The patient is also on steroids. Continues to have cough and congestion. No pleurisy. No hemoptysis. The patient remains on 15 L of oxygen by nasal cannula. His breathing is labored. Congested cough and is unable to bring up much of sputum. The patient was positive COVID 19 and the same time the patient had a possible culture for MSSA. The patient has a white cell count of 14.1 and the patient remains on IV cefazolin 2 g every 8 hours. The patient is also on IV Solu-Medrol 60 mg every 6 hours. He is a chronic smoker and he also has a component of COPD. He remains on anticoagulation with Lovenox for DVT prophylaxis. His d-dimer was at 8.55 and this white cell count of 14.1 with a hemoglobin of 9.2. Rest of the coagulation profile was essentially within normal limits. His fibrinogen level was high as 599. BNP is a 42 with a creatinine of 1.1. His proBNP level was still elevated at 7340. LFTs are adequate at this point in time. No recent chest x-ray. He is afebrile. Inflammatory markers from the time of admission showed a pro-calcitonin level of 0.37. His LDH level was 585. 12/15/2021, the patient is being seen for a follow-up. The patient is currently on 10 L of O2 nasal cannula. He is still having shortness of breath cough and congestion. He is lethargic. Is able to communicate however he is quite weak. Note that the patient was on 15 L of O2 yesterday and I weaned him down to 10 L and is able to tolerate and maintain a pulse ox above 90%. Nevertheless, repeat chest x-ray showed progression in the airspace disease and this is based on the chest x-ray was done yesterday. He remains on IV cefazolin 2 g every 8 hours regarding staph aureus septicemia, MSSA and the patient is also on IV Solu- Medrol. D-dimer is slightly lower at 7.44. His LDH level is also low in the range of 585. The proBNP level is elevated at 7340. Echocardiogram was done and it was a poor window. For the most part the LV function was essentially within normal limits. The creatinine is down to 1.1 from yesterday. He is afebrile. He is hemodynamically stable. His activity is very limited. His oral intake is fair 12/06/2021, the patient is on 10 L by nasal cannula and pulse oximeter high 90s.. The patient is feeling well. No specific complaints. Chest x-ray shows stable right upper and right lower lobe consolidation. Remains on IV cefazolin. Remains on IV Solu-Medrol 60 milligrams IV Every 6 hours. Remains on Lovenox 40 mg subcu for DVT prophylaxis. The patient has a sodium level of 137 with a potassium level of 4.2, BUN is at 27 with a creatinine of 0.6 and magnesium level of 1.8. No significant changes condition. Is gradually improving. Echocardiogram was essentially poor window and for the most part LV function was essentially within normal limits. He is afebrile. He is hemodynamically stable at this point in time. No aspiration. 12/07/2021, the patient has no specific complaints. He is on 8 L of O2 nasal cannula. His pulse is in order of 97%. I cut him down to 6 L. He has a congested cough. No significant sputum production. He remains on a combination of IV cefazolin and bronchodilators and steroids. No chest pain. No angina. No palpitations. Altered mentation. No new labs. Blood sugars nonelevated and the patient's stool for C. diff and also negative. No lives at available from today. His oxygenation continues to steadily improve. Objective - Vital Signs Vital signs: Vital Signs Temp 97.7 F 12/07/21 12:00 Pulse 93 12/07/21 12:00 Resp 20 12/07/21 12:00 BP 129/63 12/07/21 12:00 Pulse Ox 94 L 12/07/21 12:00 FiO2 21 12/02/21 07:52 Intake & Output 12/06/21 12/07/21 12/07/21 18:59 06:59 18:59 Intake Total 840 750 480 Balance 840 750 480 Weight 74.843 kg Intake: IV 50 ceFAZolin 2 gm In Sodium 50 Chloride 0.9% 50 ml @ 100 mls/hr IVPB Q8HR [facility] Rx# :[id number] Intake, IV Titration 700 Amount Magnesium Sulfate-D5w Pmx 100 1 gm In Dextrose/Water 1 100ml.bag @ 100 mls/hr IVPB Q1H [facility] Rx#: [id number] Sodium Chloride 0.9% 1, 600 000 ml @ 50 mls/hr IV . Q20H [facility] Rx#:[id number] Oral 840 480 Other: Voiding Method Bedside Commode Bedside Commode Urinal Urinal # Voids 2 # Bowel Movements 2 - Exam Mild to moderate respiratory distress, oriented, currently on 10 L high flow O2. No audible wheezing, or use of accessory muscles. HEENT examination is grossly unremarkable. Neck supple. Full range of motion. No adenopathy thyromegaly or neck vein distention. Cardiovascular examination reveals regular rhythm rate. S1-S2 normal. No S3 or S4. No discernible murmur noted. Heart sounds are distant. Heart rate 90 bpm. Lungs reveal coarse bilateral rhonchi. Crackles are noted. No wheezes. Breath sounds equal bilaterally. Saturations are 96% on 15 L high flow oxygen. Abdomen soft bowel sounds are heard. No masses or tenderness. Extremities are intact. No cyanosis clubbing or edema. Skin is without rash or lesion. Neurologic examination is brief but nonfocal.x-ray - Labs CBC & Chem 7: 12/05/21 09:17 12/06/21 08:04 Labs: Abnormal Lab Results - Last 24 Hours (Table) 12/06/21 12/06/21 12/07/21 Range/Units 16:34 20:27 06:10 POC Glucose (mg/dL) 186 H 155 H 119 H (70-110) mg/dL Microbiology - Last 24 Hours (Table) 12/04/21 08:59 Blood Culture - Preliminary Blood No Growth after 72 hours 12/03/21 05:58 Blood Culture Gram Stain - Preliminary Blood Blood Culture - Preliminary Staphylococcus species Assessment and Plan Plan: Acute hypoxemic respiratory failure, multifactorial, secondary to COPD exacerbation, patchy pneumonia right lower lobe, and possible coronavirus associated pneumonia. Acute COVID 19 pneumonia with interval worsening in the airspace disease in the right upper lobe and the right lower lobe. Left lung remains relatively clear. Bilateral pneumonia with some interval progression of the airspace disease, consider superimposed bacterial pneumonia. The patient is currently on 10 L of O2 nasal cannula. Staphylococcus aureus bacteremia/sepsis History of COPD, secondary to heavy tobacco use. Acute kidney injury, improving, renal function is normalized. Patient remains on normal saline at the rate of 50 mL an hour. History of angina pectoris, and previous heart catheterization with stent, for CAD. History of CVA. History of hyperlipidemia. History of hypertension. History of hepatitis C. Previous history of heavy tobacco use. Plan: Weaned down the FiO2 to 6 L and continue wean down FiO2 as long as the pulse ox remains above 90% Clinically improving Repeat chest x-ray in the morning Recheck pro calcitonin level from yesterday showed that the level was improving it was down to 0.12 Continue IV cefazolin Continue IV steroids and the patient remains on high-dose steroids Continue Lovenox for DVT prophylaxis Echo Was done and the patient is a preserved LV function. The patient has an elevated pro BNP level. We'll continue to follow.
[2021-12-07] MEDS: SODIUM CHLORIDE 0.9% 1,000 ML IV SCH (16:29)
[2021-12-07] MEDS: methylPREDNISolone SOD SUCCI 40 MG/ML 1 ML VIAL IV SCH ×2 (17:10→23:54)
[2021-12-07 20:21] LABS: Glucose,Whole Blood 143 mg/dL (70-110)
[2021-12-07] MEDS: ATORVASTATIN 80 MG TAB PO SCH (20:44)
--- NOTE | 2021-12-07 22:40 | P.PN ---
Subjective Progress Note Date: 12/07/21 Principal diagnosis: Bacteremia Patient is a 71-year male with multiple comorbidities presented to hospital with increased shortness with cough patient did have evidence of a bilateral infiltrate and some consolidative changes to the right lower lobe positive COVID test and subsequent did have a positive blood culture finalized with MSSA.Patient did have echocardiogram done which was a poor window valves were not visualized On today's evaluation that is 12/07/2021 , The patient continues to be afebrile, the patient is breathing comfortably and is down to 5 L nasal cannula oxygen, the patient denies having any chest pain , the patient continue to have a cough not bring up any sputum no nausea vomiting no abdominal pain and no diarrhea Objective - Vital Signs Vital signs: Vital Signs Temp 97.7 F 12/07/21 12:00 Pulse 93 12/07/21 12:00 Resp 20 12/07/21 12:00 BP 129/63 12/07/21 12:00 Pulse Ox 94 L 12/07/21 12:00 FiO2 21 12/02/21 07:52 Intake & Output 12/06/21 12/07/21 12/07/21 18:59 06:59 18:59 Intake Total 840 750 480 Balance 840 750 480 Weight 74.843 kg Intake: IV 50 ceFAZolin 2 gm In Sodium 50 Chloride 0.9% 50 ml @ 100 mls/hr IVPB Q8HR [facility] Rx# :[id number] Intake, IV Titration 700 Amount Magnesium Sulfate-D5w Pmx 100 1 gm In Dextrose/Water 1 100ml.bag @ 100 mls/hr IVPB Q1H [facility] Rx#: [id number] Sodium Chloride 0.9% 1, 600 000 ml @ 50 mls/hr IV . Q20H [facility] Rx#:[id number] Oral 840 480 Other: Voiding Method Bedside Commode Bedside Commode Urinal Urinal # Voids 2 # Bowel Movements 2 - Exam GENERAL DESCRIPTION: Elderly male lying in bed, no distress. No tachypnea or accessory muscle of respiration use. LUNGS: Unlabored breathing. Coarse breath sound at base bilaterally HEART: S1, S2, regular rate and rhythm. No loud murmur ABDOMEN: Soft, no tenderness , guarding or rigidity, no organomegaly EXTREMITIES: No edema of feet. - Labs CBC & Chem 7: 12/05/21 09:17 12/06/21 08:04 Labs: Abnormal Lab Results - Last 24 Hours (Table) 12/06/21 12/06/21 12/07/21 Range/Units 16:34 20:27 06:10 POC Glucose (mg/dL) 186 H 155 H 119 H (70-110) mg/dL Microbiology - Last 24 Hours (Table) 12/04/21 08:59 Blood Culture - Preliminary Blood No Growth after 72 hours 12/03/21 05:58 Blood Culture Gram Stain - Preliminary Blood Blood Culture - Preliminary Staphylococcus species Assessment and Plan (1) Bacteremia Current Visit: Yes Status: Acute Code(s): R78.81 - BACTEREMIA SNOMED Code(s): 8961347 (2) Pneumonia Current Visit: Yes Status: Acute Code(s): J18.9 - PNEUMONIA, UNSPECIFIED ORGANISM SNOMED Code(s): 274487959 Plan: 1patient with gram-positive bacteremia source likely right lower lobe pneumonia in this patient with a borderline kidney function and high risk of nephrotoxicity from vancomycin and daptomycin usually not indicated for pneumon ia. Patient also have positive COVID test however the patient symptom has been going on for a while and he is currently out of the therapeutic window for remdesivir as more likely evidence of secondary bacterial pneumonia with bacteremia 2Patient with a positive blood culture finalized with MSSA source possible pneumonia ,Blood culture done on 12/04/2021 has been negative, Patient did have a echocardiogram unfortunately poor windows and did not provide enough information, May benefit from SUNNY to make sure no evidence of any Cardiac valve involvement, clinically suspicious remained to be low for endocarditis 3- Patient to continue with the cefazolin 2 g every 8 hours , with a plan for 2 weeks of antibiotic from a negative blood culture Time with Patient: Less than 30
[2021-12-08] MEDS: SODIUM CHLORIDE 0.9% 1,000 ML IV SCH ×2 (03:20→16:44)
[2021-12-08 06:08] LABS: Glucose,Whole Blood 134 mg/dL (70-110)
[2021-12-08] MEDS: INSULIN ASPART (NovoLOG) 100 UNIT/ML VIAL SQ SCH ×4 (06:11→20:18)
[2021-12-08] MEDS: carvediloL 6.25 MG TAB PO SCH ×2 (06:18→16:44)
[2021-12-08] MEDS: PANTOPRAZOLE 40 MG TABLET PO SCH (06:18)
[2021-12-08] MEDS: THIAMINE 100 MG TAB PO SCH ×2 (06:22→16:44)
[2021-12-08] MEDS: SYMBICORT 160-4.5 MCG INHALER INHALATION SCH ×2 (08:20→21:15)
[2021-12-08] MEDS: ALBUTEROL HFA INHALER INHALATION SCH ×4 (08:20→21:15)
--- NOTE | 2021-12-08 08:45 | XR ---
EXAMINATION TYPE: XR chest 1V DATE OF EXAM: 12/08/2021 6:45 AM COMPARISON: Chest radiographs from 12/05/2021. TECHNIQUE: XR chest 1V Frontal view of the chest. CLINICAL INDICATION:Male, 71 years old with history of pneumonia; FINDINGS: Lungs/Pleura: Persistent right upper lobe and right lower lobe airspace opacities superimposed upon C OPD changes. No evidence of pleural effusion or pneumothorax. Right apical pleural thickening. Pulmonary vascularity: Unremarkable. Heart/mediastinum: Cardiomediastinal silhouette is unremarkable. Atherosclerotic calcifications are seen in the aorta. Musculoskeletal: No acute osseous pathology. IMPRESSION: Unchanged multifocal right pulmonary airspace disease.
[2021-12-08] MEDS: methylPREDNISolone SOD SUCCI 40 MG/ML 1 ML VIAL IV SCH (10:33)
[2021-12-08] MEDS: cloNIDine HCL 0.2 MG TAB PO SCH ×3 (10:34→21:08)
[2021-12-08] MEDS: ASCORBIC ACID 500 MG TAB PO SCH ×2 (10:34→21:08)
[2021-12-08] MEDS: LORATADINE 10 MG TAB PO SCH (10:34)
[2021-12-08] MEDS: SODIUM BICARBONATE TAB 650 MG TAB PO SCH ×2 (10:34→21:08)
[2021-12-08] MEDS: ENOXAPARIN 40 MG/0.4 ML SYRINGE SQ SCH (10:34)
[2021-12-08] MEDS: CLOPIDOGREL 75 MG TAB PO SCH (10:34)
[2021-12-08] MEDS: ZINC SULFATE 220 MG CAP PO SCH (10:34)
[2021-12-08] MEDS: CHOLECALCIFEROL 125 MCG (5000 IU) TABLET PO SCH (10:35)
[2021-12-08] MEDS: DOCUSATE 100 MG CAP PO SCH ×2 (10:35→21:08)
[2021-12-08] MEDS: hydrALAZINE HCL 25 MG TAB PO SCH ×3 (10:35→21:08)
[2021-12-08] MEDS: ISOSORBIDE MONONITRATE ER 30 MG TAB.ER.24H PO SCH (10:35)
[2021-12-08 11:43] LABS: Glucose,Whole Blood 120 mg/dL (70-110)
--- NOTE | 2021-12-08 13:23 | P.PN ---
Subjective Progress Note Date: 12/08/21 Vincenzo is a 71-year-old patient well known to my practice. He indicates she's been having increased shortness of breath over the past several weeks a month. He indicates he had COVID-19 pneumonia several months ago. It since recovered indicates. He is a known former heroin addict and was on deep morphi ne/amoxicillin up until several months ago when he decided to discontinue himself. He is also known alcoholic and frequently drinks 5-6 beers per day. EKG is not him back to using and it was a money issue for him. He is having a great deal difficulty speaking and shortness of breath. He also indicates he significantly constipated. ER finding showed an dyspneic and hypercapnic needing 15 L oxygen on a nonrebreather. He is since transitioned to high flow nasal cannula. Currently he is improving but still having trouble speaking. He is afebrile, heart rate remains borderline tachycardic, respiratory rate is improved now and blood pressure control. Currently is at 91% on 15 L of O2. This morning laboratory studies are pending. Cultures are reported as positive for gram-positive cocci in clusters.. He has received Zosyn and azithromycin the emergency room. Addendum: Rapid, test is positive 12/03/2021: Patient is slightly improved today. He remains on high flow nasal cannula at 15 mL/m. His pulse oximetry is 97%. It has been stable. Blood pressure heart rate rest her rate under control. He remains afebrile. Labs today show hemoglobin 8.5. Left shift was noted with the absolute neutrophil count of 8.3. PT/INR normal. PTT is elevated 3.4 fibrinogen of 748 and d-dimer 4.63. Chemistries now show BUN of 52 and creatinine 1.3. Magnesium is 1.7. CRP is 18.6. BNP was 5780. Pro-calcitonin was elevated at 0.37 Blood culture show presumptive staph aureus, penicillin susceptible. He is now currently on further positive blood cultures, pneumonia. He is anticoagulated with Lovenox. He is on Symbicort and albuterol, for breathing, he remains on Solu-Medrol, sodium bicarbonate, sailing, coated cocktail vitamin C and zinc, she will protocol, hydralazine for blood pressure and Colace was constipation. 12/04/2021 maintained on IV antibiotics as per infectious disease. Continues on covid regimen. Maintaining O2 sats in the high 90s on 15 L high flow nasal cannula. Afebrile, WBC 14.1. Renal function improving, creatinine down to 1.18, BUN 42, bicarbonate 13. Denies chest pain, palpitations or increased shortness of breath. 12/05/2021 chest x-ray of yesterday reporting progression of airspace disease .continues on Covid cocktail, ceftriaxone, IV steroids. Oxygen weaned down to 10 L high flow nasal cannula, maintaining O2 sats in the 90s. Minimal activity, reports weakness. Consumed 50% of meals, tolerating well, no nausea, vomiting. Positive diarrhea. Blood sugars controlled. Echo reporting suboptimal study, grossly LV function appears normal. proBNP 7340, INR 1.1, fibrinogen 4:30, d- dimer decreased ,7.44, ferritin 1533, LDH 585, CRP 8, pro-calcitonin 0.37. Renal function improving.Afebrile. 12/06/2021 improving ,oxygen weaned further down to 8 L high flow nasal cannula, maintaining O2 sats in the 90s. Repeat chest x-ray of yesterday reported similar multifocal airspace opacities.Complains of chronic back pain, unrelieved by Tylenol. Reports multiple episodes of diarrhea. Afebrile. Renal function continues improving, BUN decreased to 27, creatinine 0.68. Magnesium 1.8. Repeat preliminary blood cultures of 12/03 reporting gram-positive cocci in groups, another gram-positive cocci in clusters. Preliminary blood culture c ollected on 919 reported no growth after 48 hours. Afebrile. 12/07/21 continues on 8 L high flow nasal cannula, maintaining O2 sats in the 90s. Cefazolin as per infectious disease. Diarrhea improved, tested negative for C. difficile. Afebrile. Denies any chest pain, palpitations. 12/08/21 oxygen weaned down to 5 L high flow nasal cannula, maintaining O2 sats in the 90s. Complains that PT has not been working with him but staff reports patient refusing to get out of bed. Diarrhea resolved, complaining of abdominal discomfort, constipation. Denies chest pain, palpitations or increased shortness of breath. Afebrile. Objective - Vital Signs Vital signs: Vital Signs Temp 97.3 F L 12/08/21 12:42 Pulse 103 H 12/08/21 12:42 Resp 21 12/08/21 12:42 BP 138/82 12/08/21 12:42 Pulse Ox 91 L 12/08/21 12:42 FiO2 12/02/21 07:52 Intake & Output 12/07/21 12/08/21 12/08/21 18:59 06:59 18:59 Intake Total 600 120 241 Output Total 300 150 225 Balance 300 -30 16 Weight 74.843 kg Intake: Oral 600 120 241 Output: Urine 300 150 225 Other: Voiding Method Bedside Commode Bedside Commode Bedside Commode # Voids 1 - Exam - Exam GENERAL: Sitting up in bed, alert and oriented 3,NAD NECK: supple, no JVD LUNGS: Breath sounds coarse rhonchi, no wheezing HEART: Regular rate and rhythm without murmurs, rubs or gallops.S1S2 Normal ABDOMEN: Soft, nontender, normoactive bowel sounds. No guarding, no rebound. No masses appreciated. EXTREMITIES: Normal range of motion, no pitting or edema. No clubbing or cyanosis. NEUROLOGICAL: Cranial nerves II through XII grossly intact. Normal speech, normal gait. SKIN: Warm, Dry, normal turgor, no rashes. - Labs CBC & Chem 7: 12/05/21 09:17 12/06/21 08:04 Labs: Abnormal Lab Results - Last 24 Hours (Table) 12/07/21 12/08/21 12/08/21 Range/Units 20:19 06:03 11:32 POC Glucose (mg/dL) 143 H 134 H 120 H (70-110) mg/dL Microbiology - Last 24 Hours (Table) 12/04/21 08:59 Blood Culture - Preliminary Blood No Growth after 96 hours 12/03/21 05:58 Blood Culture Gram Stain - Final Blood Blood Culture - Final Staphylococcus aureus Assessment and Plan Assessment: (1) Sepsis Current Visit: Yes Status: Acute Code(s): A41.9 - SEPSIS, UNSPECIFIED ORGANISM SNOMED Code(s): 24155848 (2) Pneumonia due to COVID-19 virus Current Visit: Yes Status: Acute Code(s): U07.1 - COVID-19; J12.82 - PNEUMONIA DUE TO CORONAVIRUS DISEASE 2018 SNOMED Code(s): 181308782737430866 (3) Bacteremia, MSSA. (3) Hypoxia Current Visit: Yes Status: Acute Code(s): R09.02 - HYPOXEMIA SNOMED Code(s): 911784718 (4) Alcohol abuse Current Visit: No Status: Acute Code(s): F10.10 - ALCOHOL ABUSE, UNCOMPLICATED SNOMED Code(s): 80052120 (5) Constipation Current Visit: No Status: Acute Code(s): K59.00 - CONSTIPATION, UNSPECIFIED SNOMED Code(s): 79770409 (6) Essential (primary) hypertension Current Visit: No Status: Acute Code(s): I10 - ESSENTIAL (PRIMARY) HYPERTENSION SNOMED Code(s): 85474901 (7) History of opioid abuse Current Visit: No Status: Acute Code(s): F11.11 - OPIOID ABUSE, IN REMISSION SNOMED Code(s): 937304536 (8) Mixed hyperlipidemia Current Visit: No Status: Acute Code(s): E78.2 - MIXED HYPERLIPIDEMIA SNOMED Code(s): 860325326 (9) Tobacco abuse Current Visit: No Status: Acute Code(s): Z72.0 - TOBACCO USE SNOMED Code(s): 960766263 (10 history of hepatitis C Plan: Continue on current medication regime ,monitoring and symptomatic treatment. Continue to wean down O2 as per parameters. Repeat blood cultures reporting no growth. Antibiotics as per ID. Covid Cocktail. Up in chair for each meal .Increase ambulation as tolerated. Hub versus regency being discussed for discharge planning. Flatplate of the abdomen ordered as recommended per PCP. The impression and plan of care has been dictated as directed. : I performed a history and examination of this patient, discussed the same with the dictator. I agree with the dictator's note ,documented as a scribe. Any additional findings or plans will be noted.
--- NOTE | 2021-12-08 14:34 | P.PN ---
Subjective Progress Note Date: 12/08/21 71-year-old male who presents to the emergency department, on December 01, complaining of shortness of breath. The patient states that he's been having shortness of breath for quite some time. In addition, he complained of tightness, chest congestion, cough, and phlegm production. Chest x-ray revealed a right lower lobe pneumonia. Currently, the patient's on 15 L high flow oxygen. He is getting saline at 130 mL an hour. His primary care provider is Dr. Issa. He apparently has a previous history of heavy tobacco use. He states he does not smoke currently. Other medical history includes angina pectoris, CVA, hyperlipidemia, hypertension, and previous heart catheterization with stent, for CAD. In addition, the patient complains of hoarseness, which she states has gotten worse. Labs include a white count of 9.9, hemoglobin 10, hematocrit 30.1, and a platelet count of 608,000. Blood gases, on 60% oxygen show pO2 64, pCO2 34, and a pH of 7.38. Sodium 129, potassium 5.5, chlorides 92, CO2 17, anion gap 20, UA 84, creatinine 3.15. Testing for coronavirus was positive. Chest x-ray shows some patchy infiltrates in the right lower lobe, and diffuse interstitial changes throughout. Progress note dated 12/03/2021. 71-year-old male seen yesterday in consultation. He was initially seen in the emergency department, on December 01, complaining of shortness of breath. The patient's chest x-ray did reveal a right lower lobe pneumonia. Currently, the patient is on 15 L high flow oxygen. He is getting saline at 130 mL an hour. Blood cultures were apparently positive for Staphylococcus aureus. The patient does feel better today he tells me. White count 9.2, hemoglobin 8.5, hematocrit 27, and platelet count 551,000. The patient's d-dimer was 4.63. PTT was 30.4. Sodium 138, potassium 4.5, chlorides 108, CO2 18, anion gap 12, BUN 52, and creatinine 1.35. The patient's N-terminal proBNP was 5780. Pro-calcitonin level was 0.37. Blood cultures are positive Staphylococcus aureus. On today's evaluation of, of 12/04/2021, I'm seeing the patient for a follow-up. The patient is on high flow oxygen at 15 L per minute nasal cannula. The patient was hospitalized with covid 19 infection with a positive blood culture that do not to be MSSA. Noted the patient was vaccinated 2 for COVID and he has not received any boosters. The patient's chest x-ray showed bilateral pneumonia with increased consolidation of the right lung base. Accordingly, the patient was covered with broad-spectrum antibiotics and the patient is currently on IV cefazolin. The patient is also on steroids. Continues to have cough and congestion. No pleurisy. No hemoptysis. The patient remains on 15 L of oxygen by nasal cannula. His breathing is labored. Congested cough and is unable to bring up much of sputum. The patient was positive COVID 19 and the same time the patient had a possible culture for MSSA. The patient has a white cell count of 14.1 and the patient remains on IV cefazolin 2 g every 8 hours. The patient is also on IV Solu-Medrol 60 mg every 6 hours. He is a chronic smoker and he also has a component of COPD. He remains on anticoagulation with Lovenox for DVT prophylaxis. His d-dimer was at 8.55 and this white cell count of 14.1 with a hemoglobin of 9.2. Rest of the coagulation profile was essentially within normal limits. His fibrinogen level was high as 599. BNP is a 42 with a creatinine of 1.1. His proBNP level was still elevated at 7340. LFTs are adequate at this point in time. No recent chest x-ray. He is afebrile. Inflammatory markers from the time of admission showed a pro-calcitonin level of 0.37. His LDH level was 585. 12/15/2021, the patient is being seen for a follow-up. The patient is currently on 10 L of O2 nasal cannula. He is still having shortness of breath cough and congestion. He is lethargic. Is able to communicate however he is quite weak. Note that the patient was on 15 L of O2 yesterday and I weaned him down to 10 L and is able to tolerate and maintain a pulse ox above 90%. Nevertheless, repeat chest x-ray showed progression in the airspace disease and this is based on the chest x-ray was done yesterday. He remains on IV cefazolin 2 g every 8 hours regarding staph aureus septicemia, MSSA and the patient is also on IV Solu- Medrol. D-dimer is slightly lower at 7.44. His LDH level is also low in the range of 585. The proBNP level is elevated at 7340. Echocardiogram was done and it was a poor window. For the most part the LV function was essentially within normal limits. The creatinine is down to 1.1 from yesterday. He is afebrile. He is hemodynamically stable. His activity is very limited. His oral intake is fair 12/06/2021, the patient is on 10 L by nasal cannula and pulse oximeter high 90s.. The patient is feeling well. No specific complaints. Chest x-ray shows stable right upper and right lower lobe consolidation. Remains on IV cefazolin. Remains on IV Solu-Medrol 60 milligrams IV Every 6 hours. Remains on Lovenox 40 mg subcu for DVT prophylaxis. The patient has a sodium level of 137 with a potassium level of 4.2, BUN is at 27 with a creatinine of 0.6 and magnesium level of 1.8. No significant changes condition. Is gradually improving. Echocardiogram was essentially poor window and for the most part LV function was essentially within normal limits. He is afebrile. He is hemodynamically stable at this point in time. No aspiration. 12/07/2021, the patient has no specific complaints. He is on 8 L of O2 nasal cannula. His pulse is in order of 97%. I cut him down to 6 L. He has a congested cough. No significant sputum production. He remains on a combination of IV cefazolin and bronchodilators and steroids. No chest pain. No angina. No palpitations. Altered mentation. No new labs. Blood sugars nonelevated and the patient's stool for C. diff and also negative. No lives at available from today. His oxygenation continues to steadily improve. 12/08/2021, seeing the patient for a follow-up. Patient is essentially the same and unchanged. I have weaned him down to 5 L and the patient can be further weaned down to 4 L of oxygen by nasal cannula. Chest x-ray findings are essentially unchanged and there is a stable right lower lobe consolidation of right upper lobe consolidation. He is resting comfortably in bed. He feels weak. No chest pain. No hemoptysis or pleurisy. No other significant events overnight. He remains on IV Solu Medrol 4 mg every 8 hours. Objective - Vital Signs Vital signs: Vital Signs Temp 97.3 F L 12/08/21 12:42 Pulse 103 H 12/08/21 12:42 Resp 21 12/08/21 12:42 BP 138/82 12/08/21 12:42 Pulse Ox 91 L 12/08/21 12:42 FiO2 12/02/21 07:52 Intake & Output 12/07/21 12/08/21 12/08/21 18:59 06:59 18:59 Intake Total 600 120 241 Output Total 300 150 225 Balance 300 -30 16 Weight 74.843 kg Intake: Oral 600 120 241 Output: Urine 300 150 225 Other: Voiding Method Bedside Commode Bedside Commode Bedside Commode # Voids 1 - Exam Mild to moderate respiratory distress, oriented, currently on 4 L high flow O2. The patient is calm and comfortable. HEENT examination is grossly unremarkable. Neck supple. Full range of motion. No adenopathy thyromegaly or neck vein distention. Cardiovascular examination reveals regular rhythm rate. S1-S2 normal. No S3 or S4. No discernible murmur noted. Heart sounds are distant. Heart rate 90 bpm. Lungs reveal coarse bilateral rhonchi. Crackles are noted. No wheezes. Breath sounds equal bilaterally. Saturations are 96% on 15 L high flow oxygen. Abdomen soft bowel sounds are heard. No masses or tenderness. Extremities are intact. No cyanosis clubbing or edema. Skin is without rash or lesion. Neurologic examination is brief but nonfocal.x-ray - Labs CBC & Chem 7: 12/05/21 09:17 12/06/21 08:04 Labs: Abnormal Lab Results - Last 24 Hours (Table) 12/07/21 12/08/21 12/08/21 Range/Units 20:19 06:03 11:32 POC Glucose (mg/dL) 143 H 134 H 120 H (70-110) mg/dL Microbiology - Last 24 Hours (Table) 12/04/21 08:59 Blood Culture - Preliminary Blood No Growth after 96 hours 12/03/21 05:58 Blood Culture Gram Stain - Final Blood Blood Culture - Final Staphylococcus aureus Assessment and Plan Plan: Acute hypoxemic respiratory failure, multifactorial, secondary to COPD exacerbation, patchy pneumonia right lower lobe, and possible coronavirus associated pneumonia. Clinically improving and the patient oxidation is also improved and the patient has been weaned down to 4 L Acute COVID 19 pneumonia with stable pulmonary consolidations with a right upper lobe and right lower lobe stable infiltrates. Bilateral pneumonia with some interval progression of the airspace disease, cons ider superimposed bacterial pneumonia. The patient is currently on 10 L of O2 nasal cannula. Staphylococcus aureus bacteremia/sepsis History of COPD, secondary to heavy tobacco use. Acute kidney injury, improving, renal function is normalized. Patient remains on normal saline at the rate of 50 mL an hour. History of angina pectoris, and previous heart catheterization with stent, for CAD. History of CVA. History of hyperlipidemia. History of hypertension. History of hepatitis C. Previous history of heavy tobacco use. Plan: Weaned down the FiO2 to 4 L and continue wean down FiO2 as long as the pulse ox remains above 90% Clinically improving Repeat chest x-ray in the morning Recheck pro calcitonin level from yesterday showed that the level was improving it was down to 0.12 Continue IV cefazolin This continued IV Solu-Medrol and start the patient on a prednisone burst taper Continue Lovenox for DVT prophylaxis Echo Was done and the patient is a preserved LV function. The patient has an elevated pro BNP level. We'll continue to follow.
--- NOTE | 2021-12-08 15:44 | P.PN ---
Subjective Progress Note Date: 12/08/21 Principal diagnosis: Bacteremia Patient is a 71-year male with multiple comorbidities presented to hospital with increased shortness with cough patient did have evidence of a bilateral infiltrate and some consolidative changes to the right lower lobe positive COVID test and subsequent did have a positive blood culture finalized with MSSA.Patient did have echocardiogram done which was a poor window valves were not visualized On today's evaluation that is 12/08/2021 , The patient remains to be afebrile, the patient is breathing comfortably and currently on 5 L nasal cannula oxygen, the patient denies having any chest pain , the patient has been complaining of a congested, but no sputum production has become complaining of some abdominal discomfort and constipation Objective - Vital Signs Vital signs: Vital Signs Temp 97.3 F L 12/08/21 12:42 Pulse 103 H 12/08/21 12:42 Resp 12/08/21 12:42 BP 138/82 12/08/21 12:42 Pulse Ox 91 L 12/08/21 12:42 FiO2 12/02/21 07:52 Intake & Output 12/07/21 12/08/21 12/08/21 18:59 06:59 18:59 Intake Total 600 120 241 Output Total 300 150 225 Balance 300 -30 16 Weight 74.843 kg Intake: Oral 600 120 241 Output: Urine 300 150 225 Other: Voiding Method Bedside Commode Bedside Commode Bedside Commode # Voids 1 - Exam GENERAL DESCRIPTION: Elderly male lying in bed, no distress. No tachypnea or accessory muscle of respiration use. LUNGS: Unlabored breathing. Coarse breath sound at base bilaterally HEART: S1, S2, regular rate and rhythm. No loud murmur ABDOMEN: Soft, no tenderness , guarding or rigidity, no organomegaly EXTREMITIES: No edema of feet. - Labs CBC & Chem 7: 12/05/21 09:17 12/06/21 08:04 Labs: Abnormal Lab Results - Last 24 Hours (Table) 12/07/21 12/08/21 12/08/21 Range/Units 20:19 06:03 11:32 POC Glucose (mg/dL) 143 H 134 H 120 H (70-110) mg/dL Microbiology - Last 24 Hours (Table) 12/04/21 08:59 Blood Culture - Preliminary Blood No Growth after 96 hours 12/03/21 05:58 Blood Culture Gram Stain - Final Blood Blood Culture - Final Staphylococcus aureus Assessment and Plan (1) Bacteremia Current Visit: Yes Status: Acute Code(s): R78.81 - BACTEREMIA SNOMED Code(s): 3642654 (2) Pneumonia Current Visit: Yes Status: Acute Code(s): J18.9 - PNEUMONIA, UNSPECIFIED ORGANISM SNOMED Code(s): 733169360 Plan: 1patient with gram-positive bacteremia source likely right lower lobe pneumonia in this patient with a borderline kidney function and high risk of nephrotoxicity from vancomycin and daptomycin usually not indicated for pneumonia. Patient also have positive COVID test however the patient symptom has been going on for a while and he is currently out of the therapeutic window for remdesivir as more likely evidence of secondary bacterial pneumonia with bacteremia 2Patient with a positive blood culture finalized with MSSA source possible pneumonia ,Blood culture done on 12/04/2021 has been negative, Patient did have a echocardiogram unfortunately poor windows and did not provide enough inf ormation, May benefit from SUNNY to make sure no evidence of any Cardiac valve involvement, clinically suspicious remained to be low for endocarditis 3- Patient has cleared his bacteremia and showing some clinical improvement to continue with the cefazolin and monitor clinical course closely Time with Patient: Less than 30
[2021-12-08 16:56] LABS: Glucose,Whole Blood 135 mg/dL (70-110)
--- NOTE | 2021-12-08 18:17 | XR ---
EXAMINATION TYPE: XR abdomen 1V DATE OF EXAM: 12/08/2021 COMPARISON: NONE HISTORY: Pain TECHNIQUE: Single supine KUB image of the abdomen is obtained FINDINGS: Mildly distended small and large bowel without evidence for obstruction. No convincing evidence for pneumoperitoneum. No unusual calcifications. The lung bases are clear. The osseous structures are intact. IMPRESSION: 1. Nonspecific nonobstructive bowel gas pattern.
[2021-12-08 19:07] LABS: Glucose,Whole Blood 151 mg/dL (70-110)
[2021-12-08] MEDS: ATORVASTATIN 80 MG TAB PO SCH (21:08)
[2021-12-09 05:47] LABS: Glucose,Whole Blood 117 mg/dL (70-110)
[2021-12-09] MEDS: INSULIN ASPART (NovoLOG) 100 UNIT/ML VIAL SQ SCH ×4 (05:51→21:36)
[2021-12-09] MEDS: PANTOPRAZOLE 40 MG TABLET PO SCH (06:44)
[2021-12-09] MEDS: THIAMINE 100 MG TAB PO SCH ×2 (06:44→17:09)
[2021-12-09] MEDS: carvediloL 6.25 MG TAB PO SCH ×2 (06:44→17:09)
[2021-12-09] MEDS: ALBUTEROL HFA INHALER INHALATION SCH ×4 (09:33→20:47)
[2021-12-09] MEDS: SYMBICORT 160-4.5 MCG INHALER INHALATION SCH ×2 (09:33→20:48)
[2021-12-09] MEDS: cloNIDine HCL 0.2 MG TAB PO SCH ×3 (09:42→21:41)
[2021-12-09] MEDS: DOCUSATE 100 MG CAP PO SCH ×2 (09:42→21:40)
[2021-12-09] MEDS: ISOSORBIDE MONONITRATE ER 30 MG TAB.ER.24H PO SCH (09:42)
[2021-12-09] MEDS: ENOXAPARIN 40 MG/0.4 ML SYRINGE SQ SCH (09:42)
[2021-12-09] MEDS: SODIUM BICARBONATE TAB 650 MG TAB PO SCH ×2 (09:42→21:41)
[2021-12-09] MEDS: CLOPIDOGREL 75 MG TAB PO SCH (09:42)
[2021-12-09] MEDS: predniSONE 20 MG TAB PO SCH (09:42)
[2021-12-09] MEDS: ZINC SULFATE 220 MG CAP PO SCH (09:42)
[2021-12-09] MEDS: hydrALAZINE HCL 25 MG TAB PO SCH ×3 (09:42→21:40)
[2021-12-09] MEDS: ASCORBIC ACID 500 MG TAB PO SCH ×2 (09:42→21:41)
[2021-12-09] MEDS: LORATADINE 10 MG TAB PO SCH (09:42)
[2021-12-09] MEDS: CHOLECALCIFEROL 125 MCG (5000 IU) TABLET PO SCH (09:42)
--- NOTE | 2021-12-09 10:52 | P.PN ---
Gogo Loya is a 71-year-old patient well known to my practice. He indicates she's been having increased shortness of breath over the past several weeks a month. He indicates he had COVID-19 pneumonia several months ago. It since recovered indicates. He is a known former heroin addict and was on deep morphine/amoxicillin up until several months ago when he decided to discontinue himself. He is also known alcoholic and frequently drinks 5-6 beers per day. EKG is not him back to using and it was a money issue for him. He is having a great deal difficulty speaking and shortness of breath. He also indicates he significantly constipated. ER finding showed an dyspneic and hypercapnic needing 15 L oxygen on a nonrebreather. He is since transitioned to high flow nasal cannula. Currently he is improving but still having trouble speaking. He is afebrile, heart rate remains borderline tachycardic, respiratory rate is improved now and blood pressure control. Currently is at 91% on 15 L of O2. This morning laboratory studies are pending. Cultures are reported as positive for gram-positive cocci in clusters.. He has received Zosyn and azithromycin the emergency room. Addendum: Rapid, test is positive 12/03/2021: Patient is slightly improved today. He remains on high flow nasal cannula at 15 mL/m. His pulse oximetry is 97%. It has been stable. Blood pressure heart rate rest her rate under control. He remains afebrile. Labs today show hemoglobin 8.5. Left shift was noted with the absolute neutrophil count of 8.3. PT/INR normal. PTT is elevated 3.4 fibrinogen of 748 and d-dimer 4.63. Chemistries now show BUN of 52 and creatinine 1.3. Magnesium is 1.7. CRP is 18.6. BNP was 5780. Pro-calcitonin was elevated at 0.37 Blood culture show presumptive staph aureus, penicillin susceptible. He is now currently on further positive blood cultures, pneumonia. He is anticoagulated with Lovenox. He is on Symbicort and albuterol, for breathing, he remains on Solu-Medrol, sodium bicarbonate, sailing, coated cocktail vitamin C and zinc, she will protocol, hydralazine for blood pressure and Colace was constipation. 12/04/2021 maintained on IV antibiotics as per infectious disease. Continues on covid regimen. Maintaining O2 sats in the high 90s on 15 L high flow nasal cannula. Afebrile, WBC 14.1. Renal function improving, creatinine down to 1.18, BUN 42, bicarbonate 13. Denies chest pain, palpitations or increased shortness of breath. 12/05/2021 chest x-ray of yesterday reporting progression of airspace disease .continues on Covid cocktail, ceftriaxone, IV steroids. Oxygen weaned down to 10 L high flow nasal cannula, maintaining O2 sats in the 90s. Minimal activity, reports weakness. Consumed 50% of meals, tolerating well, no nausea, vomiting. Positive diarrhea. Blood sugars controlled. Echo reporting suboptimal study, grossly LV function appears normal. proBNP 7340, INR 1.1, fibrinogen 4:30, d- dimer decreased ,7.44, ferritin 1533, LDH 585, CRP 8, pro-calcitonin 0.37. Renal function improving.Afebrile. 12/06/2021 improving ,oxygen weaned further down to 8 L high flow nasal cannula, maintaining O2 sats in the 90s. Repeat chest x-ray of yesterday reported similar multifocal airspace opacities.Complains of chronic back pain, unrelieved by Tylenol. Reports multiple episodes of diarrhea. Afebrile. Renal function continues improving, BUN decreased to 27, creatinine 0.68. Magnesium 1.8. Repeat preliminary blood cultures of 12/03 reporting gram-positive cocci in groups, another gram-positive cocci in clusters. Preliminary blood culture collected on 919 reported no growth after 48 hours. Afebrile. 12/07/21 continues on 8 L high flow nasal cannula, maintaining O2 sats in the 90s. Cefazolin as per infectious disease. Diarrhea improved, tested negative for C. difficile. Afebrile. Denies any chest pain, palpitations. 12/08/21 oxygen weaned down to 5 L high flow nasal cannula, maintaining O2 sats in the 90s. Complains that PT has not been working with him but staff reports patient refusing to get out of bed. Diarrhea resolved, complaining of abdominal discomfort, constipation. Denies chest pain, palpitations or increased shortness of breath. Afebrile. 12/09/2021: Patient is reevaluated today for his sepsis, and COVID-19 pneumonia. IV access was lost. He has a known history of IV drug abuse in the past. November having a great deal of trouble regaining IV [place] I plan on anesthesia seeing him for this. If this fails plan on a central line possibly. Infectious disease and pulmonology are following him. He has been weaned down to 4 L of oxygen via nasal cannula. He remains afebrile. Heart rate remains borderline tachycardic. Labs are pending for today. Blood glucose remains controlled. Blood cultures continued to show staph aureus. Susceptibilities are noted. He remains on cefazolin. A repeat blood culture from 919 is negative. Recommendations from infectious disease and pulmonology reviewed. Abdominal x- ray shows not diffuse. He continues to complain of either diarrhea or constipation to staph. Objective - Vital Signs Vital signs: Vital Signs Temp 96.0 F L 12/09/21 09:32 Pulse 98 12/09/21 09:33 Resp 12/09/21 09:33 BP 153/67 12/09/21 09:32 Pulse Ox 97 12/09/21 09:34 FiO2 12/02/21 07:52 Intake & Output 12/08/21 12/09/21 12/09/21 18:59 06:59 18:59 Intake Total 599 220 Output Total 225 Balance 374 220 Intake: Oral 599 220 Output: Urine 225 Other: Voiding Method Bedside Commode Bedside Commode Bedside Commode # Voids 3 # Bowel Movements 1 - Exam GENERAL: Thin male, on nasal cannula, oxygen now at 4 L/m speaking easier today NECK: Normal range of motion, supple without lymphadenopathy or JVD, no thyromegaly LUNGS: Breath sounds coarse decreased air exchange and rhonchi noted in multiple lung penny. HEART: Regular rate and rhythm without murmurs, rubs or gallops.S1S2 Normal ABDOMEN: Soft, nontender, normoactive bowel sounds. No guarding, no rebound. No masses appreciated. EXTREMITIES: Normal range of motion, no pitting or edema. No clubbing or cyanosis. NEUROLOGICAL: Cranial nerves II through XII grossly intact. Normal speech, normal gait. PSYCH: Normal mood, normal affect. SKIN: Warm, Dry, normal turgor, no rashes or lesions noted. - Labs CBC & Chem 7: 12/05/21 09:17 12/06/21 08:04 Labs: Abnormal Lab Results - Last 24 Hours (Table) 12/08/21 12/08/21 12/08/21 Range/Units 11:32 16:31 19:06 POC Glucose (mg/dL) 120 H 135 H 151 H (70-110) mg/dL 12/09/21 Range/Units 05:45 POC Glucose (mg/dL) 117 H (70-110) mg/dL Microbiology - Last 24 Hours (Table) 12/04/21 08:59 Blood Culture - Preliminary Blood No Growth after 96 hours Assessment and Plan (1) Sepsis Current Visit: Yes Status: Acute Code(s): A41.9 - SEPSIS, UNSPECIFIED O RGANISM SNOMED Code(s): 92388253 (2) Pneumonia due to COVID-19 virus Current Visit: Yes Status: Acute Code(s): U07.1 - COVID-19; J12.82 - PNEUMONIA DUE TO CORONAVIRUS 2018 SNOMED Code(s): 888661043198601811 (3) Hypoxia Current Visit: Yes Status: Acute Code(s): R09.02 - HYPOXEMIA SNOMED Code(s): 467509128 (4) Alcohol abuse Current Visit: No Status: Acute Code(s): F10.10 - ALCOHOL ABUSE, UNCOMPLICATED SNOMED Code(s): 90953844 (5) Constipation Current Visit: No Status: Acute Code(s): K59.00 - CONSTIPATION, UNSPECIFIED SNOMED Code(s): 95025840 (6) Essential (primary) hypertension Current Visit: No Status: Acute Code(s): I10 - ESSENTIAL (PRIMARY) HYPERTENSION SNOMED Code(s): 07695144 (7) History of opioid abuse Current Visit: No Status: Acute Code(s): F11.11 - OPIOID ABUSE, IN REMISSION SNOMED Code(s): 352156136 (8) Mixed hyperlipidemia Current Visit: No Status: Acute Code(s): E78.2 - MIXED HYPERLIPIDEMIA SNOMED Code(s): 198630928 (9) Tobacco abuse Current Visit: No Status: Acute Code(s): Z72.0 - TOBACCO USE SNOMED Code(s): 860323411 Plan: I'll await on further recommendations from infectious disease, and pulmonology. Wait and repeat blood cultures, he'll continue on her infectious disease. He'll continue on the inhalers & Medrol per pulmonology and continue COVID-19 cocktail. A consultation with cardiology for SUNNY will be planned. Repeat labs in a.m., reevaluate next 24 hours
[2021-12-09 11:37] LABS: Glucose,Whole Blood 115 mg/dL (70-110)
--- NOTE | 2021-12-09 13:05 | P.CRDCN ---
History of Present Illness Consult date: 12/09/21 History of present illness: History of Present Illness: The patient is a 71-year-old male who presented on December 01 with symptoms progressive dyspnea, cough and congestion with evidence of right lower lobe pneumonia. He has a prior history of CAD and stenting. The patient denies any chest discomfort at this time he denies any dizziness or palpitations. He was quite hypoxemic in the past but better now. He underwent stenting of the RCA in July [address] Min. He had mild disease in the LAD and the circumflex. He has been doing well since his presentation his oxygenation is improving, he had an echocardiogram that was suboptimal but showed a preserved systolic function. There was a question for the need of a SUNNY. On presentation the patient was positive for COVID-19 infection in addition to positive cultures. He had no evidence of malignant arrhythmia. He has no symptoms of CHF or acute coronary syndrome at this point Medications: Coreg 6.25 mg twice a day, clonidine 0.2 mg 3 times a day, hydralazine 25 mg 3 times a day, insulin, Imdur 30 mg daily, Lipitor 80 mg daily Review of Systems: Respiratory: He had progressive dyspnea cough and wheezing, better now GI: No nausea or vomiting . No history of peptic ulcer disease. No recent GI bleed. : No hematuria or dysuria. Nervous System: No stroke or seizure. Physical Examination: 71-year-old male, alert and oriented appears older than stated age ,Blood pressure 137/80, Heart rate 90 and afebrile Head: Normocephalic. Eyes: Sclerae nonicteric. Neck: Good carotid upstroke, no bruit, no jugular venous distention. Lungs: Bilateral rhonchi Heart: Regular rate and rhythm, S1-S2, no S3, no rub. Systolic ejection murmur. Abdomen: Soft nontender, positive bowel sounds no organomegaly. Extremities: No edema, intact distal pulses. Labs: On December 06, potassium 4.2, BUN 27 and creatinine 0.68 EKG: Sinus mechanism with nonspecific ST-T wave changes Impression: 1. Pneumonia, improving 2. COVID-19 positive 3. History of CAD stable 4. Hypertension 5. Prior history of smoking Plan: 1. Continue present therapy 2. I discussed his case with Dr. Carter, infectious disease, at this time he feels that SUNNY is not indicated. We'll continue observation 3. Please feel free to call us if SUNNY is needed 4. Thank you for this consult Past Medical History Past Medical History: Chest Pain / Angina, COPD, CVA/TIA, Hyperlipidemia, Hypertension, Liver Disease, Vascular Disorder Additional Past Medical History / Comment(s): hep c- treated, TIA couple years ago Last Myocardial Infarction Date:: unknown History of Any Multi-Drug Resistant Organisms: None Reported Past Surgical History: Heart Catheterization With Stent, Orthopedic Surgery, Ton sillectomy Additional Past Surgical History / Comment(s): COLONOSCOPY/EGD, surg x4 right shoulder Past Anesthesia/Blood Transfusion Reactions: No Reported Reaction Date of Last Stent Placement:: 07/30/19 Past Psychological History: No Psychological Hx Reported Smoking Status: Former smoker Past Alcohol Use History: Abuse, Daily Additional Past Alcohol Use History / Comment(s): drinks 8-15 cans of beer per day,. SMOKES < 1/2 PPD DAILY SINCE AGE 20. quit smoking 1 month ago, 10/2021 Past Drug Use History: IV Drug Use, Opiates, Prescription Drug Abuse Additional Drug Use History / Comment(s): NO LONGER USING OPIATES PER PT - Past Family History Mother Family Medical History: Myocardial Infarction ([place]) Father Additional Family Medical History / Comment(s): polio, enlarged heart Brother(s) Family Medical History: CVA/TIA Daughter(s) History Unknown: Yes Son(s) Family Medical History: Hyperlipidemia Medications and Allergies Home Medications Medication Instructions Recorded Confirmed Type Buprenorphine HCl/Naloxone HCl 1 tab SL DAILY 02/13/19 12/01/21 History [Zubsolv 2.9-0.71 mg Tablet Sl] cloNIDine HCL [Catapres] 0.2 mg PO TID 07/28/19 12/01/21 History lisinopriL [Zestril] 20 mg PO BID #180 tab 07/31/19 12/01/21 Rx Isosorbide Mononitrate [Isosorbide 30 mg PO DAILY 05/19/20 12/01/21 History Mononitrate ER] Clopidogrel [Plavix] 75 mg PO DAILY 09/27/20 12/01/21 History Pantoprazole Sodium [Protonix] 40 mg PO DAILY 09/27/20 12/01/21 History Atorvastatin [Lipitor] 80 mg PO HS 10/10/20 12/01/21 History Albuterol Inhaler [Ventolin Hfa 1 puff INHALATION RT-Q4H PRN 12/01/21 12/01/21 History Inhaler] Loratadine [Claritin] 10 mg PO DAILY 12/01/21 12/01/21 History carvediloL [Coreg] 6.25 mg PO BID-W/MEALS 12/01/21 12/01/21 History Allergies Allergy/AdvReac Type Severity Reaction Status Date / Time codeine AdvReac Nausea Verified 10/12/20 12:19 Physical Exam Vitals: Vital Signs Temp Pulse Resp BP Pulse Ox 12/09/21 12:08 97.0 F L 99 21 137/83 99 12/09/21 09:34 97 12/09/21 09:33 98 21 12/09/21 09:32 96.0 F L 98 21 153/67 97 12/09/21 02:00 101 H 21 12/09/21 00:00 98.3 F 101 H 21 131/72 97 12/08/21 20:00 98.2 F 104 H 20 127/74 96 12/08/21 16:40 96.8 F L 111 H 21 139/73 94 L Intake and Output 12/08/21 12/09/21 12/09/21 22:59 06:59 14:59 Intake Total 118 460 Balance 118 460 Intake: IV 240 ceFAZolin 2 gm In Sodium 240 Chloride 0.9% 50 ml @ 100 mls/hr IVPB Q8HR [facility] Rx# :[id number] Oral 118 220 Other: Voiding Method Bedside Commode Bedside Commode Bedside Commode # Voids 3 # Bowel Movements 1 Results 12/05/21 09:17 12/06/21 08:04 Current Medications Generic Name Dose Route Start Last Admin Trade Name Freq PRN Reason Stop Dose Admin Acetaminophen 650 mg 12/02/21 09:51 12/06/21 08:26 Acetaminophen Tab 325 Mg Tab PO 650 mg Q4HR PRN Administration Fever and/ or Pain Albuterol Sulfate 2 puff 12/02/21 16:00 12/09/21 12:05 Albuterol Hfa Inhaler INHALATION 2 puff RT-QID [facility] Administration Ascorbic Acid 500 mg 12/02/21 12:30 12/09/21 09:42 Ascorbic Acid 500 Mg Tab PO 500 mg BID [facility] Administration Atorvastatin Calcium 80 mg 12/02/21 21:00 12/08/21 21:08 Atorvastatin 80 Mg Tab PO 80 mg HS [facility] Administration Budesonide/Formoterol Fumarate 2 puff 12/02/21 20:00 12/09/21 09:33 Symbicort 160-4.5 Mcg Inhaler INHALATION 2 puff RT-BID CYNTHIA Administration Carvedilol 6.25 mg 12/02/21 17:30 12/09/21 06:44 Carvedilol 6.25 Mg Tab PO 6.25 mg BID-W/MEALS CYNTHIA Administration Cholecalciferol 125 mcg 12/02/21 12:30 12/09/21 09:42 Cholecalciferol 125 Mcg (5000 Iu) Tablet PO 125 mcg DAILY CYNTHIA Administration Clonidine 0.2 mg 12/02/21 09:30 12/09/21 09:42 Clonidine Hcl 0.2 Mg Tab PO 0.2 mg TID CYNTHIA Administration Clopidogrel Bisulfate 75 mg 12/02/21 09:30 12/09/21 09:42 Clopidogrel 75 Mg Tab PO 75 mg DAILY [facility] Administration Dextrose/Water 25 ml 12/02/21 11:45 Dextrose 50% Syringe 50 Ml IVP PER PROTOCOL PRN Hypoglycemia Protocol Dextrose/Water 50 ml 12/02/21 11:45 Dextrose 50% Syringe 50 Ml IVP PER PROTOCOL PRN Hypoglycemia Protocol Diphenoxylate HCl/Atropine 1 each 12/06/21 10:13 Diphenox-Atrop 2.5-0.025 Mg 1 Each Tab PO Q6HR PRN Diarrhea Docusate Sodium 100 mg 12/02/21 12:45 12/09/21 09:42 Docusate 100 Mg Cap PO 100 mg BID CYNTHIA Administration Enoxaparin Sodium 40 mg 12/03/21 09:00 12/09/21 09:42 Enoxaparin 40 Mg/0.4 Ml Syringe SQ 40 mg Q24HR [facility] Administration Hydralazine HCl 25 mg 12/02/21 16:00 12/09/21 09:42 Hydralazine Hcl 25 Mg Tab PO 25 mg TID CYNTHIA Administration Sodium Chloride 1,000 mls @ 50 mls/hr 12/01/21 18:30 12/08/21 16:44 Saline 0.9% IV 50 mls/hr .Q20H CYNTHIA Administration Cefazolin Sodium 2 gm/ Sodium 50 mls @ 100 mls/hr 12/03/21 08:00 12/09/21 01:32 Chloride IVPB 100 mls/hr Q8HR [facility] Administration Protocol Insulin Aspart 0 unit 12/02/21 12:30 12/09/21 12:04 Insulin Aspart (Novolog) 100 Unit/Ml Vial SQ Not Given ACHS [facility] Protocol Isosorbide Mononitrate 30 mg 12/02/21 09:30 12/09/21 09:42 Isosorbide Mononitrate Er 30 Mg Tab.Er.24h PO 30 mg DAILY CYNTHIA Administration Loratadine 10 mg 12/02/21 09:30 12/09/21 09:42 Loratadine 10 Mg Tab PO 10 mg DAILY CYNTHIA Administration Lorazepam 1 mg 12/03/21 13:22 Lorazepam 1 Mg Tab PO Q2HR PRN CIWA 8 or 9 Lorazepam 1 mg 12/03/21 13:23 Lorazepam 1 Mg Tab PO Q1HR PRN CIWA 10 to 15 Lorazepam 2 mg 12/03/21 13:24 Lorazepam 1 Mg Tab PO 12/15/21 13:25 Q10M PRN CIWA 16 or higher Miscellaneous Information 1 each 12/05/21 15:36 Magnesium Replacement Protocol 1 Each Misc MISCELLANE DAILY PRN Per Protocol Protocol Naloxone HCl 0.2 mg 12/01/21 18:19 Naloxone 0.4 Mg/Ml 1 Ml Vial IV Q2M PRN Opioid Reversal Pantoprazole Sodium 40 mg 12/02/21 09:30 12/09/21 06:44 Pantoprazole 40 Mg Tablet PO 40 mg [id number] CYNTHIA Administration Prednisone 40 mg 12/09/21 09:00 12/09/21 09:42 Prednisone 20 Mg Tab PO 40 mg DAILY CYNTHIA Administration Sodium Bicarbonate 650 mg 12/03/21 10:15 12/09/21 09:42 Sodium Bicarbonate Tab 650 Mg Tab PO 650 mg BID CYNTHIA Administration Thiamine HCl 100 mg 12/02/21 07:30 12/09/21 06:44 Thiamine 100 Mg Tab PO 100 mg BID-W/MEALS CYNTHIA Administration Tramadol/Acetaminophen 2 each 12/06/21 13:14 12/07/21 12:39 Tramadol-Acetaminop 37.5-325mg 1 Each Tab PO 2 each Q6HR PRN Administration Pain Zinc Sulfate 220 mg 12/03/21 09:00 12/09/21 09:42 Zinc Sulfate 220 Mg Cap PO 220 mg DAILY CYNTHIA Administration Intake and Output 12/08/21 12/09/21 12/09/21 22:59 06:59 14:59 Intake Total 118 460 Balance 118 460 Intake: IV 240 ceFAZolin 2 gm In Sodium 240 Chloride 0.9% 50 ml @ 100 mls/hr IVPB Q8HR [facility] Rx# :[id number] Oral 118 220 Other: Voiding Method Bedside Commode Bedside Commode Bedside Commode # Voids 3 # Bowel Movements 1 12/05/21 09:17 12/06/21 08:04
--- NOTE | 2021-12-09 13:23 | P.PN ---
Subjective Progress Note Date: 12/09/21 Principal diagnosis: Bacteremia Patient is a 71-year male with multiple comorbidities presented to hospital with increased shortness with cough patient did have evidence of a bilateral infiltrate and some consolidative changes to the right lower lobe positive COVID test and subsequent did have a positive blood culture finalized with MSSA.Patient did have echocardiogram done which was a poor window valves were not visualized On today's evaluation that is 12/09/2021 , The patient continues to be afebrile, the patient is breathing comfortably on 5 L nasal cannula oxygen, the patient denies having any chest pain , the patient has been complaining of a congested cough, but no sputum production, patient has lost his IV access and the patient is refusing further IVs and not signing for a midline PICC line Objective - Vital Signs Vital signs: Vital Signs Temp 97.0 F L 12/09/21 12:08 Pulse 99 12/09/21 12:08 Resp 21 12/09/21 12:08 BP 137/83 12/09/21 12:08 Pulse Ox 99 12/09/21 12:08 FiO2 12/02/21 07:52 Intake & Output 12/08/21 12/09/21 12/09/21 18:59 06:59 18:59 Intake Total 599 460 Output Total 225 Balance 374 460 Intake: IV 240 ceFAZolin 2 gm In Sodium 240 Chloride 0.9% 50 ml @ 100 mls/hr IVPB Q8HR [facility] Rx# :[id number] Oral 599 220 Output: Urine 225 Other: Voiding Method Bedside Commode Bedside Commode Bedside Commode # Voids 3 # Bowel Movements 1 - Exam GENERAL DESCRIPTION: Elderly male lying in bed, no distress. No tachypnea or accessory muscle of respiration use. LUNGS: Unlabored breathing. Coarse breath sound at base bilaterally HEART: S1, S2, regular rate and rhythm. No loud murmur ABDOMEN: Soft, no tenderness , guarding or rigidity, no organomegaly EXTREMITIES: No edema of feet. - Labs CBC & Chem 7: 12/05/21 09:17 12/06/21 08:04 Labs: Abnormal Lab Results - Last 24 Hours (Table) 12/08/21 12/08/21 12/09/21 Range/Units 16:31 19:06 05:45 POC Glucose (mg/dL) 135 H 151 H 117 H (70-110) mg/dL 12/09/21 Range/Units 11:36 POC Glucose (mg/dL) 115 H (70-110) mg/dL Microbiology - Last 24 Hours (Table) 12/04/21 08:59 Blood Culture - Preliminary Blood No Growth after 120 hours Assessment and Plan (1) Bacteremia Current Visit: Yes Status: Acute Code(s): R78.81 - BACTEREMIA SNOMED Code(s): 3566919 (2) Pneumonia Current Visit: Yes Status: Acute Code(s): J18.9 - PNEUMONIA, UNSPECIFIED ORGANISM SNOMED Code(s): 152336209 Plan: 1patient with gram-positive bacteremia source likely right lower lobe pneumonia in this patient with a borderline kidney function and high risk of nephrotoxicity from vancomycin and daptomycin usually not indicated for pneumonia. Patient also have positive COVID test however the patient symptom has been going on for a while and he is currently out of the therapeutic window for remdesivir as more likely evidence of secondary bacterial pneumonia with bacteremia 2Patient with a positive blood culture finalized with MSSA source possible pneumonia ,Blood culture done on 12/04/2021 has been negative, Patient did have a echocardiogram unfortunately poor windows and did not provide enough information, May benefit from SUNNY to make sure no evidence of any Cardiac valve involvement, clinically suspicious remained to be low for endocarditis 3- Patient has cleared his bacteremia and showing some clinical improvement , unfortunately the patient has lost his IV access and he is refusing placement of midline though it was explained to the patient he will need IV antibiotic because of his bacteremia currently with no option and the patient continued to refuse, Ramesh switched him to oral Keflex though that is not an ideal treatment for bacteremia Time with Patient: Less than 30
--- NOTE | 2021-12-09 13:44 | P.PN ---
Subjective Progress Note Date: 12/09/21 71-year-old male who presents to the emergency department, on December 01, complaining of shortness of breath. The patient states that he's been having shortness of breath for quite some time. In addition, he complained of tightness, chest congestion, cough, and phlegm production. Chest x-ray revealed a right lower lobe pneumonia. Currently, the patient's on 15 L high flow oxygen. He is getting saline at 130 mL an hour. His primary care provider is Dr. Issa. He apparently has a previous history of heavy tobacco use. He states he does not smoke currently. Other medical history includes angina pectoris, CVA, hyperlipidemia, hypertension, and previous heart catheterization with stent, for CAD. In addition, the patient complains of hoarseness, which she states has gotten worse. Labs include a white count of 9.9, hemoglobin 10, hematocrit 30.1, and a platelet count of 608,000. Blood gases, on 60% oxygen show pO2 64, pCO2 34, and a pH of 7.38. Sodium 129, potassium 5.5, chlorides 92, CO2 17, anion gap 20, UA 84, creatinine 3.15. Testing for coronavirus was positive. Chest x-ray shows some patchy infiltrates in the right lower lobe, and diffuse interstitial changes throughout. Progress note dated 12/03/2021. 71-year-old male seen yesterday in consultation. He was initially seen in the emergency department, on December 01, complaining of shortness of breath. The patient's chest x-ray did reveal a right lower lobe pneumonia. Currently, the patient is on 15 L high flow oxygen. He is getting saline at 130 mL an hour. Blood cultures were apparently positive for Staphylococcus aureus. The patient does feel better today he tells me. White count 9.2, hemoglobin 8.5, hematocrit 27, and platelet count 551,000. The patient's d-dimer was 4.63. PTT was 30.4. Sodium 138, potassium 4.5, chlorides 108, CO2 18, anion gap 12, BUN 52, and creatinine 1.35. The patient's N-terminal proBNP was 5780. Pro-calcitonin level was 0.37. Blood cultures are positive Staphylococcus aureus. On today's evaluation of, of 12/04/2021, I'm seeing the patient for a follow-up. The patient is on high flow oxygen at 15 L per minute nasal cannula. The patient was hospitalized with covid 19 infection with a positive blood culture that do not to be MSSA. Noted the patient was vaccinated 2 for COVID and he has not received any boosters. The patient's chest x-ray showed bilateral pneumonia with increased consolidation of the right lung base. Accordingly, the patient was covered with broad-spectrum antibiotics and the patient is currently on IV cefazolin. The patient is also on steroids. Continues to have cough and congestion. No pleurisy. No hemoptysis. The patient remains on 15 L of oxygen by nasal cannula. His breathing is labored. Congested cough and is unable to bring up much of sputum. The patient was positive COVID 19 and the same time the patient had a possible culture for MSSA. The patient has a white cell count of 14.1 and the patient remains on IV cefazolin 2 g every 8 hours. The patient is also on IV Solu-Medrol 60 mg every 6 hours. He is a chronic smoker and he also has a component of COPD. He remains on anticoagulation with Lovenox for DVT prophylaxis. His d-dimer was at 8.55 and this white cell count of 14.1 with a hemoglobin of 9.2. Rest of the coagulation profile was essentially within normal limits. His fibrinogen level was high as 599. BNP is a 42 with a creatinine of 1.1. His proBNP level was still elevated at 7340. LFTs are adequate at this point in time. No recent chest x-ray. He is afebrile. Inflammatory markers from the time of admission showed a pro-calcitonin level of 0.37. His LDH level was 585. 12/15/2021, the patient is being seen for a follow-up. The patient is currently on 10 L of O2 nasal cannula. He is still having shortness of breath cough and congestion. He is lethargic. Is able to communicate however he is quite weak. Note that the patient was on 15 L of O2 yesterday and I weaned him down to 10 L and is able to tolerate and maintain a pulse ox above 90%. Nevertheless, repeat chest x-ray showed progression in the airspace disease and this is based on the chest x-ray was done yesterday. He remains on IV cefazolin 2 g every 8 hours regarding staph aureus septicemia, MSSA and the patient is also on IV Solu- Medrol. D-dimer is slightly lower at 7.44. His LDH level is also low in the range of 585. The proBNP level is elevated at 7340. Echocardiogram was done and it was a poor window. For the most part the LV function was essentially within normal limits. The creatinine is down to 1.1 from yesterday. He is afebrile. He is hemodynamically stable. His activity is very limited. His oral intake is fair 12/06/2021, the patient is on 10 L by nasal cannula and pulse oximeter high 90s.. The patient is feeling well. No specific complaints. Chest x-ray shows stable right upper and right lower lobe consolidation. Remains on IV cefazolin. Remains on IV Solu-Medrol 60 milligrams IV Every 6 hours. Remains on Lovenox 40 mg subcu for DVT prophylaxis. The patient has a sodium level of 137 with a potassium level of 4.2, BUN is at 27 with a creatinine of 0.6 and magnesium level of 1.8. No significant changes condition. Is gradually improving. Echocardiogram was essentially poor window and for the most part LV function was essentially within normal limits. He is afebrile. He is hemodynamically stable at this point in time. No aspiration. 12/07/2021, the patient has no specific complaints. He is on 8 L of O2 nasal cannula. His pulse is in order of 97%. I cut him down to 6 L. He has a congested cough. No significant sputum production. He remains on a combination of IV cefazolin and bronchodilators and steroids. No chest pain. No angina. No palpitations. Altered mentation. No new labs. Blood sugars nonelevated and the patient's stool for C. diff and also negative. No lives at available from today. His oxygenation continues to steadily improve. 12/08/2021, seeing the patient for a follow-up. Patient is essentially the same and unchanged. I have weaned him down to 5 L and the patient can be further weaned down to 4 L of oxygen by nasal cannula. Chest x-ray findings are essentially unchanged and there is a stable right lower lobe consolidation of right upper lobe consolidation. He is resting comfortably in bed. He feels weak. No chest pain. No hemoptysis or pleurisy. No other significant events overnight. He remains on IV Solu Medrol 4 mg every 8 hours. 12/09/2021, the patient is on 4 L of oxygen nasal cannula and oxygenation is stable. The chest x-ray shows stable bilateral pulmonary infiltrates. This was a chest x-ray from yesterday. The patient was receiving IV cefazolin. The patient lost his IV access. Several attempts to put IV access failed. The patient was in attendance for a midline and this again failed. I was asked to put a triple THIS PATIENT. THE PATIENT DECLINED THAT OPTION. Note that the patient had a staph aureus bacteremia and the patient was cefazolin. Infectious disease was involved and the patient will be switched to oral Keflex for now. He is hemodynamically stable. He has no specific complaints. An echocardiogram that showed poor windows and not meaningful information can be obtained from the echocardiogram and there was no evidence of any cardiac valvular involvement based on transthoracic echocardiogram. He is relatively low risk for endocarditis. In any rate , his condition is stable. He is in general a noncooperative person. Objective - Vital Signs Vital signs: Vital Signs Temp 97.0 F L 12/09/21 12:08 Pulse 99 12/09/21 12:08 Resp 21 12/09/21 12:08 BP 137/83 12/09/21 12:08 Pulse Ox 99 12/09/21 12:08 FiO2 21 12/02/21 07:52 Intake & Output 12/08/21 12/09/21 12/09/21 18:59 06:59 18:59 Intake Total 599 460 Output Total 225 Balance 374 460 Intake: IV 240 ceFAZolin 2 gm In Sodium 240 Chloride 0.9% 50 ml @ 100 mls/hr IVPB Q8HR [facility] Rx# :[id number] Oral 599 220 Output: Urine 225 Other: Voiding Method Bedside Commode Bedside Commode Bedside Commode # Voids 3 # Bowel Movements 1 - Exam Mild to moderate respiratory distress, oriented, currently on 4 L high flow O2. The patient is calm and comfortable. HEENT examination is grossly unremarkable. Neck supple. Full range of motion. No adenopathy thyromegaly or neck vein distention. Cardiovascular examination reveals regular rhythm rate. S1-S2 normal. No S3 or S4. No discernible murmur noted. Heart sounds are distant. Heart rate 90 bpm. Lungs reveal coarse bilateral rhonchi. Crackles are noted. No wheezes. Breath sounds equal bilaterally. Saturations are 96% on 15 L high flow oxygen. Abdomen soft bowel sounds are heard. No masses or tenderness. Extremities are intact. No cyanosis clubbing or edema. Skin is without rash or lesion. Neurologic examination is brief but nonfocal.x-ray - Labs CBC & Chem 7: 12/05/21 09:17 12/06/21 08:04 Labs: Abnormal Lab Results - Last 24 Hours (Table) 12/08/21 12/08/21 12/09/21 Range/Units 16:31 19:06 05:45 POC Glucose (mg/dL) 135 H 151 H 117 H (70-110) mg/dL 12/09/21 Range/Units 11:36 POC Glucose (mg/dL) 115 H (70-110) mg/dL Microbiology - Last 24 Hours (Table) 12/04/21 08:59 Blood Culture - Preliminary Blood No Growth after 120 hours Assessment and Plan Plan: Acute hypoxemic respiratory failure, multifactorial, secondary to COPD exacerbation, patchy pneumonia right lower lobe, and possible coronavirus associated pneumonia. Clinically improving and the patient oxidation is also improved and the patient has been weaned down to 4 L Acute COVID 19 pneumonia with stable pulmonary consolidations with a right upper lobe and right lower lobe stable infiltrates. Bilateral pneumonia with some interval progression of the airspace disease, consider superimposed bacterial pneumonia. The patient is currently on 10 L of O2 nasal cannula. Staphylococcus aureus bacteremia/sepsis History of COPD, secondary to heavy tobacco use. Acute kidney injury, improving, renal function is normalized. Patient remains on normal saline at the rate of 50 mL an hour. History of angina pectoris, and previous heart catheterization with stent, for CAD. History of CVA. History of hyperlipidemia. History of hypertension. History of hepatitis C. Previous history of heavy tobacco use. Plan: Weaned down the FiO2 to 4 L and continue wean down FiO2 as long as the pulse ox remains above 90% Wean down the FiO2 further and I will suggest putting him down to 2 or 3 L Clinically improving The patient will need IV access. He declines. Unsuccessful to insert midline or ultrasound-guided peripheral lines. The patient declined triple-lumen catheter. Antibiotics have been switched to oral Keflex. Recheck pro calcitonin level from yesterday showed that the level was improving it was down to 0.12 prednisone burst taper, currently on 40 mg of prednisone Continue Lovenox for DVT prophylaxis Echo Was done and the patient is a preserved LV function. The patient has an elevated pro BNP level. No evidence of any vegetation yet this was a poor window. Low risk for endocarditis. We'll continue to follow.
[2021-12-09] MEDS: CEPHALEXIN 500 MG CAP PO SCH ×3 (14:05→21:41)
[2021-12-09 16:08] LABS: Glucose,Whole Blood 159 mg/dL (70-110)
[2021-12-09] MEDS: SODIUM CHLORIDE 0.9% 1,000 ML IV SCH (18:45)
[2021-12-09 21:00] LABS: Glucose,Whole Blood 168 mg/dL (70-110)
[2021-12-09] MEDS: ATORVASTATIN 80 MG TAB PO SCH (21:41)
[2021-12-10 06:01] LABS: Glucose,Whole Blood 109 mg/dL (70-110)
[2021-12-10] MEDS: INSULIN ASPART (NovoLOG) 100 UNIT/ML VIAL SQ SCH ×4 (06:18→21:25)
[2021-12-10] MEDS: carvediloL 6.25 MG TAB PO SCH ×2 (06:28→17:45)
[2021-12-10] MEDS: THIAMINE 100 MG TAB PO SCH ×2 (06:28→17:45)
[2021-12-10] MEDS: PANTOPRAZOLE 40 MG TABLET PO SCH (06:28)
[2021-12-10] MEDS: SYMBICORT 160-4.5 MCG INHALER INHALATION SCH ×2 (08:33→19:26)
[2021-12-10] MEDS: ALBUTEROL HFA INHALER INHALATION SCH ×4 (08:33→19:26)
[2021-12-10 09:12] LABS: African American GFR (CKD) >90 (>60 ml/min/1.73 sqM); Anion Gap 5 mmol/L; Blood Urea Nitrogen 23 mg/dL (9-20); Calcium 7.6 mg/dL (8.4-10.2); Carbon Dioxide 24 mmol/L (22-30); Chloride 105 mmol/L (98-107); Glucose 100 mg/dL (74-99); Non-African American GFR(CKD) >90 (>60 ml/min/1.73 sqM); Sodium 134 mmol/L (137-145)
[2021-12-10 09:13] LABS: Magnesium 1.4 mg/dL (1.6-2.3); Potassium 4.3 mmol/L (3.5-5.1)
[2021-12-10] MEDS: ENOXAPARIN 40 MG/0.4 ML SYRINGE SQ SCH (09:33)
[2021-12-10] MEDS: ISOSORBIDE MONONITRATE ER 30 MG TAB.ER.24H PO SCH (09:34)
[2021-12-10] MEDS: LORATADINE 10 MG TAB PO SCH (09:34)
[2021-12-10] MEDS: hydrALAZINE HCL 25 MG TAB PO SCH ×3 (09:34→21:25)
[2021-12-10] MEDS: SODIUM BICARBONATE TAB 650 MG TAB PO SCH ×2 (09:34→21:25)
[2021-12-10] MEDS: CEPHALEXIN 500 MG CAP PO SCH ×4 (09:34→21:25)
[2021-12-10] MEDS: ZINC SULFATE 220 MG CAP PO SCH (09:34)
[2021-12-10] MEDS: predniSONE 20 MG TAB PO SCH (09:34)
[2021-12-10] MEDS: cloNIDine HCL 0.2 MG TAB PO SCH ×3 (09:34→21:25)
[2021-12-10] MEDS: DOCUSATE 100 MG CAP PO SCH ×2 (09:34→21:26)
[2021-12-10] MEDS: ASCORBIC ACID 500 MG TAB PO SCH ×2 (09:34→21:25)
[2021-12-10] MEDS: CHOLECALCIFEROL 125 MCG (5000 IU) TABLET PO SCH (09:34)
[2021-12-10] MEDS: CLOPIDOGREL 75 MG TAB PO SCH (09:34)
[2021-12-10 12:18] LABS: Glucose,Whole Blood 148 mg/dL (70-110)
--- NOTE | 2021-12-10 12:42 | P.PN ---
Subjective Progress Note Date: 12/10/21 71-year-old male who presents to the emergency department, on December 01, complaining of shortness of breath. The patient states that he's been having shortness of breath for quite some time. In addition, he complained of tightness, chest congestion, cough, and phlegm production. Chest x-ray revealed a right lower lobe pneumonia. Currently, the patient's on 15 L high flow oxygen. He is getting saline at 130 mL an hour. His primary care provider is Dr. Issa. He apparently has a previous history of heavy tobacco use. He states he does not smoke currently. Other medical history includes angina pectoris, CVA, hyperlipidemia, hypertension, and previous heart catheterization with stent, for CAD. In addition, the patient complains of hoarseness, which she states has gotten worse. Labs include a white count of 9.9, hemoglobin 10, hematocrit 30.1, and a platelet count of 608,000. Blood gases, on 60% oxygen show pO2 64, pCO2 34, and a pH of 7.38. Sodium 129, potassium 5.5, chlorides 92, CO2 17, anion gap 20, UA 84, creatinine 3.15. Testing for coronavirus was positive. Chest x-ray shows some patchy infiltrates in the right lower lobe, and diffuse interstitial changes throughout. Progress note dated 12/03/2021. 71-year-old male seen yesterday in consultation. He was initially seen in the emergency department, on December 01, complaining of shortness of breath. The patient's chest x-ray did reveal a right lower lobe pneumonia. Currently, the patient is on 15 L high flow oxygen. He is getting saline at 130 mL an hour. Blood cultures were apparently positive for Staphylococcus aureus. The patient does feel better today he tells me. White count 9.2, hemoglobin 8.5, hematocrit 27, and platelet count 551,000. The patient's d-dimer was 4.63. PTT was 30.4. Sodium 138, potassium 4.5, chlorides 108, CO2 18, anion gap 12, BUN 52, and creatinine 1.35. The patient's N-terminal proBNP was 5780. Pro-calcitonin level was 0.37. Blood cultures are positive Staphylococcus aureus. On today's evaluation of, of 12/04/2021, I'm seeing the patient for a follow-up. The patient is on high flow oxygen at 15 L per minute nasal cannula. The patient was hospitalized with covid 19 infection with a positive blood culture that do not to be MSSA. Noted the patient was vaccinated 2 for COVID and he has not received any boosters. The patient's chest x-ray showed bilateral pneumonia with increased consolidation of the right lung base. Accordingly, the patient was covered with broad-spectrum antibiotics and the patient is currently on IV cefazolin. The patient is also on steroids. Continues to have cough and congestion. No pleurisy. No hemoptysis. The patient remains on 15 L of oxygen by nasal cannula. His breathing is labored. Congested cough and is unable to bring up much of sputum. The patient was positive COVID 19 and the same time the patient had a possible culture for MSSA. The patient has a white cell count of 14.1 and the patient remains on IV cefazolin 2 g every 8 hours. The patient is also on IV Solu-Medrol 60 mg every 6 hours. He is a chronic smoker and he also has a component of COPD. He remains on anticoagulation with Lovenox for DVT prophylaxis. His d-dimer was at 8.55 and this white cell count of 14.1 with a hemoglobin of 9.2. Rest of the coagulation profile was essentially within normal limits. His fibrinogen level was high as 599. BNP is a 42 with a creatinine of 1.1. His proBNP level was still elevated at 7340. LFTs are adequate at this point in time. No recent chest x-ray. He is afebrile. Inflammatory markers from the time of admission showed a pro-calcitonin level of 0.37. His LDH level was 585. 12/15/2021, the patient is being seen for a follow-up. The patient is currently on 10 L of O2 nasal cannula. He is still having shortness of breath cough and congestion. He is lethargic. Is able to communicate however he is quite weak. Note that the patient was on 15 L of O2 yesterday and I weaned him down to 10 L and is able to tolerate and maintain a pulse ox above 90%. Nevertheless, repeat chest x-ray showed progression in the airspace disease and this is based on the chest x-ray was done yesterday. He remains on IV cefazolin 2 g every 8 hours regarding staph aureus septicemia, MSSA and the patient is also on IV Solu- Medrol. D-dimer is slightly lower at 7.44. His LDH level is also low in the range of 585. The proBNP level is elevated at 7340. Echocardiogram was done and it was a poor window. For the most part the LV function was essentially within normal limits. The creatinine is down to 1.1 from yesterday. He is afebrile. He is hemodynamically stable. His activity is very limited. His oral intake is fair 12/06/2021, the patient is on 10 L by nasal cannula and pulse oximeter high 90s.. The patient is feeling well. No specific complaints. Chest x-ray shows stable right upper and right lower lobe consolidation. Remains on IV cefazolin. Remains on IV Solu-Medrol 60 milligrams IV Every 6 hours. Remains on Lovenox 40 mg subcu for DVT prophylaxis. The patient has a sodium level of 137 with a potassium level of 4.2, BUN is at 27 with a creatinine of 0.6 and magnesium level of 1.8. No significant changes condition. Is gradually improving. Echocardiogram was essentially poor window and for the most part LV function was essentially within normal limits. He is afebrile. He is hemodynamically stable at this point in time. No aspiration. 12/07/2021, the patient has no specific complaints. He is on 8 L of O2 nasal cannula. His pulse is in order of 97%. I cut him down to 6 L. He has a congested cough. No significant sputum production. He remains on a combination of IV cefazolin and bronchodilators and steroids. No chest pain. No angina. No palpitations. Altered mentation. No new labs. Blood sugars nonelevated and the patient's stool for C. diff and also negative. No lives at available from today. His oxygenation continues to steadily improve. 12/08/2021, seeing the patient for a follow-up. Patient is essentially the same and unchanged. I have weaned him down to 5 L and the patient can be further weaned down to 4 L of oxygen by nasal cannula. Chest x-ray findings are essentially unchanged and there is a stable right lower lobe consolidation of right upper lobe consolidation. He is resting comfortably in bed. He feels weak. No chest pain. No hemoptysis or pleurisy. No other significant events overnight. He remains on IV Solu Medrol 4 mg every 8 hours. 12/09/2021, the patient is on 4 L of oxygen nasal cannula and oxygenation is stable. The chest x-ray shows stable bilateral pulmonary infiltrates. This was a chest x-ray from yesterday. The patient was receiving IV cefazolin. The patient lost his IV access. Several attempts to put IV access failed. The patient was in attendance for a midline and this again failed. I was asked to put a triple THIS PATIENT. THE PATIENT DECLINED THAT OPTION. Note that the patient had a staph aureus bacteremia and the patient was cefazolin. Infectious disease was involved and the patient will be switched to oral Keflex for now. He is hemodynamically stable. He has no specific complaints. An echocardiogram that showed poor windows and not meaningful information can be obtained from the echocardiogram and there was no evidence of any cardiac valvular involvement based on transthoracic echocardiogram. He is relatively low risk for endocarditis. In any rate , his condition is stable. He is in general a noncooperative person. 12/10/2021, the patient is on 4 L. Not much cooperative and he still declines IV access. He was placed on oral antibiotics. Doing well. No specific complaints. Resting comfortably in bed. No fever. No chills. Oxidation gradually improved and the patient is amenable as is currently on 4 L of oxygen by nasal cannula. Blood work today shows a pleasant 80 creatinine of 0.8 sodium level of 134. Glucose is 148. Objective - Vital Signs Vital signs: Vital Signs Temp 97.3 F L 12/10/21 09:30 Pulse 96 12/10/21 09:31 Resp 21 12/10/21 09:31 BP 150/95 12/10/21 09:30 Pulse Ox 96 12/10/21 09:30 FiO2 21 12/02/21 07:52 Intake & Output 12/09/21 12/10/21 12/10/21 18:59 06:59 18:59 Intake Total 460 120 118 Output Total 450 Balance 10 120 118 Intake: IV 240 ceFAZolin 2 gm In Sodium 240 Chloride 0.9% 50 ml @ 100 mls/hr IVPB Q8HR [facility] Rx# :[id number] Oral 220 120 118 Output: Urine 450 Other: Voiding Method Bedside Commode Bedside Commode Bedside Commode # Bowel Movements 1 1 - Exam Mild to moderate respiratory distress, oriented, currently on 4 L high flow O2. The patient is calm and comfortable. HEENT examination is grossly unremarkable. Neck supple. Full range of motion. No adenopathy thyromegaly or neck vein distention. Cardiovascular examination reveals regular rhythm rate. S1-S2 normal. No S3 or S4. No discernible murmur noted. Heart sounds are distant. Heart rate 90 bpm. Lungs reveal coarse bilateral rhonchi. Crackles are noted. No wheezes. Breath sounds equal bilaterally. Saturations are 96% on 15 L high flow oxygen. Abdomen soft bowel sounds are heard. No masses or tenderness. Extremities are intact. No cyanosis clubbing or edema. Skin is without rash or lesion. Neurologic examination is brief but nonfocal.x-ray - Labs CBC & Chem 7: 12/05/21 09:17 12/10/21 08:45 Labs: Abnormal Lab Results - Last 24 Hours (Table) 12/09/21 12/09/21 12/10/21 Range/Units 16:06 20:58 08:45 Sodium 134 L (137-145) mmol/L BUN 23 H (9-20) mg/dL Glucose 100 H (74-99) mg/dL POC Glucose (mg/dL) 159 H 168 H (70-110) mg/dL Calcium 7.6 L (8.4-10.2) mg/dL Magnesium 1.4 L (1.6-2.3) mg/dL 12/10/21 Range/Units 12:15 Sodium (137-145) mmol/L BUN (9-20) mg/dL Glucose (74-99) mg/dL POC Glucose (mg/dL) 148 H (70-110) mg/dL Calcium (8.4-10.2) mg/dL Magnesium (1.6-2.3) mg/dL Microbiology - Last 24 Hours (Table) 12/04/21 08:59 Blood Culture - Final Blood No Growth after 144 hours Assessment and Plan Plan: Acute hypoxemic respiratory failure, multifactorial, secondary to COPD exacerbation, patchy pneumonia right lower lobe, and possible coronavirus associated pneumonia. Clinically improving and the patient oxidation is also improved and the patient has been weaned down to 4 L, clinically stable and unchanged compared to yesterday and antibiotics was switched to oral and the patient is complaining course of Keflex 500 mg by mouth 4 times a day. Acute COVID 19 pneumonia with stable pulmonary consolidations with a right upper lobe and right lower lobe stable infiltrates. Bilateral pneumonia with some interval progression of the airspace disease, consider superimposed bacterial pneumonia. The patient is currently on 10 L of O2 nasal cannula. Staphylococcus aureus bacteremia/sepsis History of COPD, secondary to heavy tobacco use. Acute kidney injury, improving, renal function is normalized. Patient remains on normal saline at the rate of 50 mL an hour. History of angina pectoris, and previous heart catheterization with stent, for CAD. History of CVA. History of hyperlipidemia. History of hypertension. History of hepatitis C. Previous history of heavy tobacco use. Plan: Weaned down the FiO2 to 4 L and continue wean down FiO2 as long as the pulse ox remains above 90% Wean down the FiO2 further and I will suggest putting him down to 2 or 3 L Clinically improving The patient will need IV access. He declines. Unsuccessful to insert midline or ultrasound-guided peripheral lines. The patient declined triple-lumen catheter. Antibiotics have been switched to oral Keflex. Recheck pro calcitonin level from yesterday showed that the level was improving it was down to 0.12 prednisone burst taper, currently on 40 mg of prednisone Continue Lovenox for DVT prophylaxis Echo Was done and the patient is a preserved LV function. The patient has an elevated pro BNP level. No evidence of any vegetation yet this was a poor window. Low risk for endocarditis. Increased mobility Went on oxygen We'll continue to follow.
--- NOTE | 2021-12-10 15:04 | P.PN ---
Subjective Progress Note Date: 12/10/21 Principal diagnosis: No psychiatric diagnosis I was asked to see the patient because he was making pretend guns out of his fingers and saying just get me a gun all I need is a bullet. The patient has a crude sense of humor and admits to being, "gruff". On examination he was alert oriented and intelligent relatively cooperative and talkative. He denied any suicidality now on the past any treatment now or in the past for depression any desire to have medications. He said, "I was just trying to be funny and not I realize I was inappropriate." He denies any voices telling him to do anything and there is no signs of psychosis he is no problem with dementia no history of mood swings. Assessment patient can be as he says gruff and has an appropriate sense of humor but says part of his personality and the way he handles life I don't think that he has a danger to himself or others or needs medicine for depression. Objective - Vital Signs Vital signs: Vital Signs Temp 97.2 F L 12/10/21 12:25 Pulse 96 12/10/21 12:25 Resp 21 12/10/21 12:25 BP 104/62 12/10/21 12:25 Pulse Ox 97 12/10/21 12:25 FiO2 21 12/02/21 07:52 Intake & Output 12/09/21 12/10/21 12/10/21 18:59 06:59 18:59 Intake Total 460 120 118 Output Total 450 Balance 10 120 118 Intake: IV 240 ceFAZolin 2 gm In Sodium 240 Chloride 0.9% 50 ml @ 100 mls/hr IVPB Q8HR [facility] Rx# :[id number] Oral 220 120 118 Output: Urine 450 Other: Voiding Method Bedside Commode Bedside Commode Bedside Commode # Bowel Movements 1 1 - Labs CBC & Chem 7: 12/05/21 09:17 12/10/21 08:45 Labs: Abnormal Lab Results - Last 24 Hours (Table) 12/09/21 12/09/21 12/10/21 Range/Units 16:06 20:58 08:45 Sodium 134 L (137-145) mmol/L BUN 23 H (9-20) mg/dL Glucose 100 H (74-99) mg/dL POC Glucose (mg/dL) 159 H 168 H (70-110) mg/dL Calcium 7.6 L (8.4-10.2) mg/dL Magnesium 1.4 L (1.6-2.3) mg/dL 12/10/21 Range/Units 12:15 Sodium (137-145) mmol/L BUN (9-20) mg/dL Glucose (74-99) mg/dL POC Glucose (mg/dL) 148 H (70-110) mg/dL Calcium (8.4-10.2) mg/dL Magnesium (1.6-2.3) mg/dL Microbiology - Last 24 Hours (Table) 12/04/21 08:59 Blood Culture - Final Blood No Growth after 144 hours
--- NOTE | 2021-12-10 15:16 | P.PN ---
Gogo Loya is a 71-year-old patient well known to my practice. He indicates she's been having increased shortness of breath over the past several weeks a month. He indicates he had COVID-19 pneumonia several months ago. It since recovered indicates. He is a known former heroin addict and was on deep morphine/amoxicillin up until several months ago when he decided to discontinue himself. He is also known alcoholic and frequently drinks 5-6 beers per day. EKG is not him back to using and it was a money issue for him. He is having a great deal difficulty speaking and shortness of breath. He also indicates he significantly constipated. ER finding showed an dyspneic and hypercapnic needing 15 L oxygen on a nonrebreather. He is since transitioned to high flow nasal cannula. Currently he is improving but still having trouble speaking. He is afebrile, heart rate remains borderline tachycardic, respiratory rate is improved now and blood pressure control. Currently is at 91% on 15 L of O2. This morning laboratory studies are pending. Cultures are reported as positive for gram-positive cocci in clusters.. He has received Zosyn and azithromycin the emergency room. Addendum: Rapid, test is positive 12/03/2021: Patient is slightly improved today. He remains on high flow nasal cannula at 15 mL/m. His pulse oximetry is 97%. It has been stable. Blood pressure heart rate rest her rate under control. He remains afebrile. Labs today show hemoglobin 8.5. Left shift was noted with the absolute neutrophil count of 8.3. PT/INR normal. PTT is elevated 3.4 fibrinogen of 748 and d-dimer 4.63. Chemistries now show BUN of 52 and creatinine 1.3. Magnesium is 1.7. CRP is 18.6. BNP was 5780. Pro-calcitonin was elevated at 0.37 Blood culture show presumptive staph aureus, penicillin susceptible. He is now currently on further positive blood cultures, pneumonia. He is anticoagulated with Lovenox. He is on Symbicort and albuterol, for breathing, he remains on Solu-Medrol, sodium bicarbonate, sailing, coated cocktail vitamin C and zinc, she will protocol, hydralazine for blood pressure and Colace was constipation. 12/04/2021 maintained on IV antibiotics as per infectious disease. Continues on covid regimen. Maintaining O2 sats in the high 90s on 15 L high flow nasal cannula. Afebrile, WBC 14.1. Renal function improving, creatinine down to 1.18, BUN 42, bicarbonate 13. Denies chest pain, palpitations or increased shortness of breath. 12/05/2021 chest x-ray of yesterday reporting progression of airspace disease .continues on Covid cocktail, ceftriaxone, IV steroids. Oxygen weaned down to 10 L high flow nasal cannula, maintaining O2 sats in the 90s. Minimal activity, reports weakness. Consumed 50% of meals, tolerating well, no nausea, vomiting. Positive diarrhea. Blood sugars controlled. Echo reporting suboptimal study, grossly LV function appears normal. proBNP 7340, INR 1.1, fibrinogen 4:30, d- dimer decreased ,7.44, ferritin 1533, LDH 585, CRP 8, pro-calcitonin 0.37. Renal function improving.Afebrile. 12/06/2021 improving ,oxygen weaned further down to 8 L high flow nasal cannula, maintaining O2 sats in the 90s. Repeat chest x-ray of yesterday reported similar multifocal airspace opacities.Complains of chronic back pain, unrelieved by Tylenol. Reports multiple episodes of diarrhea. Afebrile. Renal function continues improving, BUN decreased to 27, creatinine 0.68. Magnesium 1.8. Repeat preliminary blood cultures of 12/03 reporting gram-positive cocci in groups, another gram-positive cocci in clusters. Preliminary blood culture collected on 919 reported no growth after 48 hours. Afebrile. 12/07/21 continues on 8 L high flow nasal cannula, maintaining O2 sats in the 90s. Cefazolin as per infectious disease. Diarrhea improved, tested negative for C. difficile. Afebrile. Denies any chest pain, palpitations. 12/08/21 oxygen weaned down to 5 L high flow nasal cannula, maintaining O2 sats in the 90s. Complains that PT has not been working with him but staff reports patient refusing to get out of bed. Diarrhea resolved, complaining of abdominal discomfort, constipation. Denies chest pain, palpitations or increased shortness of breath. Afebrile. 12/09/2021: Patient is reevaluated today for his sepsis, and COVID-19 pneumonia. IV access was lost. He has a known history of IV drug abuse in the past. November having a great deal of trouble regaining IV Paulden I plan on anesthesia seeing him for this. If this fails plan on a central line possibly. Infectious disease and pulmonology are following him. He has been weaned down to 4 L of oxygen via nasal cannula. He remains afebrile. Heart rate remains borderline tachycardic. Labs are pending for today. Blood glucose remains controlled. Blood cultures continued to show staph aureus. Susceptibilities are noted. He remains on cefazolin. A repeat blood culture from 919 is negative. Recommendations from infectious disease and pulmonology reviewed. Abdominal x- ray shows not diffuse. He continues to complain of either diarrhea or constipation to staph. 12/10/2021: Patient is reevaluated today. He remains in a COVID-19 isolation for his pneumonia and bacteremia. He does not have IV access he is refusing all IV access at this time . He remains afebrile. Blood pressures controlled. Pulse oximetry is 97% on 4 L of O2. Heart rate respiratory rate are controlled. He no longer has IV and is refusing further attempts. Anesthesia attempted along with the floor nursing staff on multiple occasions. He does not wish to have a central line either this time. Blood chemistries show BUN 23 creatinine 0.8 calcium 7.6, magnesium 1.4 previous blood cultures were positive for staph aureus. He remains on Keflex this time due to lack of IV access for sepsis Jayden. The last blood culture was negative. He remains on Covid cocktail and zinc vitamin C vitamin D. He is also on prednisone 40 mg daily. He has magnesium replacement ordered. He is on CEWA protocol. Anticoagulation with Lovenox this time. Objective - Vital Signs Vital signs: Vital Signs Temp 97.2 F L 12/10/21 12:25 Pulse 96 12/10/21 12:25 Resp 12/10/21 12:25 BP 104/62 12/10/21 12:25 Pulse Ox 97 12/10/21 12:25 FiO2 21 12/02/21 07:52 Intake & Output 12/09/21 12/10/21 12/10/21 18:59 06:59 18:59 Intake Total 460 120 118 Output Total 450 Balance 10 120 118 Intake: IV 240 ceFAZolin 2 gm In Sodium 240 Chloride 0.9% 50 ml @ 100 mls/hr IVPB Q8HR [facility] Rx# :[id number] Oral 220 120 118 Output: Urine 450 Other: Voiding Method Bedside Commode Bedside Commode Bedside Commode # Bowel Movements 1 1 - Exam GENERAL: Thin male, on nasal cannula, oxygen at 4 L/m NECK: Normal range of motion, supple without lymphadenopathy or JVD, no thyromegaly LUNGS: Breath sounds coarse decreased air exchange and rhonchi noted in multiple lung penny, but is clearing compared to one day ago. HEART: Regular rate and rhythm without murmurs, rubs or gallops.S1S2 Normal ABDOMEN: Soft, nontender, normoactive bowel sounds. No guarding, no rebound. No masses appreciated. EXTREMITIES: Normal range of motion, no pitting or edema. No clubbing or cyanosis. NEUROLOGICAL: Cranial nerves II through XII grossly intact. Normal speech, normal gait. PSYCH: Normal mood, normal affect. SKIN: Warm, Dry, normal turgor, no rashes or lesions noted. - Labs CBC & Chem 7: 12/05/21 09:17 12/10/21 08:45 Labs: Abnormal Lab Results - Last 24 Hours (Table) 12/09/21 12/09/21 12/10/21 Range/Units 16:06 20:58 08:45 Sodium 134 L (137-145) mmol/L BUN 23 H (9-20) mg/dL Glucose 100 H (74-99) mg/dL POC Glucose (mg/dL) 159 H 168 H (70-110) mg/dL Calcium 7.6 L (8.4-10.2) mg/dL Magnesium 1.4 L (1.6-2.3) mg/dL 12/10/21 Range/Units 12:15 Sodium (137-145) mmol/L BUN (9-20) mg/dL Glucose (74-99) mg/dL POC Glucose (mg/dL) 148 H (70-110) mg/dL Calcium (8.4-10.2) mg/dL Magnesium (1.6-2.3) mg/dL Microbiology - Last 24 Hours (Table) 12/04/21 08:59 Blood Culture - Final Blood No Growth after 144 hours Assessment and Plan (1) Sepsis Current Visit: Yes Status: Acute Code(s): A41.9 - SEPSIS, UNSPECIFIED ORGANISM SNOMED Code(s): 81459102 (2) Pneumonia due to COVID-19 virus Current Visit: Yes Status: Acute Code(s): U07.1 - COVID-19; J12.82 - PNEUMONIA DUE TO CORONAVIRUS DISEASE 2018 SNOMED Code(s): 400234254899205453 (3) Hypoxia Current Visit: Yes Status: Acute Code(s): R09.02 - HYPOXEMIA SNOMED Code(s): 736872014 (4) Alcohol abuse Current Visit: No Status: Acute Code(s): F10.10 - ALCOHOL ABUSE, UNCOMPLICATED SNOMED Code(s): 20406727 (5) Constipation Current Visit: No Status: Acute Code(s): K59.00 - CONSTIPATION, UNSPECIFIED SNOMED Code(s): 86367054 (6) Essential (primary) hypertension Current Visit: No Status: Acute Code(s): I10 - ESSENTIAL (PRIMARY) HYPERTEN JUNIOR SNOMED Code(s): 25083943 (7) History of opioid abuse Current Visit: No Status: Acute Code(s): F11.11 - OPIOID ABUSE, IN REMISSION SNOMED Code(s): 524511620 (8) Mixed hyperlipidemia Current Visit: No Status: Acute Code(s): E78.2 - MIXED HYPERLIPIDEMIA SNOMED Code(s): 243336089 (9) Tobacco abuse Current Visit: No Status: Acute Code(s): Z72.0 - TOBACCO USE SNOMED Code(s): 835414818 Plan: I'll await on further recommendations from infectious disease, and pulmonology. He'll continue his current medications. A consultation with cardiology for SUNNY will be planned. Most likely the patient will refuse this option as well.. Repeat labs in a.m., reevaluate next 24 hours Plan ECF for him due to his significant debility on December 12.
[2021-12-10 17:23] LABS: Glucose,Whole Blood 157 mg/dL (70-110)
[2021-12-10 20:33] LABS: Glucose,Whole Blood 166 mg/dL (70-110)
[2021-12-10] MEDS: ATORVASTATIN 80 MG TAB PO SCH (21:25)
[2021-12-10] MEDS: traMADol-ACETAMINOP 37.5-325MG 1 EACH TAB PO PRN (21:26)
[2021-12-11 06:13] LABS: Glucose,Whole Blood 101 mg/dL (70-110)
[2021-12-11] MEDS: INSULIN ASPART (NovoLOG) 100 UNIT/ML VIAL SQ SCH ×4 (06:22→21:21)
[2021-12-11] MEDS: THIAMINE 100 MG TAB PO SCH ×2 (06:42→17:37)
[2021-12-11] MEDS: carvediloL 6.25 MG TAB PO SCH ×2 (06:42→17:37)
[2021-12-11] MEDS: PANTOPRAZOLE 40 MG TABLET PO SCH (06:42)
[2021-12-11] MEDS: ALBUTEROL HFA INHALER INHALATION SCH ×4 (08:01→20:13)
[2021-12-11] MEDS: SYMBICORT 160-4.5 MCG INHALER INHALATION SCH ×2 (08:01→20:11)
[2021-12-11] MEDS: ZINC SULFATE 220 MG CAP PO SCH (08:37)
[2021-12-11] MEDS: ENOXAPARIN 40 MG/0.4 ML SYRINGE SQ SCH (08:37)
[2021-12-11] MEDS: LORATADINE 10 MG TAB PO SCH (08:37)
[2021-12-11] MEDS: predniSONE 20 MG TAB PO SCH (08:37)
[2021-12-11] MEDS: CEPHALEXIN 500 MG CAP PO SCH ×4 (08:37→21:21)
[2021-12-11] MEDS: hydrALAZINE HCL 25 MG TAB PO SCH ×3 (08:37→23:15)
[2021-12-11] MEDS: SODIUM BICARBONATE TAB 650 MG TAB PO SCH ×2 (08:37→21:21)
[2021-12-11] MEDS: CLOPIDOGREL 75 MG TAB PO SCH (08:37)
[2021-12-11] MEDS: cloNIDine HCL 0.2 MG TAB PO SCH ×3 (08:37→23:15)
[2021-12-11] MEDS: ISOSORBIDE MONONITRATE ER 30 MG TAB.ER.24H PO SCH (08:37)
[2021-12-11] MEDS: ASCORBIC ACID 500 MG TAB PO SCH ×2 (08:37→21:21)
[2021-12-11] MEDS: CHOLECALCIFEROL 125 MCG (5000 IU) TABLET PO SCH (08:37)
[2021-12-11] MEDS: DOCUSATE 100 MG CAP PO SCH ×2 (08:38→21:17)
[2021-12-11 12:27] LABS: Glucose,Whole Blood 154 mg/dL (70-110)
--- NOTE | 2021-12-11 16:36 | P.PN ---
Subjective Progress Note Date: 12/11/21 Principal diagnosis: Acute hypoxic respiratory failure secondary to COVID-19 pneumonia 71-year-old male who presents to the emergency department, on December 01, complaining of shortness of breath. The patient states that he's been having shortness of breath for quite some time. In addition, he complained of tightness, chest congestion, cough, and phlegm production. Chest x-ray revealed a right lower lobe pneumonia. Currently, the patient's on 15 L high flow oxygen. He is getting saline at 130 mL an hour. His primary care provider is Dr. Issa. He apparently has a previous history of heavy tobacco use. He states he does not smoke currently. Other medical history includes angina pectoris, CVA, hyperlipidemia, hypertension, and previous heart catheterization with stent, for CAD. In addition, the patient complains of hoarseness, which she states has gotten worse. Labs include a white count of 9.9, hemoglobin 10, hematocrit 30.1, and a platelet count of 608,000. Blood gases, on 60% oxygen show pO2 64, pCO2 34, and a pH of 7.38. Sodium 129, potassium 5.5, chlorides 92, CO2 17, anion gap 20, UA 84, creatinine 3.15. Testing for coronavirus was positive. Chest x-ray shows some patchy infiltrates in the right lower lobe, and diffuse interstitial changes throughout. 12/09/2021, the patient is on 4 L of oxygen nasal cannula and oxygenation is stable. The chest x-ray shows stable bilateral pulmonary infiltrates. This was a chest x-ray from yesterday. The patient was receiving IV cefazolin. The patient lost his IV access. Several attempts to put IV access failed. The patient was in attendance for a midline and this again failed. I was asked to put a triple THIS PATIENT. THE PATIENT DECLINED THAT OPTION. Note that the patient had a staph aureus bacteremia and the patient was cefazolin. Infectious disease was involved and the patient will be switched to oral Keflex for now. He is hemodynamically stable. He has no specific complaints. An echocardiogram that showed poor windows and not meaningful information can be obtained from the echocardiogram and there was no evidence of any cardiac valvular involvement based on transthoracic echocardiogram. He is relatively low risk for endocarditis. In any rate , his condition is stable. He is in general a noncooperative person. 12/10/2021, the patient is on 4 L. Not much cooperative and he still declines IV access. He was placed on oral antibiotics. Doing well. No specific complaints. Resting comfortably in bed. No fever. No chills. Oxidation gradually improved and the patient is amenable as is currently on 4 L of oxygen by nasal cannula. Blood work today shows a pleasant 80 creatinine of 0.8 sodium level of 134. Glucose is 148. Reevaluated today on 12/11/21, patient remains on 3 L nasal cannula, seems to be doing fairly well, although his chest x-ray showed significant airspace disease on 12/08 and overall the chest x-ray is not showing much improvement both clinically the patient is feeling better no labs today except for a blood sugar 154 patient had negative screening for C. difficile on admission Objective - Vital Signs Vital signs: Vital Signs Temp 97.4 F L 12/11/21 12:44 Pulse 94 12/11/21 12:44 Resp 20 12/11/21 12:44 BP 137/71 12/11/21 12:44 Pulse Ox 91 L 12/11/21 12:44 FiO2 21 12/02/21 07:52 Intake & Output 12/10/21 12/11/21 12/11/21 18:59 06:59 18:59 Intake Total 716 180 Output Total 1 Balance 715 180 Intake: Oral 716 180 Output: Stool 1 Other: Voiding Method Bedside Commode Bedside Commode Bedside Commode # Voids 1 # Bowel Movements 1 1 - Exam Physical Exam: Revealed a 71-year-old white male in no distress on 3 L nasal cannula Head: Atraumatic, normocephalic HEENT:: [No neck masses.] [No thyromegaly.] [No JVD.] Chest: [Medical tests expansion crackles at the bases Cardiac Exam: [Normal S1 and S2, no S3 gallop, no murmur.] Abdomen: [Soft, nontender, no megaly, no rebound, no guarding, normal bowel sounds.] Extremities: [No clubbing, no edema, no cyanosis.] Neurological Exam: [No focal neurologic deficit.] Alert and oriented 3 Psychiatric: Normal mood affect and normal mental status examination - Labs CBC & Chem 7: 12/05/21 09:17 12/10/21 08:45 Labs: Abnormal Lab Results - Last 24 Hours (Table) 12/10/21 12/10/21 12/11/21 Range/Units 17:15 20:31 12:26 POC Glucose (mg/dL) 157 H 166 H 154 H (70-110) mg/dL Assessment and Plan Assessment: Impression: Acute hypoxic respiratory failure secondary to acute COVID-19 pneumonia, COPD exacerbation, clinically the patient remains stable History of underlying COPD Staph aureus/MSSA bacteremia, his last blood culture from the was negative initial blood cultures from the and were positive patient is on Keflex Acute kidney injury improving History of underlying coronary artery disease and previous stent placement History of CVA History of hepatitis C Ex-smoker Hypertension Recommendation: Continue oxygen and titrate accordingly Continue oral antibiotics Continue COVID-19 cocktail Continue Lovenox for DVT prophylaxis Continue prednisone and tapered accordingly Possible discharge planning needs possible placement. Time with Patient: Less than 30
[2021-12-11 17:23] LABS: Glucose,Whole Blood 136 mg/dL (70-110)
[2021-12-11] MEDS: traMADol-ACETAMINOP 37.5-325MG 1 EACH TAB PO PRN ×2 (17:36→18:20)
[2021-12-11 20:19] LABS: Glucose,Whole Blood 193 mg/dL (70-110)
[2021-12-11] MEDS: ATORVASTATIN 80 MG TAB PO SCH (21:21)
--- NOTE | 2021-12-11 22:30 | P.PN ---
Subjective Progress Note Date: 12/10/21 Principal diagnosis: Bacteremia Patient is a 71-year male with multiple comorbidities presented to hospital with increased shortness with cough patient did have evidence of a bilateral infiltrate and some consolidative changes to the right lower lobe positive COVID test and subsequent did have a positive blood culture finalized with MSSA.Patient did have echocardiogram done which was a poor window valves were not visualized On today's evaluation that is 12/10/2021 , The patient remains to be afebrile, the patient is breathing comfortably on nasal cannula oxygen, the patient denies having any chest pain , the patient has been complaining of a congested cough, but not able to bring up any sputum, patient continually refused IV Objective - Vital Signs Vital signs: Vital Signs Temp 97.1 F L 12/10/21 15:23 Pulse 88 12/10/21 15:23 Resp 12/10/21 15:23 BP 129/71 12/10/21 15:23 Pulse Ox 94 L 12/10/21 15:23 FiO2 12/02/21 07:52 Intake & Output 12/09/21 12/10/21 12/10/21 18:59 06:59 18:59 Intake Total 460 120 358 Output Total 450 Balance 10 120 358 Intake: IV 240 ceFAZolin 2 gm In Sodium 240 Chloride 0.9% 50 ml @ 100 mls/hr IVPB Q8HR [facility] Rx# :[id number] Oral 220 120 358 Output: Urine 450 Other: Voiding Method Bedside Commode Bedside Commode Bedside Commode # Bowel Movements 1 1 - Exam GENERAL DESCRIPTION: Elderly male lying in bed, no distress. No tachypnea or accessory muscle of respiration use. LUNGS: Unlabored breathing. Coarse breath sound at base bilaterally HEART: S1, S2, regular rate and rhythm. No loud murmur ABDOMEN: Soft, no tenderness , guarding or rigidity, no organomegaly EXTREMITIES: No edema of feet. - Labs CBC & Chem 7: 12/05/21 09:17 12/10/21 08:45 Labs: Abnormal Lab Results - Last 24 Hours (Table) 12/09/21 12/10/21 12/10/21 Range/Units 20:58 08:45 12:15 Sodium 134 L (137-145) mmol/L BUN 23 H (9-20) mg/dL Glucose 100 H (74-99) mg/dL POC Glucose (mg/dL) 168 H 148 H (70-110) mg/dL Calcium 7.6 L (8.4-10.2) mg/dL Magnesium 1.4 L (1.6-2.3) mg/dL 12/10/21 Range/Units 17:15 Sodium (137-145) mmol/L BUN (9-20) mg/dL Glucose (74-99) mg/dL POC Glucose (mg/dL) 157 H (70-110) mg/dL Calcium (8.4-10.2) mg/dL Magnesium (1.6-2.3) mg/dL Microbiology - Last 24 Hours (Table) 12/04/21 08:59 Blood Culture - Final Blood No Growth after 144 hours Assessment and Plan (1) Bacteremia Current Visit: Yes Status: Acute Code(s): R78.81 - BACTEREMIA SNOMED Code(s): 8051847 (2) Pneumonia Current Visit: Yes Status: Acute Code(s): J18.9 - PNEUMONIA, UNSPECIFIED ORGANISM SNOMED Code(s): 052798490 Plan: 1patient with gram-positive bacteremia source likely right lower lobe pneumonia in this patient with a borderline kidney function and high risk of nephrotoxicity from vancomycin and daptomycin usually not indicated for pneumonia. Patient also have positive COVID test however the patient symptom has been going on for a while and he is currently out of the therapeutic window for remdesivir as more likely evidence of secondary bacterial pneumonia with bacteremia 2Patient with a positive blood culture finalized with MSSA source possible pneumonia ,Blood culture done on 12/04/2021 has been negative, Patient did have a echocardiogram unfortunately poor windows and did not provide enough information, May benefit from SUNNY to make sure no evidence of any Cardiac valve involvement, clinically suspicious remained to be low for endocarditis 3- Patient has cleared his bacteremia and showing some clinical improvement , unfortunately the patient has lost his IV access and he is refusing placement of midline though it was explained to the patient he will need IV antibiotic because of his bacteremia, it was explained to the patient need for IV antibiotics once again in simple terms however the patient continued to refuse , patient to continue with oral Keflex Time with Patient: Less than 30
--- NOTE | 2021-12-11 22:31 | P.PN ---
Subjective Progress Note Date: 12/11/21 Principal diagnosis: Bacteremia Patient is a 71-year male with multiple comorbidities presented to hospital with increased shortness with cough patient did have evidence of a bilateral infiltrate and some consolidative changes to the right lower lobe positive COVID test and subsequent did have a positive blood culture finalized with MSSA.Patient did have echocardiogram done which was a poor window valves were not visualized On today's evaluation that is 12/11/2021 , The patient denies any fever or any chills, the patient is breathing comfortably on nasal cannula oxygen, the patient denies having any chest pain , the patient denies any worsening cough or sputum production, patient denies abdominal pain and no diarrhea Objective - Vital Signs Vital signs: Vital Signs Temp 97.4 F L 12/11/21 12:44 Pulse 94 12/11/21 12:44 Resp 20 12/11/21 12:44 BP 137/71 12/11/21 12:44 Pulse Ox 91 L 12/11/21 12:44 FiO2 21 12/02/21 07:52 Intake & Output 12/10/21 12/11/21 12/11/21 18:59 06:59 18:59 Intake Total 716 180 Output Total 1 Balance 715 180 Intake: Oral 716 180 Output: Stool 1 Other: Voiding Method Bedside Commode Bedside Commode Bedside Commode # Voids 1 # Bowel Movements 1 1 - Exam GENERAL DESCRIPTION: Elderly male lying in bed, no distress. No tachypnea or accessory muscle of respiration use. LUNGS: Unlabored breathing. Coarse breath sound at base bilaterally HEART: S1, S2, regular rate and rhythm. No loud murmur ABDOMEN: Soft, no tenderness , guarding or rigidity, no organomegaly EXTREMITIES: No edema of feet. - Labs CBC & Chem 7: 12/05/21 09:17 12/10/21 08:45 Labs: Abnormal Lab Results - Last 24 Hours (Table) 12/10/21 12/10/21 12/11/21 Range/Units 17:15 20:31 12:26 POC Glucose (mg/dL) 157 H 166 H 154 H (70-110) mg/dL Microbiology - Last 24 Hours (Table) 12/04/21 08:59 Blood Culture - Final Blood No Growth after 144 hours Assessment and Plan (1) Bacteremia Current Visit: Yes Status: Acute Code(s): R78.81 - BACTEREMIA SNOMED Code(s): 4584975 (2) Pneumonia Current Visit: Yes Status: Acute Code(s): J18.9 - PNEUMONIA, UNSPECIFIED ORGANISM SNOMED Code(s): 980943755 Plan: 1patient with gram-positive bacteremia source likely right lower lobe pneumonia in this patient with a borderline kidney function and high risk of nephrotoxicity from vancomycin and daptomycin usually not indicated for pneumonia. Patient also have positive COVID test however the patient symptom has been going on for a while and he is currently out of the therapeutic window for remdesivir as more likely evidence of secondary bacterial pneumonia with bacteremia 2Patient with a positive blood culture finalized with MSSA source possible pneumonia ,Blood culture done on 12/04/2021 has been negative, Patient did have a echocardiogram unfortunately poor windows and did not provide enough information, May benefit from SUNNY to make sure no evidence of any Cardiac valve involvement, clinically suspicious remained to be low for endocarditis 3- Patient has cleared his bacteremia and showing some clinical improvement , unfortunately the patient has lost his IV access and he is refusing placement of midline though it was explained to the patient he will need IV antibiotic because of his bacteremia, however the patient has refused multiple times and mention he understands but will not go for a midline placed pain, continue with oral Keflex for another 10 days to finish his course of therapy Time with Patient: Less than 30
[2021-12-12 06:18] LABS: Glucose,Whole Blood 99 mg/dL (70-110)
[2021-12-12] MEDS: INSULIN ASPART (NovoLOG) 100 UNIT/ML VIAL SQ SCH ×4 (06:25→20:57)
[2021-12-12] MEDS: PANTOPRAZOLE 40 MG TABLET PO SCH (06:48)
[2021-12-12] MEDS: THIAMINE 100 MG TAB PO SCH ×2 (06:48→17:26)
[2021-12-12] MEDS: carvediloL 6.25 MG TAB PO SCH ×2 (06:48→17:26)
[2021-12-12] MEDS: ALBUTEROL HFA INHALER INHALATION SCH ×4 (07:26→20:40)
[2021-12-12] MEDS: SYMBICORT 160-4.5 MCG INHALER INHALATION SCH ×2 (07:27→20:40)
--- NOTE | 2021-12-12 08:31 | XR ---
EXAMINATION TYPE: XR chest 1V portable DATE OF EXAM: 12/12/2021 COMPARISON: Chest x-ray 12/08/2021 HISTORY: Covid pneumonia TECHNIQUE: Single frontal view of the chest is obtained. FINDINGS: Airspace disease in the right upper lung, right lower lung again noted. No evident pneumot horax or pleural effusion. Cardiac mediastinal silhouette is stable. Aorta is dense. There are overly ing leads. Arthropathy noted in the right shoulder. IMPRESSION: Findings consistent with pneumonia, similar to prior exam
[2021-12-12] MEDS: ISOSORBIDE MONONITRATE ER 30 MG TAB.ER.24H PO SCH (08:50)
[2021-12-12] MEDS: predniSONE 20 MG TAB PO SCH (08:50)
[2021-12-12] MEDS: hydrALAZINE HCL 25 MG TAB PO SCH ×3 (08:51→20:57)
[2021-12-12] MEDS: ENOXAPARIN 40 MG/0.4 ML SYRINGE SQ SCH (08:51)
[2021-12-12] MEDS: ZINC SULFATE 220 MG CAP PO SCH (08:51)
[2021-12-12] MEDS: cloNIDine HCL 0.2 MG TAB PO SCH ×3 (08:51→20:57)
[2021-12-12] MEDS: DOCUSATE 100 MG CAP PO SCH ×2 (08:51→20:51)
[2021-12-12] MEDS: CHOLECALCIFEROL 125 MCG (5000 IU) TABLET PO SCH (08:51)
[2021-12-12] MEDS: ASCORBIC ACID 500 MG TAB PO SCH ×2 (08:51→20:57)
[2021-12-12] MEDS: CLOPIDOGREL 75 MG TAB PO SCH (08:51)
[2021-12-12] MEDS: LORATADINE 10 MG TAB PO SCH (08:51)
[2021-12-12] MEDS: SODIUM BICARBONATE TAB 650 MG TAB PO SCH ×2 (08:51→20:57)
[2021-12-12] MEDS: CEPHALEXIN 500 MG CAP PO SCH ×4 (08:51→20:58)
[2021-12-12 11:43] LABS: Glucose,Whole Blood 128 mg/dL (70-110)
--- NOTE | 2021-12-12 15:04 | P.PN ---
Subjective Progress Note Date: 12/12/21 The patient is seen today 12/12/2021 in follow-up on the selective care unit. He is being treated for an acute right lower lobe pneumonia. He was positive for CoVID on 12/02/2021. He was initially on 15 L high flow oxygen. He has improved and is currently on room air. He had declined IV access. He was found to have positive blood cultures with staph aureus, oxacillin sensitive. He's been placed on oral antibiotics in the form of Keflex. He remains on Symbicort, albuterol, prednisone taper, Lovenox, vitamin supplements. Chest x-ray continues to reveal airspace disease in the right upper and lower lung. Objective - Vital Signs Vital signs: Vital Signs Temp 97.5 F L 12/12/21 11:46 Pulse 87 12/12/21 11:46 Resp 20 12/12/21 11:46 BP 149/69 12/12/21 11:46 Pulse Ox 94 L 12/12/21 11:46 FiO2 21 12/02/21 07:52 Intake & Output 12/11/21 12/12/21 12/12/21 18:59 06:59 18:59 Intake Total 180 180 Output Total 250 Balance 180 -70 Weight 74.843 kg Intake: Oral 180 180 Output: Urine 250 Other: Voiding Method Bedside Commode Bedside Commode Bedside Commode # Voids 1 1 - Exam GENERAL EXAM: Alert, 71-year-old male, on room air, comfortable in no apparent distress. HEAD: Normocephalic. EYES: Normal reaction of pupils, equal size. NOSE: Clear with pink turbinates. THROAT: No erythema or exudates. NECK: No masses, no JVD. CHEST: No chest wall deformity. LUNGS: Equal air entry with few scattered rhonchi on the right lung. CVS: S1 and S2 normal with no audible murmur, regular rhythm. ABDOMEN: No hepatosplenomegaly, normal bowel sounds, no guarding or rigidity. SPINE: No scoliosis or deformity SKIN: No rashes CENTRAL NERVOUS SYSTEM: No focal deficits, tone is normal in all 4 extremities. EXTREMITIES: There is no peripheral edema. No clubbing, no cyanosis. Peripheral pulses are intact. - Labs CBC & Chem 7: 12/05/21 09:17 12/10/21 08:45 Labs: Abnormal Lab Results - Last 24 Hours (Table) 12/11/21 12/11/21 12/12/21 Range/Units 17:22 20:17 11:42 POC Glucose (mg/dL) 136 H 193 H 128 H (70-110) mg/dL Assessment and Plan Assessment: Acute hypoxemic respiratory failure, multifactorial, secondary to COPD exacerbation, patchy pneumonia right lower lobe, and possible coronavirus as sociated pneumonia. Clinically improving and the patient oxidation is also improved and the patient has been weaned down to room air, clinically stable and unchanged, antibiotics was switched to oral and the patient is completing a course of Keflex 500 mg by mouth 4 times a day. Acute COVID 19 pneumonia with stable pulmonary consolidations with a right upper lobe and right lower lobe stable infiltrates. Bilateral pneumonia with some interval progression of the airspace disease, consider superimposed bacterial pneumonia. The patient is currently improved and on room air. Staphylococcus aureus bacteremia/sepsis History of COPD, secondary to heavy tobacco use. Acute kidney injury, improving, renal function is normalized. History of angina pectoris, and previous heart catheterization with stent, for CAD. History of CVA. History of hyperlipidemia. History of hypertension. History of hepatitis C. Previous history of heavy tobacco use. Plan: The patient was seen and evaluated Stable and on room air Cleared for discharge from pulmonary standpoint Complete course of antibiotics per ID services Follow up in the office in 1-2 weeks' I have personally seen and examined the patient, performed the documentation and the assessment and plan as written. Number of minutes spent on the visit: 10.
[2021-12-12 16:45] LABS: Glucose,Whole Blood 154 mg/dL (70-110)
[2021-12-12 19:43] LABS: Glucose,Whole Blood 177 mg/dL (70-110)
[2021-12-12] MEDS: ATORVASTATIN 80 MG TAB PO SCH (20:57)
[2021-12-12] MEDS: traMADol-ACETAMINOP 37.5-325MG 1 EACH TAB PO PRN (20:58)
[2021-12-12] MEDS ORDERED: MELATONIN 3 MG TABLET PO SCH (22:00)
[2021-12-13 06:09] LABS: Glucose,Whole Blood 121 mg/dL (70-110)
[2021-12-13] MEDS: INSULIN ASPART (NovoLOG) 100 UNIT/ML VIAL SQ SCH ×2 (06:19→12:06)
[2021-12-13] MEDS: THIAMINE 100 MG TAB PO SCH (06:29)
[2021-12-13] MEDS: carvediloL 6.25 MG TAB PO SCH (06:29)
[2021-12-13] MEDS: PANTOPRAZOLE 40 MG TABLET PO SCH (06:29)
[2021-12-13] MEDS: ALBUTEROL HFA INHALER INHALATION SCH ×2 (08:36→11:53)
[2021-12-13] MEDS: SYMBICORT 160-4.5 MCG INHALER INHALATION SCH (08:36)
[2021-12-13] MEDS: LORATADINE 10 MG TAB PO SCH (09:02)
[2021-12-13] MEDS: CHOLECALCIFEROL 125 MCG (5000 IU) TABLET PO SCH (09:02)
[2021-12-13] MEDS: cloNIDine HCL 0.2 MG TAB PO SCH (09:02)
[2021-12-13] MEDS: ENOXAPARIN 40 MG/0.4 ML SYRINGE SQ SCH (09:02)
[2021-12-13] MEDS: SODIUM BICARBONATE TAB 650 MG TAB PO SCH (09:02)
[2021-12-13] MEDS: hydrALAZINE HCL 25 MG TAB PO SCH (09:02)
[2021-12-13] MEDS: CEPHALEXIN 500 MG CAP PO SCH ×2 (09:02→14:51)
[2021-12-13] MEDS: ASCORBIC ACID 500 MG TAB PO SCH (09:02)
[2021-12-13] MEDS: predniSONE 20 MG TAB PO SCH (09:02)
[2021-12-13] MEDS: ISOSORBIDE MONONITRATE ER 30 MG TAB.ER.24H PO SCH (09:02)
[2021-12-13] MEDS: ZINC SULFATE 220 MG CAP PO SCH (09:02)
[2021-12-13] MEDS: CLOPIDOGREL 75 MG TAB PO SCH (09:02)
[2021-12-13] MEDS: DOCUSATE 100 MG CAP PO SCH (09:02)
[2021-12-13 09:06] VITALS: PULSE 90
--- NOTE | 2021-12-13 09:56 | P.DS ---
Providers Date of admission: 12/01/21 18:19 Expected date of discharge: 12/13/21 Attending physician: Kit Issa Consults: 12/01/21 18:13 Consult Physician Routine Consulting Provider: Bean Rodriguez Consult Reason/Comments: pneumonia, hypoxia Do you want consulting provider notified?: Yes 12/02/21 12:18 Consult Physician Routine Consulting Provider: Giovanni Carter Consult Reason/Comments: COVID Do you want consulting provider notified?: Yes 12/02/21 12:25 Consult Physician Routine Consulting Provider: Beata Marino Consult Reason/Comments: ACuter renal failure Do you want consulting provider notified?: Yes 12/09/21 10:53 Consult Physician Routine Consulting Provider: Fei Gregorio Consult Reason/Comments: SUNNY Do you want consulting provider notified?: Yes 12/09/21 18:01 Consult Physician Routine Consulting Provider: Shabbir Day Consult Reason/Comments: Suicidcal ideations Do you want consulting provider notified?: Yes Primary care physician: Kit Issa Hospital Course: Final Diagnoses: (1) Sepsis Current Visit: Yes Status: Acute Code(s): A41.9 - SEPSIS, UNSPECIFIED ORGANISM SNOMED Code(s): 80130211 (2) Pneumonia due to COVID-19 virus Current Visit: Yes Status: Acute Code(s): U07.1 - COVID-19; J12.82 - PNEUMONIA DUE TO CORONAVIRUS DISEASE 2019 SNOMED Code(s): 391625081447401770 (3) Bacteremia, MSSA. (3) Hypoxia Current Visit: Yes Status: Acute Code(s): R09.02 - HYPOXEMIA SNOMED Code(s): 315244162 (4) Alcohol abuse Current Visit: No Status: Acute Code(s): F10.10 - ALCOHOL ABUSE, UNCOMPLICATED SNOMED Code(s): 45719929 (5) Constipation Current Visit: No Status: Acute Code(s): K59.00 - CONSTIPATION, UNSPECIFIED SNOMED Code(s): 37844160 (6) Essential (primary) hypertension Current Visit: No Status: Acute Code(s): I10 - ESSENTIAL (PRIMARY) HYPERTENSION SNOMED Code(s): 52647317 (7) History of opioid abuse Current Visit: No Status: Acute Code(s): F11.11 - OPIOID ABUSE, IN REMISSION SNOMED Code(s): 809627217 (8) Mixed hyperlipidemia Current Visit: No Status: Acute Code(s): E78.2 - MIXED HYPERLIPIDEMIA SNOMED Code(s): 330048728 (9) Tobacco abuse Current Visit: No Status: Acute Code(s): Z72.0 - TOBACCO USE SNOMED Code(s): 468201231 (10 history of hepatitis C Hospital course:12/03/2021: Patient is slightly improved today. He remains on high flow nasal cannula at 15 mL/m. His pulse oximetry is 97%. It has been stable. Blood pressure heart rate rest her rate under control. He remains afebrile. Labs today show hemoglobin 8.5. Left shift was noted with the absolute neutrophil count of 8.3. PT/INR normal. PTT is elevated 3.4 fibrinogen of 748 and d-dimer 4.63. Chemistries now show BUN of 52 and creatinine 1.3. Magnesium is 1.7. CRP is 18.6. BNP was 5780. Pro-calcitonin was elevated at 0.37 Blood culture show presumptive staph aureus, penicillin susceptible. He is now currently on further positive blood cultures, pneumonia. He is anticoagulated with Lovenox. He is on Symbicort and albuterol, for breathing, he remains on Solu-Medrol, sodium bicarbonate, sailing, coated cocktail vitamin C and zinc, she will protocol, hydralazine for blood pressure and Colace was constipation. 12/04/2021 maintained on IV antibiotics as per infectious disease. Continues on covid regimen. Maintaining O2 sats in the high 90s on 15 L high flow nasal cannula. Afebrile, WBC 14.1. Renal function improving, creatinine down to 1.18, BUN 42, bicarbonate 13. Denies chest pain, palpitations or increased shortness of breath. 12/05/2021 chest x-ray of yesterday reporting progression of airspace disease .continues on Covid cocktail, ceftriaxone, IV steroids. Oxygen weaned down to 10 L high flow nasal cannula, maintaining O2 sats in the 90s. Minimal activity, reports weakness. Consumed 50% of meals, tolerating well, no nausea, vomiting. Positive diarrhea. Blood sugars controlled. Echo reporting suboptimal study, grossly LV function appears normal. proBNP 7340, INR 1.1, fibrinogen 4:30, d- dimer decreased ,7.44, ferritin 1533, LDH 585, CRP 8, pro-calcitonin 0.37. Renal function improving.Afebrile. 12/06/2021 improving ,oxygen weaned further down to 8 L high flow nasal cannula, maintaining O2 sats in the 90s. Repeat chest x-ray of yesterday reported similar multifocal airspace opacities.Complains of chronic back pain, unrelieved by Tylenol. Reports multiple episodes of diarrhea. Afebrile. Renal function continues improving, BUN decreased to 27, creatinine 0.68. Magnesium 1.8. Repeat preliminary blood cultures of 12/03 reporting gram-positive cocci in groups, another gram-positive cocci in clusters. Preliminary blood culture collected on reported no growth after 48 hours. Afebrile. 12/07/21 continues on 8 L high flow nasal cannula, maintaining O2 sats in the 90s. Cefazolin as per infectious disease. Diarrhea improved, tested negative for C. difficile. Afebrile. Denies any chest pain, palpitations. 12/08/21 oxygen weaned down to 5 L high flow nasal cannula, maintaining O2 sats in the 90s. Complains that PT has not been working with him but staff reports patient refusing to get out of bed. Diarrhea resolved, complaining of abdominal discomfort, constipation. Denies chest pain, palpitations or increased shortness of breath. Afebrile. Significant clinical improvement. Denies chest pain, palpitations or increasing shortness of breath. Maintaining O2 sats in the 90s on room air. Afebrile. Maintained on IV antibiotics for bacteremia as per ID. Patient continued to decline midline placement. Patient will be discharged on oral Keflex for another 10 days to complete therapy as per ID. Cleared for discharge by both pulmonary and infectious disease. Patient will be discharged to subacute rehab today in a stable condition with current prognosis. The impression and plan of care has been dictated as directed. : I performed a history and examination of this patient, discussed the same with the dictator. I agree with the dictator's note ,documented as a scribe. Any additional findings or plans will be noted. Patient Condition at Discharge: Stable Plan - Discharge Summary Discharge Rx Participant: No New Discharge Prescriptions: New Zinc Sulfate [Orazinc] 220 mg PO DAILY cap predniSONE 10 mg PO DIRECTED #30 tab Sodium Bicarbonate Tab 650 mg PO BID tab Ascorbic Acid [Vitamin C] 500 mg PO BID tab Cholecalciferol [Vitamin D3 (125 Mcg = 5000 Iu)] 125 mcg PO DAILY tab Cephalexin [Keflex] 500 mg PO QID 10 Days #40 cap hydrALAZINE HCL [Apresoline] 25 mg PO TID tab Budesonide-Formot 160-4.5 Mcg [Symbicort 160-4.5 Mcg Inhaler] 2 puff INHALATION RT-BID #1 inh Acetaminophen Tab [Tylenol] 650 mg PO Q4HR PRN tab PRN Reason: Fever And/ Or Pain Thiamine [Vitamin B-1] 100 mg PO DAILY tab Continue cloNIDine HCL [Catapres] 0.2 mg PO TID Isosorbide Mononitrate [Isosorbide Mononitrate ER] 30 mg PO DAILY Pantoprazole Sodium [Protonix] 40 mg PO DAILY Clopidogrel [Plavix] 75 mg PO DAILY Loratadine [Claritin] 10 mg PO DAILY carvediloL [Coreg] 6.25 mg PO BID-W/MEALS Atorvastatin [Lipitor] 80 mg PO HS Albuterol Inhaler [Ventolin Hfa Inhaler] 1 puff INHALATION RT-Q4H PRN PRN Reason: Shortness Of Breath Discontinued Buprenorphine HCl/Naloxone HCl [Zubsolv 2.9-0.71 mg Tablet Sl] 1 tab SL DAILY lisinopriL [Zestril] 20 mg PO BID #180 tab Discharge Medication List cloNIDine HCL [Catapres] 0.2 mg PO TID 07/28/19 [History] Isosorbide Mononitrate [Isosorbide Mononitrate ER] 30 mg PO DAILY 05/19/20 [History] Clopidogrel [Plavix] 75 mg PO DAILY 09/27/20 [History] Pantoprazole Sodium [Protonix] 40 mg PO DAILY 09/27/20 [History] Atorvastatin [Lipitor] 80 mg PO HS 10/10/20 [History] Albuterol Inhaler [Ventolin Hfa Inhaler] 1 puff INHALATION RT-Q4H PRN 12/01/21 [History] Loratadine [Claritin] 10 mg PO DAILY 12/01/21 [History] carvediloL [Coreg] 6.25 mg PO BID-W/MEALS 12/01/21 [History] Acetaminophen Tab [Tylenol] 650 mg PO Q4HR PRN tab 12/13/21 [Rx] Ascorbic Acid [Vitamin C] 500 mg PO BID tab 12/13/21 [Rx] Budesonide-Formot 160-4.5 Mcg [Symbicort 160-4.5 Mcg Inhaler] 2 puff INHALATION RT-BID #1 inh 12/13/21 [Rx] Cephalexin [Keflex] 500 mg PO QID 10 Days #40 cap 12/13/21 [Rx] Cholecalciferol [Vitamin D3 (125 Mcg = 5000 Iu)] 125 mcg PO DAILY tab 12/13/21 [Rx] Sodium Bicarbonate Tab 650 mg PO BID tab 12/13/21 [Rx] Thiamine [Vitamin B-1] 100 mg PO DAILY tab 12/13/21 [Rx] Zinc Sulfate [Orazinc] 220 mg PO DAILY cap 12/13/21 [Rx] hydrALAZINE HCL [Apresoline] 25 mg PO TID tab 12/13/21 [Rx] predniSONE 10 mg PO DIRECTED #30 tab 12/13/21 [Rx] Follow up Appointment(s)/Referral(s): [facility], [NON-STAFF] - Kit Issa MD [Primary Care Provider] - 1-2 days Discharge/Stand Alone Forms: [facility] Noelle Solorzano, Outpatient Counseling, In Substance Abuse Facilities
[2021-12-13 11:46] LABS: Glucose,Whole Blood 117 mg/dL (70-110)
[2021-12-13 12:21] VITALS: BP 144/79; RESP 20; TEMP 97.9
--- NOTE | 2021-12-13 13:37 | P.PN ---
Subjective Progress Note Date: 12/12/21 Vincenzo is a 71-year-old patient well known to my practice. He indicates she's been having increased shortness of breath over the past several weeks a month. He indicates he had COVID-19 pneumonia several months ago. It since recovered indicates. He is a known former heroin addict and was on deep morphi ne/amoxicillin up until several months ago when he decided to discontinue himself. He is also known alcoholic and frequently drinks 5-6 beers per day. EKG is not him back to using and it was a money issue for him. He is having a great deal difficulty speaking and shortness of breath. He also indicates he significantly constipated. ER finding showed an dyspneic and hypercapnic needing 15 L oxygen on a nonrebreather. He is since transitioned to high flow nasal cannula. Currently he is improving but still having trouble speaking. He is afebrile, heart rate remains borderline tachycardic, respiratory rate is improved now and blood pressure control. Currently is at 91% on 15 L of O2. This morning laboratory studies are pending. Cultures are reported as positive for gram-positive cocci in clusters.. He has received Zosyn and azithromycin the emergency room. Addendum: Rapid, test is positive 12/03/2021: Patient is slightly improved today. He remains on high flow nasal cannula at 15 mL/m. His pulse oximetry is 97%. It has been stable. Blood pressure heart rate rest her rate under control. He remains afebrile. Labs today show hemoglobin 8.5. Left shift was noted with the absolute neutrophil count of 8.3. PT/INR normal. PTT is elevated 3.4 fibrinogen of 748 and d-dimer 4.63. Chemistries now show BUN of 52 and creatinine 1.3. Magnesium is 1.7. CRP is 18.6. BNP was 5780. Pro-calcitonin was elevated at 0.37 Blood culture show presumptive staph aureus, penicillin susceptible. He is now currently on further positive blood cultures, pneumonia. He is anticoagulated with Lovenox. He is on Symbicort and albuterol, for breathing, he remains on Solu-Medrol, sodium bicarbonate, sailing, coated cocktail vitamin C and zinc, she will protocol, hydralazine for blood pressure and Colace was constipation. 12/04/2021 maintained on IV antibiotics as per infectious disease. Continues on covid regimen. Maintaining O2 sats in the high 90s on 15 L high flow nasal cannula. Afebrile, WBC 14.1. Renal function improving, creatinine down to 1.18, BUN 42, bicarbonate 13. Denies chest pain, palpitations or increased shortness of breath. 12/05/2021 chest x-ray of yesterday reporting progression of airspace disease .continues on Covid cocktail, ceftriaxone, IV steroids. Oxygen weaned down to 10 L high flow nasal cannula, maintaining O2 sats in the 90s. Minimal activity, reports weakness. Consumed 50% of meals, tolerating well, no nausea, vomiting. Positive diarrhea. Blood sugars controlled. Echo reporting suboptimal study, grossly LV function appears normal. proBNP 7340, INR 1.1, fibrinogen 4:30, d- dimer decreased ,7.44, ferritin 1533, LDH 585, CRP 8, pro-calcitonin 0.37. Renal function improving.Afebrile. 12/06/2021 improving ,oxygen weaned further down to 8 L high flow nasal cannula, maintaining O2 sats in the 90s. Repeat chest x-ray of yesterday reported similar multifocal airspace opacities.Complains of chronic back pain, unrelieved by Tylenol. Reports multiple episodes of diarrhea. Afebrile. Renal function continues improving, BUN decreased to 27, creatinine 0.68. Magnesium 1.8. Repeat preliminary blood cultures of 12/03 reporting gram-positive cocci in groups, another gram-positive cocci in clusters. Preliminary blood culture c ollected on 919 reported no growth after 48 hours. Afebrile. 12/07/21 continues on 8 L high flow nasal cannula, maintaining O2 sats in the 90s. Cefazolin as per infectious disease. Diarrhea improved, tested negative for C. difficile. Afebrile. Denies any chest pain, palpitations. 12/08/21 oxygen weaned down to 5 L high flow nasal cannula, maintaining O2 sats in the 90s. Complains that PT has not been working with him but staff reports patient refusing to get out of bed. Diarrhea resolved, complaining of abdominal discomfort, constipation. Denies chest pain, palpitations or increased shortness of breath. Afebrile. 12/12/2021 significant clinical improvement. Maintaining O2 sats in the 90s on room air. CXR noted. Bacteremic, declining midline placement as recommended per ID for IV antibiotics, converted to oral Keflex. Objective - Vital Signs Vital signs: Vital Signs Temp 97.8 F 12/12/21 16:34 Pulse 96 12/12/21 16:34 Resp 20 12/12/21 16:34 BP 132/81 12/12/21 16:34 Pulse Ox 94 L 12/12/21 16:34 FiO2 21 12/02/21 07:52 Intake & Output 12/12/21 12/12/21 12/13/21 06:59 18:59 06:59 Intake Total 180 Output Total 250 Balance -70 Intake: Oral 180 Output: Urine 250 Other: Voiding Method Bedside Commode Bedside Commode # Voids 1 - Exam - Exam GENERAL: Sitting up in bed, alert and oriented 3,NAD NECK: supple, no JVD LUNGS: Breath sounds with occasional right-sided rhonchi, no wheezing HEART: Regular rate and rhythm without murmurs, rubs or gallops.S1S2 Normal ABDOMEN: Soft, nontender, normoactive bowel sounds. No guarding, no rebound. No masses appreciated. EXTREMITIES: Normal range of motion, no pitting or edema. No clubbing or cyanosis. NEUROLOGICAL: Cranial nerves II through XII grossly intact. Normal speech, normal gait. SKIN: Warm, Dry, normal turgor, no rashes. - Labs CBC & Chem 7: 12/05/21 09:17 12/10/21 08:45 Labs: Abnormal Lab Results - Last 24 Hours (Table) 12/11/21 12/12/21 12/12/21 Range/Units 20:17 11:42 16:43 POC Glucose (mg/dL) 193 H 128 H 154 H (70-110) mg/dL Assessment and Plan Assessment: (1) Sepsis Current Visit: Yes Status: Acute Code(s): A41.9 - SEPSIS, UNSPECIFIED ORGANISM SNOMED Code(s): 21263226 (2) Pneumonia due to COVID-19 virus Current Visit: Yes Status: Acute Code(s): U07.1 - COVID-19; J12.82 - PN EUMONIA DUE TO CORONAVIRUS DISEASE 2018 SNOMED Code(s): 631201185970967287 (3) Bacteremia, MSSA. (3) Hypoxia Current Visit: Yes Status: Acute Code(s): R09.02 - HYPOXEMIA SNOMED Code(s): 982700522 (4) Alcohol abuse Current Visit: No Status: Acute Code(s): F10.10 - ALCOHOL ABUSE, UNCOMPLICATED SNOMED Code(s): 55593881 (5) Constipation Current Visit: No Status: Acute Code(s): K59.00 - CONSTIPATION, UNSPECIFIED SNOMED Code(s): 81647485 (6) Essential (primary) hypertension Current Visit: No Status: Acute Code(s): I10 - ESSENTIAL (PRIMARY) HYPERTENSION SNOMED Code(s): 67241592 (7) History of opioid abuse Current Visit: No Status: Acute Code(s): F11.11 - OPIOID ABUSE, IN REMISSION SNOMED Code(s): 306791527 (8) Mixed hyperlipidemia Current Visit: No Status: Acute Code(s): E78.2 - MIXED HYPERLIPIDEMIA SNOMED Code(s): 999716261 (9) Tobacco abuse Current Visit: No Status: Acute Code(s): Z72.0 - TOBACCO USE SNOMED Code(s): 788960264 (10 history of hepatitis C Plan: Continue on current medication regime ,monitoring and symptomatic treatment. As mentioned previously patient continued to decline IV/midline access to facilitate IV antibiotics as recommended per ID. Transitioned to oral Antibiotics. Covid Tiburcio. Declining [facility]; local subacute rehabs' authorizations/acceptance pending . Patient will be discharged home with home care. The impression and plan of care has been dictated as directed. : I performed a history and examination of this patient, discussed the same with the dictator. I agree with the dictator's note ,documented as a scribe. Any additional findings or plans will be noted.
--- NOTE | 2021-12-13 14:57 | P.PN ---
Subjective Progress Note Date: 12/13/21 The patient is seen today 12/12/2021 in follow-up on the selective care unit. He is being treated for an acute right lower lobe pneumonia. He was positive for CoVID on 12/02/2021. He was initially on 15 L high flow oxygen. He has improved and is currently on room air. He had declined IV access. He was found to have positive blood cultures with staph aureus, oxacillin sensitive. He's been placed on oral antibiotics in the form of Keflex. He remains on Symbicort, albuterol, prednisone taper, Lovenox, vitamin supplements. Chest x-ray continues to reveal airspace disease in the right upper and lower lung. The patient is seen today 12/13/2021 in follow-up on the selective care unit. He is currently sitting up at the bedside. Awake and alert in no acute distress. He denies any worsening shortness of breath, cough or congestion. He is maintaining O2 saturations in the 90s on room air. Blood cultures were positive for MSSA. Glucose 117. He is continued on Symbicort, albuterol, pred nisone taper, vitamin supplements, antibiotics in the form of Keflex. Lovenox for DVT prophylaxis. Objective - Vital Signs Vital signs: Vital Signs Temp 97.9 F 12/13/21 12:20 Pulse 90 12/13/21 12:20 Resp 20 12/13/21 12:20 BP 144/79 12/13/21 12:20 Pulse Ox 95 12/13/21 12:20 FiO2 21 12/02/21 07:52 Intake & Output 12/12/21 12/13/21 12/13/21 18:59 06:59 18:59 Intake Total 180 Output Total 250 400 Balance -70 -400 Intake: Oral 180 Output: Urine 250 400 Other: Voiding Method Bedside Commode Bedside Commode Bedside Commode # Bowel Movements 1 - Exam GENERAL EXAM: Alert, 71-year-old male, on room air, comfortable in no apparent distress. HEAD: Normocephalic. EYES: Normal reaction of pupils, equal size. NOSE: Clear with pink turbinates. THROAT: No erythema or exudates. NECK: No masses, no JVD. CHEST: No chest wall deformity. LUNGS: Equal air entry with few scattered rhonchi on the right lung. CVS: S1 and S2 normal with no audible murmur, regular rhythm. ABDOMEN: No hepatosplenomegaly, normal bowel sounds, no guarding or rigidity. SPINE: No scoliosis or deformity SKIN: No rashes CENTRAL NERVOUS SYSTEM: No focal deficits, tone is normal in all 4 extremities. EXTREMITIES: There is no peripheral edema. No clubbing, no cyanosis. Peripheral pulses are intact. - Labs CBC & Chem 7: 12/05/21 09:17 12/10/21 08:45 Labs: Abnormal Lab Results - Last 24 Hours (Table) 12/12/21 12/12/21 12/13/21 Range/Units 16:43 19:43 06:08 POC Glucose (mg/dL) 154 H 177 H 121 H (70-110) mg/dL 12/13/21 Range/Units 11:44 POC Glucose (mg/dL) 117 H (70-110) mg/dL Assessment and Plan Assessment: Acute hypoxemic respiratory failure, multifactorial, secondary to COPD exacerbation, patchy pneumonia right lower lobe, and possible coronavirus associated pneumonia. Clinically improving and the patient oxidation is also improved and the patient has been weaned down to room air, clinically stable and unchanged, antibiotics was switched to oral and the patient is completing a course of Keflex 500 mg by mouth 4 times a day. Acute COVID 19 pneumonia with stable pulmonary consolidations with a right upper lobe and right lower lobe stable infiltrates. Bilateral pneumonia with some interval progression of the airspace disease, consider superimposed bacterial pneumonia. The patient is currently improved and on room air. Staphylococcus aureus bacteremia/sepsis History of COPD, secondary to heavy tobacco use. Acute kidney injury, improving, renal function is normalized. History of angina pectoris, and previous heart catheterization with stent, for CAD. History of CVA. History of hyperlipidemia. History of hypertension. History of hepatitis C. Previous history of heavy tobacco use. Plan: The patient was seen and evaluated Stable and on room air Cleared for discharge from pulmonary standpoint Complete a prednisone taper, Continue home pulmonary medications bronchodilators Complete course of antibiotics per ID services Follow up in the office in 1-2 weeks' I have personally seen and examined the patient, performed the documentation and the assessment and plan as written. Number of minutes spent on the visit: 10.
== END 2021-12-13 15:16 | disposition home health service (06) | DRG 871 ==
LOC: EC 16:17 → 3SCARD 18:19
PROVIDERS: ADMIT Family Medicine; ATTEND Family Medicine
PROC: 5A0955A Assistance with Respiratory Ventilation, Greater than 96 Consecutive Hours, High Flow/Velocity Cannula (ICD-10-PCS; principal; 2021-12-01)
DX: A41.01 Sepsis due to Methicillin susceptible Staphylococcus aureus (principal); J12.82 Pneumonia due to coronavirus disease 2019; J96.01 Acute respiratory failure with hypoxia; J96.02 Acute respiratory failure with hypercapnia; U07.1 COVID-19; J15.9 Unspecified bacterial pneumonia; N17.9 Acute kidney failure, unspecified; E87.2 Acidosis; J44.0 Chronic obstructive pulmonary disease with (acute) lower respiratory infection; J44.1 Chronic obstructive pulmonary disease with (acute) exacerbation; F11.21 Opioid dependence, in remission; F10.10 Alcohol abuse, uncomplicated; I10 Essential (primary) hypertension; I95.2 Hypotension due to drugs; K59.00 Constipation, unspecified; I25.10 Atherosclerotic heart disease of native coronary artery without angina pectoris; F17.210 Nicotine dependence, cigarettes, uncomplicated; T46.4X1A Poisoning by angiotensin-converting-enzyme inhibitors, accidental (unintentional), initial encounter; T39.391A Poisoning by other nonsteroidal anti-inflammatory drugs [NSAID], accidental (unintentional), initial encounter; D64.9 Anemia, unspecified; G89.29 Other chronic pain; R19.7 Diarrhea, unspecified; M54.9 Dorsalgia, unspecified; E78.2 Mixed hyperlipidemia; Z79.82 Long term (current) use of aspirin; Z79.02 Long term (current) use of antithrombotics/antiplatelets; Z88.5 Allergy status to narcotic agent; Z86.73 Personal history of transient ischemic attack (TIA), and cerebral infarction without residual deficits; I25.2 Old myocardial infarction; Z95.5 Presence of coronary angioplasty implant and graft; Z86.19 Personal history of other infectious and parasitic diseases; Z79.899 Other long term (current) drug therapy
CPT/HCPCS: 36415; 36600; 71045; 74018; 76770; 80048; 80053; 81001; 82728; 82805; 83540; 83550; 83605; 83615; 83735; 83880; 84145; 84484; 85025; 85379; 85384; 85610; 85730; 86140; 87040; 87077; 87186; 87324; 87449; 87635; 93005; 93306; 94640; 94760; 96361; 96365; 96375; 99291

== ENCOUNTER 2021-12-14 18:12 | Inpatient (IN) | payer MEDICARE, OTHER ==
[2021-12-14] MEDS ORDERED: IPRATROPIUM-ALBUTEROL 3 ML NEB INHALATION STA ×3 (18:40)
[2021-12-14] MEDS ORDERED: methylPREDNISolone SOD SUCCI 125 MG/2 ML VIAL IM ONE (18:40)
--- NOTE | 2021-12-14 19:08 | ED ---
General Adult HPI - General Chief complaint: Shortness of Breath Stated complaint: SOB Time Seen by Provider: 12/14/21 18:30 Source: patient, RN notes reviewed, old records reviewed Mode of arrival: EMS - History of Present Illness Initial comments: Patient is a 71-year-old male with past medical history remarkable for follow-up polysubstance abuse, chest pain, COPD, hypertension, liver disease, recent hospitalization for COVID-19 infection who was discharged yesterday and read presents for worsening wheezing, difficulty in breathing. States she was unable to fill his home prescription of Keflex for bacteremia per infectious disease. States he hasn't been obtaining sufficient care at home. Was sent home with oxygen, however when hospital services evaluated him, they were concerned due to hypoxia, poor breath sounds, as well as some increased work of breathing. Was 91%. Instructed him to the emergency department for evaluation. Patient is very angry. He does not want to be here. He is refusing IV access. States he did not take any of his medications earlier. Denies chest pain. Endorses noisy breathing. Endorses mild shortness of breath. Denies any lower extremity swelling or edema. Denies any abdominal pain, nausea, vomiting. Does not want to be here. - Related Data Home Medications Medication Instructions Recorded Confirmed cloNIDine HCL [Catapres] 0.2 mg PO TID 07/28/19 12/14/21 Isosorbide Mononitrate [Isosorbide 30 mg PO DAILY 05/19/20 12/14/21 Mononitrate ER] Clopidogrel [Plavix] 75 mg PO DAILY 09/27/20 12/14/21 Pantoprazole Sodium [Protonix] 40 mg PO DAILY 09/27/20 12/14/21 Atorvastatin [Lipitor] 80 mg PO HS 10/10/20 12/14/21 Albuterol Inhaler [Ventolin Hfa 1 puff INHALATION RT-Q4H PRN 12/01/21 12/14/21 Inhaler] Loratadine [Claritin] 10 mg PO DAILY 12/01/21 12/14/21 carvediloL [Coreg] 6.25 mg PO BID-W/MEALS 12/01/21 12/14/21 predniSONE See Taper PO DIRECTED 12/14/21 12/14/21 traMADol-ACETAMINOP 37.5-325MG 2 tab PO Q6HR PRN 12/14/21 12/14/21 [Ultracet] Previous Rx's Medication Instructions Recorded Acetaminophen Tab [Tylenol] 650 mg PO Q4HR PRN tab 12/13/21 Ascorbic Acid [Vitamin C] 500 mg PO BID tab 12/13/21 Budesonide-Formot 160-4.5 Mcg 2 puff INHALATION RT-BID #1 inh 12/13/21 [Symbicort 160-4.5 Mcg Inhaler] Cephalexin [Keflex] 500 mg PO QID 10 Days #40 cap 12/13/21 Cholecalciferol [Vitamin D3 (125 125 mcg PO DAILY tab 12/13/21 Mcg = 5000 Iu)] Sodium Bicarbonate Tab 650 mg PO BID tab 12/13/21 Thiamine [Vitamin B-1] 100 mg PO DAILY tab 12/13/21 Zinc Sulfate [Orazinc] 220 mg PO DAILY cap 12/13/21 hydrALAZINE HCL [Apresoline] 25 mg PO TID tab 12/13/21 Allergies Allergy/AdvReac Type Severity Reaction Status Date / Time codeine AdvReac Nausea Verified 12/14/21 20:58 Review of Systems ROS Statement: Those systems with pertinent positive or pertinent negative responses have been documented in the HPI. Review of Systems: CONST: Denies fever EYES: Denies blurry vision ENT: Denies nasal congestion C/V: Denies Chest pain RESP: Endorses wheezing GI: Denies abdominal pain : Denies dysuria SKIN: Denies rash. MSK: Denies joint pain. NEURO: Denies headache ROS Other: All systems not noted in ROS Statement are negative. Past Medical History Past Medical History: Chest Pain / Angina, COPD, CVA/TIA, Hyperlipidemia, Hyp ertension, Liver Disease, Vascular Disorder Additional Past Medical History / Comment(s): hep c- treated, TIA couple years ago Last Myocardial Infarction Date:: unknown History of Any Multi-Drug Resistant Organisms: None Reported Past Surgical History: Heart Catheterization With Stent, Orthopedic Surgery, Tonsillectomy Additional Past Surgical History / Comment(s): COLONOSCOPY/EGD, surg x4 right shoulder Past Anesthesia/Blood Transfusion Reactions: No Reported Reaction Date of Last Stent Placement:: 07/30/19 Past Psychological History: No Psychological Hx Reported Smoking Status: Former smoker Past Alcohol Use History: Abuse, Daily Past Drug Use History: IV Drug Use, Opiates, Prescription Drug Abuse - Past Family History Mother Family Medical History: Myocardial Infarction ([place]) Father Additional Family Medical History / Comment(s): polio, enlarged heart Brother(s) Family Medical History: CVA/TIA Daughter(s) History Unknown: Yes Son(s) Family Medical History: Hyperlipidemia General Exam - General Exam Comments Initial Comments: General: Appears in no acute distress. Afebrile HEAD: Normal with no signs of head trauma. EYES: PERRLA, EOMI, conjunctiva normal, no discharge. ENT: Hearing grossly intact, normal oropharynx. RESPIRATORY: Bilateral end expiratory wheezing/rhonchorous breath sounds. Mild tachypnea. No hypoxia. C/V: Regular rate and rhythm. S1 and S2 auscultated, no edema, peripheral pulses 2+ and intact throughout ABD: Abd is soft, nontender, nondistended EXT: Normal range of motion, no obvious deformity SKIN: No rashes or lesions observed on exposed skin. NEURO: Alert and oriented 4. Course Vital Signs 12/14/21 12/14/21 12/14/21 18:16 19:38 19:48 Temperature 99.0 F Pulse Rate 99 90 94 Respiratory 22 Rate Blood Pressure 154/79 O2 Sat by Pulse 98 Oximetry 12/14/21 12/14/21 12/14/21 20:00 20:08 20:20 Temperature Pulse Rate 92 92 96 Respiratory Rate Blood Pressure O2 Sat by Pulse Oximetry 12/14/21 20:30 Temperature Pulse Rate 96 Respiratory Rate Blood Pressure O2 Sat by Pulse Oximetry Medical Decision Making - Medical Decision Making Based on the patient's presentation and physical exam, and concern for worsening respiratory status. Could be secondary to his recent COVID-19 pneumonia, also likely has a COPD factor to it. Patient is currently refusing all lab draws. Is refusing all IV pokes. He is willing to receive breathing treatments, chest x-ray, as well as IM injections of steroids at this time. He is refusing all further workup at this time. Patient's vital signs are within normal limits. He is afebrile. Saturating well on 2 L nasal cannula which he was sent home with. Following 3 breathing treatments, steroids, patient's breath sounds remain noisy. Still rhonchorous but the wheezing is improved. Chest x-ray shows interval worsening in the right lung parenchymal inflation pattern. At this time I did discuss with the patient that I believe he requires admission to the hospital with his worsening respiratory status. At this time he did consent to IV drug. He expresses understanding that he needs to be admitted and does not have his portable home to help him. EKG at this time was also done and showed no signs of acute ischemia. Laboratory studies show a mild anemia of 7.7 which may be iatrogenic. D-dimer is elevated to 3.93 and was previously elevated. Patient has an ELDER with a BUN 60 and creatinine of 1.91. Patient has an elevated troponin of 0.082. This is likely secondary to the pulmonary process and Covid process currently ongoing. However we will trend. BNP is at his baseline of 5000. Patient is hypomagnesemic which is replenished. Covid influenza negative. Patient's d-dimer remains elevated from previous visit. With the recent Covid infection, as well as obvious pulmonary changes seen on chest x-ray I have low suspicion for acute PE at this time. We will obtain a nuclear med scan to evaluate, however I do not believe that we require initiation of high intensity heparin due to the lower suspicion. We will use subcutaneous heparin. We will trend the troponin. I did discuss this with Dr. Reed the admitting physician, who accepted the patient was in agreement this plan. I will initiate broad- spectrum antibiotics as the patient was supposed to be on them for bacteremia but has been without them for 2 days. I will reconsult Dr. Carter as well as pulmonary. He was in agreement this plan. Patient was in agreement this plan. Patient remains in a dynamic stable at this time. On reevaluation, patient's respiratory status remains unchanged. We will continue to treat him for COPD exacerbation as well as steroids as well as breathing treatments. Patient will be treated with gentle hydration for his ELDER, his the patient does have inflammatory changes on chest x-ray and I do not want to volume overload admit this time. - Lab Data Result diagrams: 12/14/21 20:03 12/14/21 20:03 Lab Results 12/14/21 12/14/21 12/14/21 Range/Units 20:03 20:03 20:03 WBC 10.8 H (3.8-10.6) k/uL RBC 2.53 L (4.30-5.90) m/uL Hgb 7.7 L D (13.0-17.5) gm/dL Hct 23.4 L (39.0-53.0) % MCV 92.5 (80.0-100.0) fL MCH 30.3 (25.0-35.0) pg MCHC 32.8 (31.0-37.0) g/dL RDW 14.7 (11.5-15.5) % Plt Count 357 (150-450) k/uL MPV 8.7 Neutrophils % 88 % Lymphocytes % 5 % Monocytes % 5 % Eosinophils % 1 % Basophils % 0 % Neutrophils # 9.6 H (1.3-7.7) k/uL Lymphocytes # 0.6 L (1.0-4.8) k/uL Monocytes # 0.6 (0-1.0) k/uL Eosinophils # 0.1 (0-0.7) k/uL Basophils # 0.0 (0-0.2) k/uL PT 10.4 (9.0-12.0) sec INR 0.9 (<1.2) APTT 24.3 (22.0-30.0) sec D-Dimer 3.93 H (<0.60) mg/L FEU Sodium 133 L (137-145) mmol/L Potassium 4.3 (3.5-5.1) mmol/L Chloride 101 (98-107) mmol/L Carbon Dioxide 21 L (22-30) mmol/L Anion Gap 11 mmol/L BUN 60 H (9-20) mg/dL Creatinine 1.91 H (0.66-1.25) mg/dL Est GFR (CKD-EPI)AfAm 40 (>60 ml/min/1.73 sqM) Est GFR (CKD-EPI)NonAf 35 (>60 ml/min/1.73 sqM) Glucose 112 H (74-99) mg/dL Plasma Lactic Acid Deion (0.7-2.0) mmol/L Calcium 7.3 L (8.4-10.2) mg/dL Magnesium 1.2 L (1.6-2.3) mg/dL Total Bilirubin 0.6 (0.2-1.3) mg/dL AST 38 (17-59) U/L ALT 19 (4-49) U/L Alkaline Phosphatase 71 (38-126) U/L Troponin I (0.000-0.034) ng/mL NT-Pro-B Natriuret Pep pg/mL Total Protein 5.5 L (6.3-8.2) g/dL Albumin 2.6 L (3.5-5.0) g/dL Coronavirus (PCR) (Not Detectd) Influenza Type A RNA (Not Detectd) Influenza Type B (PCR) (Not Detectd) 12/14/21 12/14/21 12/14/21 Range/Units 20:03 20:03 20:04 WBC (3.8-10.6) k/uL RBC (4.30-5.90) m/uL Hgb (13.0-17.5) gm/dL Hct (39.0-53.0) % MCV (80.0-100.0) fL MCH (25.0-35.0) pg MCHC (31.0-37.0) g/dL RDW (11.5-15.5) % Plt Count (150-450) k/uL MPV Neutrophils % % Lymphocytes % % Monocytes % % Eosinophils % % Basophils % % Neutrophils # (1.3-7.7) k/uL Lymphocytes # (1.0-4.8) k/uL Monocytes # (0-1.0) k/uL Eosinophils # (0-0.7) k/uL Basophils # (0-0.2) k/uL PT (9.0-12.0) sec INR (<1.2) APTT (22.0-30.0) sec D-Dimer (<0.60) mg/L FEU Sodium (137-145) mmol/L Potassium (3.5-5.1) mmol/L Chloride (98-107) mmol/L Carbon Dioxide (22-30) mmol/L Anion Gap mmol/L BUN (9-20) mg/dL Creatinine (0.66-1.25) mg/dL Est GFR (CKD-EPI)AfAm (>60 ml/min/1.73 sqM) Est GFR (CKD-EPI)NonAf (>60 ml/min/1.73 sqM) Glucose (74-99) mg/dL Plasma Lactic Acid Deion 0.8 (0.7-2.0) mmol/L Calcium (8.4-10.2) mg/dL Magnesium (1.6-2.3) mg/dL Total Bilirubin (0.2-1.3) mg/dL AST (17-59) U/L ALT (4-49) U/L Alkaline Phosphatase (38-126) U/L Troponin I 0.082 H* (0.000-0.034) ng/mL NT-Pro-B Natriuret Pep 5150 pg/mL Total Protein (6.3-8.2) g/dL Albumin (3.5-5.0) g/dL Coronavirus (PCR) (Not Detectd) Influenza Type A RNA (Not Detectd) Influenza Type B (PCR) (Not Detectd) 12/14/21 12/14/21 Range/Units 20:50 20:50 WBC (3.8-10.6) k/uL RBC (4.30-5.90) m/uL Hgb (13.0-17.5) gm/dL Hct (39.0-53.0) % MCV (80.0-100.0) fL MCH (25.0-35.0) pg MCHC (31.0-37.0) g/dL RDW (11.5-15.5) % Plt Count (150-450) k/uL MPV Neutrophils % % Lymphocytes % % Monocytes % % Eosinophils % % Basophils % % Neutrophils # (1.3-7.7) k/uL Lymphocytes # (1.0-4.8) k/uL Monocytes # (0-1.0) k/uL Eosinophils # (0-0.7) k/uL Basophils # (0-0.2) k/uL PT (9.0-12.0) sec INR (<1.2) APTT (22.0-30.0) sec D-Dimer (<0.60) mg/L FEU Sodium (137-145) mmol/L Potassium (3.5-5.1) mmol/L Chloride (98-107) mmol/L Carbon Dioxide (22-30) mmol/L Anion Gap mmol/L BUN (9-20) mg/dL Creatinine (0.66-1.25) mg/dL Est GFR (CKD-EPI)AfAm (>60 ml/min/1.73 sqM) Est GFR (CKD-EPI)NonAf (>60 ml/min/1.73 sqM) Glucose (74-99) mg/dL Plasma Lactic Acid Deion (0.7-2.0) mmol/L Calcium (8.4-10.2) mg/dL Magnesium (1.6-2.3) mg/dL Total Bilirubin (0.2-1.3) mg/dL AST (17-59) U/L ALT (4-49) U/L Alkaline Phosphatase (38-126) U/L Troponin I (0.000-0.034) ng/mL NT-Pro-B Natriuret Pep pg/mL Total Protein (6.3-8.2) g/dL Albumin (3.5-5.0) g/dL Coronavirus (PCR) Not Detected (Not Detectd) Influenza Type A RNA Not Detected (Not Detectd) Influenza Type B (PCR) Not Detected (Not Detectd) Disposition Clinical Impression: COPD exacerbation, Pneumonia, Elevated troponin, ELDER (acute kidney injury) Narrative: recent covid infection Disposition: ADMITTED IP TO THIS HOSP Condition: Serious Time of Disposition: 22:30
--- NOTE | 2021-12-14 20:10 | XR ---
EXAMINATION: XR chest 1V portable DATE AND TIME: 12/14/2021 7:53 PM CLINICAL INDICATION: Low O2; discharged yesterday following Covid pneumonia treatment; wheezing TECHNIQUE: AP upright portable COMPARISON: 01/11/2022 at 6:21 AM FINDINGS: The right lung demonstrates multifocal ill-defined consolidated opacity throughout most of the lung p arenchyma, prominently increased when compared to the prior radiograph of 12/12/2014. On the left, the lung appears clear, as seen. The pleural spaces are negative as seen. The cardiac silhouette is not enlarged. The skeletal structures and soft tissues are negative for acute findings. IMPRESSION: Interval worsening in the right lung parenchymal inflation pattern.
[2021-12-14] MEDS: CEFEPIME 2 GM in SODIUM CHLORIDE 0.9% 100 ML IVPB SCH ×2 (20:15→22:09)
[2021-12-14 20:57] LABS: Basophils % (A) 0 %; Eosinophils # (A) 0.1 k/uL (0-0.7); Eosinophils % (A) 1 %; HCT 23.4 % (39.0-53.0); Lymphocytes # (A) 0.6 k/uL (1.0-4.8); Lymphocytes % (A) 5 %; MCH 30.3 pg (25.0-35.0); MCHC 32.8 g/dL (31.0-37.0); MCV 92.5 fL (80.0-100.0); Mean Platelet Volume 8.7; Monocytes # (A) 0.6 k/uL (0-1.0); Monocytes % (A) 5 %; Neutrophils # (A) 9.6 k/uL (1.3-7.7); Neutrophils % (A) 88 %; Platelet Count 357 k/uL (150-450); RBC 2.53 m/uL (4.30-5.90); RDW 14.7 % (11.5-15.5); WBC 10.8 k/uL (3.8-10.6)
[2021-12-14 21:01] LABS: HGB 7.7 gm/dL (13.0-17.5)
[2021-12-14 21:09] LABS: Albumin 2.6 g/dL (3.5-5.0); Calcium 7.3 mg/dL (8.4-10.2); Magnesium 1.2 mg/dL (1.6-2.3); Potassium 4.3 mmol/L (3.5-5.1); Total Bilirubin 0.6 mg/dL (0.2-1.3); Total Protein 5.5 g/dL (6.3-8.2)
[2021-12-14 21:11] LABS: INR 0.9 (<1.2); Partial Thromboplastin Time 24.3 sec (22.0-30.0); Prothrombin Time 10.4 sec (9.0-12.0)
[2021-12-14] MEDS ORDERED: VANCOMYCIN IV PER PHARMACY 1 EACH MISC MISCELLANE PRN (22:02)
[2021-12-14] MEDS ORDERED: NALOXONE 0.4 MG/ML 1 ML VIAL IV PRN (22:52)
[2021-12-14] MEDS ORDERED: ASPIRIN 81 MG PO STA (22:56)
[2021-12-14] MEDS ORDERED: SODIUM CHLORIDE 0.9% 1,000 ML IV STA (22:56)
[2021-12-14] MEDS ORDERED: VANCOMYCIN 1,500 MG in SODIUM CHLORIDE 0.9% 250 ML IVPB ONE (23:00)
[2021-12-14] MEDS: IPRATROPIUM-ALBUTEROL 3 ML NEB INHALATION SCH (23:59)
[2021-12-15] MEDS: HEPARIN SODIUM,PORCINE/PF 5,000 UNIT/0.5 ML SYRINGE SQ SCH ×2 (01:08→09:19)
[2021-12-15] MEDS: MAGNESIUM SULFATE-D5W PMX 1 GM in DEXTROSE/WATER 1 100ML.BAG IVPB SCH ×2 (01:08→03:31)
[2021-12-15] MEDS: CEFEPIME 2 GM in SODIUM CHLORIDE 0.9% 100 ML IVPB SCH (03:33)
[2021-12-15] MEDS: IPRATROPIUM-ALBUTEROL 3 ML NEB INHALATION SCH ×3 (05:11→11:24)
[2021-12-15 06:27] LABS: Basophils % (A) 0 %; Eosinophils % (A) 0 %; HCT 25.3 % (39.0-53.0); HGB 8.1 gm/dL (13.0-17.5); Hypochromasia Slight; Lymphocytes # (A) 0.3 k/uL (1.0-4.8); Lymphocytes % (A) 3 %; MCH 30.6 pg (25.0-35.0); MCV 95.6 fL (80.0-100.0); Mean Platelet Volume 8.9; Monocytes # (A) 0.3 k/uL (0-1.0); Monocytes % (A) 3 %; Neutrophils # (A) 7.8 k/uL (1.3-7.7); Neutrophils % (A) 93 %; Platelet Count 361 k/uL (150-450); RBC 2.65 m/uL (4.30-5.90); RDW 14.7 % (11.5-15.5); WBC 8.3 k/uL (3.8-10.6)
[2021-12-15 06:35] LABS: Calcium 7.7 mg/dL (8.4-10.2); Magnesium 1.9 mg/dL (1.6-2.3); Potassium 3.8 mmol/L (3.5-5.1)
[2021-12-15] MEDS ORDERED: carvediloL 6.25 MG TAB PO SCH (07:30)
[2021-12-15] MEDS ORDERED: SYMBICORT 160-4.5 MCG INHALER INHALATION SCH (08:00)
--- NOTE | 2021-12-15 08:40 | NM ---
EXAMINATION TYPE: NM pul perfusion DATE OF EXAM: 12/15/2021 COMPARISON: Chest x-ray 12/14/2021 HISTORY: Difficulty breathing, cough and wheezing Following administration of 5.3 mCi Tc 99m MAA. Images obtained post injection. FINDINGS: Segmental perfusion defect is noted in the right upper lobe on perfusion only images. There are subse gmental perfusion defects noted in the right and left midlung. IMPRESSION: Nondiagnostic for pulmonary embolus.
[2021-12-15] MEDS ORDERED: ISOSORBIDE MONONITRATE ER 30 MG TAB.ER.24H PO SCH (09:00)
[2021-12-15] MEDS ORDERED: cloNIDine HCL 0.2 MG TAB PO SCH (09:00)
[2021-12-15] MEDS ORDERED: CLOPIDOGREL 75 MG TAB PO SCH (09:00)
[2021-12-15] MEDS ORDERED: hydrALAZINE HCL 25 MG TAB PO SCH (09:00)
[2021-12-15] MEDS ORDERED: THIAMINE 100 MG TAB PO SCH (09:00)
[2021-12-15] MEDS ORDERED: SODIUM BICARBONATE TAB 650 MG TAB PO SCH (09:00)
[2021-12-15] MEDS ORDERED: methylPREDNISolone SOD SUCCI 40 MG/ML 1 ML VIAL IV SCH (09:00)
--- NOTE | 2021-12-15 10:24 | P.CRDCN ---
History of Present Illness History of present illness: HISTORY OF PRESENTING ILLNESS This is a pleasant 71-year-old male past medical history significant for Recent Covid-19 pneumonia 12/02/2021, coronary artery disease s/p PCI to RCA in 07/2019, hypertension, dyslipidemia, chronic daily alcohol use, former heroin abuse, chronic nicotine dependence and COPD.. He follows in the office with Dr. Min. We have been asked to see in consultation for elevated troponin. Patient presented to the ER by home improvement advisor secondary to worsening wheezing, poor breathing sounds, increased work of breathing, dyspnea, and hypoxia. Patient seen at bedside, he denies any chest pain, lightheadedness, dizziness, palpitations, syncope or near syncope. He was recently admitted to the hospital with Covid-19 pneumonia and discharged on 12/13/2021. This admission, Troponins were drawn in the ER and were mildly abnormal. Patient was found to have acute kidney injury, elevated D-dimer and worsening infiltrates on chest xray. He currently drinks 9-10 beers per day. Quit smoking 1 month ago. DIAGNOSTICS * EKG reveals Sinus tachycardia, heart rate 100, T wave inversion in leads aVL. no significant STT wave abnormalities suggest acute ischemia * Telemetry tracings indicate sinus mechanism * Echocardiogram 12/04/2021 with EF 50-55% * Chest xray interval worsening in the right lung parenchymal inflation. * V/Q scan nondiagnostic for pulmonary embolism * Cardiac catheterization 07/2019, right [id number] ostial and proximal RCA 30% LAD acceptable filling pressures and no gradient. PCI of the RCA with 2 MALACHI. * Laboratory reviewed, WBC 8.3, hemoglobin 8.1, platelets 361, d-dimer 3.9, sodium 135, potassium 3.8, BUN 57, serum creatinine 1.8, troponin 0.08, 0.09, 0.07, proBNP 5150, Covid19 negative, influenza negative * Current home cardiac medications includevital 7 mg daily, Imdur 30 mg daily, clonidine 0.2 mg 3 times a day, carvedilol 6.25 mg twice a day, hydralazine 25 mg 3 times a day, atorvastatin 80 mg nightly REVIEW OF SYSTEMS At the time of my exam: CONSTITUTIONAL: Denies fever or chills. CARDIOVASCULAR: Denies chest pain,+ shortness of breath, Denies orthopnea, PND or palpitations. RESPIRATORY: + cough. GASTROINTESTINAL: Denies abdominal pain, diarrhea, constipation, nausea or vomiting. MUSCULOSKELETAL: Denies myalgias. NEUROLOGIC: Denies numbness, tingling, headacbe or weakness. ENDOCRINE: Denies fatigue, weight change, polydipsia or polyurina. GENITOURINARY: Denies burning, hematuria or urgency with micturation. HEMATOLOGIC:+anemia PHYSICAL EXAMINATION Blood pressure 151/78, heart 72, afebrile, oxygen saturation is 99% on 3 L nasal cannula CONSTITUTIONAL: No apparent distress. HEENT: Head is normocephalic. Pupils are equal, round. Sclerae anicteric. Mucous membranes of the mouth are moist. No JVD. CHEST EXAMINATION: Lungs rhonchi bilateral lung penny to auscultation. No chest wall tenderness is noted on palpation or with deep breathing. HEART EXAMINATION: Regular rate and rhythm. S1, S2 heard.Difficult to hear murmurs secondary to lung status ABDOMEN: Soft, nontender. Positive bowel sounds. EXTREMITIES: 2+ peripheral pulses, no lower extremity edema and no calf tenderness. NEUROLOGIC EXAMINATION: Patient is awake, alert and oriented x3. ASSESSMENT Elevated troponin, likely secondary to acute kidney injury, does not appear consisted with acute coronary syndrome, no acute ischemia on EKG or chest pain Pneumonia Hypoxia Acute kidney injury Anemia Leukocytosis Recent Covid-19 pneumonia 12/02/2021 Coronary artery disease s/p PCI to RCA in 07/2019 Hypertension Dyslipidemia Chronic daily alcoholism Former heroin abuse Chronic nicotine dependence, recently quit 1 month ago COPD PLAN Obtain 2D echocardiogram and doppler study to assess any wall motion abnormalities Continue home cardiac medications Pulmonary and infectious disease consulted Further recommendations based on clinical course Nurse practitioner note has been reviewed by physician. Signing provider agrees with the documented findings, assessment, and plan of care. Past Medical History Past Medical History: Chest Pain / Angina, COPD, CVA/TIA, Hyperlipidemia, Hypertension, Liver Disease, Vascular Disorder Additional Past Medical History / Comment(s): hep c- treated, TIA couple years ago Last Myocardial Infarction Date:: unknown History of Any Multi-Drug Resistant Organisms: None Reported Past Surgical History: Heart Catheterization With Stent, Orthopedic Surgery, Tonsillectomy Additional Past Surgical History / Comment(s): COLONOSCOPY/EGD, surg x4 right shoulder Past Anesthesia/Blood Transfusion Reactions: No Reported Reaction Date of Last Stent Placement:: 07/30/19 Past Psychological History: No Psychological Hx Reported Smoking Status: Former smoker Past Alcohol Use History: Abuse, Daily Past Drug Use History: IV Drug Use, Opiates, Prescription Drug Abuse - Past Family History Mother Family Medical History: Myocardial Infarction ([place]) Father Additional Family Medical History / Comment(s): polio, enlarged heart Brother(s) Family Medical History: CVA/TIA Daughter(s) History Unknown: Yes Son(s) Family Medical History: Hyperlipidemia Medications and Allergies Home Medications Medication Instructions Recorded Confirmed Type cloNIDine HCL [Catapres] 0.2 mg PO TID 07/28/19 12/14/21 History Isosorbide Mononitrate [Isosorbide 30 mg PO DAILY 05/19/20 12/14/21 History Mononitrate ER] Clopidogrel [Plavix] 75 mg PO DAILY 09/27/20 12/14/21 History Pantoprazole Sodium [Protonix] 40 mg PO DAILY 09/27/20 12/14/21 History Atorvastatin [Lipitor] 80 mg PO HS 10/10/20 12/14/21 History Albuterol Inhaler [Ventolin Hfa 1 puff INHALATION RT-Q4H PRN 12/01/21 12/14/21 History Inhaler] Loratadine [Claritin] 10 mg PO DAILY 12/01/21 12/14/21 History carvediloL [Coreg] 6.25 mg PO BID-W/MEALS 12/01/21 12/14/21 History Acetaminophen Tab [Tylenol] 650 mg PO Q4HR PRN tab 12/13/21 12/14/21 Rx Ascorbic Acid [Vitamin C] 500 mg PO BID tab 12/13/21 12/14/21 Rx Budesonide-Formot 160-4.5 Mcg 2 puff INHALATION RT-BID #1 inh 12/13/21 12/14/21 Rx [Symbicort 160-4.5 Mcg Inhaler] Cephalexin [Keflex] 500 mg PO QID 10 Days #40 cap 12/13/21 12/14/21 Rx Cholecalciferol [Vitamin D3 (125 125 mcg PO DAILY tab 12/13/21 12/14/21 Rx Mcg = 5000 Iu)] Sodium Bicarbonate Tab 650 mg PO BID tab 12/13/21 12/14/21 Rx Thiamine [Vitamin B-1] 100 mg PO DAILY tab 12/13/21 12/14/21 Rx Zinc Sulfate [Orazinc] 220 mg PO DAILY cap 12/13/21 12/14/21 Rx hydrALAZINE HCL [Apresoline] 25 mg PO TID tab 12/13/21 12/14/21 Rx predniSONE See Taper PO DIRECTED 12/14/21 12/14/21 History traMADol-ACETAMINOP 37.5-325MG 2 tab PO Q6HR PRN 12/14/21 12/14/21 History [Ultracet] Allergies Allergy/AdvReac Type Severity Reaction Status Date / Time codeine AdvReac Nausea Verified 12/14/21 20:58 Physical Exam Vitals: Vital Signs Temp Pulse Pulse Resp BP BP Pulse Ox 12/15/21 05:27 92 12/15/21 05:11 92 12/15/21 03:52 72 18 151/78 96 12/15/21 02:00 92 20 12/15/21 00:11 91 12/15/21 00:00 97.6 F 89 92 20 160/79 97 12/14/21 23:33 78 15 144/68 95 12/14/21 23:28 20 12/14/21 20:30 96 12/14/21 20:20 96 12/14/21 20:08 92 12/14/21 20:00 92 12/14/21 19:48 94 12/14/21 19:38 90 12/14/21 18:16 99.0 F 99 22 154/79 98 Intake and Output 12/14/21 12/15/21 12/15/21 22:59 06:59 14:59 Output Total 300 Balance -300 Output: Urine 300 Other: Voiding Method Urinal Diaper # Voids 1 # Bowel Movements 1 1 Weight 72.575 kg 72.575 kg Results 12/15/21 05:40 12/15/21 05:40 Cardiac Enzymes 12/14/21 12/14/21 12/15/21 Range/Units 20:03 20:03 01:06 AST 38 (17-59) U/L Troponin I 0.082 H* 0.090 H* (0.000-0.034) ng/mL 12/15/21 Range/Units 05:40 AST (17-59) U/L Troponin I 0.079 H* (0.000-0.034) ng/mL Coagulation 12/14/21 Range/Units 20:03 PT 10.4 (9.0-12.0) sec APTT 24.3 (22.0-30.0) sec CBC 12/14/21 12/15/21 Range/Units 20:03 05:40 WBC 10.8 H 8.3 (3.8-10.6) k/uL RBC 2.53 L 2.65 L (4.30-5.90) m/uL Hgb 7.7 L D 8.1 L (13.0-17.5) gm/dL Hct 23.4 L 25.3 L (39.0-53.0) % Plt Count 357 361 (150-450) k/uL Comprehensive Metabolic Panel 12/14/21 12/15/21 Range/Units 20:03 05:40 Sodium 133 L 135 L (137-145) mmol/L Potassium 4.3 3.8 (3.5-5.1) mmol/L Chloride 101 102 (98-107) mmol/L Carbon Dioxide 21 L 18 L (22-30) mmol/L BUN 60 H 57 H (9-20) mg/dL Creatinine 1.91 H 1.86 H (0.66-1.25) mg/dL Glucose 112 H 194 H (74-99) mg/dL Calcium 7.3 L 7.7 L (8.4-10.2) mg/dL AST 38 (17-59) U/L ALT 19 (4-49) U/L Alkaline Phosphatase 71 (38-126) U/L Total Protein 5.5 L (6.3-8.2) g/dL Albumin 2.6 L (3.5-5.0) g/dL Current Medications Generic Name Dose Route Start Last Admin Trade Name Freq PRN Reason Stop Dose Admin Albuterol/Ipratropium 3 ml 12/15/21 00:00 12/15/21 05:11 Ipratropium-Albuterol 3 Ml Neb INHALATION 3 ml RT-Q4H CYNTHIA Administration Atorvastatin Calcium 80 mg 12/15/21 21:00 Atorvastatin 80 Mg Tab PO HS CYNTHIA Budesonide/Formoterol Fumarate 2 puff 12/15/21 08:00 Symbicort 160-4.5 Mcg Inhaler INHALATION RT-BID CYNTHIA Carvedilol 6.25 mg 12/15/21 07:30 12/15/21 06:20 Carvedilol 6.25 Mg Tab PO 6.25 mg BID-W/MEALS CYNTHIA Administration Clonidine 0.2 mg 12/15/21 09:00 Clonidine Hcl 0.2 Mg Tab PO TID [facility] Clopidogrel Bisulfate 75 mg 12/15/21 09:00 Clopidogrel 75 Mg Tab PO DAILY [facility] Heparin Sodium (Porcine) 5,000 unit 12/15/21 00:00 12/15/21 01:08 Heparin Sodium,Porcine/Pf 5,000 Unit/0.5 Ml Syringe SQ 5,000 unit Q8HR CYNTHIA Administration Hydralazine HCl 25 mg 12/15/21 09:00 Hydralazine Hcl 25 Mg Tab PO TID [facility] Cefepime HCl 2 gm/ Sodium 100 mls @ 25 mls/hr 12/14/21 11:00 12/15/21 03:33 Chloride IVPB 25 mls/hr Q8H CYNTHIA Administration Protocol Sodium Chloride 1,000 mls @ 80 mls/hr 12/14/21 22:56 12/15/21 01:16 Saline 0.9% IV 12/15/21 11:25 80 mls/hr .[id number] STA Administration Vancomycin HCl 1,500 mg/ 250 mls @ 125 mls/hr 12/15/21 22:00 Sodium Chloride IVPB Q24H [facility] Isosorbide Mononitrate 30 mg 12/15/21 09:00 Isosorbide Mononitrate Er 30 Mg Tab.Er.24h PO DAILY [facility] Methylprednisolone Sodium Succinate 40 mg 12/15/21 09:00 Methylprednisolone Sod Succi 40 Mg/Ml 1 Ml Vial IV Q12HR [facility] Miscellaneous Information 1 each 12/14/21 22:02 Vancomycin Iv Per Pharmacy 1 Each Misc MISCELLANE DIRECTED PRN Per Protocol Protocol Naloxone HCl 0.2 mg 12/14/21 22:52 Naloxone 0.4 Mg/Ml 1 Ml Vial IV Q2M PRN Opioid Reversal Sodium Bicarbonate 650 mg 12/15/21 09:00 Sodium Bicarbonate Tab 650 Mg Tab PO BID [facility] Thiamine HCl 100 mg 12/15/21 09:00 Thiamine 100 Mg Tab PO DAILY [facility] Intake and Output 12/14/21 12/15/21 12/15/21 22:59 06:59 14:59 Output Total 300 Balance -300 Output: Urine 300 Other: Voiding Method Urinal Diaper # Voids 1 # Bowel Movements 1 1 Weight 72.575 kg 72.575 kg 12/15/21 05:40 12/15/21 05:40
--- NOTE | 2021-12-15 11:37 | P.HPIM ---
History of Present Illness H&P Date: 12/15/21 Chief Complaint: Shortness of breath This is a 71-year-old gentleman discharged 12/13/2021 with Covid pneumonia, sepsis, history of polysubstance abuse, noncompliant and multiple other medical issues. Patient declined Covid hub at discharge. Patient did not obtain his discharge prescriptions including his antibiotics for MSSA bacteremia, total cost $3.51. Patient also had [facility], who sent patient into the ER.Prior to discharge patient continuously declined IV access, midline placement, continues to decline IV placement /access. Patient is verbally abusive to staff, states he does not want to be here. Denies chest pain, palpitations, reports mild increased shortness of breath. Denies near syncope/syncope. Reports he currently is drinking 9-10 beers daily and quit smoking 1 month ago. Denies nausea vomiting or abdominal pain. Denies lightheadedness, dizziness or focal deficits. Though d-dimer elevated at 3.93, significantly declined from d-dimer on 12/05 of 7.44. Pulmonary perfusion imaging reported nondiagnostic for PE. On admission patient 98% to 100% on 2 L nasal cannula. Chest x-ray reporting interval worsening in the right lung pare nchymal inflation. Troponins elevated 0.082, 0.090, 0.079, EKG reporting sinus tachycardia. Evaluated by cardiology, echo pending. BUN 57/creatinine 1.86. Coronavirus, influenza A and B.detected. Afebrile, normal WBC. Hemoglobin 8.1, platelets 361. Review of Systems ROS Statement: Those systems with pertinent positive or pertinent negative responses have been documented in the HPI. ROS Other: All systems not noted in ROS Statement are negative. Past Medical History Past Medical History: Chest Pain / Angina, COPD, CVA/TIA, Hyperlipidemia, Hypertension, Liver Disease, Vascular Disorder Additional Past Medical History / Comment(s): hep c- treated, TIA couple years ago Last Myocardial Infarction Date:: unknown History of Any Multi-Drug Resistant Organisms: None Reported Past Surgical History: Heart Catheterization With Stent, Orthopedic Surgery, Tonsillectomy Additional Past Surgical History / Comment(s): COLONOSCOPY/EGD, surg x4 right shoulder Past Anesthesia/Blood Transfusion Reactions: No Reported Reaction Date of Last Stent Placement:: 07/30/19 Past Psychological History: No Psychological Hx Reported Smoking Status: Former smoker Past Alcohol Use History: Abuse, Daily Past Drug Use History: IV Drug Use, Opiates, Prescription Drug Abuse - Past Family History Mother Family Medical History: Myocardial Infarction ([place]) Father Additional Family Medical History / Comment(s): polio, enlarged heart Brother(s) Family Medical History: CVA/TIA Daughter(s) History Unknown: Yes Son(s) Family Medical History: Hyperlipidemia Medications and Allergies Home Medications Medication Instructions Recorded Confirmed Type cloNIDine HCL [Catapres] 0.2 mg PO TID 07/28/19 12/14/21 History Isosorbide Mononitrate [Isosorbide 30 mg PO DAILY 05/19/20 12/14/21 History Mononitrate ER] Clopidogrel [Plavix] 75 mg PO DAILY 09/27/20 12/14/21 History Pantoprazole Sodium [Protonix] 40 mg PO DAILY 09/27/20 12/14/21 History Atorvastatin [Lipitor] 80 mg PO HS 10/10/20 12/14/21 History Albuterol Inhaler [Ventolin Hfa 1 puff INHALATION RT-Q4H PRN 12/01/21 12/14/21 History Inhaler] Loratadine [Claritin] 10 mg PO DAILY 12/01/21 12/14/21 History carvediloL [Coreg] 6.25 mg PO BID-W/MEALS 12/01/21 12/14/21 History Acetaminophen Tab [Tylenol] 650 mg PO Q4HR PRN tab 12/13/21 12/14/21 Rx Ascorbic Acid [Vitamin C] 500 mg PO BID tab 12/13/21 12/14/21 Rx Budesonide-Formot 160-4.5 Mcg 2 puff INHALATION RT-BID #1 inh 12/13/21 12/14/21 Rx [Symbicort 160-4.5 Mcg Inhaler] Cephalexin [Keflex] 500 mg PO QID 10 Days #40 cap 12/13/21 12/14/21 Rx Cholecalciferol [Vitamin D3 (125 125 mcg PO DAILY tab 12/13/21 12/14/21 Rx Mcg = 5000 Iu)] Sodium Bicarbonate Tab 650 mg PO BID tab 12/13/21 12/14/21 Rx Thiamine [Vitamin B-1] 100 mg PO DAILY tab 12/13/21 12/14/21 Rx Zinc Sulfate [Orazinc] 220 mg PO DAILY cap 12/13/21 12/14/21 Rx hydrALAZINE HCL [Apresoline] 25 mg PO TID tab 12/13/21 12/14/21 Rx predniSONE See Taper PO DIRECTED 12/14/21 12/14/21 History traMADol-ACETAMINOP 37.5-325MG 2 tab PO Q6HR PRN 12/14/21 12/14/21 History [Ultracet] Allergies Allergy/AdvReac Type Severity Reaction Status Date / Time codeine AdvReac Nausea Verified 12/14/21 20:58 Physical Exam Vitals: Vital Signs Temp Pulse Pulse Resp BP BP Pulse Ox 12/15/21 08:31 99 16 12/15/21 08:19 95 16 12/15/21 08:16 99 12/15/21 05:27 92 12/15/21 05:11 92 12/15/21 03:52 72 18 151/78 96 12/15/21 02:00 92 20 12/15/21 00:11 91 12/15/21 00:00 97.6 F 89 92 20 160/79 97 12/14/21 23:33 78 15 144/68 95 12/14/21 23:28 20 12/14/21 20:30 96 12/14/21 20:20 96 12/14/21 20:08 92 12/14/21 20:00 92 12/14/21 19:48 94 12/14/21 19:38 90 12/14/21 18:16 99.0 F 99 22 154/79 98 Intake and Output 12/14/21 12/15/21 12/15/21 22:59 06:59 14:59 Output Total 300 Balance -300 Output: Urine 300 Other: Voiding Method Urinal Diaper # Voids 1 1 # Bowel Movements 1 1 Weight 72.575 kg 72.575 kg - Exam GENERAL: Sitting up in bed, alert and oriented 3,NAD NECK: supple, no JVD LUNGS: Breath sounds with scattered rhonchi throughout, forced expiratory wheezing HEART: Regular rate and rhythm without murmurs, rubs or gallops.S1S2 Normal ABDOMEN: Soft, nontender, normoactive bowel sounds. No guarding, no rebound. No masses appreciated. EXTREMITIES: Normal range of motion, no pitting or edema. No clubbing or cy anosis. NEUROLOGICAL: Cranial nerves II through XII grossly intact. Normal speech, normal gait. SKIN: Warm, Dry, normal turgor, no rashes. Results CBC & Chem 7: 12/15/21 05:40 12/15/21 05:40 Labs: Abnormal Lab Results - Last 24 Hours (Table) 12/14/21 12/14/21 12/14/21 Range/Units 20:03 20:03 20:03 WBC 10.8 H (3.8-10.6) k/uL RBC 2.53 L (4.30-5.90) m/uL Hgb 7.7 L D (13.0-17.5) gm/dL Hct 23.4 L (39.0-53.0) % Neutrophils # 9.6 H (1.3-7.7) k/uL Lymphocytes # 0.6 L (1.0-4.8) k/uL D-Dimer 3.93 H (<0.60) mg/L FEU Sodium 133 L (137-145) mmol/L Carbon Dioxide 21 L (22-30) mmol/L BUN 60 H (9-20) mg/dL Creatinine 1.91 H (0.66-1.25) mg/dL Glucose 112 H (74-99) mg/dL Calcium 7.3 L (8.4-10.2) mg/dL Magnesium 1.2 L (1.6-2.3) mg/dL Troponin I (0.000-0.034) ng/mL Total Protein 5.5 L (6.3-8.2) g/dL Albumin 2.6 L (3.5-5.0) g/dL 12/14/21 12/15/21 12/15/21 Range/Units 20:03 01:06 05:40 WBC (3.8-10.6) k/uL RBC 2.65 L (4.30-5.90) m/uL Hgb 8.1 L (13.0-17.5) gm/dL Hct 25.3 L (39.0-53.0) % Neutrophils # 7.8 H (1.3-7.7) k/uL Lymphocytes # 0.3 L (1.0-4.8) k/uL D-Dimer (<0.60) mg/L FEU Sodium (137-145) mmol/L Carbon Dioxide (22-30) mmol/L BUN (9-20) mg/dL Creatinine (0.66-1.25) mg/dL Glucose (74-99) mg/dL Calcium (8.4-10.2) mg/dL Magnesium (1.6-2.3) mg/dL Troponin I 0.082 H* 0.090 H* (0.000-0.034) ng/mL Total Protein (6.3-8.2) g/dL Albumin (3.5-5.0) g/dL 12/15/21 12/15/21 Range/Units 05:40 05:40 WBC (3.8-10.6) k/uL RBC (4.30-5.90) m/uL Hgb (13.0-17.5) gm/dL Hct (39.0-53.0) % Neutrophils # (1.3-7.7) k/uL Lymphocytes # (1.0-4.8) k/uL D-Dimer (<0.60) mg/L FEU Sodium 135 L (137-145) mmol/L Carbon Dioxide 18 L (22-30) mmol/L BUN 57 H (9-20) mg/dL Creatinine 1.86 H (0.66-1.25) mg/dL Glucose 194 H (74-99) mg/dL Calcium 7.7 L (8.4-10.2) mg/dL Magnesium (1.6-2.3) mg/dL Troponin I 0.079 H* (0.000-0.034) ng/mL Total Protein (6.3-8.2) g/dL Albumin (3.5-5.0) g/dL Thrombosis Risk Factor Assmnt - Choose All That Apply Any of the Below Risk Factors Present?: Yes Each Factor Represents 1 point: Abnormal pulmonary function (COPD) Other Risk Factors: Yes Each Risk Factor Represents 2 Points: Age 61-74 years Other congenital or acquired thrombophilia - If yes, enter type in comment: No Thrombosis Risk Factor Assessment Total Risk Factor Score: 3 Thrombosis Risk Factor Assessment Level: Moderate Risk Assessment and Plan Assessment: Elevated troponin suspect related to acute renal insufficiency, as per card iology, echo pending Acute renal insufficiency Leukocytosis resolved Anemia Recent pneumonia due to COVID-19 virus, 12/02/2021, discharged 12/13 Recent bacteremia with MSSA, refused IV access for DC IV antibiotics. Hypoxia secondary to the above Chronic Alcohol abuse drinks 9-10 beers daily Nicotine dependence. Reports quit 1 month ago History of polysubstance abuse, including heroin, opioids Hypertension Hyperlipidemia Hepatitis C Noncompliant Plan: Continue on current medication regime ,monitoring and symptomatic treatment. Echo pending. Patient will be discharged home today in stable condition with guarded prognosis pending final DC recommendations and clearance as per pulmonary and cardiology. Prescriptions to be delivered to patient's room that are still down in pharmacy. Refraining from Polysubstance abuse reinforced. Compliancy with med regimen reinforced. The impression and plan of care has been dictated as directed. : I performed a history and examination of this patient, discussed the same with the dictator. I agree with the dictator's note ,documented as a scribe. Any additional findings or plans will be noted.
[2021-12-15 11:46] LABS: Glucose,Whole Blood 171 mg/dL (70-110)
--- NOTE | 2021-12-15 12:49 | CA ---
Transthoracic Echo Report Name: Dion Love Age: 71 Gender: M : 1950 Exam Date: 12/15/2021 10:56 Exam Location: [facility] Ht (in): 68 Wt (lb): 160 Ordering Physician: Brionna Khan Attending/Referring Phys: [employer] Luci Fregoso RDCS Procedure CPT: Indications: Repeat Per Dr. Gregorio to evaluate wall motion abnor Cardiac Hx: Technical Quality: Technically difficult study Contrast 1: Lumason Total Dose (mL): 4 Contrast 2: Total Dose (mL): MEASUREMENTS (Male / Female) Normal Values 2D ECHO LV Diastolic Diameter PLAX 3.7 cm 4.2 - 5.9 / 3.9 - 5.3 cm LV Systolic Diameter PLAX 2.8 cm IVS Diastolic Thickness 1.2 cm 0.6 - 1.0 / 0.6 - 0.9 cm LVPW Diastolic Thickness 1.1 cm 0.6 - 1.0 / 0.6 - 0.9 cm LV Relative Wall Thickness 0.6 FINDINGS Left Ventricle Mildly increased septal wall thickness. Left ventricular ejection fraction is estimated at 50-55 %. No obvious regional wall motion abnormalities. Right Ventricle Right Atrium Left Atrium Mitral Valve Aortic Valve Tricuspid Valve Pulmonic Valve Pericardium No pericardial effusion. Aorta CONCLUSIONS Normal left ventricular dimension and systolic function Previewed by: Dr. Hossein Ayala MD (Electronically Signed) Final Date: 15 December 2021 12:48
--- NOTE | 2021-12-15 13:39 | P.CNPUL ---
History of Present Illness Consult date: 12/15/21 Requesting physician: Ric Pinzon Jr Reason for consult: COPD Chief complaint: Shortness of breath History of present illness: This 71-year-old male patient with a history of hepatitis C, hypertension, hyperlipidemia, CVA, previous heavy tobacco dependence, chronic obstructive pulmonary disease, coronary disease with previous stent placement who was recently admitted for acute COVID-19 pneumonia and blood cultures positive for MSSA. Patient was just discharged home 12/13/2021 on oral Keflex. 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 Last evening he came back to the hospital with complaints of ongoing shortness of breath. He is seen today in consultation on the selective care unit. Currently resting comfortably in bed. Awake and alert in no acute distress. Continue O2 saturations up to 99% on 3 L nasal cannula. He did agree to finally having an IV placed. Chest x-ray reveals ill-defined consolidation opacity in the right lung. The VQ scan was nondiagnostic for pulmonary embolism. Limited echocardiogram revealed preserved left ventricular systolic function with ejection fraction 50-55%. White count 8.3. Hemoglobin 8.1. Sodium 135. Potassium 3.8. BUN 57. Creatinine 1.86. Chronic virus by PCR negative. Influenza screen negative. D-dimer 3.93. Tropo annemarie 0.08, 0.09, 0.07. BNP 5150. He is currently on vancomycin and cefepime. Continue on Symbicort, DuoNeb inhalations, IV Solu-Medrol. Review of Systems REVIEW OF SYSTEMS: CONSTITUTIONAL: Denies any recent significant weight loss or weight gain. EYES: Denies change in vision. EARS, NOSE, MOUTH, THROAT: Denies headaches, denies sore throat. CARDIOVASCULAR: Denies chest pain, palpitations or syncopal episodes. RESPIRATORY: Positive for shortness of breath, cough, congestion no hemoptysis. GASTROINTESTINAL: Denies change in appetite, denies abdominal pain GENITOURINARY: Denies hematuria, denies infections. MUSKULOSKELETAL: Denies pain, denies swelling. INTEGUMENTARY: Denies rash, denies eczema. NEUROLOGICAL: Denies recent memory loss, no recent seizure activity. PSYCHIATRIC: Denies anxiety, denies depression. HEMATOLOGIC/LYMPHATIC: Denies anemia, denies enlarged lymph nodes. Past Medical History Past Medical History: Chest Pain / Angina, COPD, CVA/TIA, Hyperlipidemia, Hypertension, Liver Disease, Vascular Disorder Additional Past Medical History / Comment(s): hep c- treated, TIA couple years ago Last Myocardial Infarction Date:: unknown History of Any Multi-Drug Resistant Organisms: None Reported Past Surgical History: Heart Catheterization With Stent, Orthopedic Surgery, Tonsillectomy Additional Past Surgical History / Comment(s): COLONOSCOPY/EGD, surg x4 right shoulder Past Anesthesia/Blood Transfusion Reactions: No Reported Reaction Date of Last Stent Placement:: 07/30/19 Past Psychological History: No Psychological Hx Reported Smoking Status: Former smoker Past Alcohol Use History: Abuse, Daily Past Drug Use History: IV Drug Use, Opiates, Prescription Drug Abuse - Past Family History Mother Family Medical History: Myocardial Infarction ([place]) Father Additional Family Medical History / Comment(s): polio, enlarged heart Brother(s) Family Medical History: CVA/TIA Daughter(s) History Unknown: Yes Son(s) Family Medical History: Hyperlipidemia Medications and Allergies Home Medications Medication Instructions Recorded Confirmed Type cloNIDine HCL [Catapres] 0.2 mg PO TID 07/28/19 12/14/21 History Isosorbide Mononitrate [Isosorbide 30 mg PO DAILY 05/19/20 12/14/21 History Mononitrate ER] Clopidogrel [Plavix] 75 mg PO DAILY 09/27/20 12/14/21 History Pantoprazole Sodium [Protonix] 40 mg PO DAILY 09/27/20 12/14/21 History Atorvastatin [Lipitor] 80 mg PO HS 10/10/20 12/14/21 History Albuterol Inhaler [Ventolin Hfa 1 puff INHALATION RT-Q4H PRN 12/01/21 12/14/21 History Inhaler] Loratadine [Claritin] 10 mg PO DAILY 12/01/21 12/14/21 History carvediloL [Coreg] 6.25 mg PO BID-W/MEALS 12/01/21 12/14/21 History Acetaminophen Tab [Tylenol] 650 mg PO Q4HR PRN tab 12/13/21 12/14/21 Rx Ascorbic Acid [Vitamin C] 500 mg PO BID tab 12/13/21 12/14/21 Rx Budesonide-Formot 160-4.5 Mcg 2 puff INHALATION RT-BID #1 inh 12/13/21 12/14/21 Rx [Symbicort 160-4.5 Mcg Inhaler] Cephalexin [Keflex] 500 mg PO QID 10 Days #40 cap 12/13/21 12/14/21 Rx Cholecalciferol [Vitamin D3 (125 125 mcg PO DAILY tab 12/13/21 12/14/21 Rx Mcg = 5000 Iu)] Sodium Bicarbonate Tab 650 mg PO BID tab 12/13/21 12/14/21 Rx Thiamine [Vitamin B-1] 100 mg PO DAILY tab 12/13/21 12/14/21 Rx Zinc Sulfate [Orazinc] 220 mg PO DAILY cap 12/13/21 12/14/21 Rx hydrALAZINE HCL [Apresoline] 25 mg PO TID tab 12/13/21 12/14/21 Rx predniSONE See Taper PO DIRECTED 12/14/21 12/14/21 History Allergies Allergy/AdvReac Type Severity Reaction Status Date / Time codeine AdvReac Nausea Verified 12/14/21 20:58 Physical Exam Vitals: Vital Signs Temp Pulse Pulse Resp BP BP Pulse Ox 12/15/21 11:35 99 18 12/15/21 11:24 99 18 12/15/21 08:31 99 16 12/15/21 08:19 95 16 12/15/21 08:16 99 12/15/21 08:00 98.1 F 86 16 137/89 99 12/15/21 05:27 92 12/15/21 05:11 92 12/15/21 03:52 72 18 151/78 96 12/15/21 02:00 92 20 12/15/21 00:11 91 12/15/21 00:00 97.6 F 89 92 20 160/79 97 12/14/21 23:33 78 15 144/68 95 12/14/21 23:28 20 12/14/21 20:30 96 12/14/21 20:20 96 12/14/21 20:08 92 12/14/21 20:00 92 12/14/21 19:48 94 12/14/21 19:38 90 12/14/21 18:16 99.0 F 99 22 154/79 98 Intake and Output 12/14/21 12/15/21 12/15/21 22:59 06:59 14:59 Output Total 300 Balance -300 Output: Urine 300 Other: Voiding Method Urinal Urinal Diaper Diaper # Voids 1 1 # Bowel Movements 1 1 Weight 72.575 kg 72.575 kg GENERAL EXAM: Alert, disheveled, 71-year-old male, on 3 L nasal cannula, comfortable in no apparent distress. HEAD: Normocephalic. EYES: Normal reaction of pupils, equal size. NOSE: Clear with pink turbinates. THROAT: No erythema or exudates. NECK: No masses, no JVD. CHEST: No chest wall deformity. LUNGS: Equal air entry with rhonchi, crackles in the right lung. CVS: S1 and S2 normal with no audible murmur, regular rhythm. ABDOMEN: No hepatosplenomegaly, normal bowel sounds, no guarding or rigidity. SPINE: No scoliosis or deformity SKIN: No rashes CENTRAL NERVOUS SYSTEM: No focal deficits, tone is normal in all 4 extremities. EXTREMITIES: There is no peripheral edema. No clubbing, no cyanosis. Peripheral pulses are intact. Results - Laboratory Findings CBC and BMP: 12/15/21 05:40 12/15/21 05:40 PT/INR, D-dimer PT 10.4 sec (9.0-12.0) 12/14/21 20:03 INR 0.9 (<1.2) 12/14/21 20:03 D-Dimer 3.93 mg/L FEU (<0.60) H 12/14/21 20:03 Abnormal lab findings: Abnormal Labs 12/14/21 12/14/21 12/14/21 20:03 20:03 20:03 WBC 10.8 H RBC 2.53 L Hgb 7.7 L D Hct 23.4 L Neutrophils # 9.6 H Lymphocytes # 0.6 L D-Dimer 3.93 H Sodium 133 L Carbon Dioxide 21 L BUN 60 H Creatinine 1.91 H Glucose 112 H POC Glucose (mg/dL) Calcium 7.3 L Magnesium 1.2 L Troponin I Total Protein 5.5 L Albumin 2.6 L 12/14/21 12/15/21 12/15/21 20:03 01:06 05:40 WBC RBC 2.65 L Hgb 8.1 L Hct 25.3 L Neutrophils # 7.8 H Lymphocytes # 0.3 L D-Dimer Sodium Carbon Dioxide BUN Creatinine Glucose POC Glucose (mg/dL) Calcium Magnesium Troponin I 0.082 H* 0.090 H* Total Protein Albumin 12/15/21 12/15/21 12/15/21 05:40 05:40 11:45 WBC RBC Hgb Hct Neutrophils # Lymphocytes # D-Dimer Sodium 135 L Carbon Dioxide 18 L BUN 57 H Creatinine 1.86 H Glucose 194 H POC Glucose (mg/dL) 171 H Calcium 7.7 L Magnesium Troponin I 0.079 H* Total Protein Albumin - Diagnostic Findings Chest x-ray: image reviewed Assessment and Plan Assessment: Acute hypoxemic respiratory failure, multifactorial, secondary to COPD exacerbation, patchy pneumonia right lower lobe, and possible coronavirus associated pneumonia. 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 Developed worsening shortness of breath and was admitted approximately 24 hours later. Acute COVID 19 pneumonia with stable pulmonary consolidations with a right upper lobe and right lower lobe stable infiltrates. Bilateral pneumonia with some interval progression of the airspace disease, consider superimposed bacterial pneumonia. Staphylococcus aureus bacteremia/sepsis, recently discharged home on Keflex that the patient did not come from the pharmacy History of COPD, secondary to heavy tobacco use. Acute kidney injury, improving, renal function is normalized. History of angina pectoris, and previous heart catheterization with stent, for CAD. History of CVA. History of hyperlipidemia. History of hypertension. History of hepatitis C. Previous history of heavy tobacco use. Plan: The patient was seen and evaluated Chest x-ray, V/Q scan, labs and medications reviewed Continue vancomycin and cefepime Follow-up blood cultures pending Continue in the Court, DuoNeb inhalations, IV Solu-Medrol Social work for discharge planning We will continue to follow and make further recommendations based on his clinical status I have personally seen and examined the patient, performed the documentation and the assessment and plan as written. Number of minutes spent on the visit: 20.
[2021-12-15 14:35] VITALS: BP 132/76; PULSE 84; RESP 16; TEMP 98
[2021-12-15] MEDS ORDERED: CEFEPIME 2 GM in SODIUM CHLORIDE 0.9% 100 ML IVPB SCH (16:00)
[2021-12-15] MEDS ORDERED: ATORVASTATIN 80 MG TAB PO SCH (21:00)
[2021-12-15] MEDS ORDERED: VANCOMYCIN 1,500 MG in SODIUM CHLORIDE 0.9% 250 ML IVPB SCH (22:00)
--- NOTE | 2021-12-19 09:27 | CDI ---
Documentation Clarification Form Date: 12/19/2021 08:36:40 AM From: Irene Weinberg RN, CCDS Admit Date: 12/14/2021 10:52:00 PM Patient Name: Dion Love Visit Number: [id number] Discharge Date: 12/15/2021 02:55:00 PM ATTENTION: The Clinical Documentation Specialists (CDI) and [facility] Coding Staff appreciate your assistance in clarifying documentation. Please respond to the clarification below the line at the bottom and electronically sign. The CDI & [facility] Coding staff will review the response and follow-up if needed. Please note: Queries are made part of the Legal Health Record. If you have any questions, please contact the author of this message via ITS. Dr. Ric Pinzon The patients principal diagnosis the diagnosis that was chiefly responsible for the admission - has not been clearly identified and clarification is requested. 12/15 Cardiology consult: Elevated troponin, likely secondary to acute kidney injury, pneumonia, hypoxia anemia recent Covid-19 pneumonia 12/02/2021 The patient presented with the following: Shortness of breath with history of COVID-19 infection, discharged on 12/13/2021. Unable to fill home prescription of Keflex. Present back on 12/14/2021 with wheezing, difficulty in breathing. Pulmonary consults indicate patient past medical condition on acute hypoxic respiratory failure secondary to COPD exacerbation and coronavirus associated pneumonia. On current admission acute kidney injury, bilateral pneumonia with some interval progression of the airspace disease, consider superimposed bacterial pneumonia. Improving renal function is documented. History/Risk factors: Covid-19 pneumonia, coronary artery disease, Hypertension, COPD, daily alcohol use chronic nicotine dependence Clinical Indicators: 71-year-old male with prior COVID-19 infection, bacteremia, sepsis. 12/14 Lab findings: WBC 10.8 HGB 7.7, HCT 23.4, BUN 60 CR 1.91, BNP 5150, and Troponin 0.082, 0.090 COVID-19 Not Detected, Influenza A, B Not Detected. 12/14 Blood cultures: (Preliminary) No growth after 96 hours 12/14 CXR: Interval worsening in the right lung parenchymal infiltration pattern 12/14: NM pulm Perfusion: Nondiagnostic for pulmonary embolus 12/15 ECHO: EF 50-55 %; Normal left ventricular dimension and systolic function 12/14 Vital Signs: 154/79 99 22 99.0 98 % 2/L Treatment: Telemetry monitoring Duoneb's inhalation per orders Maxipime 2 GM IVPB Q 8 HRS 12/14-12/15 Solu-Medrol 125 MG IM Once Vancomycin 1,500 MG IVPB ONCE (PTD) 12/14-12/15 .9 NS @80 ML/HR 12/14-12/15 In your professional opinion, can you please clarify which diagnosis, after study, was the reason chiefly responsible for the admission? [ x ] COPD Exacerbation [ x ] Pneumonia [ ] Acute Renal Failure [x ] Other, please specify kidney injury secondary torespiratory sepsis [ ] Unable to determine (Template Last Revised: May 2020) MTDD
== END 2021-12-15 14:55 | disposition home or self-care (01) | DRG 871 ==
LOC: EC 18:12 → 3SCARD 22:52
PROVIDERS: ADMIT Family Medicine; ATTEND Family Medicine
DX: A41.89 Other specified sepsis (principal); J18.9 Pneumonia, unspecified organism; J96.01 Acute respiratory failure with hypoxia; J44.1 Chronic obstructive pulmonary disease with (acute) exacerbation; N17.9 Acute kidney failure, unspecified; J44.0 Chronic obstructive pulmonary disease with (acute) lower respiratory infection; Z86.16 Personal history of COVID-19; B19.20 Unspecified viral hepatitis C without hepatic coma; D64.9 Anemia, unspecified; E78.5 Hyperlipidemia, unspecified; I25.10 Atherosclerotic heart disease of native coronary artery without angina pectoris; E83.42 Hypomagnesemia; F10.20 Alcohol dependence, uncomplicated; F19.90 Other psychoactive substance use, unspecified, uncomplicated; I10 Essential (primary) hypertension; Z53.20 Procedure and treatment not carried out because of patient's decision for unspecified reasons; Z79.02 Long term (current) use of antithrombotics/antiplatelets; Z79.51 Long term (current) use of inhaled steroids; Z79.899 Other long term (current) drug therapy; Z82.3 Family history of stroke; Z82.49 Family history of ischemic heart disease and other diseases of the circulatory system; Z86.73 Personal history of transient ischemic attack (TIA), and cerebral infarction without residual deficits; Z87.891 Personal history of nicotine dependence; Z91.19 Patient's noncompliance with other medical treatment and regimen; Z98.61 Coronary angioplasty status; Z88.5 Allergy status to narcotic agent
CPT/HCPCS: 36415; 71045; 78580; 80048; 80053; 83605; 83735; 83880; 84484; 85025; 85379; 85610; 85730; 87040; 87502; 87635; 93005; 93308; 94640; 94760; 96365; 96366; 96367; 96372; 99285

== ENCOUNTER 2022-01-02 16:21 | Emergency (ER) | payer MEDICARE, OTHER ==
[2022-01-02 16:32] VITALS: TEMP 97.8
[2022-01-02 18:28] LABS: Basophils % (A) 0 %; Eosinophils % (A) 1 %; HCT 27.1 % (39.0-53.0); HGB 9.1 gm/dL (13.0-17.5); Hypochromasia Slight; Lymphocytes # (A) 0.6 k/uL (1.0-4.8); Lymphocytes % (A) 10 %; MCH 32.4 pg (25.0-35.0); MCHC 33.6 g/dL (31.0-37.0); MCV 96.6 fL (80.0-100.0); Mean Platelet Volume 7.9; Monocytes # (A) 0.3 k/uL (0-1.0); Monocytes % (A) 4 %; Neutrophils % (A) 83 %; Platelet Count 349 k/uL (150-450); RDW 15.1 % (11.5-15.5)
[2022-01-02 18:47] LABS: INR 0.9 (<1.2); Partial Thromboplastin Time 24.8 sec (22.0-30.0)
[2022-01-02 18:49] LABS: Albumin 2.7 g/dL (3.5-5.0); Calcium 7.8 mg/dL (8.4-10.2); Potassium 3.8 mmol/L (3.5-5.1); Total Bilirubin 0.3 mg/dL (0.2-1.3); Total Protein 5.2 g/dL (6.3-8.2)
--- NOTE | 2022-01-02 18:49 | ED ---
Extremity Problem HPI - General Chief complaint: Extremity Problem,Nontraumatic Stated complaint: Right hand swelling Time Seen by Provider: 01/02/22 16:50 Source: patient Mode of arrival: ambulatory Limitations: no limitations - History of Present Illness Initial comments: Patient is a 71-year-old male presenting with chief complaint of extremity swelling. Patient states he has had increased swelling to the right upper extremity for several days. Patient is also complaining of swelling to the bilateral lower extremities. Patient denies any new shortness of breath, he recently had Covid and was admitted to our facility for 2 weeks for treatment of pneumonia. He states that his limbs feel heavy, no other pain. No chest pain. Patient does have a cough, believes it to be residual from recent Covid and pneumonia. No discoloration or recent trauma or injury. No numbness or tingling. - Related Data Home Medications Medication Instructions Recorded Confirmed cloNIDine HCL [Catapres] 0.2 mg PO TID 07/28/19 01/02/22 Isosorbide Mononitrate [Isosorbide 30 mg PO HS 05/19/20 01/02/22 Mononitrate ER] Clopidogrel [Plavix] 75 mg PO DAILY 09/27/20 01/02/22 Atorvastatin [Lipitor] 80 mg PO HS 10/10/20 01/02/22 Albuterol Inhaler [Ventolin Hfa 1 puff INHALATION RT-Q4H PRN 12/01/21 01/02/22 Inhaler] carvediloL [Coreg] 6.25 mg PO BID-W/MEALS 12/01/21 01/02/22 Acetaminophen Tab [Tylenol] 650 mg PO HS 01/02/22 01/02/22 Aspirin EC [Ecotrin Low Dose] 81 mg PO DAILY 01/02/22 01/02/22 Previous Rx's Medication Instructions Recorded Budesonide-Formot 160-4.5 Mcg 2 puff INHALATION RT-BID #1 inh 12/13/21 [Symbicort 160-4.5 Mcg Inhaler] Furosemide [Lasix] 40 mg PO DAILY 3 Days #3 tablet 01/02/22 Potassium Chloride [K-Tab ER] 20 meq PO DAILY 3 Days #3 tab 01/02/22 Allergies Allergy/AdvReac Type Severity Reaction Status Date / Time codeine AdvReac Nausea Verified 01/02/22 18:04 Review of Systems ROS Statement: Those systems with pertinent positive or pertinent negative responses have been documented in the HPI. ROS Other: All systems not noted in ROS Statement are negative. Past Medical History Past Medical History: Chest Pain / Angina, COPD, CVA/TIA, Hyperlipidemia, Hypertension, Liver Disease, Vascular Disorder Additional Past Medical History / Comment(s): hep c- treated, TIA couple years ago Last Myocardial Infarction Date:: unknown History of Any Multi-Drug Resistant Organisms: None Reported Past Surgical History: Heart Catheterization With Stent, Orthopedic Surgery, Tonsillectomy Additional Past Surgical History / Comment(s): COLONOSCOPY/EGD, surg x4 right shoulder Past Anesthesia/Blood Transfusion Reactions: No Reported Reaction Date of Last Stent Placement:: 07/30/19 Past Psychological History: No Psychological Hx Reported Smoking Status: Former smoker Past Alcohol Use History: Abuse, Daily Past Drug Use History: IV Drug Use, Opiates, Prescription Drug Abuse - Past Family History Mother Family Medical History: Myocardial Infarction ([place]) Father Additional Family Medical History / Comment(s): polio, enlarged heart Brother(s) Family Medical History: CVA/TIA Daughter(s) History Unknown: Yes Son(s) Family Medical History: Hyperlipidemia General Exam General appearance: alert, in no apparent distress Head exam: Present: atraumatic, normocephalic, normal inspection Eye exam: Present: normal appearance, PERRL, EOMI. Absent: scleral icterus, conjunctival injection, periorbital swelling Neck exam: Present: normal inspection Respiratory exam: Present: wheezes. Absent: respiratory distress, rales, rhonchi, stridor Cardiovascular Exam: Present: regular rate, normal rhythm, normal heart sounds. Absent: systolic murmur, diastolic murmur, rubs, gallop, clicks Extremities exam: Present: pedal edema (4+) Right Upper Arm exam: Present: swelling (4+ pitting edema) Forearm Wrist exam: Present: swelling (4+ pitting edema) Neuro motor exam: Present: wrist extension intact, thumb opposition intact, thumb IP flexion intact, thumb adduction intact, fingers 2-5 abduction intact Vascular: Present: radial pulse (2+). Absent: vascular compromise Neurological exam: Present: alert, oriented X3, CN II-XII intact Psychiatric exam: Present: normal affect, normal mood Skin exam: Present: warm, dry, intact, normal color. Absent: rash Course Vital Signs 01/02/22 01/02/22 01/02/22 16:29 17:17 18:42 Temperature 97.8 F Pulse Rate 88 81 81 Respiratory 18 20 16 Rate Blood Pressure 140/66 154/76 154/76 O2 Sat by Pulse 97 97 96 Oximetry 01/02/22 01/02/22 23:32 23:43 Temperature Pulse Rate 77 71 Respiratory 15 15 Rate Blood Pressure 129/74 131/67 O2 Sat by Pulse 98 98 Oximetry Medical Decision Making - Medical Decision Making Patient is a 71-year-old male presenting with chief complaint of extremity swelling. Patient states that his bilateral lower extremity edema has been worsening. He also admits to new onset and worsening right upper extremity swelling. Patient states he spoke with his PCP and was instructed to come to the ER if it got worse. Patient was recently hospitalized for pneumonia. On physical examination there is 4+ pitting edema to the bilateral lower extremities, as well as pitting edema to the right upper extremity. No focal neurological deficits. Hemoglobin is 9.1, consistent with baseline. BNP is 5520, this is consistent with his baseline. Chest x-ray shows no significant change from previous image. Ultrasound is negative for DVT. I spoke with the patient's PCP Dr. Issa regarding his condition, he advised starting him on Lasix 40 mg daily for 3 days as well as potassium supplementation 20 mEq daily for 3 days, and having him follow-up in the office. I discussed these findings and the plan with the patient.Follow-up with PCP. Report back to ER with any new or worsening symptoms. Discussed return parameters and answered all questions. Patient conveyed verbal understanding and agreed to the plan. I discussed this case in detail with my attending Dr. Shi. - Lab Data Result diagrams: 01/02/22 18:14 01/02/22 18:14 Lab Results 01/02/22 01/02/22 01/02/22 Range/Units 18:14 18:14 18:14 WBC (3.8-10.6) k/uL RBC (4.30-5.90) m/uL Hgb (13.0-17.5) gm/dL Hct (39.0-53.0) % MCV (80.0-100.0) fL MCH (25.0-35.0) pg MCHC (31.0-37.0) g/dL RDW (11.5-15.5) % Plt Count (150-450) k/uL MPV Neutrophils % % Lymphocytes % % Monocytes % % Eosinophils % % Basophils % % Neutrophils # (1.3-7.7) k/uL Lymphocytes # (1.0-4.8) k/uL Monocytes # (0-1.0) k/uL Eosinophils # (0-0.7) k/uL Basophils # (0-0.2) k/uL Hypochromasia PT 10.0 (9.0-12.0) sec INR 0.9 (<1.2) APTT 24.8 (22.0-30.0) sec Sodium 135 L (137-145) mmol/L Potassium 3.8 (3.5-5.1) mmol/L Chloride 106 (98-107) mmol/L Carbon Dioxide 20 L (22-30) mmol/L Anion Gap 9 mmol/L BUN 15 (9-20) mg/dL Creatinine 1.13 (0.66-1.25) mg/dL Est GFR (CKD-EPI)AfAm 77 (>60 ml/min/1.73 sqM) Est GFR (CKD-EPI)NonAf 66 (>60 ml/min/1.73 sqM) Glucose 113 H (74-99) mg/dL Calcium 7.8 L (8.4-10.2) mg/dL Magnesium (1.6-2.3) mg/dL Total Bilirubin 0.3 (0.2-1.3) mg/dL AST 24 (17-59) U/L ALT 20 (4-49) U/L Alkaline Phosphatase 98 (38-126) U/L NT-Pro-B Natriuret Pep 5520 pg/mL Total Protein 5.2 L (6.3-8.2) g/dL Albumin 2.7 L (3.5-5.0) g/dL 01/02/22 01/02/22 Range/Units 18:14 18:14 WBC 6.0 (3.8-10.6) k/uL RBC 2.80 L (4.30-5.90) m/uL Hgb 9.1 L (13.0-17.5) gm/dL Hct 27.1 L (39.0-53.0) % MCV 96.6 (80.0-100.0) fL MCH 32.4 (25.0-35.0) pg MCHC 33.6 (31.0-37.0) g/dL RDW 15.1 (11.5-15.5) % Plt Count 349 (150-450) k/uL MPV 7.9 Neutrophils % 83 % Lymphocytes % 10 % Monocytes % 4 % Eosinophils % 1 % Basophils % 0 % Neutrophils # 5.0 (1.3-7.7) k/uL Lymphocytes # 0.6 L (1.0-4.8) k/uL Monocytes # 0.3 (0-1.0) k/uL Eosinophils # 0.0 (0-0.7) k/uL Basophils # 0.0 (0-0.2) k/uL Hypochromasia Slight PT (9.0-12.0) sec INR (<1.2) APTT (22.0-30.0) sec Sodium (137-145) mmol/L Potassium (3.5-5.1) mmol/L Chloride (98-107) mmol/L Carbon Dioxide (22-30) mmol/L Anion Gap mmol/L BUN (9-20) mg/dL Creatinine (0.66-1.25) mg/dL Est GFR (CKD-EPI)AfAm (>60 ml/min/1.73 sqM) Est GFR (CKD-EPI)NonAf (>60 ml/min/1.73 sqM) Glucose (74-99) mg/dL Calcium (8.4-10.2) mg/dL Magnesium 1.6 (1.6-2.3) mg/dL Total Bilirubin (0.2-1.3) mg/dL AST (17-59) U/L ALT (4-49) U/L Alkaline Phosphatase (38-126) U/L NT-Pro-B Natriuret Pep pg/mL Total Protein (6.3-8.2) g/dL Albumin (3.5-5.0) g/dL Disposition Clinical Impression: Edema Disposition: HOME SELF-CARE Condition: Fair Instructions (If sedation given, give patient instructions): Leg Edema (ED) Additional Instructions: Follow-up with PCP. Report back to ER with any new or worsening symptoms. Take medication as prescribed. Prescriptions: Potassium Chloride [K-Tab ER] 20 meq PO DAILY 3 Days #3 tab Furosemide [Lasix] 40 mg PO DAILY 3 Days #3 tablet Is patient prescribed a controlled substance at d/c from ED?: No Referrals: Kit Issa MD [Primary Care Provider] - 1-2 days Time of Disposition: 22:35
--- NOTE | 2022-01-02 19:20 | XR ---
EXAMINATION TYPE: XR chest 2V DATE OF EXAM: 01/02/2022 7:05 PM COMPARISON: Chest radiographs from 12/14/2021 TECHNIQUE: XR chest 2V Frontal and lateral views of the chest. CLINICAL INDICATION:Male, 71 years old with history of heart failure; FINDINGS: Lungs/Pleura: Airspace opacities predominantly on the right side. No pneumothorax or large pleural ef fusion visualized. Pulmonary vascularity: Unremarkable. Heart/mediastinum: Cardiomediastinal silhouette is prominent in size. Musculoskeletal: No acute osseous pathology. IMPRESSION: Right-sided airspace opacities correlate for pneumonia. Superimposed heart failure not definitively e xcluded. Correlate with serum BNP.
--- NOTE | 2022-01-02 20:01 | US ---
EXAMINATION TYPE: US venous doppler duplex UE RT DATE OF EXAM: 01/02/2022 COMPARISON: NONE CLINICAL HISTORY: swelling. Swelling, no h/o dvt SIDE PERFORMED: Right Right Arm: Negative for DVT Grayscale, color doppler, spectral doppler imaging performed of the deep veins of the upper extremiti es. There is normal flow, compressibility and vascular waveforms. There is soft tissue edema in the right upper extremity. IMPRESSION: 1. No evidence of swelling DVT of the right upper extremity. 2. Right upper extremity edema.
[2022-01-02] MEDS ORDERED: cefTRIAXone IN SWFI 1,000 MG/10 ML SYRINGE IVP STA (20:15)
[2022-01-02] MEDS ORDERED: FUROSEMIDE 40 MG TAB PO STA (22:36)
[2022-01-02 23:33] VITALS: RESP 15
[2022-01-02 23:44] VITALS: BP 131/67; PULSE 71
== END 2022-01-02 23:44 | disposition home or self-care (01) ==
LOC: EC 16:21
DX: R60.9 Edema, unspecified (principal); E78.5 Hyperlipidemia, unspecified; J44.9 Chronic obstructive pulmonary disease, unspecified; I10 Essential (primary) hypertension; Z88.5 Allergy status to narcotic agent; Z87.891 Personal history of nicotine dependence; Z79.51 Long term (current) use of inhaled steroids; Z79.899 Other long term (current) drug therapy
CPT/HCPCS: 36415; 71046; 80053; 83735; 83880; 85025; 85610; 85730; 93005; 99284

== ENCOUNTER → 2023-09-23 | Outpatient (CLI) | payer MEDICARE, OTHER ==
[2023-09-23 21:01] LABS: Basophils # (A) 0.02 X 10*3/uL (0.00-0.10); Basophils % (A) 0.3 %; Eosinophils # (A) 0.14 X 10*3/uL (0.04-0.35); Eosinophils % (A) 2.2 %; HCT 37.5 % (39.6-50.0); HGB 12.9 g/dL (13.0-17.0); Lymphocytes # (A) 1.24 X 10*3/uL (0.90-5.00); Lymphocytes % (A) 19.7 %; MCH 34.3 pg (27.0-32.0); MCHC 34.4 g/dL (32.0-37.0); MCV 99.7 FL (80.0-97.0); Monocytes # (A) 0.45 X 10*3/uL (0.20-1.00); Monocytes % (A) 7.2 %; NRBC Per 100 WBC 0 X 10*3/uL (0.00-0.01); Neutrophils # (A) 4.39 X 10*3/uL (1.80-7.70); Neutrophils % (A) 69.8 %; Platelet Count 353 X 10*3/uL (140-440); RBC 3.76 X 10*6/uL (4.40-5.60); RDW 15.6 % (11.5-14.5); WBC 6.29 X 10*3/uL (4.50-10.00)
[2023-09-23 21:12] LABS: % Iron Saturation 19.15 (15.00-50.00); Albumin 4.5 g/dL (3.8-4.9); Blood Urea Nitrogen 33.6 mg/dL (9.0-27.0); Calcium 9.9 mg/dL (8.7-10.3); Carbon Dioxide 17.4 mmol/L (21.6-31.8); Chloride 100 mmol/L (96-109); Glucose 108 mg/dL (70-110); Iron 45 UG/DL (65-175); Magnesium 1.7 mg/dL (1.5-2.4); Phosphorus 2.8 mg/dL (2.4-5.1); Potassium 4.6 mmol/L (3.5-5.5); Sodium 136 mmol/L (135-145); Total Iron Binding Capacity 235 UG/DL (228-460); Uric Acid 11.6 mg/dL (3.7-8.7)
== END | disposition home or self-care (01) ==
LOC: LABPAT 15:11
PROVIDERS: ATTEND Surgery
DX: Z01.818 Encounter for other preprocedural examination (principal); K42.9 Umbilical hernia without obstruction or gangrene; E55.9 Vitamin D deficiency, unspecified; N25.81 Secondary hyperparathyroidism of renal origin; M10.9 Gout, unspecified; N39.0 Urinary tract infection, site not specified; N18.32 Chronic kidney disease, stage 3b; D63.1 Anemia in chronic kidney disease
CPT/HCPCS: 80048; 82040; 82306; 82728; 83540; 83550; 83735; 83883; 83970; 84100; 84550; 85025; 86334; 86850; 86900; 86901; 93005

== ENCOUNTER → 2023-09-24 | Outpatient (CLI) | payer MEDICARE, OTHER ==
[2023-09-24 18:51] LABS: Appearance,Urine Clear (Clear); Bilirubin,Urine Negative (Negative); Blood,Urine Negative (Negative); Color,Urine Yellow (Yellow); Ketones,Urine Trace (Negative); Nitrite,Urine Negative (Negative); PH, Urine 5.5; Specific Gravity,Urine 1.017 (1.001-1.030); Urobilinogen,Urine 0.2 E.U./DL
== END | disposition home or self-care (01) ==
LOC: LABWHC1 14:24
PROVIDERS: ATTEND Internal Medicine Nephrology
DX: E55.9 Vitamin D deficiency, unspecified (principal); N25.81 Secondary hyperparathyroidism of renal origin; M10.9 Gout, unspecified; N39.0 Urinary tract infection, site not specified; N18.32 Chronic kidney disease, stage 3b; D63.1 Anemia in chronic kidney disease; R80.9 Proteinuria, unspecified
CPT/HCPCS: 81003; 86335

== ENCOUNTER 2023-10-01 07:14 | Day surgery (SDC) | payer MEDICARE, OTHER ==
[~2023-10-01 07:14] MED LIST changes: +ACETAMINOPHEN TAB 500 MG TAB PO PRN; -DEXAMETHASONE SOD PHOSPHATE 4 MG/ML 1 ML VIAL IV ONE; +HYDROmorphone 0.5 MG/0.5 ML SYRINGE IVP PRN; -LACTATED RINGERS 1,000 ML IV SCH; -METOCLOPRAMIDE 5 MG/ML 2 ML VIAL IVP PRN; +MIDAZOLAM 2 MG/2 ML VIAL IV PRN; -ONDANSETRON 4 MG/2 ML VIAL IVP ONE; +fentaNYL (PF) 50 MCG/ML 2 ML AMP IVP PRN
[2023-10-01] MEDS: IV FLUID CONTINUATION 1,000 ML IV ONE (07:36)
[2023-10-01] MEDS: LACTATED RINGERS 1,000 ML IV SCH (08:12)
[2023-10-01] MEDS: MIDAZOLAM 2 MG/2 ML VIAL IVP ONE (09:32)
--- NOTE | 2023-10-01 09:42 | P.ANPRN ---
Procedure Note - Anesthesia - Nerve Block Performed Bilateral Rectus Abdominis Single Time Out Performed: Yes Date of Procedure: 10/01/23 Procedure Start Time: : Procedure Stop Time: :36 Location of Patient: PreOp Indication: Acute Post-Operative Pain, Analgesia, Requested by Surgeon Sedation Type: Sedate with meaningful contact maintained Preparation: Sterile Prep Position: Supine Catheter: None Needle Types: Pajunk Needle Gauge: 21 Ultrasound used to visualize needle placement: Yes Ultrasound used to observe medication spread: Yes Injectate: 0.5% Ropivacaine (see comment for volume) (Ropiv 20ml+Decadron 4mg--Each side) Blood Aspirated: No Pain Paresthesia on Injection Noted: No Resistance on Injection: Normal Image Stored and Saved: Yes Events: Uneventful and Well Tolerated
[2023-10-01] MEDS: ONDANSETRON 4 MG/2 ML VIAL IVP ONE (09:46)
[2023-10-01] MEDS: DEXAMETHASONE SOD PHOSPHATE 4 MG/ML 1 ML VIAL IV ONE (09:46)
[2023-10-01] MEDS: HEPARIN SODIUM,PORCINE 5,000 UNIT/ML 1 ML VIAL SQ PRN (09:46)
[2023-10-01] MEDS ORDERED: KETAMINE HCL IN 0.9 % NACL 50 MG/5 ML SYRINGE ONE (11:02)
[2023-10-01] MEDS ORDERED: PHENYLEPHRINE 10 MG/ML VIAL ONE (11:02)
[2023-10-01] MEDS ORDERED: SUGAMMADEX SODIUM 200 MG/2 ML SDV IV ONE (11:02)
[2023-10-01] MEDS ORDERED: PROPOFOL 10 MG/ML 20 ML VIAL IV ONE (11:02)
[2023-10-01] MEDS ORDERED: KETOROLAC 15 MG/ML 1 ML VIAL ONE (11:02)
[2023-10-01] MEDS ORDERED: ROPIVACAINE 5 MG/ML 30 ML VIAL ONE (11:02)
[2023-10-01] MEDS ORDERED: DEXAMETHASONE SOD PHOSPHATE 4 MG/ML 1 ML VIAL ONE (11:02)
[2023-10-01] MEDS ORDERED: LIDOCAINE 1% INJ 10MG/ML (20 ML MDV) ONE (11:02)
[2023-10-01] MEDS ORDERED: SUCCINYLCHOLINE CHLORIDE 200 MG/10 ML VIAL IV ONE (11:02)
[2023-10-01] MEDS ORDERED: fentaNYL (PF) 50 MCG/ML 2 ML AMP ONE (11:02)
[2023-10-01] MEDS ORDERED: ROCURONIUM 10 MG/ML (5 ML VIAL) IV ONE (11:02)
[2023-10-01] MEDS: LIDOCAINE 1%-EPI 1:100,000 20 ML VIAL SQ ONE ×3 (11:15→11:25)
[2023-10-01] MEDS: LACTATED RINGERS 1,000 ML IV ONE (11:53)
--- NOTE | 2023-10-01 12:03 | P.OP ---
Date of Procedure: 10/01/23 Preoperative Diagnosis: Umbilical hernia Postoperative Diagnosis: Umbilical hernia Procedure(s) Performed: Laparoscopic robotic repair umbilical hernia Transversus abdominis plane block Anesthesia: VALERIO Surgeon: Jose Guadalupe Gamino Estimated Blood Loss (ml): 5 Pathology: none sent Condition: stable Disposition: PACU Description of Procedure: The patient was placed on the operating table in the supine position. He received general anesthesia. His abdomen was prepped and draped usual fashion. Using a 5 mm optical trocar under direct visualization the peritoneal cavity was entered in the left upper quadrant. The abdomen was then insufflated. The laparoscope was placed back into the perineal cavity. Next a 8 mm robotic trocar was placed in the left lower quadrant and a 12 mm robotic trocar was placed in the left lateral position. The original 5 mm trocar was exchanged for a 8 mm robotic trocar. The patient's placed in the left side up position. And the patient was undocked the robot. A four-quadrant transversus abdominis plane block was performed 1% local Xyloca ine. The umbilical hernia was visualized. Using hook cautery the peritoneum over the umbilical hernia was excised. The fascial opening was repaired using 0V LOC suture. Next a piece of 11 cm round ventral light ST mesh was placed into the. Cavity and secured with 2 OV lock suture. The patient was undocked the robot. The needles were retrieved. The fascia of the 12 mm trocar site was closed with 0 Ethibond suture. Skin was closed interrupted 3-0 Monocryl suture. Dermabond dressings was applied. Patient top procedure well and was sent to recovery room stable condition.
[2023-10-01] MEDS ORDERED: HYDROmorphone 1 MG/ML 1 ML SYRINGE IVP PRN (13:59)
[2023-10-01] MEDS: HYDROcodone/APAP 5-325MG 1 EACH TAB PO PRN (16:54)
[2023-10-01] MEDS: HYDROmorphone 1 MG/ML 1 ML SYRINGE IVP PRN (18:04)
[2023-10-01] MEDS ORDERED: LORazepam 0.5 MG TAB PO PRN (18:19)
[2023-10-01] MEDS ORDERED: LORazepam 1 MG TAB PO PRN ×2 (18:19)
[2023-10-01] MEDS ORDERED: diphenhydrAMINE 50 MG CAP PO PRN (18:24)
[2023-10-01] MEDS: carvediloL 6.25 MG TAB PO SCH (20:42)
[2023-10-01] MEDS: cloNIDine HCL 0.2 MG TAB PO SCH (20:42)
[2023-10-01] MEDS: LORazepam 1 MG TAB PO PRN (20:42)
[2023-10-02] MEDS: PANTOPRAZOLE 40 MG TABLET PO SCH (06:02)
[2023-10-02 07:38] VITALS: BP 116/66; PULSE 82; RESP 16; TEMP 98.3
[2023-10-02] MEDS: ATORVASTATIN 80 MG TAB PO SCH (08:49)
[2023-10-02] MEDS: FUROSEMIDE 40 MG TAB PO SCH (08:49)
--- NOTE | 2023-10-02 15:54 | P.DS ---
Providers Expected date of discharge: 10/02/23 Attending physician: Jose Guadalupe Gamino Consults: 10/01/23 17:49 Consult Physician Routine Consulting Provider: Kit Issa Consult Reason/Comments: medical management Do you want consulting provider notified?: Yes Primary care physician: Kit Issa Hospital Course: Discharge diagnosis 1. Umbilical hernia 2. Prior history of opioid abuse. Has been off of the Suboxone for 5 years. And reported that he is no longer abusing opioids for over 5 years. Hospital course This is a 73-year-old male with history of umbilical hernia status post laparoscopic robotic repair of umbilical hernia. Patient's pain is controlled. He is tolerating diet. He is having flatus. He has been up and ambulating. He is afebrile. He is stable for discharge. Please refer to chart for any further details. Physician Summer School Coordinator note has been reviewed by physician. Signing provider agrees with the documented findings, assessment, and plan of care. Patient Condition at Discharge: Stable Plan - Discharge Summary Discharge Rx Participant: No New Discharge Prescriptions: New Docusate [Colace] 100 mg PO BID #20 capsule Acetaminophen Tab [Tylenol] 650 mg PO Q6H #30 tab oxyCODONE HCL [OxyIR] 5 mg PO Q6H PRN 3 Days #10 tab PRN Reason: Pain No Action cloNIDine HCL [Catapres] 0.2 mg PO TID carvediloL [Coreg] 12.5 mg PO BID Acetaminophen Tab [Tylenol] 650 mg PO HS PRN PRN Reason: Pain Potassium Chloride [K-Tab ER] 20 meq PO DAILY 3 Days #3 tab Ipratropium/Albuter 20-100Mcg [Combivent Respimat 20-100Mcg Inhaler] 1 puff INHALATION TID PRN PRN Reason: Shortness Of Breath Pantoprazole [Protonix] 40 mg PO DAILY Atorvastatin [Lipitor] 80 mg PO DAILY Albuterol Inhaler [Ventolin Hfa Inhaler] 1 puff INHALATION RT-Q4H PRN PRN Reason: Shortness Of Breath Furosemide [Lasix] 40 mg PO DAILY 3 Days #3 tablet diphenhydrAMINE [Benadryl] 50 mg PO TID PRN PRN Reason: Itching Discharge Medication List cloNIDine HCL [Catapres] 0.2 mg PO TID 07/28/19 [History] Atorvastatin [Lipitor] 80 mg PO DAILY 10/10/20 [History] Albuterol Inhaler [Ventolin Hfa Inhaler] 1 puff INHALATION RT-Q4H PRN 12/01/21 [History] carvediloL [Coreg] 12.5 mg PO BID 12/01/21 [History] Acetaminophen Tab [Tylenol] 650 mg PO HS PRN 01/02/22 [History] Furosemide [Lasix] 40 mg PO DAILY 3 Days #3 tablet 01/02/22 [Rx] Potassium Chloride [K-Tab ER] 20 meq PO DAILY 3 Days #3 tab 01/02/22 [Rx] Ipratropium/Albuter 20-100Mcg [Combivent Respimat 20-100Mcg Inhaler] 1 puff INHALATION TID PRN 09/26/23 [History] Pantoprazole [Protonix] 40 mg PO DAILY 09/26/23 [History] diphenhydrAMINE [Benadryl] 50 mg PO TID PRN 09/26/23 [History] Acetaminophen Tab [Tylenol] 650 mg PO Q6H #30 tab 10/01/23 [Rx] Docusate [Colace] 100 mg PO BID #20 capsule 10/01/23 [Rx] oxyCODONE HCL [OxyIR] 5 mg PO Q6H PRN 3 Days #10 tab 10/02/23 [Rx] Follow up Appointment(s)/Referral(s): Jose Guadalupe Gamino MD [STAFF PHYSICIAN] - 10/08/23 2:40 pm Patient Instructions/Handouts: *Surgery [facility] - (Anesthesia) Discharge Instructions Outpatient Surgery, Abdominal Binder (DC), Umbilical Hernia Repair (DC) Discharge Disposition: HOME SELF-CARE
== END 2023-10-02 10:30 | disposition home or self-care (01) ==
LOC: OR 07:14 → 6NMEDSUR 12:07 → OR 10-02 10:30
PROVIDERS: ATTEND Surgery
DX: K42.9 Umbilical hernia without obstruction or gangrene (principal); G89.18 Other acute postprocedural pain; J44.9 Chronic obstructive pulmonary disease, unspecified; I10 Essential (primary) hypertension; E78.2 Mixed hyperlipidemia; I25.10 Atherosclerotic heart disease of native coronary artery without angina pectoris; K76.9 Liver disease, unspecified; Z95.5 Presence of coronary angioplasty implant and graft; Z88.5 Allergy status to narcotic agent; Z79.899 Other long term (current) drug therapy
CPT/HCPCS: 49593; S2900; 64488

== ENCOUNTER → 2023-12-30 | Outpatient (CLI) | payer MEDICARE, OTHER ==
[2023-12-30 19:06] LABS: HCT 34.8 % (39.6-50.0); HGB 11.6 g/dL (13.0-17.0); MCH 37.3 pg (27.0-32.0); MCHC 33.3 g/dL (32.0-37.0); MCV 111.9 FL (80.0-97.0); Mean Platelet Volume 9.8 FL (9.5-12.2); NRBC Per 100 WBC 0 X 10*3/uL (0.00-0.01); Platelet Count 437 X 10*3/uL (140-440); RBC 3.11 X 10*6/uL (4.40-5.60); RDW 13.5 % (11.5-14.5); WBC 10.41 X 10*3/uL (4.50-10.00)
[2023-12-30 20:22] LABS: Basophils # (A) 0.06 X 10*3/uL (0.00-0.10); Basophils % (A) 0.6 %; Eosinophils # (A) 0.81 X 10*3/uL (0.04-0.35); Eosinophils % (A) 7.8 %; Lymphocytes # (A) 1.57 X 10*3/uL (0.90-5.00); Lymphocytes % (A) 15.1 %; Macrocytosis (M) 2+; Monocytes # (A) 0.65 X 10*3/uL (0.20-1.00); Monocytes % (A) 6.2 %; Neutrophils # (A) 7.27 X 10*3/uL (1.80-7.70); Neutrophils % (A) 69.8 %
== END | disposition home or self-care (01) ==
LOC: LABPAT 13:40
PROVIDERS: ATTEND Surgery
DX: Z01.818 Encounter for other preprocedural examination
CPT/HCPCS: 36415; 85025; 86850; 86900; 86901; 93005

== ENCOUNTER 2024-01-07 07:09 | Day surgery (SDC) | payer MEDICARE, OTHER ==
[2024-01-01 15:25] VITALS: BMI 18.2
[~2024-01-07 07:09] MED LIST changes: -ACETAMINOPHEN TAB 500 MG TAB PO PRN; -HYDROmorphone 0.5 MG/0.5 ML SYRINGE IVP PRN; -MIDAZOLAM 2 MG/2 ML VIAL IV PRN; +fentaNYL (PF) 50 MCG/ML 2 ML AMP IV PRN; -fentaNYL (PF) 50 MCG/ML 2 ML AMP IVP PRN
[2024-01-07] MEDS: IV FLUID CONTINUATION 1,000 ML IV ONE (07:35)
[2024-01-07] MEDS: DEXAMETHASONE SOD PHOSPHATE 4 MG/ML 1 ML VIAL IV ONE (08:26)
[2024-01-07] MEDS: ONDANSETRON 4 MG/2 ML VIAL IVP ONE (08:26)
[2024-01-07] MEDS: LACTATED RINGERS 1,000 ML IV SCH ×2 (08:26→12:32)
[2024-01-07] MEDS: ACETAMINOPHEN TAB 500 MG TAB PO PRN (08:26)
[2024-01-07] MEDS: HEPARIN SODIUM,PORCINE 5,000 UNIT/ML 1 ML VIAL SQ PRN (08:37)
[2024-01-07] MEDS ORDERED: NEOSTIGMINE 1 MG/ML 10 ML VIAL ONE (08:50)
[2024-01-07] MEDS ORDERED: PROPOFOL 10 MG/ML 20 ML VIAL IV ONE (08:50)
[2024-01-07] MEDS ORDERED: LIDOCAINE 1% INJ 10MG/ML (20 ML MDV) ONE (08:50)
[2024-01-07] MEDS ORDERED: fentaNYL (PF) 50 MCG/ML 2 ML AMP ONE (08:50)
[2024-01-07] MEDS ORDERED: KETOROLAC 15 MG/ML 1 ML VIAL ONE (08:50)
[2024-01-07] MEDS ORDERED: MIDAZOLAM 2 MG/2 ML VIAL ONE (08:50)
[2024-01-07] MEDS ORDERED: GLYCOPYRROLATE 0.2 MG/ML 2 ML VIAL ONE (08:50)
[2024-01-07] MEDS ORDERED: ROCURONIUM 10 MG/ML (5 ML VIAL) IV ONE (08:50)
[2024-01-07] MEDS ORDERED: SUCCINYLCHOLINE CHLORIDE 200 MG/10 ML VIAL IV ONE (08:50)
[2024-01-07] MEDS ORDERED: KETAMINE HCL IN 0.9 % NACL 50 MG/5 ML SYRINGE ONE (08:50)
[2024-01-07] MEDS: LIDOCAINE 1%-EPI 1:100,000 20 ML VIAL SQ ONE ×3 (09:07→09:24)
--- NOTE | 2024-01-07 09:42 | P.OP ---
Date of Procedure: 01/07/24 Preoperative Diagnosis: Right inguinal hernia Postoperative Diagnosis: Right inguinal hernia Procedure(s) Performed: Laparoscopic robotic cyst repair of right inguinal hernia Transversus abdominis plane block Anesthesia: VALERIO Surgeon: Jose Guadalupe Gamino Estimated Blood Loss (ml): 5 Pathology: none sent Condition: stable Disposition: PACU Description of Procedure: The patient's placed on the operating table in the supine position. The patient received general anesthesia. The patient's abdomen was prepped and draped in usual sterile fashion. The skin was anesthetized 1% local Xylocaine at the incision sites. Using an 11 blade a skin incision was made at the umbilicus. The fascia was grasped with a Lenox and then the peritoneal cavity was entered with the Veress needle. Position of the Veress needle was confirmed with a positive drop test. After adequate insufflation a 5 mm trocar was placed into the peritoneal cavity. A four-quadrant transversus abdominis plane block was performed with 1% local Xylocaine. The Laparoscope was placed the peritoneal cavity. And a robotic 8 mm trocar was placed in the right lateral position and then another 8 mm robotic trochars placed in the left lateral position. The original 5 mm trocar was exchanged for a 12 mm trocar. The patient was placed in reverse Trendelenburg and then the patient was docked to the robot. Next the peritoneum over top of the hernia was incised and then using blunt and sharp dissection and electrocautery the hernia sac was dissected free from the floor of the inguinal canal. The hernia sac was completely reduced into the peritoneal cavity. And then using the Pro home health aide caregiver mesh the hernia was repaired. The peritoneum was then sutured with 20V lock suture. The patient was then undocked the robot. The needle was withdrawn from the peritoneal cavity. The umbilical trocar site was closed with 0 Ethibond suture. The skin was closed interrupted 3-0 Monocryl suture. Dermabond dressing was applied. Patient was sent to recovery in stable condition.
[2024-01-07] MEDS ORDERED: ONDANSETRON 4 MG/2 ML VIAL IVP PRN (09:44)
[2024-01-07] MEDS ORDERED: NALOXONE 0.4 MG/ML 1 ML VIAL IV PRN (09:44)
[2024-01-07] MEDS ORDERED: ACETAMINOPHEN TAB 325 MG TAB PO PRN (09:44)
[2024-01-07] MEDS: HYDROmorphone 0.5 MG/0.5 ML SYRINGE IVP PRN ×2 (10:06→12:09)
[2024-01-07] MEDS: LACTATED RINGERS 1,000 ML IV ONE (10:49)
[2024-01-07] MEDS: KETOROLAC 15 MG/ML 1 ML VIAL IVP SCH (12:33)
--- NOTE | 2024-01-07 14:15 | P.CONS ---
History of Present Illness - Reason for Consult Consult date: 01/07/24 Medical management hypertension - History of Present Illness Vincenzo is a 73-year-old male well-known to me. He has significant labile hypertension, drinks alcohol on a daily regular basis, and formally had an opioid use disorder. He is smoker this is since resolved, discontinue to drink daily. His blood pressure has been an issue with him for years. He is currently in the hospital after undergoing a laparoscopic right inguinal hernia surgery. I did see him in the office after his umbilical hernia surgery with complaints of right groin mass. He was referred back to Dr. Gamino, who performed his surgery today. Currently glands awake alert and oriented, he has no complaints today other than some minimal pain. Vital signs are stable, no labs pending, Vincenzo denies any chest pains, pressures, shortness of breath. Review of Systems All systems: negative Past Medical History Past Medical History: Chest Pain / Angina, COPD, CVA/TIA, Hyperlipidemia, Hypertension, Liver Disease, Vascular Disorder Additional Past Medical History / Comment(s): hep C - treated, TIA "couple years ago", stage 3 kidney disease Last Myocardial Infarction Date:: unknown History of Any Multi-Drug Resistant Organisms: None Reported Past Surgical History: Heart Catheterization With Stent, Hernia Repair, Orthopedic Surgery, Tonsillectomy Additional Past Surgical History / Comment(s): COLONOSCOPY/EGD, surg x4 right shoulder Past Anesthesia/Blood Transfusion Reactions: No Reported Reaction Additional Past Anesthesia/Blood Transfusion Reaction / Comm: pt states he gets mean with anesthesia Date of Last Stent Placement:: 07/30/19 Past Psychological History: No Psychological Hx Reported Smoking Status: Former smoker Past Alcohol Use History: Abuse, Daily Additional Past Alcohol Use History / Comment(s): daily alcohol use. quit smoking 10/2021 Past Drug Use History: IV Drug Use, Opiates, Prescription Drug Abuse Additional Drug Use History / Comment(s): past hx drug use-no longer uses - Past Family History Mother Family Medical History: Myocardial Infarction (NE) Father Additional Family Medical History / Comment(s): polio, enlarged heart Brother(s) Family Medical History: CVA/TIA Daughter(s) History Unknown: Yes Son(s) Family Medical History: Hyperlipidemia Medications and Allergies Home Medications Medication Instructions Recorded Confirmed Type cloNIDine HCL [Catapres] 3 tab PO HS 07/28/19 01/07/24 History Atorvastatin [Lipitor] 80 mg PO DAILY 10/10/20 01/07/24 History carvediloL [Coreg] 12.5 mg PO BID 12/01/21 01/07/24 History Furosemide [Lasix] 40 mg PO DAILY 3 Days #3 tablet 01/02/22 01/07/24 Rx Potassium Chloride [K-Tab ER] 20 meq PO DAILY 3 Days #3 tab 01/02/22 01/07/24 Rx Ipratropium/Albuter 20-100Mcg 1 puff INHALATION TID PRN 09/26/23 01/07/24 History [Combivent Respimat 20-100Mcg Inhaler] Pantoprazole [Protonix] 40 mg PO DAILY 09/26/23 01/07/24 History Ergocalciferol [Vitamin D2 (1250 1,250 mcg PO WEEKLY 01/01/24 01/07/24 History Mcg = 54253 Iu)] allopurinoL 100 mg PO DAILY 01/01/24 01/07/24 History calcitrioL 0.25 mcg PO Q7D 01/01/24 01/07/24 History Allergies Allergy/AdvReac Type Severity Reaction Status Date / Time codeine AdvReac Nausea Verified 01/07/24 07:37 Physical Exam Vitals: Vital Signs Temp Pulse Pulse Resp BP Pulse Ox 01/07/24 11:31 89 16 127/71 100 01/07/24 11:16 82 16 139/71 100 01/07/24 11:01 66 16 113/66 100 01/07/24 10:46 73 16 133/74 100 01/07/24 10:31 67 16 133/79 100 01/07/24 10:16 75 16 132/64 100 01/07/24 10:00 76 16 148/72 100 01/07/24 09:45 78 16 138/63 100 01/07/24 09:33 98 F 72 18 188/82 100 01/07/24 07:40 98.1 F 90 16 129/64 95 Intake and Output 01/06/24 01/07/24 01/07/24 22:59 06:59 14:59 Intake Total 1300 Output Total 5 Balance 1295 Intake: IV 1300 Output: Estimated Blood Loss 5 Other: # Voids 1 Weight 54.2 kg GENERAL: thin male and in no acute distress. HEAD: Atraumatic, normocephalic. EYES: Pupils equal round and reactive to light, extraocular movements intact, sclera anicteric, conjunctiva are normal. ENT:nares patent, oropharynx clear without exudates. Moist mucous membranes. NECK: Normal range of motion, supple without lymphadenopathy or JVD, no thyromegaly LUNGS: Breath sounds clear to auscultation bilaterally and equal. No wheezes rales or rhonchi. HEART: Regular rate and rhythm without murmurs, rubs or gallops.S1S2 Normal ABDOMEN: Soft, palpation deferred due to his recent surgery, incisions of his abdomen and groin are noted. They are clean dry and intact EXTREMITIES: Normal range of motion, no pitting or edema. No clubbing or cyanosis. NEUROLOGICAL: Cranial nerves II through XII grossly intact. Normal speech, normal gait. PSYCH: Normal mood, normal affect. SKIN: Warm, Dry, normal turgor, no rashes or lesions noted. Assessment and Plan (1) S/P hernia repair Current Visit: Yes Status: Acute Code(s): Z98.890 - OTHER SPECIFIED POSTPROCEDURAL STATES; Z87.19 - PERSONAL HISTORY OF OTHER DISEASES OF THE DIGESTIVE SYSTEM SNOMED Code(s): 71929136214195 (2) COPD (chronic obstructive pulmonary disease) Current Visit: Yes Status: Acute Code(s): J44.9 - CHRONIC OBSTRUCTIVE PULMONARY DISEASE, UNSPECIFIED SNOMED Code(s): 70823077 (3) Alcohol abuse Current Visit: No Status: Acute Code(s): F10.10 - ALCOHOL ABUSE, UNCOMPLICATED SNOMED Code(s): 15672978 (4) Essential (primary) hypertension Current Visit: No Status: Acute Code(s): I10 - ESSENTIAL (PRIMARY) HYPERTENSION SNOMED Code(s): 58809435 (5) History of opioid abuse Current Visit: No Status: Acute Code(s): F11.11 - OPIOID ABUSE, IN REMISSION SNOMED Code(s): 094982006 (6) Mixed hyperlipidemia Current Visit: No Status: Acute Code(s): E78.2 - MIXED HYPERLIPIDEMIA SNOMED Code(s): 324590252 (7) Tobacco abuse Current Visit: No Status: Acute Code(s): Z72.0 - TOBACCO USE SNOMED Code(s): 718263724 Plan: I will reorder his home medications, he will be staying overnight for pain control, will recheck labs in a.m., RAADCT protocol, thank you for allowing to participate in his care, will be reevaluated in the next 24 hours
[2024-01-07] MEDS ORDERED: LORazepam 0.5 MG TAB PO PRN (14:18)
[2024-01-07] MEDS ORDERED: IPRATROPIUM-ALBUTEROL 3 ML NEB INHALATION PRN (14:19)
[2024-01-07] MEDS: HYDROmorphone 1 MG/ML 1 ML SYRINGE IVP PRN (14:49)
[2024-01-08] MEDS: cloNIDine HCL 0.2 MG TAB PO SCH (00:29)
[2024-01-08] MEDS: PANTOPRAZOLE 40 MG TABLET PO SCH (06:13)
[2024-01-08 08:10] VITALS: BP 118/68; PULSE 87; RESP 16; TEMP 98.4
[2024-01-08] MEDS: ATORVASTATIN 80 MG TAB PO SCH (08:28)
[2024-01-08] MEDS: allopurinoL 100 MG TAB PO SCH (08:28)
[2024-01-08] MEDS: FUROSEMIDE 40 MG TAB PO SCH (08:28)
[2024-01-08] MEDS: POTASSIUM CHLORIDE ER 20 MEQ TAB.ER PO SCH (08:28)
[2024-01-08] MEDS: ENOXAPARIN 40 MG/0.4 ML SYRINGE SQ SCH (08:28)
[2024-01-08] MEDS: HYDROcodone/APAP 5-325MG 1 EACH TAB PO PRN (08:36)
--- NOTE | 2024-01-08 11:29 | P.DS ---
Providers Expected date of discharge: 01/08/24 Attending physician: Jose Guadalupe Gamino Consults: 01/07/24 09:44 Consult Physician Routine Consulting Provider: Kit Issa Consult Reason/Comments: Medical management Do you want consulting provider notified?: Yes Primary care physician: Kit Issa Hospital Course: Discharge diagnosis 1. Right inguinal hernia status post laparoscopic robotic repair of right inguinal hernia Hospital course This is a 73-year-old male with a known history of a right inguinal hernia. He is status post we will laparoscopic robotic repair of the right inguinal hernia. Pain is controlled. He is tolerating diet. He is having flatus. He has been up and ambulating. He is afebrile. He is stable for discharge. Please refer to chart for further details. Physician Color Artist note has been reviewed by physician. Signing provider agrees with the documented findings, assessment, and plan of care. Patient Condition at Discharge: Stable Plan - Discharge Summary Discharge Rx Participant: No New Discharge Prescriptions: New oxyCODONE HCL [OxyIR] 5 mg PO Q6H PRN 3 Days #10 tab PRN Reason: Pain Docusate [Colace] 100 mg PO BID #30 capsule Acetaminophen Tab [Tylenol Tab] 650 mg PO Q4H PRN #30 tablet PRN Reason: Pain Continue cloNIDine HCL [Catapres] 3 tab PO HS carvediloL [Coreg] 12.5 mg PO BID Potassium Chloride [K-Tab ER] 20 meq PO DAILY 3 Days #3 tab Ipratropium/Albuter 20-100Mcg [Combivent Respimat 20-100Mcg Inhaler] 1 puff INHALATION TID PRN PRN Reason: Shortness Of Breath Pantoprazole [Protonix] 40 mg PO DAILY allopurinoL 100 mg PO DAILY Atorvastatin [Lipitor] 80 mg PO DAILY Furosemide [Lasix] 40 mg PO DAILY 3 Days #3 tablet Ergocalciferol [Vitamin D2 (1250 Mcg = 61336 Iu)] 1,250 mcg PO WEEKLY calcitrioL 0.25 mcg PO Q7D Discharge Medication List cloNIDine HCL [Catapres] 3 tab PO HS 07/28/19 [History] Atorvastatin [Lipitor] 80 mg PO DAILY 10/10/20 [History] carvediloL [Coreg] 12.5 mg PO BID 12/01/21 [History] Furosemide [Lasix] 40 mg PO DAILY 3 Days #3 tablet 10/18/22 [Rx] Potassium Chloride [K-Tab ER] 20 meq PO DAILY 3 Days #3 tab 01/02/22 [Rx] Ipratropium/Albuter 20-100Mcg [Combivent Respimat 20-100Mcg Inhaler] 1 puff INHALATION TID PRN 09/26/23 [History] Pantoprazole [Protonix] 40 mg PO DAILY 09/26/23 [History] Ergocalciferol [Vitamin D2 (1250 Mcg = 42576 Iu)] 1,250 mcg PO WEEKLY 01/01/24 [History] allopurinoL 100 mg PO DAILY 01/01/24 [History] calcitrioL 0.25 mcg PO Q7D 01/01/24 [History] Acetaminophen Tab [Tylenol Tab] 650 mg PO Q4H PRN #30 tablet 01/08/24 [Rx] Docusate [Colace] 100 mg PO BID #30 capsule 01/08/24 [Rx] oxyCODONE HCL [OxyIR] 5 mg PO Q6H PRN 3 Days #10 tab 01/08/24 [Rx] Follow up Appointment(s)/Referral(s): Kit Issa MD [Primary Care Provider] - 1 Week Jose Guadalupe Gamino MD [STAFF PHYSICIAN] - 01/14/24 2:10 pm Activity/Diet/Wound Care/Special Instructions: No driving while taking OxyIR No lifting over 10 pounds Shower daily. No soaking or tub baths for 2 weeks Very light activity until you are reevaluated at your follow up appointment with your surgeon Discharge Disposition: HOME SELF-CARE
[2024-01-08] MEDS: carvediloL 12.5 MG TAB PO SCH (11:42)
--- NOTE | 2024-01-10 14:51 | P.PN ---
Subjective Progress Note Date: 01/08/24 Vincenzo is a 73-year-old male well-known to me. He has significant labile hypertension, drinks alcohol on a daily regular basis, and formally had an opioid use disorder. He is smoker this is since resolved, discontinue to drink daily. His blood pressure has been an issue with him for years. He is curren tly in the hospital after undergoing a laparoscopic right inguinal hernia surgery. I did see him in the office after his umbilical hernia surgery with complaints of right groin mass. He was referred back to Dr. Gamino, who performed his surgery today. Currently glands awake alert and oriented, he has no complaints today other than some minimal pain. Vital signs are stable, no labs pending, Vincenzo denies any chest pains, pressures, shortness of breath. 01/08/2024 status post laparoscopic robotic repair of right inguinal hernia .tolerated procedure well. Pain controlled. Denies nausea vomiting, tolerating diet. Ambulating, tolerating exertion well. Denies chest pain, palpitations or shortness of breath. Denies lightheadedness, dizziness or focal deficits. Objective - Vital Signs Vital signs: Vital Signs Temp 98.4 F 01/08/24 07:00 Pulse 87 01/08/24 07:00 Resp 16 01/08/24 08:00 BP 118/68 01/08/24 07:00 Pulse Ox 99 01/08/24 08:18 FiO2 Intake & Output 01/07/24 01/08/24 01/08/24 18:59 06:59 18:59 Intake Total 1536 240 Output Total 5 Balance 1531 240 Weight 54.2 kg Intake: IV 1300 Oral 236 240 Output: Estimated Blood Loss 5 Other: Voiding Method Toilet # Voids 1 3 - Exam GENERAL: Alert and oriented x 3, sitting up in bed, no acute distress. HEAD: Atraumatic, normocephalic. EYES: Pupils equal round and reactive to light, extraocular movements intact, sclera anicteric, conjunctiva are normal. ENT:Moist mucous membranes. NECK: supple, no JVD LUNGS: Unlabored, equal air entry, clear to auscultation. HEART: Regular rate and rhythm without murmurs, rubs or gallops.S1S2 Normal ABDOMEN: Soft, palpation deferred due to his recent surgery, incisions of his abdomen and groin are noted-clean dry and intact EXTREMITIES: no pitting or edema. No clubbing or cyanosis. NEUROLOGICAL: Cranial nerves II through XII grossly intact. SKIN: Warm, Dry, no rashes noted. Assessment and Plan Assessment: (1) S/P hernia repair Current Visit: Yes Status: Acute Code(s): Z98.890 - OTHER SPECIFIED POSTPROCEDURAL STATES; Z87.19 - PERSONAL HISTORY OF OTHER DISEASES OF THE DIGESTIVE SYSTEM SNOMED Code(s): 94235473660909 (2) COPD (chronic obstructive pulmonary disease) Current Visit: Yes Status: Acute Code(s): J44.9 - CHRONIC OBSTRUCTIVE PULMONARY DISEASE, UNSPECIFIED SNOMED Code(s): 81653585 (3) Alcohol abuse Current Visit: No Status: Acute Code(s): F10.10 - ALCOHOL ABUSE, UNCOMPLICATED SNOMED Code(s): 45126976 (4) Essential (primary) hypertension Current Visit: No Status: Acute Code(s): I10 - ESSENTIAL (PRIMARY) HYPERTENSION SNOMED Code(s): 92727577 (5) History of opioid abuse Current Visit: No Status: Acute Code(s): F11.11 - OPIOID ABUSE, IN REMISSION SNOMED Code(s): 299390508 (6) Mixed hyperlipidemia Current Visit: No Status: Acute Code(s): E78.2 - MIXED HYPERLIPIDEMIA SNOMED Code(s): 555295194 (7) Tobacco abuse Current Visit: No Status: Acute Code(s): Z72.0 - TOBACCO USE SNOMED Code(s): 082020087 Plan: Continue on current medication resume ,monitoring and symptomatic treatment. Discharge planning in progress as per primary/general surgery. Pain management as per general surgery. Patient has been instructed to maintain aggressive pulmonary toileting using his incentive spirometer as previously advised. Smoking cessation and alcohol abstinence reinforced. Follow-up with PCP in 1 week. The impression and plan of care has been dictated as directed. : I performed a history and examination of this patient, discussed the same with the dictator. I agree with the dictator's note ,documented as a scribe. Any additional findings or plans will be noted.
[2024-01-15] MEDS ORDERED: ERGOCALCIFEROL 1,250 MCG (50,000 IU) CAPSULE PO SCH (09:00)
== END 2024-01-08 12:25 | disposition home or self-care (01) ==
LOC: OR 07:09 → 6NMEDSUR 12:01 → OR 01-08 12:25
PROVIDERS: ATTEND Surgery
CPT/HCPCS: 94760

== ENCOUNTER 2024-08-22 04:25 | Inpatient (IN) | payer MEDICARE, OTHER ==
[2024-08-22] MEDS: ACETAMINOPHEN TAB 500 MG TAB PO STA (04:44)
[2024-08-22] MEDS: LACTATED RINGERS 1,000 ML IV SCH ×2 (04:45)
--- NOTE | 2024-08-22 05:09 | ED ---
General Adult HPI - General Chief complaint: Fever Stated complaint: fever Time Seen by Provider: 08/22/24 04:27 Source: patient, EMS Mode of arrival: EMS Limitations: no limitations - History of Present Illness Initial comments: Dictation was produced using [employer] dictation software. please excuse any grammatical, word or spelling errors. Chief Complaint: 74-year-old male presents with weakness History of Present Illness: Patient 74-year-old male presents emergency department for [place]. Apparently is found to have fever, tachycardia and hypotension. Allegedly patient had fallen and was too weak to get up. Patient feels short of breath. Does have history of COPD. Denies any fever chills or night sweats. Denies any pain complaints. The ROS documented in this emergency department record has been reviewed and confirmed by me. Those systems with pertinent positive or negative responses have been documented in the HPI. All other systems are other negative and/or noncontributory. - Related Data Home Medications Medication Instructions Recorded Confirmed cloNIDine HCL [Catapres] 0.2 mg PO TID 07/28/19 08/09/24 Atorvastatin [Lipitor] 80 mg PO DAILY 10/10/20 08/09/24 Ipratropium/Albuter 20-100Mcg 2 puff INHALATION RT-QID PRN 09/26/23 08/09/24 [Combivent Respimat 20-100Mcg Inhaler] Pantoprazole [Protonix] 40 mg PO DAILY 09/26/23 08/09/24 calcitrioL 0.25 mcg PO MO 01/01/24 08/09/24 Acetaminophen Tab [Tylenol] 1,000 mg PO DAILY 08/09/24 08/09/24 carvediloL [Coreg] 12.5 mg PO BID 08/09/24 08/09/24 diphenhydrAMINE [Benadryl] 25 mg PO 5XD PRN 08/09/24 08/09/24 Previous Rx's Medication Instructions Recorded Aspirin EC [Ecotrin Low Dose] 81 mg PO DAILY #30 tab 08/11/24 Thiamine [Vitamin B-1] 100 mg PO DAILY tab 08/11/24 Acetaminophen Tab [Tylenol] 650 mg PO Q6HR PRN tab 08/13/24 Folic Acid-Vit B Complex-Vit C 1 each PO DAILY cap 08/13/24 [Nephrocaps] Furosemide [Lasix] 40 mg PO DAILY #30 tablet 08/13/24 LORazepam [Ativan] 0.25 mg PO HS #3 tab 08/13/24 LORazepam [Ativan] 1 mg PO TID PRN 3 Days #9 tab 08/13/24 Magnesium Oxide [Mag-Ox] 400 mg PO BID tab 08/13/24 Potassium Chloride ER [K-Dur 20] 20 meq PO DAILY #30 tab 08/13/24 Allergies Allergy/AdvReac Type Severity Reaction Status Date / Time codeine AdvReac Nausea Verified 08/22/24 04:33 Review of Systems ROS Statement: Those systems with pertinent positive or pertinent negative responses have been documented in the HPI. ROS Other: All systems not noted in ROS Statement are negative. Past Medical History Past Medical History: Chest Pain / Angina, COPD, CVA/TIA, Hyperlipidemia, Hypertension, Liver Disease, Vascular Disorder Additional Past Medical History / Comment(s): hep C - treated, TIA "couple years ago", stage 3 kidney disease Last Myocardial Infarction Date:: unknown History of Any Multi-Drug Resistant Organisms: None Reported Past Surgical History: Heart Catheterization With Stent, Orthopedic Surgery, Tonsillectomy Additional Past Surgical History / Comment(s): COLONOSCOPY/EGD, surg x4 right shoulder Past Anesthesia/Blood Transfusion Reactions: No Reported Reaction Date of Last Stent Placement:: 07/30/19 Past Psychological History: No Psychological Hx Reported Smoking Status: Former smoker Past Alcohol Use History: Abuse, Daily Past Drug Use History: IV Drug Use, Opiates, Prescription Drug Abuse - Past Family History Mother Family Medical History: Myocardial Infarction ([place]) Father Additional Family Medical History / Comment(s): polio, enlarged heart Brother(s) Family Medical History: CVA/TIA Daughter(s) History Unknown: Yes Son(s) Family Medical History: Hyperlipidemia General Exam - General Exam Comments Initial Comments: PHYSICAL EXAM: General Impression: Alert and oriented x3, not in acute distress HEENT: Normocephalic atraumatic, extra-ocular movements intact, pupils equal and reactive to light bilaterally, mucous membranes moist. Cardiovascular: Heart regular rate and rhythm Chest: Able to complete full sentences, no retractions, no tachypnea Abdomen: abdomen soft, non-tender, non-distended, no organomegaly Musculoskeletal: Pulses present and equal in all extremities, no peripheral edema Motor: no focal deficits noted Neurological: CN II-XII grossly intact, no focal motor or sensory deficits noted Skin: Intact with no visualized rashes Psych: Normal affect and mood Limitations: no limitations Course Vital Signs 08/22/24 08/22/24 08/22/24 04:28 05:24 05:30 Temperature 102.9 F H Pulse Rate 127 H 123 H 116 H Respiratory 20 Rate Blood Pressure 157/72 O2 Sat by Pulse 96 Oximetry 08/22/24 05:33 Temperature 99.9 F H Pulse Rate 112 H Respiratory 18 Rate Blood Pressure 106/66 O2 Sat by Pulse 98 Oximetry EKG Findings - EKG Comments: EKG Findings:: My EKG interpretation: Ventricular rate 124, sinus tachycardia, MN interval 147, cures 70, QTc 346. No MN prolongation, no QTC prolongation, no ST or T-wave changes noted. Overall, this EKG is unremarkable Medical Decision Making - Medical Decision Making Was pt. sent in by a medical professional or institution (, PA, CUSTOMER ACCOUNT ADMINISTRATOR, urgent care, hospital, or senior care...) When possible be specific @ -No Did you speak to anyone other than the patient for history (EMS, parent, family, police, friend...)? What history was obtained from this source @ -No Did you review nursing and triage notes (agree or disagree)? Why? @ -I reviewed and agree with nursing and triage notes Were old charts reviewed (outside hosp., previous admission, EMS record, old EKG, old radiological studies, urgent care reports/EKG's, senior care records)? Report findings @ -No old charts were reviewed Differential Diagnosis (chest pain, altered mental status, abdominal pain women, abdominal pain men, vaginal bleeding, musculoskeletal, weakness, fever, dyspnea, syncope, headache, dizziness, GI bleed, back pain, seizure, CVA, palpatations, mental health)? @ -Differential Fever: Pneumonia, viral URI, endocarditis, myocarditis, pericarditis, otitis, sinusitis, peritonsillar Abscess, retropharyngeal Abscess, epiglottitis, peritonitis, appendicitis, Soni cystitis, diverticulitis, hepatitis, colitis, UTI, PID, TOA, pyelonephritis, prostatitis, epididymitis, meningitis, encephalitis, pulmonary embolism, CVA, thyroid storm, pancreatitis, adrenal crisis, cavernous sinus thrombosis, this is not meant to be an all-inclusive list. EKG interpreted by me (3pts min.). @ -See above X-rays interpreted by me (1pt min.). @ -Chest x-ray shows no obvious infiltrate CT interpreted by me (1pt min.). @ -CT brain is nonacute U/S interpreted by me (1pt. min.). @ -None done What testing was considered but not performed or refused? (CT, X-rays, U/S, labs)? Why? @ -None What meds were considered but not given or refused? Why? @ -None Was smoking cessation discussed for >3mins.? @ -No Were there social determinants of health that impacted care today? How? (Homelessness, low income, unemployed, alcoholism, drug addiction, transportat ion, low edu. Level, literacy, decrease access to med. care, assisted, rehab)? @ -No Was there de-escalation of care discussed even if they declined (Discuss DNR or withdrawal of care, Hospice)? DNR status @ -No What co-morbidities impacted this encounter? (DM, HTN, Smoking, COPD, CAD, Cancer, CVA, ARF, Chemo, Hep., AIDS, mental health diagnosis, sleep apnea, morbid obesity)? @ -COPD Was patient admitted / discharged? Hospital course, mention meds given and route, prescriptions, significant lab abnormalities, going to OR and other pertinent info. @ -74-year-old male presents to the ER for weakness. Vital signs upon arrival shows temperature 102.9, heart rate 127 likely related to pyrexia. Patient not hypotensive. Well-appearing at the bedside. Laboratory evaluation obtained. Leukocytosis of 22.4. Coag panel is negative. Metabolic panel is negative. Urinalysis negative. Chest x-ray is nonacute CT brain is nonacute. Patient well-appearing at the bedside however there is concern for infectious process given leukocytosis and high fever. Patient be admitted for SIRS. Patient given broad-spectrum antibiotics. Case discussed with hospitalist for admission. Did you discuss the management of the patient with other professionals (professionals i.e. , PA, CUSTOMER ACCOUNT ADMINISTRATOR, lab, RT, psych nurse, social economist, wirer helper, teacher, airplane first officer, field nurse case manager)? Give summary @ -No Was critical care preformed (if so, how long)? @ -No Undiagnosed new problem with uncertain prognosis? @ -No Drug Therapy requiring intensive monitoring for toxicity (Heparin, Nitro, Insulin, Cardizem)? @ -No Were any procedures done? @ -No Diagnosis/symptom? Acute, or Chronic, or Acute on Chronic? Uncomplicated (without systemic symptoms) or Complicated (systemic symptoms)? @ -SIRS Side effects of treatment? @ -No Exacerbation, Progression, or Severe Exacerbation? @ -No Poses a threat to life or bodily function? How? (Chest pain, [place], [place], pneumonia, PE, COPD, DKA, ARF, appy, cholecystitis, CVA, Diverticulitis, Homicidal, Suicidal, threat to staff... and all critical care pts) @ -yes - Lab Data Result diagrams: 08/22/24 04:46 08/22/24 04:46 Lab Results 08/22/24 08/22/24 08/22/24 Range/Units 04:46 04:46 04:46 WBC 22.44 H (4.50-10.00) 10*3/uL RBC 3.10 L (4.40-5.60) 10*6/uL Hgb 10.6 L (13.0-17.0) g/dL Hct 32.3 L (39.6-50.0) % MCV 104.2 H (80.0-97.0) fL MCH 34.2 H (27.0-32.0) pg MCHC 32.8 (32.0-37.0) g/dL Plt Count 551 H (140-440) 10*3/uL MPV 9.5 (9.5-12.2) fL Immature Gran % (Auto) 0.5 % Neutrophils % 89.7 % Lymphocytes % 4.2 % Monocytes % 3.7 % Eosinophils % 1.7 % Basophils % 0.2 % Immature Gran # 0.12 H (0.00-0.04) 10*3/uL Neutrophils # 20.11 H (1.80-7.70) 10*3/uL Lymphocytes # 0.94 (0.90-5.00) 10*3/uL Monocytes # 0.83 (0.20-1.00) 10*3/uL Eosinophils # 0.39 H (0.04-0.35) 10*3/uL Basophils # 0.05 (0.00-0.10) 10*3/uL PT 10.2 (10.0-12.5) sec INR 0.9 (<1.2) APTT 19.9 L (22.0-30.0) sec Sodium 134 L (137-145) mmol/L Potassium 5.1 (3.5-5.1) mmol/L Chloride 103 (98-107) mmol/L Carbon Dioxide 22 (22-30) mmol/L Anion Gap 9 mmol/L BUN 15 (9-20) mg/dL Creatinine 0.93 (0.66-1.25) mg/dL Est GFR (CKD-EPI)AfAm >90 (>60 ml/min/1.73 sqM) Est GFR (CKD-EPI)NonAf 82 (>60 ml/min/1.73 sqM) Glucose 96 (74-99) mg/dL Plasma Lactic Acid Deion (0.7-2.0) mmol/L Calcium 9.3 (8.4-10.2) mg/dL Total Bilirubin 0.6 (0.2-1.3) mg/dL AST 42 (17-59) U/L ALT 21 (4-49) U/L Alkaline Phosphatase 195 H (38-126) U/L Total Protein 6.6 (6.3-8.2) g/dL Albumin 3.7 (3.5-5.0) g/dL Urine Color Urine Appearance (Clear) Urine pH (5.0-8.0) Ur Specific [place] (1.001-1.035) Urine Protein (Negative) Urine Glucose (UA) (Negative) Urine Ketones (Negative) Urine Blood (Negative) Urine Nitrite (Negative) Urine Bilirubin (Negative) Urine Urobilinogen (<2.0) mg/dL Ur Leukocyte Esterase (Negative) 08/22/24 08/22/24 Range/Units 04:46 06:10 WBC (4.50-10.00) 10*3/uL RBC (4.40-5.60) 10*6/uL Hgb (13.0-17.0) g/dL Hct (39.6-50.0) % MCV (80.0-97.0) fL MCH (27.0-32.0) pg MCHC (32.0-37.0) g/dL Plt Count (140-440) 10*3/uL MPV (9.5-12.2) fL Immature Gran % (Auto) % Neutrophils % % Lymphocytes % % Monocytes % % Eosinophils % % Basophils % % Immature Gran # (0.00-0.04) 10*3/uL Neutrophils # (1.80-7.70) 10*3/uL Lymphocytes # (0.90-5.00) 10*3/uL Monocytes # (0.20-1.00) 10*3/uL Eosinophils # (0.04-0.35) 10*3/uL Basophils # (0.00-0.10) 10*3/uL PT (10.0-12.5) sec INR (<1.2) APTT (22.0-30.0) sec Sodium (137-145) mmol/L Potassium (3.5-5.1) mmol/L Chloride (98-107) mmol/L Carbon Dioxide (22-30) mmol/L Anion Gap mmol/L BUN (9-20) mg/dL Creatinine (0.66-1.25) mg/dL Est GFR (CKD-EPI)AfAm (>60 ml/min/1.73 sqM) Est GFR (CKD-EPI)NonAf (>60 ml/min/1.73 sqM) Glucose (74-99) mg/dL Plasma Lactic Acid [place] 1.4 (0.7-2.0) mmol/L Calcium (8.4-10.2) mg/dL Total Bilirubin (0.2-1.3) mg/dL AST (17-59) U/L ALT (4-49) U/L Alkaline Phosphatase (38-126) U/L Total Protein (6.3-8.2) g/dL Albumin (3.5-5.0) g/dL Urine Color Colorless Urine Appearance Clear (Clear) Urine pH 7.0 (5.0-8.0) Ur Specific [place] 1.009 (1.001-1.035) Urine Protein Negative (Negative) Urine Glucose (UA) Negative (Negative) Urine Ketones Negative (Negative) Urine Blood Negative (Negative) Urine Nitrite Negative (Negative) Urine Bilirubin Negative (Negative) Urine Urobilinogen <2.0 (<2.0) mg/dL Ur Leukocyte Esterase Negative (Negative) Disposition Clinical Impression: SIRS (systemic inflammatory response syndrome) Disposition: ADMITTED IP TO THIS HOSP Condition: Fair Referrals: Kit Issa MD [Primary Care Provider] - 1-2 days Decision Time: 07:02
[2024-08-22] MEDS: IPRATROPIUM-ALBUTEROL 3 ML NEB INHALATION STA (05:22)
[2024-08-22 05:32] LABS: Basophils # (A) 0.05 10*3/uL (0.00-0.10); Basophils % (A) 0.2 %; Eosinophils # (A) 0.39 10*3/uL (0.04-0.35); Eosinophils % (A) 1.7 %; HCT 32.3 % (39.6-50.0); HGB 10.6 g/dL (13.0-17.0); Lymphocytes # (A) 0.94 10*3/uL (0.90-5.00); Lymphocytes % (A) 4.2 %; MCH 34.2 pg (27.0-32.0); MCHC 32.8 g/dL (32.0-37.0); MCV 104.2 fL (80.0-97.0); Mean Platelet Volume 9.5 fL (9.5-12.2); Monocytes # (A) 0.83 10*3/uL (0.20-1.00); Monocytes % (A) 3.7 %; Neutrophils # (A) 20.11 10*3/uL (1.80-7.70); Neutrophils % (A) 89.7 %; Platelet Count 551 10*3/uL (140-440); RDW 12.2 % (11.5-14.5); WBC 22.44 10*3/uL (4.50-10.00)
[2024-08-22 05:34] VITALS: RESP 18
--- NOTE | 2024-08-22 05:52 | CT ---
EXAM: CT Head Without Intravenous Contrast CLINICAL HISTORY: ITS.REASON CT Reason: fall TECHNIQUE: Axial computed tomography images of the head/brain without intravenous contrast. CTDI is 49.1 mGy and DLP is 1200 mGy-cm. This CT exam was performed using one or more of the following dose reduction techniques: automated exposure control, adjustment of the mA and/or kV according to patient size, and/or use of iterative reconstruction technique. COMPARISON: No relevant prior studies available. FINDINGS: Brain: Areas of decreased attenuation in the deep cerebral white matter are consistent with small vessel ischemic/degenerative changes. The cerebral and cerebellar sulci are prominent consistent with brain atrophy. No hemorrhage. Ventricles: Unremarkable. No ventriculomegaly. Bones/joints: Unremarkable. No acute fracture. Soft tissues: Unremarkable. Vasculature: Atherosclerotic disease. Sinuses: Mucus in the bilateral maxillary sinus. Mastoid air cells: Unremarkable as visualized. No mastoid effusion. IMPRESSION: 1. No acute intracranial abnormality. 2. Small vessel ischemic/degenerative changes. 3. Cerebral and cerebellar atrophy.
[2024-08-22 05:56] LABS: INR 0.9 (<1.2); Prothrombin Time 10.2 sec (10.0-12.5)
[2024-08-22 06:09] LABS: ALT 21 U/L (4-49); African American GFR (CKD) >90 (>60 ml/min/1.73 sqM); Albumin 3.7 g/dL (3.5-5.0); Anion Gap 9 mmol/L; Blood Urea Nitrogen 15 mg/dL (9-20); Calcium 9.3 mg/dL (8.4-10.2); Carbon Dioxide 22 mmol/L (22-30); Chloride 103 mmol/L (98-107); Glucose 96 mg/dL (74-99); Non-African American GFR(CKD) 82 (>60 ml/min/1.73 sqM); Sodium 134 mmol/L (137-145); Total Bilirubin 0.6 mg/dL (0.2-1.3); Total Protein 6.6 g/dL (6.3-8.2)
--- NOTE | 2024-08-22 06:27 | XR ---
EXAM: XR Chest, 2 Views CLINICAL HISTORY: ITS.REASON XR Reason: Fever TECHNIQUE: Frontal and lateral views of the chest. COMPARISON: Two views of the chest 07/20/2024 IMPRESSION: 1. No acute cardiopulmonary abnormality.
[2024-08-22 06:28] LABS: AST 42 U/L (17-59); Alkaline Phosphatase 195 U/L (38-126); Potassium 5.1 mmol/L (3.5-5.1)
[2024-08-22 06:31] LABS: Partial Thromboplastin Time 19.9 sec (22.0-30.0)
[2024-08-22 06:58] LABS: Appearance,Urine Clear (Clear); Bilirubin,Urine Negative (Negative); Blood,Urine Negative (Negative); Color,Urine Colorless; Glucose,Urine (UA) Negative (Negative); Ketones,Urine Negative (Negative); Leukocyte Esterase,Urine Negative (Negative); Nitrite,Urine Negative (Negative); Protein,Urine Negative (Negative); Specific Gravity,Urine 1.009 (1.001-1.035); Urobilinogen,Urine <2.0 mg/dL (<2.0)
[2024-08-22] MEDS ORDERED: VANCOMYCIN IV PER PHARMACY 1 EACH MISC MISCELLANE PRN (06:59)
[2024-08-22] MEDS ORDERED: ACETAMINOPHEN TAB 325 MG TAB PO PRN (07:02)
[2024-08-22] MEDS ORDERED: NALOXONE 0.4 MG/ML 1 ML VIAL IV PRN (07:02)
[2024-08-22] MEDS ORDERED: SODIUM CHLORIDE 0.9% 1,000 ML IV SCH (07:15)
[2024-08-22] MEDS: cefTRIAXone IN SWFI 1,000 MG/10 ML SYRINGE IVP STA (08:12)
[2024-08-22] MEDS: VANCOMYCIN 1,000 MG in SODIUM CHLORIDE 0.9% 250 ML IVPB ONE (08:18)
[2024-08-22 08:46] VITALS: BP 141/62; PULSE 91
[2024-08-22 12:04] VITALS: TEMP 98.1
--- NOTE | 2024-08-22 13:31 | P.HPIM ---
History of Present Illness H&P Date: 08/22/24 Chief Complaint: Fever Vincenzo is a 74-year-old male well-known to me. He was just in the hospital August 09 for increased weakness and dehydration. He was discharged on August 11, 2024 to ECF at [facility]. He is a known alcoholic and smoker. 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 Last night he dropped something on the floor and reached over and fell on the floor from his bed at [facility]. He was not able to get himself up he felt quite weak. Small to be febrile at that point. He denied any chest pain pressure shortness of breath nausea or vomiting. He also had some increased weakness. He was transferred to the ER and found to have a leukocytosis but other labs are negative. Viral cultures are pending. Review of Systems All systems: negative Past Medical History Past Medical History: Chest Pain / Angina, COPD, CVA/TIA, Hyperlipidemia, Hypertension, Liver Disease, Vascular Disorder Additional Past Medical History / Comment(s): hep C - treated, TIA "couple years ago", stage 3 kidney disease Last Myocardial Infarction Date:: unknown History of Any Multi-Drug Resistant Organisms: None Reported Past Surgical History: Heart Catheterization With Stent, Orthopedic Surgery, Tonsillectomy Additional Past Surgical History / Comment(s): COLONOSCOPY/EGD, surg x4 right shoulder Past Anesthesia/Blood Transfusion Reactions: No Reported Reaction Date of Last Stent Placement:: 07/30/19 Smoking Status: Current every day smoker - Past Family History Mother Family Medical History: Myocardial Infarction ([place]) Father Additional Family Medical History / Comment(s): polio, enlarged heart Brother(s) Family Medical History: CVA/TIA Daughter(s) History Unknown: Yes Son(s) Family Medical History: Hyperlipidemia Medications and Allergies Home Medications Medication Instructions Recorded Confirmed Type cloNIDine HCL [Catapres] 0.2 mg PO TID 07/28/19 08/22/24 History Atorvastatin [Lipitor] 80 mg PO DAILY 10/10/20 08/22/24 History Ipratropium/Albuter 20-100Mcg 2 puff INHALATION RT-QID PRN 09/26/23 08/22/24 History [Combivent Respimat 20-100Mcg Inhaler] Pantoprazole [Protonix] 40 mg PO DAILY 09/26/23 08/22/24 History calcitrioL 0.25 mcg PO MO 01/01/24 08/22/24 History Acetaminophen Tab [Tylenol] 1,000 mg PO DAILY 08/09/24 08/22/24 History carvediloL [Coreg] 12.5 mg PO BID 08/09/24 08/22/24 History Aspirin EC [Ecotrin Low Dose] 81 mg PO DAILY #30 tab 08/11/24 08/22/24 Rx Thiamine [Vitamin B-1] 100 mg PO DAILY tab 08/11/24 08/22/24 Rx Acetaminophen Tab [Tylenol] 650 mg PO Q6HR PRN tab 08/13/24 08/22/24 Rx Furosemide [Lasix] 40 mg PO DAILY #30 tablet 08/13/24 08/22/24 Rx LORazepam [Ativan] 0.25 mg PO HS #3 tab 08/13/24 08/22/24 Rx Magnesium Oxide [Mag-Ox] 400 mg PO BID tab 08/13/24 08/22/24 Rx Potassium Chloride ER [K-Dur 20] 20 meq PO DAILY #30 tab 08/13/24 08/22/24 Rx Gabapentin [Neurontin] 300 mg PO TID 08/22/24 08/22/24 History LORazepam [Ativan] 1 mg PO TID PRN 08/22/24 08/22/24 History Magnesium Hydroxide [Milk of 7,200 mg PO Q48H PRN 08/22/24 08/22/24 History Magnesia Concentrate] Na Phos,M-B/Na Phos,Di-Ba [Fleet 133 ml RECTAL DAILY PRN 08/22/24 08/22/24 History Adult] Super B Complex Cap (B Complex 1 cap PO DAILY 08/22/24 08/22/24 History W/Biotin&Folic Acid) bisacodyL 10 mg RECTAL DAILY PRN 08/22/24 08/22/24 History hydrOXYzine pamoate [Vistaril] 50 mg PO HS 08/22/24 08/22/24 History Allergies Allergy/AdvReac Type Severity Reaction Status Date / Time codeine AdvReac Nausea Verified 08/22/24 09:28 Physical Exam Vitals: Vital Signs Temp Pulse Pulse Resp BP BP Pulse Ox 08/22/24 12:04 98.1 F 08/22/24 08:00 91 18 141/62 97 08/22/24 05:33 99.9 F H 112 H 18 106/66 98 08/22/24 05:30 116 H 08/22/24 05:24 123 H 08/22/24 04:28 102.9 F H 127 H 20 157/72 96 Intake and Output 08/21/24 08/22/24 08/22/24 22:59 06:59 14:59 Other: Weight 51.256 kg 51.256 kg GENERAL: Thin frail male in no acute distress HEAD: Atraumatic, normocephalic. EYES: Pupils equal round and reactive to light, extraocular movements intact, sclera anicteric, conjunctiva are normal. ENT:nares patent, oropharynx clear without exudates. Moist mucous membranes. NECK: Normal range of motion, supple without lymphadenopathy or JVD, no thyromegaly LUNGS: Breath sounds clear to auscultation bilaterally and equal. No wheezes rales or rhonchi. HEART: Regular rate and rhythm without murmurs, rubs or gallops.S1S2 Normal ABDOMEN: Soft, nontender, normoactive bowel sounds. No guarding, no rebound. No masses appreciated. EXTREMITIES: Normal range of motion, no pitting or edema. No clubbing or cyanosis. NEUROLOGICAL: Cranial nerves II through XII grossly intact. Normal speech, norm al gait. PSYCH: Normal mood, normal affect. SKIN: Warm, Dry, normal turgor, no rashes or lesions noted. Results CBC & Chem 7: 08/22/24 04:46 08/22/24 04:46 Labs: Abnormal Lab Results - Last 24 Hours (Table) 08/22/24 08/22/24 08/22/24 Range/Units 04:46 04:46 04:46 WBC 22.44 H (4.50-10.00) 10*3/uL RBC 3.10 L (4.40-5.60) 10*6/uL Hgb 10.6 L (13.0-17.0) g/dL Hct 32.3 L (39.6-50.0) % MCV 104.2 H (80.0-97.0) fL MCH 34.2 H (27.0-32.0) pg Plt Count 551 H (140-440) 10*3/uL Immature Gran # 0.12 H (0.00-0.04) 10*3/uL Neutrophils # 20.11 H (1.80-7.70) 10*3/uL Eosinophils # 0.39 H (0.04-0.35) 10*3/uL APTT 19.9 L (22.0-30.0) sec Sodium 134 L (137-145) mmol/L Alkaline Phosphatase 195 H (38-126) U/L Chest x-ray: report reviewed CT Scan - head: report reviewed Thrombosis Risk Factor Assmnt - DVT/VTE Prophylaxis DVT/VTE Prophylaxis: Low risk, early ambulation encouraged - Choose All That Apply Each Risk Factor Represents 2 Points: Age 61-74 years Thrombosis Risk Factor Assessment Total Risk Factor Score: 2 Thrombosis Risk Factor Assessment Level: Low Risk Assessment and Plan (1) Fever Current Visit: Yes Status: Acute Code(s): R50.9 - FEVER, UNSPECIFIED SNOMED Code(s): 644707425 (2) Leukocytosis Current Visit: Yes Status: Acute Code(s): D72.829 - ELEVATED WHITE BLOOD CELL COUNT, UNSPECIFIED SNOMED Code(s): 954097669 (3) H/O opioid abuse Current Visit: Yes Status: Acute Code(s): F11.11 - OPIOID ABUSE, IN REMISSION SNOMED Code(s): 286399368 (4) Hyperlipemia Current Visit: Yes Status: Acute Code(s): E78.5 - HYPERLIPIDEMIA, UNSPECIFIED SNOMED Code(s): 37421617 (5) Carotid stenosis Current Visit: Yes Status: Acute Code(s): I65.29 - OCCLUSION AND STENOSIS OF UNSPECIFIED CAROTID ARTERY SNOMED Code(s): 25342122 (6) Smoker Current Visit: Yes Status: Acute Code(s): F17.200 - NICOTINE DEPENDENCE, UNSPECIFIED, UNCOMPLICATED SNOMED Code(s): 03136273 (7) COPD (chronic obstructive pulmonary disease) Current Visit: No Status: Acute Code(s): J44.9 - CHRONIC OBSTRUCTIVE PU LMONARY DISEASE, UNSPECIFIED SNOMED Code(s): 46179784 (8) Essential (primary) hypertension Current Visit: No Status: Acute Code(s): I10 - ESSENTIAL (PRIMARY) HYPERTENSION SNOMED Code(s): 57172603 Plan: Currently he has received IV fluids. He did receive a dose of IV vancomycin. He appears back to his baseline his fever is resolved. He does have a leukocytosis. Viral studies are pending. Most likely return to ECF once we have those viral studies resulted.
--- NOTE | 2024-08-22 13:34 | P.DS ---
Providers Date of admission: 08/22/24 07:02 Expected date of discharge: 08/22/24 Attending physician: Kit Issa Consults: 08/22/24 07:02 Consult Physician Routine Consulting Provider: Giovanni Carter Consult Reason/Comments: sirs Do you want consulting provider notified?: Yes Primary care physician: Kit Issa - Discharge Diagnosis(es) (1) Fever Current Visit: Yes Status: Acute (2) Leukocytosis Current Visit: Yes Status: Acute (3) H/O opioid abuse Current Visit: Yes Status: Acute (4) Hyperlipemia Current Visit: Yes Status: Acute (5) Carotid stenosis Current Visit: Yes Status: Acute (6) Smoker Current Visit: Yes Status: Acute (7) COPD (chronic obstructive pulmonary disease) Current Visit: No Status: Acute (8) Essential (primary) hypertension Current Visit: No Status: Acute Hospital Course: Vincenzo is a 74-year-old male well-known to me. He was just in the hospital August 09 for increased weakness and dehydration. He was discharged on August 11, 2024 to ECF at [facility]. He is a known alcoholic and smoker. 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 Last night he dropped something on the floor and reached over and fell on the floor from his bed at [facility]. He was not able to get himself up he felt quite weak. Small to be febrile at that point. He denied any chest pain pressure shortness of breath nausea or vomiting. He also had some increased weakness. He was transferred to the ER and found to have a leukocytosis but other labs are negative. Viral cultures are pending. Addendum: Vincenzo is back to his baseline with just Tylenol and IV fluids. Most likely he has a viral illness. Infectious disease has seen him, or at this point I believe he is safe to return to [facility] where he will have full nursing available to him. We will confirm he does not have flu COVID or RSV first. A viral panel has been ordered to evaluate another underlying cause such as rhinovirus. I will reevaluate there on August 26 Patient Condition at Discharge: Fair Plan - Discharge Summary Discharge Rx Participant: No New Discharge Prescriptions: Continue cloNIDine HCL [Catapres] 0.2 mg PO TID Ipratropium/Albuter 20-100Mcg [Combivent Respimat 20-100Mcg Inhaler] 2 puff INHALATION RT-QID PRN PRN Reason: Shortness Of Breath Pantoprazole [Protonix] 40 mg PO DAILY carvediloL [Coreg] 12.5 mg PO BID Aspirin EC [Ecotrin Low Dose] 81 mg PO DAILY #30 tab LORazepam [Ativan] 0.25 mg PO HS #3 tab Potassium Chloride ER [K-Dur 20] 20 meq PO DAILY #30 tab Furosemide [Lasix] 40 mg PO DAILY #30 tablet hydrOXYzine pamoate [Vistaril] 50 mg PO HS Super B Complex Cap (B Complex W/Biotin&Folic Acid) 1 cap PO DAILY Gabapentin [Neurontin] 300 mg PO TID Atorvastatin [Lipitor] 80 mg PO DAILY calcitrioL 0.25 mcg PO MO Acetaminophen Tab [Tylenol] 1,000 mg PO DAILY Thiamine [Vitamin B-1] 100 mg PO DAILY tab Acetaminophen Tab [Tylenol] 650 mg PO Q6HR PRN tab PRN Reason: Fever And/ Or Pain Magnesium Oxide [Mag-Ox] 400 mg PO BID tab Magnesium Hydroxide [Milk of Magnesia Concentrate] 7,200 mg PO Q48H PRN PRN Reason: Constipation LORazepam [Ativan] 1 mg PO TID PRN PRN Reason: Anxiety bisacodyL 10 mg RECTAL DAILY PRN PRN Reason: Constipation Na Phos,M-B/Na Phos,Di-Ba [Fleet Adult] 133 ml RECTAL DAILY PRN PRN Reason: Constipation Discharge Medication List cloNIDine HCL [Catapres] 0.2 mg PO TID 07/28/19 [History] Atorvastatin [Lipitor] 80 mg PO DAILY 10/10/20 [History] Ipratropium/Albuter 20-100Mcg [Combivent Respimat 20-100Mcg Inhaler] 2 puff INHALATION RT-QID PRN 09/26/23 [History] Pantoprazole [Protonix] 40 mg PO DAILY 09/26/23 [History] calcitrioL 0.25 mcg PO MO 01/01/24 [History] Acetaminophen Tab [Tylenol] 1,000 mg PO DAILY 08/09/24 [History] carvediloL [Coreg] 12.5 mg PO BID 08/09/24 [History] Aspirin EC [Ecotrin Low Dose] 81 mg PO DAILY #30 tab 08/11/24 [Rx] Thiamine [Vitamin B-1] 100 mg PO DAILY tab 08/11/24 [Rx] Acetaminophen Tab [Tylenol] 650 mg PO Q6HR PRN tab 08/13/24 [Rx] Furosemide [Lasix] 40 mg PO DAILY #30 tablet 08/13/24 [Rx] LORazepam [Ativan] 0.25 mg PO HS #3 tab 08/13/24 [Rx] Magnesium Oxide [Mag-Ox] 400 mg PO BID tab 08/13/24 [Rx] Potassium Chloride ER [K-Dur 20] 20 meq PO DAILY #30 tab 08/13/24 [Rx] Gabapentin [Neurontin] 300 mg PO TID 08/22/24 [History] LORazepam [Ativan] 1 mg PO TID PRN 08/22/24 [History] Magnesium Hydroxide [Milk of Magnesia Concentrate] 7,200 mg PO Q48H PRN 08/22/24 [History] Na Phos,M-B/Na Phos,Di-Ba [Fleet Adult] 133 ml RECTAL DAILY PRN 08/22/24 [History] Super B Complex Cap (B Complex W/Biotin&Folic Acid) 1 cap PO DAILY 08/22/24 [History] bisacodyL 10 mg RECTAL DAILY PRN 08/22/24 [History] hydrOXYzine pamoate [Vistaril] 50 mg PO HS 08/22/24 [History] Follow up Appointment(s)/Referral(s): Kit Issa MD [Primary Care Provider] - 1-2 days German Lema [NON-STAFF] - As Needed Discharge Disposition: TRANSFER TO SNF/ECF
[2024-08-22 13:42] LABS: Influenza A Not Detected (Not Detectd); Influenza B Not Detected (Not Detectd); RSV Not Detected (Not Detectd)
[2024-08-22] MEDS ORDERED: CEFEPIME 2 GM in SODIUM CHLORIDE 0.9% 100 ML IVPB SCH (16:00)
[2024-08-23] MEDS ORDERED: VANCOMYCIN 1,000 MG in SODIUM CHLORIDE 0.9% 250 ML IVPB SCH
== END 2024-08-22 14:45 | DRG 866 ==
LOC: EC 04:25 → 4SSUR 07:02
PROVIDERS: ADMIT Family Medicine; ATTEND Family Medicine
DX: B34.9 Viral infection, unspecified (principal); E78.5 Hyperlipidemia, unspecified; F11.10 Opioid abuse, uncomplicated; J44.9 Chronic obstructive pulmonary disease, unspecified; N18.30 Chronic kidney disease, stage 3 unspecified; I12.9 Hypertensive chronic kidney disease with stage 1 through stage 4 chronic kidney disease, or unspecified chronic kidney disease; I65.29 Occlusion and stenosis of unspecified carotid artery; R65.10 Systemic inflammatory response syndrome (SIRS) of non-infectious origin without acute organ dysfunction; F17.200 Nicotine dependence, unspecified, uncomplicated; R53.1 Weakness; Z79.899 Other long term (current) drug therapy; Z79.82 Long term (current) use of aspirin; Z88.5 Allergy status to narcotic agent
CPT/HCPCS: 36415; 70450; 71046; 80053; 81003; 83605; 85025; 85610; 85730; 87040; 87636; 93005; 94640; 96361; 96365; 96366; 96375; 99285